=== PATIENT | female | born 1955 | race Hispanic/Latino ===

== ENCOUNTER 2017-01-12 11:00 | Inpatient (IN) | payer BC ==
--- NOTE | 2017-01-12 11:22 | ED PDOC ---
HPI: Psych/Substance Abuse Time Seen by Provider: 01/12/17 11:12 Chief Complaint (Nursing): Alcohol Ingestion Chief Complaint (Provider): ETOH intoxication History Per: Patient, EMS, Family Additional Complaint(s): Patient 61 year old female with long hx of alcohol abuse, liver cirrhosis, pancreatitis, and several admission in rehab for detox. She presented in ER with hx of weakness in inability to ambulate since yesterday. Pt does have AOB at this time. Pt reports that yesterday she woke up and got out of bed, tried to , and was unable to stand. Pt reports going back to bed however. Pt notes that her sister called the ambulance after she found out she was in bed all day. Pt has full sensation to lower extremities, able to move lower extremities. no complaints of pain Past Medical History Reviewed: Historical Data, Nursing Documentation, Vital Signs Vital Signs: Last Vital Signs Temp 98.1 F 01/12/17 11:03 Pulse 103 H 01/12/17 11:03 Resp 20 01/12/17 11:03 BP 144/94 H 01/12/17 11:03 Pulse Ox 98 01/12/17 11:04 - Medical History PMH: Pancreatitis Denies: HIV, Chronic Kidney Disease, Seizures Other PMH: Cirrhoisis - Family History Family History: States: Unknown Family Hx - Social History Alcohol: > 2 Drinks/Day - Home Medications Home Medications: Ambulatory Orders Medication Instructions Recorded No Known Home Med 01/12/17 - Allergies Allergies/Adverse Reactions: Allergies Allergy/AdvReac Type Severity Reaction Status Date / Time No Known Allergies Allergy Verified 01/12/17 11:04 Review of Systems ROS Statement: Except As Marked, All Systems Reviewed And Found Negative Constitutional: Positive for: Weakness Physical Exam - Reviewed Nursing Documentation Reviewed: Yes Vital Signs Reviewed: Yes - Physical Exam Appears: Positive for: Well, Non-toxic, No Acute Distress Head Exam: Positive for: ATRAUMATIC, NORMAL INSPECTION, NORMOCEPHALIC Skin: Positive for: Warm, Jaundice Eye Exam: Positive for: EOMI, PERRL, Scleral icterus ENT: Positive for: Normal ENT Inspection Neck: Positive for: Normal, Painless ROM Cardiovascular/Chest: Positive for: Regular Rate, Rhythm Respiratory: Positive for: CNT, Normal Breath Sounds Gastrointestinal/Abdominal: Positive for: Normal Exam, Bowel Sounds, Soft Back: Positive for: Normal Inspection Extremity: Positive for: Normal ROM Neurologic/Psych: Positive for: Alert, Oriented - Laboratory Results Result Diagrams: 01/12/17 11:30 01/12/17 11:30 - ECG O2 Sat by Pulse Oximetry: 98 Medical Decision Making Medical Decision Making: IV access established and diagnostics ordered. Treatment initiated with IV Rocephin and IVF after Labs resulted with elevated WBC and Lactate. UA resulted with elevated WBCs Repeat Lactate to be drawn at 18:30 ETOH 196 CXR: NAD, as read by PA-C IMPRESSION: Generalized atrophy. Nonspecific white matter changes. Small region of encephalomalacia within the left cerebellum. Case discussed with Dr. chapa who reports that he is away at this time, hospitalist covering. Dr. brar contacted and presented to see and evaluate Pt at bedside. arrangements made for admission Disposition - Clinical Impression Clinical Impression: Alcohol abuse, Severe sepsis - Patient ED Disposition Is Patient to be Admitted: Yes - Disposition Disposition Time: 17:03 Condition: STABLE Forms: [facility] (Nepali) - POA Present On Arrival: None
[2017-01-12 11:55] LABS: BASO # 0.1 K/uL (0.0-0.2); BASO % 0.6 % (0.0-2.0); EOS # 0.2 K/uL (0.0-0.7); EOS % 1.3 % (0.0-4.0); LYMPH # 1.3 K/uL (1.0-4.3); LYMPH % 7.4 % (20.0-40.0); MEAN CELL VOLUME 117.4 fl (81.0-99.0); MEAN CORPUSCULAR HEMOGLOBIN 39.6 pg (27.0-31.0); MEAN CORPUSCULAR HGB CONC 33.7 g/dL (33.0-37.0); MEAN PLATELET VOLUME 9.1 fl (7.2-11.7); MONO # 1.1 K/uL (0.0-0.8); MONO % 6.4 % (0.0-10.0); NEUT # 14.8 K/uL (1.8-7.0); NEUT % 84.3 % (50.0-75.0); NRBC % 0.3 % (0.0-0.0); PLATELET COUNT 115 K/uL (130-400); WHITE BLOOD COUNT 17.5 K/uL (4.8-10.8)
[2017-01-12 11:56] LABS: ALB/GLOB RATIO 0.8 (1.0-2.1); ALCOHOL SERUM 196 mg/dl (0-10); ALKALINE PHOSPHATASE 247 U/L (38-126); ALT/SGPT 70 U/L (9-52); AST/SGOT 151 U/L (14-36); BILIRUBIN,TOTAL 14.6 mg/dl (0.2-1.3); BLOOD UREA NITROGEN 16 mg/dl (7-17); CALCIUM 8.2 mg/dL (8.4-10.2); CARBON DIOXIDE 24 mmol/L (22-30); CHLORIDE 100 mmol/L (98-107); GFR AFRICAN-AMERICAN > 60; GLUCOSE,RANDOM 106 mg/dL (65-105); POTASSIUM 3.4 MMOL/L (3.6-5.0); SODIUM 135 mmol/l (132-148); TOTAL PROTEIN 6.6 G/DL (6.3-8.2)
[2017-01-12 12:47] LABS: RBC URINE 8 /hpf (0-3); RENAL EPITHELIAL 3 /hpf (0-3); URINE BACTERIA RARE (<OCC); URINE BILIRUBIN MODERATE (NEGATIVE); URINE BLOOD LARGE (NEGATIVE); URINE COLOR AMBER (YELLOW); URINE GLUCOSE (UA) 50 mg/dL (Normal); URINE KETONE NEGATIVE (NEGATIVE); URINE LEUKOCYTE ESTERASE NEG Leu/uL (Negative); URINE PROTEIN 30 mg/dL (NEGATIVE); WBC CLUMPS MOD /hpf; WBC URINE 25 /hpf (0-5)
[2017-01-12 13:26] LABS: EOSINOPHIL 3 % (0-7); NEUTROPHIL 87 % (42-75); TOTAL CELLS COUNTED 100
[2017-01-12 13:27] LABS: LARGE PLATELETS PRESENT
[2017-01-12] MEDS ORDERED: Thiamine 100 mg/ml Inj IM ONE (15:13)
[2017-01-12] MEDS ORDERED: Sodium Chloride 0.9% 1,000 ML IV STA ×2 (15:13→16:27)
[2017-01-12] MEDS ORDERED: Thiamine 100 mg/ml Inj ONE (15:33)
[2017-01-12] MEDS ORDERED: cefTRIAXone (Rocephin) 1 gm Inj ONE (15:33)
[2017-01-12 15:39] LABS: VENOUS BLOOD GAS BASE EXCESS 2.2 mmol/L (0.0-2.0); VENOUS BLOOD GAS PCO2 34 mmHg (40-60); VENOUS BLOOD PH 7.48 (7.32-7.43)
--- NOTE | 2017-01-12 17:28 | RAD ---
PROCEDURE: CHEST RADIOGRAPH, 1 VIEW HISTORY: Leukocytosis. COMPARISON: 04/25/2016. FINDINGS: LUNGS: Clear. PLEURA: No pneumothorax or pleural fluid seen. CARDIOVASCULAR: No radiographic findings to suggest acute or significant cardiovascular disease. OSSEOUS STRUCTURES: No significant abnormalities. VISUALIZED UPPER ABDOMEN: Normal. OTHER FINDINGS: None. IMPRESSION: No active disease. No acute/significant interval changes.
--- NOTE | 2017-01-12 17:45 | CP.PCM.HP ---
History of Present Illness - History of Present Illness History of Present Illness: Chief Complaint ; Generalized weakness , unable to walk History obtained from patient and As per patient has been feeling more depressed lately due to internal family problems and as a result has been drinking heavily for the past few days non stop, all day . 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 As per patient she has been an alcoholic for many years and drinks heavily . She was feeling so weak that she fell on the floor hitting her knees and was unable to get up.She denies any head trauma, LOC , seizure like episodes. She did sleep on the floor because she could not get up . Her and sister decided to call the EMS against patient's wishes to bring her for evaluation. She is complaining of generalized weakness, bilateral knee pain. Denies any SOB , CP, palpitations,dizziness, abdominal pain , dysuria, fever, chills, nause aor vomiting. In ER she was found to have WBC 17 K , tachycardic , lactic acid 3.5 , Ua cloudy with rare bacteria and WBc clumps. Patient being admitted for sepsis and alcoholism Allergies ; NKDA PMH ' Alcoholism , liver cirrhosis Medications; thiamine, Folic acid Surgery : hysterectomy Family history ; Hypertension runs in family\ Social history ; Lives in [place] with , has no children, smokes 1/2 PPD , drinks heavily sometimes all day , denies any drugs ROS ; 14 point review of system negative except above Present on Admission - Present on Admission Any Indicators Present on Admission: No Review of Systems - Review of Systems All systems: reviewed and no additional remarkable complaints except Past Patient History - Infectious Disease Hx of Infectious Diseases: None - Tetanus Immunizations Tetanus Immunization: Unknown - Past Medical History & Family History Past Medical History?: Yes Past Family History: Reviewed and not pertinent - Past Social History Smoking Status: Heavy Smoker > 10 Cigarettes Daily Chewing Tobacco Use: No Cigar Use: No Alcohol: > 2 Drinks/Day Drugs: Denies Home Situation {Lives}: With Family Domestic Violence: Negative - CARDIAC Hx Cardiac Disorders: No - PULMONARY Hx Respiratory Disorders: No - NEUROLOGICAL Hx Seizures: No - HEENT Hx HEENT Problems: No - RENAL Hx Chronic Kidney Disease: No - ENDOCRINE/METABOLIC Hx Endocrine Disorders: No - HEMATOLOGICAL/ONCOLOGICAL Hx Human Immunodeficiency Virus (HIV): No - INTEGUMENTARY Hx Dermatological Problems: No - MUSCULOSKELETAL/RHEUMATOLOGICAL Hx Musculoskeletal Disorders: No Hx Falls: No - GASTROINTESTINAL Hx Pancreatitis: Yes Other/Comment: liver cirrhosis - GENITOURINARY/GYNECOLOGICAL Hx Genitourinary Disorders: No - PSYCHIATRIC Hx Psychophysiologic Disorder: No Hx Substance Use: No - SURGICAL HISTORY Hx Surgeries: Yes Hx Hysterectomy: Yes - ANESTHESIA Hx Anesthesia: Yes Hx Anesthesia Reactions: No Hx Malignant Hyperthermia: No Meds Allergies/Adverse Reactions: Allergies Allergy/AdvReac Type Severity Reaction Status Date / Time No Known Allergies Allergy Verified 01/12/17 11:04 Physical Exam - Constitutional Appears: Non-toxic, No Acute Distress, Chronically Ill, Other (jaundiced ) - Head Exam Head Exam: ATRAUMATIC, NORMAL INSPECTION, NORMOCEPHALIC - Eye Exam Eye Exam: PERRL, Scleral icterus Pupil Exam: NORMAL ACCOMODATION, PERRL - ENT Exam ENT Exam: Mucous Membranes Dry, Normal Exam - Neck Exam Neck exam: Positive for: Normal Inspection - Respiratory Exam Respiratory Exam: Clear to Auscultation Bilateral. absent: Accessory Muscle Use , Prolonged Expiratory Phase, Rhonchi, Respiratory Distress Additional comments: scattered expiratory wheezing - Cardiovascular Exam Cardiovascular Exam: Tachycardia, +S1, +S2. absent: JVD - GI/Abdominal Exam GI & Abdominal Exam: Normal Bowel Sounds, Soft. absent: Distended, Guarding, Rebound, Tenderness - Rectal Exam Rectal Exam: Deferred - Extremities Exam Extremities exam: Positive for: pedal edema (3 + foot edema ). Negative for: calf tenderness Additional comments: bilateral knees echymosis - Back Exam Back exam: NORMAL INSPECTION - Neurological Exam Neurological exam: Alert, CN II-XII Intact, Oriented x3 - Psychiatric Exam Psychiatric exam: Flat Affect - Skin Skin Exam: Dry, Pallor, Warm Results - Vital Signs Recent Vital Signs: Last Vital Signs Temp 98.1 F 01/12/17 11:03 Pulse 103 H 01/12/17 11:03 Resp 20 01/12/17 11:03 BP 144/94 H 01/12/17 11:03 Pulse Ox 98 01/12/17 17:04 - Labs Result Diagrams: 01/12/17 11:30 01/12/17 11:30 - Imaging and Cardiology Chest x-ray Additional comment: no active disease Assessment & Plan - Assessment and Plan (Free Text) Assessment: As per patient has been feeling more depressed lately due to internal family problems and as a result has been drinking heavily for the past few days non stop, all day . 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 As per patient she has been an alcoholic for many years and drinks heavily . She was feeling so weak that she fell on the floor hitting her knees and was unable to get up.She denies any head trauma, LOC , seizure like episodes. She did sleep on the floor because she could not get up . Her and sister decided to call the EMS against patient's wishes to bring her for evaluation. She is complaining of generalized weakness, bilateral knee pain. Denies any SOB , CP, palpitations,dizziness, abdominal pain , dysuria, fever, chills, nause aor vomiting. In ER she was found to have WBC 17 K , tachycardic , lactic acid 3.5 , UA cloudy with rare bacteria and WBc clumps. Patient being admitted for sepsis and alcoholism 1. Sepsis Most likely secondary to UTI CXR showed no infiltrate Continue IVF Follow up urine and blood cx Continue Iv Rocephin 2.Alcoholism / ETOH intoxication Start IVF with thiamine, folic acid, MVI Ativan RTC TID and PRN Seizure , withdrawal precautions 3. Alcoholic liver cirrhosis / coagulopathy/thrombocytopenia 4. Generalized weakness / fall PT eval check CPK 5. DVT prophylaxis SCD no anticoagulation =due to thrombocytopenia and Coagulopathy
[2017-01-12 18:13] LABS: PARTIAL THROMBOPLASTIN TIME 34.9 Seconds (25.6-37.1)
[2017-01-12 18:40] LABS: VENOUS BLOOD GAS BASE EXCESS -0.2 mmol/L (0.0-2.0); VENOUS BLOOD GAS PCO2 37 mmHg (40-60); VENOUS BLOOD PH 7.42 (7.32-7.43)
[2017-01-12] MEDS ORDERED: Thiamine 100 MG, Folic Acid 1 MG, Multivitamin 10 ML in Sodium Chloride 0.9% 1,000 ML IV SCH (19:30)
[2017-01-12 21:02] LABS: THYROID STIMULATING HORMONE 9.16 mIU/ML (0.46-4.68)
[2017-01-12] MEDS ORDERED: Potassium Chloride 20 mEq ER Tab PO ONE (21:55)
[2017-01-12] MEDS: Potassium Chl 20 mEq in NS 1,000 ML IV SCH (23:28)
[2017-01-13] MEDS: Sodium Chloride 0.9% 1,000 ML IV SCH ×3 (00:59→17:44)
[2017-01-13 06:33] LABS: BASO # 0.1 K/uL (0.0-0.2); BASO % 0.7 % (0.0-2.0); EOS # 0.2 K/uL (0.0-0.7); EOS % 1.7 % (0.0-4.0); HEMATOCRIT 34.2 % (34.0-47.0); LYMPH % 6.7 % (20.0-40.0); MEAN CORPUSCULAR HEMOGLOBIN 40.3 pg (27.0-31.0); MEAN CORPUSCULAR HGB CONC 34.2 g/dL (33.0-37.0); MONO # 0.7 K/uL (0.0-0.8); MONO % 4.6 % (0.0-10.0); NEUT # 12.5 K/uL (1.8-7.0); NEUT % 86.3 % (50.0-75.0); NRBC % 0.5 % (0.0-0.0); RED CELL DISTRIBUTION WIDTH 19.8 % (11.5-14.5); WHITE BLOOD COUNT 14.5 K/uL (4.8-10.8)
[2017-01-13 06:38] LABS: BLOOD UREA NITROGEN 14 mg/dl (7-17); CALCIUM 7.6 mg/dL (8.4-10.2); CARBON DIOXIDE 23 mmol/L (22-30); CHLORIDE 105 mmol/L (98-107); GFR AFRICAN-AMERICAN > 60; GLUCOSE,RANDOM 103 mg/dL (65-105); POTASSIUM 3.9 MMOL/L (3.6-5.0); SODIUM 135 mmol/l (132-148)
[2017-01-13 06:52] LABS: PARTIAL THROMBOPLASTIN TIME 36.8 Seconds (25.6-37.1)
--- NOTE | 2017-01-13 07:33 | CARD ---
APPROVED REPORT EKG Measurement Heart [id number] <Conclusion> Normal sinus rhythm Low voltage QRS Cannot rule out Anterior infarct, age undetermined Abnormal ECG
--- NOTE | 2017-01-13 08:00 | PQF GENQUE ---
This form is a permanent part of the medical record 01/13/17 Dr. Duque, Would you please clarify if there is an associated diagnosis or not to go along with elevated BMI . If yes please document BMI as well. Clarification of your documentation is requested to better reflect the severity of illness and intensity of treatment of your patient. Indicators present [] Specify: [] [] Specify: [] [] Specify: [] [] Specify: [] Location in the medical record that reflects the above clinical findings: [] Treatment Provided: [] PHYSICIAN'S RESPONSE Dx :Obesity BMI 43 Based on your medical judgment of the clinical indicators outlined above please clarify the following: [] Practitioner response [] If unable to determine, please check the box, sign and date. Present On Admission (POA) Indicator: [] Present at the time of admission [] Not present at the time of admission [] Clinically Undetermined In responding to this query, please exercise your independent professional judgment. The fact that a question is asked does not imply that any particular answer is desired or expected. Thank you for your clarification on this documentation. If you have any questions please call:extension [phone] * Thank you, Alondra Cheek RN CDMP [facility]
[2017-01-13] MEDS ORDERED: Enoxaparin 40 mg Syringe SC SCH (09:00)
--- NOTE | 2017-01-13 09:09 | CP.PCM.PN ---
Subjective - Date & Time of Evaluation Date of Evaluation: 01/13/17 Time of Evaluation: 10:00 - Subjective Subjective: Patient seen and examined bedside. Lying in bed , sleepy , lethargic ,in NAD. Feeling weak, tachycardic. Denies any chest pain or SOB Objective - Vital Signs/Intake and Output Vital Signs (last 24 hours): Temp Pulse Resp BP Pulse Ox 98.2 F 118 H 18 112/62 94 L 01/13/17 08:41 01/13/17 08:41 01/13/17 08:41 01/13/17 08:41 01/13/17 08:41 - Medications Medications: Current Medications Docusate Sodium (Colace) 100 mg PO BID PRN PRN Reason: Constipation Enoxaparin Sodium (Lovenox) 40 mg SC DAILY [facility] PRN Reason: Protocol Sodium Chloride (Sodium Chloride 0.9%) 1,000 mls @ 100 mls/hr IV .Q10H [facility] Last Admin: 01/13/17 05:34 Dose: Not Given Ceftriaxone Sodium 1 gm/ (Sodium Chloride) 100 mls @ 100 mls/hr IVPB DAILY [facility] Potassium Chloride/Sodium Chloride (Potassium Chl 20 Meq In Ns) 1,000 mls @ 100 mls/hr IV .Q10H [facility] Stop: 01/13/17 21:55 Last Admin: 01/12/17 23:28 Dose: 100 mls/hr Ibuprofen (Motrin Tab) 400 mg PO Q6 PRN PRN Reason: Pain, Mild (1-3) Ibuprofen (Motrin Tab) 400 mg PO Q6 PRN PRN Reason: Fever >100.4 F Ketorolac Tromethamine (Toradol) 30 mg IVP Q6 PRN PRN Reason: Pain, moderate (4-7) Lorazepam (Ativan) 1 mg PO TID [facility] Lorazepam (Ativan) 1 mg IVP Q6 PRN PRN Reason: withdrawals Morphine Sulfate (Morphine) 2 mg IVP Q6 PRN PRN Reason: Pain, severe (8-10) Ondansetron HCl (Zofran Inj) 4 mg IVP Q6 PRN PRN Reason: Nausea/Vomiting Pantoprazole Sodium (Protonix Ec Tab) 40 mg PO DAILY [facility] - Labs Labs: 01/13/17 06:00 01/13/17 06:00 PT 17.9 Seconds (9.8-13.1) H 01/13/17 06:00 INR 1.7 (0.9-1.2) H 01/13/17 06:00 APTT 36.8 Seconds (25.6-37.1) 01/13/17 06:00 - Constitutional Appears: No Acute Distress, Chronically Ill, Other (lethargic) - Head Exam Head Exam: ATRAUMATIC, NORMOCEPHALIC - Eye Exam Eye Exam: EOMI, PERRL, Scleral icterus Pupil Exam: NORMAL ACCOMODATION - ENT Exam ENT Exam: Mucous Membranes Moist, Normal Exam - Neck Exam Neck Exam: Normal Inspection - Respiratory Exam Respiratory Exam: Clear to Ausculation Bilateral. absent: Accessory Muscle Use , Prolonged Expiratory Phase, Rhonchi, Wheezes, Respiratory Distress - Cardiovascular Exam Cardiovascular Exam: Tachycardia, +S1, +S2. absent: JVD - GI/Abdominal Exam GI & Abdominal Exam: Distended (ascites), Normal Bowel Sounds. absent: Guarding , Tenderness, Rebound - Rectal Exam Rectal Exam: Deferred - Extremities Exam Extremities Exam: Pedal Edema (3 +). absent: Joint Swelling Additional comments: bilateral knees echymotic areas - Neurological Exam Additional comments: lethargic but responsive AAOx3, no gross neuro deficitis - Psychiatric Exam Psychiatric exam: Flat Affect - Skin Skin Exam: Dry, Pallor, Warm Assessment and Plan - Assessment and Plan (Free Text) Assessment: 61 y/o female with PMH of chronic alcoholism and liver cirrhosis, brought in for evaluation for weakness , inability to walk . As per patient has been drinking heavily for the past few days As per patient she has been an alcoholic for many years and drinks heavily . She was feeling so weak that she fell on the floor hitting her knees and was unable to get up.She denies any head trauma, LOC , seizure like episodes. She did sleep on the floor because she could not get up . Her and sister decided to call the EMS against patient's wishes to bring her for evaluation. She is complaining of generalized weakness, bilateral knee pain. Denies any SOB , CP, palpitations,dizziness, abdominal pain , dysuria, fever, chills, nausea or vomiting. In ER she was found to have WBC 17 K , tachycardic , lactic acid 3.5 , UA cloudy with rare bacteria and WBC clumps. Patient being admitted for sepsis and alcoholism 1. Sepsis Most likely secondary to UTI CXR showed no infiltrate Continue IVF Follow up urine and blood cx Continue Iv Rocephin 2.Alcoholism / ETOH intoxication Continue IVF with thiamine, folic acid, MVI Ativan RTC TID and PRN Seizure , withdrawal precautions Will check ammonia levels since patient is lethargic 3. Alcoholic liver cirrhosis / coagulopathy/thrombocytopenia 4. Generalized weakness / fall PT eval CPK 195 5. DVT prophylaxis SCD no anticoagulation due to thrombocytopenia and Coagulopathy
[2017-01-13] MEDS: Pantoprazole 40 mg EC Tab PO SCH (10:18)
[2017-01-13] MEDS ORDERED: Lactulose 10 gm/15 ml (Rectal Use) PR ONE (16:59)
[2017-01-13] MEDS: Potassium Chl 20 mEq in NS 1,000 ML IV SCH ×2 (17:44→17:47)
[2017-01-14] MEDS: Sodium Chloride 0.9% 1,000 ML IV SCH ×3 (02:00→12:42)
[2017-01-14 07:38] LABS: HEMATOCRIT 35.1 % (34.0-47.0); MEAN CORPUSCULAR HEMOGLOBIN 40.6 pg (27.0-31.0); MEAN CORPUSCULAR HGB CONC 33.6 g/dL (33.0-37.0); RED CELL DISTRIBUTION WIDTH 21.2 % (11.5-14.5); WHITE BLOOD COUNT 15.3 K/uL (4.8-10.8)
[2017-01-14 07:40] LABS: BLOOD UREA NITROGEN 16 mg/dl (7-17); CALCIUM 7.7 mg/dL (8.4-10.2); CARBON DIOXIDE 23 mmol/L (22-30); CHLORIDE 107 mmol/L (98-107); GFR AFRICAN-AMERICAN > 60; GLUCOSE,RANDOM 82 mg/dL (65-105); POTASSIUM 4.3 MMOL/L (3.6-5.0); SODIUM 138 mmol/l (132-148)
[2017-01-14 07:47] LABS: MEAN CELL VOLUME 120.8 fl (81.0-99.0)
[2017-01-14 09:07] LABS: ALB/GLOB RATIO 0.7 (1.0-2.1); BILIRUBIN,TOTAL 17.7 mg/dl (0.2-1.3)
[2017-01-14 09:24] LABS: T4 6.08 ug/dl (5.5-11.0)
[2017-01-14 09:38] LABS: THYROID STIMULATING HORMONE 9.32 mIU/ML (0.46-4.68)
[2017-01-14] MEDS: Pantoprazole 40 mg EC Tab PO SCH (09:51)
--- NOTE | 2017-01-14 10:46 | CP.PCM.PN ---
Subjective - Date & Time of Evaluation Date of Evaluation: 01/14/17 Time of Evaluation: 10:30 - Subjective Subjective: Pt seen and examined. Denied any complaint but appeared lethargic and appeared SOB. RR was 24 but with some effort. Objective - Vital Signs/Intake and Output Vital Signs (last 24 hours): Temp Pulse Resp BP Pulse Ox 98.7 F 106 H 20 127/71 95 01/14/17 08:00 01/14/17 08:00 01/14/17 08:00 01/14/17 08:00 01/14/17 08:00 Intake and Output: 01/14/17 01/14/17 06:59 18:59 Intake Total 1000 Balance 1000 - Medications Medications: Current Medications Docusate Sodium (Colace) 100 mg PO BID PRN PRN Reason: Constipation Enoxaparin Sodium (Lovenox) 40 mg SC DAILY [facility] PRN Reason: Protocol Last Admin: 01/13/17 10:18 Dose: 40 mg Sodium Chloride (Sodium Chloride 0.9%) 1,000 mls @ 100 mls/hr IV .Q10H [facility] Last Admin: 01/14/17 06:03 Dose: 100 mls/hr Ceftriaxone Sodium 1 gm/ (Sodium Chloride) 100 mls @ 100 mls/hr IVPB DAILY [facility] Last Admin: 01/14/17 09:51 Dose: 100 mls/hr Ibuprofen (Motrin Tab) 400 mg PO Q6 PRN PRN Reason: Pain, Mild (1-3) Ibuprofen (Motrin Tab) 400 mg PO Q6 PRN PRN Reason: Fever >100.4 F Ketorolac Tromethamine (Toradol) 30 mg IVP Q6 PRN PRN Reason: Pain, moderate (4-7) Lactulose (Enulose) 20 gm PO DAILY PRN PRN Reason: Constipation Last Admin: 01/14/17 09:51 Dose: 20 gm Lorazepam (Ativan) 1 mg PO TID [facility] Last Admin: 01/14/17 09:52 Dose: Not Given Lorazepam (Ativan) 1 mg IVP Q6 PRN PRN Reason: withdrawals Morphine Sulfate (Morphine) 2 mg IVP Q6 PRN PRN Reason: Pain, severe (8-10) Ondansetron HCl (Zofran Inj) 4 mg IVP Q6 PRN PRN Reason: Nausea/Vomiting Pantoprazole Sodium (Protonix Ec Tab) 40 mg PO DAILY [facility] Last Admin: 01/14/17 09:51 Dose: 40 mg - Labs Labs: 01/14/17 06:00 01/14/17 06:00 PT 17.9 Seconds (9.8-13.1) H 01/13/17 06:00 INR 1.7 (0.9-1.2) H 01/13/17 06:00 APTT 36.8 Seconds (25.6-37.1) 01/13/17 06:00 - Constitutional Appears: Other (lethargic) - Head Exam Head Exam: ATRAUMATIC - Eye Exam Eye Exam: Scleral icterus - ENT Exam ENT Exam: Mucous Membranes Dry - Neck Exam Neck Exam: absent: Meningismus - Respiratory Exam Respiratory Exam: absent: Rhonchi, Wheezes - Cardiovascular Exam Cardiovascular Exam: Tachycardia, +S1, +S2 - GI/Abdominal Exam GI & Abdominal Exam: Soft. absent: Tenderness - Rectal Exam Rectal Exam: Deferred - Extremities Exam Extremities Exam: Pedal Edema (+ pedal edema) - Neurological Exam Neurological Exam: Altered (lethargic) - Skin Skin Exam: Dry Assessment and Plan - Assessment and Plan (Free Text) Assessment: 61 yo female with history of chronic alcoholism and liver cirrhosis found unable to get up after a fall because of generalized weakness. Admitted with Sepsis secondary to UTI 1. Sepsis secondary to UTI CXR showed no infiltrate follow up blood culture and urine culture continue Rocephin 1gm IV daily 2. Alcoholism / ETOH intoxication blood alcohol level on admission was 196 Continue Thiamine, Folic Acid, MVI DC Ativan RTC since patient is lethargic continue Ativan 1mg IVP q 6hrs prn for withdrawal symptoms Seizure, withdrawal precautions Will recheck ammonia levels since it was elevated and patient continue to be lethargic 3. Alcoholic liver cirrhosis / coagulopathy/thrombocytopenia follow up serum ammonia level continue Lactulose 20gm PO daily 4. Generalized weakness / fall secondary to all of the above 5. DVT prophylaxis SCD no anticoagulation due to thrombocytopenia and Coagulopathy
[2017-01-14 11:04] LABS: ABG ALLEN TEST YES; ARTERIAL BLOOD GAS O2 CAPACITY 16.4 mL/dL (16-24); ARTERIAL BLOOD GAS O2 CONTENT 16.2 ML/dL (15-23); ARTERIAL BLOOD GAS PH 7.46 (7.35-7.45); ARTERIAL BLOOD GAS PO2 77 mm/Hg (80-100); ARTERIAL BLOOD HGB O2 SAT 94.7 % (95.0-98.0); CARBOXYHEMOGLOBIN 2.6 % (0.5-1.5); HHB 1.1 % (0.0-5.0); METHEMOGLOBIN 1.5 % (0.0-3.0)
[2017-01-15] MEDS: Sodium Chloride 0.9% 1,000 ML IV SCH ×2 (08:38→19:34)
[2017-01-15] MEDS: Pantoprazole 40 mg EC Tab PO SCH (08:39)
--- NOTE | 2017-01-15 11:29 | CP.PCM.PN ---
Subjective - Date & Time of Evaluation Date of Evaluation: 01/15/17 Time of Evaluation: 11:00 - Subjective Subjective: Pt seen and examined. Appeared better and admitted feeling better. Continue to sleep a lot Objective - Vital Signs/Intake and Output Vital Signs (last 24 hours): Temp Pulse Resp BP Pulse Ox 98.1 F 103 H 18 122/77 97 01/15/17 09:00 01/15/17 09:00 01/15/17 09:00 01/15/17 09:00 01/15/17 09:00 - Medications Medications: Current Medications Docusate Sodium (Colace) 100 mg PO BID PRN PRN Reason: Constipation Sodium Chloride (Sodium Chloride 0.9%) 1,000 mls @ 100 mls/hr IV .Q10H [facility] Last Admin: 01/15/17 08:38 Dose: 100 mls/hr Ceftriaxone Sodium 1 gm/ (Sodium Chloride) 100 mls @ 100 mls/hr IVPB DAILY [facility] Last Admin: 01/15/17 08:38 Dose: 100 mls/hr Ibuprofen (Motrin Tab) 400 mg PO Q6 PRN PRN Reason: Pain, Mild (1-3) Ibuprofen (Motrin Tab) 400 mg PO Q6 PRN PRN Reason: Fever >100.4 F Ketorolac Tromethamine (Toradol) 30 mg IVP Q6 PRN PRN Reason: Pain, moderate (4-7) Lactulose (Enulose) 20 gm PO DAILY PRN PRN Reason: Constipation Last Admin: 01/14/17 09:51 Dose: 20 gm Levothyroxine Sodium (Synthroid) 50 mcg PO DAILY@0630 [facility] Lorazepam (Ativan) 1 mg PO TID [facility] Last Admin: 01/15/17 08:47 Dose: 1 mg Lorazepam (Ativan) 1 mg IVP Q6 PRN PRN Reason: withdrawals Morphine Sulfate (Morphine) 2 mg IVP Q6 PRN PRN Reason: Pain, severe (8-10) Ondansetron HCl (Zofran Inj) 4 mg IVP Q6 PRN PRN Reason: Nausea/Vomiting Pantoprazole Sodium (Protonix Ec Tab) 40 mg PO DAILY [facility] Last Admin: 01/15/17 08:39 Dose: 40 mg - Labs Labs: 01/14/17 06:00 01/14/17 06:00 PT 17.9 Seconds (9.8-13.1) H 01/13/17 06:00 INR 1.7 (0.9-1.2) H 01/13/17 06:00 APTT 36.8 Seconds (25.6-37.1) 01/13/17 06:00 - Constitutional Appears: No Acute Distress - Head Exam Head Exam: ATRAUMATIC - Eye Exam Eye Exam: Scleral icterus - ENT Exam ENT Exam: Mucous Membranes Moist - Neck Exam Neck Exam: absent: Meningismus - Respiratory Exam Respiratory Exam: absent: Rhonchi, Wheezes, Respiratory Distress - Cardiovascular Exam Cardiovascular Exam: REGULAR RHYTHM, +S1, +S2 - GI/Abdominal Exam GI & Abdominal Exam: Soft. absent: Tenderness - Rectal Exam Rectal Exam: Deferred - Neurological Exam Neurological Exam: Alert - Psychiatric Exam Psychiatric exam: Normal Affect - Skin Skin Exam: Dry, Intact Assessment and Plan - Assessment and Plan (Free Text) Assessment: 61 yo female with history of chronic alcoholism and liver cirrhosis found unable to get up after a fall because of generalized weakness. Admitted with Sepsis secondary to UTI 1. Sepsis secondary to UTI CXR showed no infiltrate blood culture and urine culture: no growth continue Rocephin 1gm IV daily 2. Alcoholism / ETOH intoxication blood alcohol level on admission was 196 Continue Thiamine, Folic Acid, MVI DC Ativan RTC since patient is lethargic Ativan 1mg IVP q 6hrs prn for agitation Seizure, withdrawal precautions ammonia level dropped down to normal level: 50 from previously high level of 90 patient appeared more alert 3. Alcoholic liver cirrhosis / coagulopathy/thrombocytopenia continue Lactulose 20gm PO daily 4. Generalized weakness / fall secondary to all of the above PT evaluation and management 5. DVT prophylaxis SCD avoid anticoagulation due to thrombocytopenia and Coagulopathy
[2017-01-16 06:39] LABS: HEMATOCRIT 36.9 % (34.0-47.0); MEAN CELL VOLUME 122.3 fl (81.0-99.0); MEAN CORPUSCULAR HGB CONC 34.4 g/dL (33.0-37.0); RED CELL DISTRIBUTION WIDTH 22.7 % (11.5-14.5); WHITE BLOOD COUNT 14.6 K/uL (4.8-10.8)
[2017-01-16] MEDS: Levothyroxine 50 MCG TAB PO SCH (06:42)
[2017-01-16 06:51] LABS: ALB/GLOB RATIO 0.7 (1.0-2.1); ALKALINE PHOSPHATASE 235 U/L (38-126); ALT/SGPT 64 U/L (9-52); AST/SGOT 122 U/L (14-36); BILIRUBIN,TOTAL 21.5 mg/dl (0.2-1.3); BLOOD UREA NITROGEN 16 mg/dl (7-17); CALCIUM 7.7 mg/dL (8.4-10.2); CARBON DIOXIDE 20 mmol/L (22-30); CHLORIDE 109 mmol/L (98-107); GFR AFRICAN-AMERICAN > 60; GLUCOSE,RANDOM 96 mg/dL (65-105); POTASSIUM 4.3 MMOL/L (3.6-5.0); SODIUM 138 mmol/l (132-148); TOTAL PROTEIN 6.3 G/DL (6.3-8.2)
[2017-01-16] MEDS: Pantoprazole 40 mg EC Tab PO SCH (08:27)
--- NOTE | 2017-01-16 11:36 | CT ---
PROCEDURE: CT HEAD WITHOUT CONTRAST. HISTORY: lethargy , incontinence with bowel and urine COMPARISON: Noncontrast head performed 04/25/16 TECHNIQUE: Axial computed tomography images were obtained through the head/brain without intravenous contrast. Radiation dose: Total exam DLP = 1275.99 mGy-cm. This CT exam was performed using one or more of the following dose reduction techniques: Automated exposure control, adjustment of the mA and/or kV according to patient size, and/or use of iterative reconstruction technique. FINDINGS: HEMORRHAGE: No intracranial hemorrhage. BRAIN: Diffuse atrophy with prominence of the ventricles and sulci noted. No mass effect or edema. Scattered periventricular and subcortical white matter hypodensities, which are nonspecific, but often seen with chronic microvascular ischemic disease. Please note that MRI with diffusion imaging is more sensitive in the detection of acute ischemic event. VENTRICLES: No hydrocephalus. CALVARIUM: Unremarkable. PARANASAL SINUSES: Unremarkable as visualized. No significant inflammatory changes. MASTOID AIR CELLS: Unremarkable as visualized. No inflammatory changes. OTHER FINDINGS: Partial opacification bilateral external auditory canals, likely cerumen. IMPRESSION: Generalized atrophy. Nonspecific white matter changes.
--- NOTE | 2017-01-16 11:49 | CT ---
PROCEDURE: CT Cervical Spine without contrast HISTORY: Fall evaluate for fracture. COMPARISON: None available. TECHNIQUE: Axial computed tomography images were obtained of the cervical spine without the use of intravenous contrast. Coronal and sagittal reformatted images were created and reviewed. Radiation dose: Total exam DLP = 719.3 cell mGy-cm. This CT exam was performed using one or more of the following dose reduction techniques: Automated exposure control, adjustment of the mA and/or kV according to patient size, and/or use of iterative reconstruction technique. FINDINGS: VERTEBRAE: No fracture. [id number] kyphosis seen. No evidence of subluxation. . No destructive bony lesion. DISCS/SPINAL CANAL/NEURAL FORAMINA: Advanced degenerative changes more prominent at C5-C6 and C6-C7. Narrowing of the intervertebral disc is space at C5-C6 and C6-C7. PARASPINAL SOFT TISSUES: Unremarkable. OTHER FINDINGS: None. IMPRESSION: No CT evidence of acute fracture or acute subluxation. Spondylosis and degenerative disc changes more prominent at C5-C6 and C6-C7.
--- NOTE | 2017-01-16 12:06 | CP.PCM.PN ---
Subjective - Date & Time of Evaluation Date of Evaluation: 01/16/17 Time of Evaluation: 01:30 - Subjective Subjective: Pt seen and evaluated at bedside; returned from CT scan ordered this morning. Patient sleepy, lethargic, but arousable. Denies pain, discomfort, no signs of withdrawal. Pt is tachycardic, and has been afebrile >24hrs. Objective - Vital Signs/Intake and Output Vital Signs (last 24 hours): Temp Pulse Resp BP Pulse Ox 98.5 F 110 H 20 134/65 94 L 01/16/17 08:08 01/16/17 09:00 01/16/17 08:08 01/16/17 08:08 01/16/17 08:08 - Medications Medications: Current Medications Docusate Sodium (Colace) 100 mg PO BID PRN PRN Reason: Constipation Sodium Chloride (Sodium Chloride 0.9%) 1,000 mls @ 100 mls/hr IV .Q10H [facility] Last Admin: 01/15/17 19:34 Dose: 100 mls/hr Ceftriaxone Sodium 1 gm/ (Sodium Chloride) 100 mls @ 100 mls/hr IVPB DAILY [facility] Last Admin: 01/16/17 08:27 Dose: 100 mls/hr Ibuprofen (Motrin Tab) 400 mg PO Q6 PRN PRN Reason: Pain, Mild (1-3) Ibuprofen (Motrin Tab) 400 mg PO Q6 PRN PRN Reason: Fever >100.4 F Ketorolac Tromethamine (Toradol) 30 mg IVP Q6 PRN PRN Reason: Pain, moderate (4-7) Lactulose (Enulose) 20 gm PO DAILY PRN PRN Reason: Constipation Last Admin: 01/14/17 09:51 Dose: 20 gm Levothyroxine Sodium (Synthroid) 50 mcg PO DAILY@0630 [facility] Last Admin: 01/16/17 06:42 Dose: 50 mcg Lorazepam (Ativan) 1 mg IVP Q6 PRN PRN Reason: withdrawals Morphine Sulfate (Morphine) 2 mg IVP Q6 PRN PRN Reason: Pain, severe (8-10) Nicotine (Nicoderm Cq) 1 patch TD DAILY [facility] Last Admin: 01/16/17 08:27 Dose: 1 patch Nystatin (Nystop Topical Powder) 1 applic TOP TID [facility] Ondansetron HCl (Zofran Inj) 4 mg IVP Q6 PRN PRN Reason: Nausea/Vomiting Pantoprazole Sodium (Protonix Ec Tab) 40 mg PO DAILY [facility] Last Admin: 01/16/17 08:27 Dose: 40 mg - Labs Labs: 01/16/17 05:40 01/16/17 05:40 PT 17.9 Seconds (9.8-13.1) H 01/13/17 06:00 INR 1.7 (0.9-1.2) H 01/13/17 06:00 APTT 36.8 Seconds (25.6-37.1) 01/13/17 06:00 - Constitutional Appears: No Acute Distress - Head Exam Head Exam: NORMAL INSPECTION - Eye Exam Eye Exam: EOMI, PERRL Additional comments: scleral icterus - ENT Exam ENT Exam: Mucous Membranes Moist - Respiratory Exam Respiratory Exam: Clear to Ausculation Bilateral. absent: Wheezes, Respiratory Distress - Cardiovascular Exam Cardiovascular Exam: REGULAR RHYTHM, +S1, +S2 - GI/Abdominal Exam GI & Abdominal Exam: Soft, Normal Bowel Sounds - Extremities Exam Extremities Exam: Normal Inspection - Skin Skin Exam: Dry, Intact, Warm Additional comments: jaundiced Assessment and Plan - Assessment and Plan (Free Text) Assessment: 61 yo F with PMH chronic alcoholism and liver cirrhosis, found unable to get up after a fall due to generalized weakness. Originally thought to be septic from UTI, still lethargic. Plan: 1. Elevated white count, reactive vs infectious cause -WBC trending down but still elevated (from 17.5 on admission to 14.6 today) -CXR showed no infiltrate -blood culture and urine culture: no growth -continue Rocephin 1gm IV daily 2. Alcoholism / ETOH intoxication-blood alcohol level on admission was 196 -B12 > 1000 -ativan RTC d/c because patient was too lethargic/sleepy -ativan 1mg IVP q 6hrs prn for agitation -withdrawal precautions -ammonia level dropped down to normal level: 50 from previously high level of 90 -repeat ammonia level 3. Alcoholic liver cirrhosis with coagulopathy, thrombocytopenia and metabolic encephalopathy -continue Lactulose 20gm PO PRN -CT showed ascites; paracentesis ordered -f/u fluid analysis, culture, cytology, cell count, protein 4. Generalized weakness / fall -secondary to alcoholism, cirrhosis -PT evaluation and management 5. Hypothyroidism -TSH 9.16 -levothyroxine 50mcg 6. Incontinence -CT head: diffuse generalized atrophy. -CT cervical spine: no evidence of acute fracture or sublaxation. Spondylosis and degenerative disk changes more prominent at C5-C6 and C6-C7. -CT thoracic spine: no evidence of acute fracture or sublaxation. Ascites. -CT lumbar spine:no evidence of acute fracture or sublaxation. Small disk bulging at L4-L5 and L5-S1 associated w/ posterior ligament and facet joint hypertrophy, resulting in mild spinal stenosis. Ascites. 7. Fungal rash -rash under breasts -nystatin powder 8. DVT prophylaxis -SCD -avoid anticoagulation due to thrombocytopenia and coagulopathy
--- NOTE | 2017-01-16 12:32 | CT ---
PROCEDURE: CT Thoracic Spine without contrast HISTORY: lethargy , incontinence with bowel and urine Status post fall COMPARISON: None. TECHNIQUE: Axial computed tomography images were obtained of the thoracic spine without intravenous contrast. Coronal and sagittal reformatted images were created and reviewed. Radiation dose: Total exam DLP = 1544.09 mGy-cm. This CT exam was performed using one or more of the following dose reduction techniques: Automated exposure control, adjustment of the mA and/or kV according to patient size, and/or use of iterative reconstruction technique. FINDINGS: VERTEBRAE: Unremarkable. No fracture. Normal alignment. DISCS/SPINAL CANAL/NEURAL FORAMINA: Within the limits of the CT technique, no disc herniation seen. No central canal or neural foraminal stenosis.. Mild degenerative changes/spondylosis seen more prominent at the lower thoracic spine. PARASPINAL SOFT TISSUES: There is a trace right pleural effusion. Small linear opacity seen at the lung bases likely atelectasis. The scan through the upper abdomen demonstrate ascites and diffuse low-attenuation of the liver.. OTHER FINDINGS: Unremarkable. IMPRESSION: No evidence of acute fracture or subluxation at the thoracic spine. Ascites in the abdomen of uncertain etiology.
--- NOTE | 2017-01-16 12:57 | CT ---
PROCEDURE: CT Lumbar Spine without contrast HISTORY: lethargy , incontinence with bowel and urine, status post fall COMPARISON: None. TECHNIQUE: Axial computed tomography images were obtained of the lumbar spine without the use of intravenous contrast. Coronal and sagittal reformatted images were created and reviewed. Radiation dose: Total exam DLP = 1776.4 mGy-cm. This CT exam was performed using one or more of the following dose reduction techniques: Automated exposure control, adjustment of the mA and/or kV according to patient size, and/or use of iterative reconstruction technique. FINDINGS: VERTEBRAE: Unremarkable. No fracture. Normal alignment. DISCS/SPINAL CANAL/NEURAL FORAMINA: L1-2: Unremarkable. L2-3: Unremarkable. L3-4: Unremarkable. L4-5: Small disc bulging seen associated with posterior ligament and facet joint hypertrophy which resulting in mild spinal stenosis. L5-S1: Mild approximately 2 millimeter anterior spondylolisthesis of L5 relative to S1. Small disc bulging seen at L5-S1 associated with posterior ligament and facet joint hypertrophy which resulting in mild spinal and left neural foraminal narrowing PARASPINAL SOFT TISSUES: There is ascites in the abdomen and pelvis. The visualized portion of the liver demonstrate diffuse low attenuation. OTHER FINDINGS: None. IMPRESSION: No evidence of acute fracture or subluxation. Mild grade 1 anterior spondylolisthesis of L5 relative to S1. Small disc bulging at L4-L5 and L5-S1 associated with posterior ligament and facet joint hypertrophy which resulting in mild spinal stenosis. Ascites.
[2017-01-16] MEDS: Sodium Chloride 0.9% 1,000 ML IV SCH ×2 (13:30→23:55)
[2017-01-16 17:43] LABS: FOLATE 2.4 ng/mL
[2017-01-17] MEDS ORDERED: Chlorhexidine Gluconate 1 APPL/PKT TP ONE (02:02)
[2017-01-17] MEDS: Levothyroxine 50 MCG TAB PO SCH ×2 (06:14→09:02)
[2017-01-17] MEDS: Pantoprazole 40 mg EC Tab PO SCH (09:01)
[2017-01-17] MEDS: Sodium Chloride 0.9% 1,000 ML IV SCH (09:04)
--- NOTE | 2017-01-17 11:19 | CP.PCM.PN ---
<Caren Covingtona - Last Filed: 01/17/17 15:27> Subjective - Date & Time of Evaluation Date of Evaluation: 01/17/17 Time of Evaluation: 09:15 - Subjective Subjective: Pt seen and evaluated at bedside, still sleepy/lethargic but arousable, remains tachycardic and afebrile. Denies pain, discomfort, no signs of withdrawal. Plan for paracentesis tomorrow. Objective - Vital Signs/Intake and Output Vital Signs (last 24 hours): Temp Pulse Resp BP Pulse Ox 99.4 F 108 H 20 112/62 94 L 01/17/17 08:53 01/17/17 08:53 01/17/17 08:53 01/17/17 08:53 01/17/17 08:53 - Medications Medications: Current Medications Docusate Sodium (Colace) 100 mg PO BID PRN PRN Reason: Constipation Sodium Chloride (Sodium Chloride 0.9%) 1,000 mls @ 100 mls/hr IV .Q10H [facility] Last Admin: 01/17/17 09:04 Dose: 100 mls/hr Ceftriaxone Sodium 1 gm/ (Sodium Chloride) 100 mls @ 100 mls/hr IVPB DAILY [facility] Last Admin: 01/17/17 09:02 Dose: 100 mls/hr Ibuprofen (Motrin Tab) 400 mg PO Q6 PRN PRN Reason: Pain, Mild (1-3) Ibuprofen (Motrin Tab) 400 mg PO Q6 PRN PRN Reason: Fever >100.4 F Ketorolac Tromethamine (Toradol) 30 mg IVP Q6 PRN PRN Reason: Pain, moderate (4-7) Lactulose (Enulose) 20 gm PO DAILY PRN PRN Reason: Constipation Last Admin: 01/14/17 09:51 Dose: 20 gm Levothyroxine Sodium (Synthroid) 50 mcg PO DAILY@0630 [facility] Last Admin: 01/17/17 09:02 Dose: 50 mcg Lorazepam (Ativan) 1 mg IVP Q6 PRN PRN Reason: withdrawals Last Admin: 01/16/17 21:07 Dose: 1 mg Morphine Sulfate (Morphine) 2 mg IVP Q6 PRN PRN Reason: Pain, severe (8-10) Nicotine (Nicoderm Cq) 1 patch TD DAILY [facility] Last Admin: 01/17/17 08:58 Dose: 1 patch Nystatin (Nystop Topical Powder) 1 applic TOP TID [facility] Last Admin: 01/17/17 09:01 Dose: 1 applic Ondansetron HCl (Zofran Inj) 4 mg IVP Q6 PRN PRN Reason: Nausea/Vomiting Pantoprazole Sodium (Protonix Ec Tab) 40 mg PO DAILY [facility] Last Admin: 01/17/17 09:01 Dose: 40 mg - Labs Labs: 01/16/17 05:40 01/16/17 05:40 PT 20.9 Seconds (9.8-13.1) H 01/17/17 08:45 INR 2.0 (0.9-1.2) H 01/17/17 08:45 APTT 36.8 Seconds (25.6-37.1) 01/13/17 06:00 - Constitutional Appears: No Acute Distress - Head Exam Head Exam: NORMAL INSPECTION - Eye Exam Eye Exam: EOMI Additional comments: scleral icterus - ENT Exam ENT Exam: Mucous Membranes Moist - Respiratory Exam Respiratory Exam: Clear to Ausculation Bilateral - Cardiovascular Exam Cardiovascular Exam: REGULAR RHYTHM, +S1, +S2 - GI/Abdominal Exam GI & Abdominal Exam: Soft, Normal Bowel Sounds. absent: Tenderness - Skin Skin Exam: Dry, Warm Additional comments: jaundiced Assessment and Plan - Assessment and Plan (Free Text) Assessment: 61 yo F with PMH chronic alcoholism and liver cirrhosis, found unable to get up after a fall due to generalized weakness. Originally thought to be septic from UTI, likely has metabolic encephalopathy, still lethargic Plan: 1. Elevated white count, reactive vs infectious cause -WBC trending down but still elevated -CXR showed no infiltrate -blood culture and urine culture: no growth -continue Rocephin 1gm IV daily 2. Alcoholism / ETOH intoxication -blood alcohol level on admission was 196 -B12 > 1000 -ativan RTC d/c because patient was too lethargic/sleepy -ativan 1mg IVP q 6hrs prn for agitation -withdrawal precautions -elevated ammonia level; continue lactulose 3. Alcoholic liver cirrhosis with coagulopathy, thrombocytopenia and metabolic encephalopathy -continue Lactulose 20gm PO PRN -CT showed ascites; paracentesis ordered -f/u fluid analysis, culture, cytology, cell count, protein 4. Generalized weakness / fall -secondary to alcoholism, cirrhosis -PT evaluation and management 5. Hypothyroidism -TSH 9.16 -levothyroxine 50mcg 6. Incontinence -CT head: diffuse generalized atrophy. -CT cervical spine: no evidence of acute fracture or sublaxation. Spondylosis and degenerative disk changes more prominent at C5-C6 and C6-C7. -CT thoracic spine: no evidence of acute fracture or sublaxation. Ascites. -CT lumbar spine:no evidence of acute fracture or sublaxation. Small disk bulging at L4-L5 and L5-S1 associated w/ posterior ligament and facet joint hypertrophy, resulting in mild spinal stenosis. Ascites. 7. Fungal rash -rash under breasts -nystatin cream 8. DVT prophylaxis -SCD -avoid anticoagulation due to thrombocytopenia and coagulopathy <Aylin Batres - Last Filed: 01/17/17 19:01> Objective - Vital Signs/Intake and Output Vital Signs (last 24 hours): Temp Pulse Resp BP Pulse Ox 99.1 F 102 H 16 103/63 95 01/17/17 16:34 01/17/17 16:34 01/17/17 16:34 01/17/17 16:34 01/17/17 16:34 - Medications Medications: Current Medications Docusate Sodium (Colace) 100 mg PO BID PRN PRN Reason: Constipation Sodium Chloride (Sodium Chloride 0.9%) 1,000 mls @ 100 mls/hr IV .Q10H [facility] Last Admin: 01/17/17 09:04 Dose: 100 mls/hr Ceftriaxone Sodium 1 gm/ (Sodium Chloride) 100 mls @ 100 mls/hr IVPB DAILY [facility] Last Admin: 01/17/17 09:02 Dose: 100 mls/hr Ibuprofen (Motrin Tab) 400 mg PO Q6 PRN PRN Reason: Pain, Mild (1-3) Ibuprofen (Motrin Tab) 400 mg PO Q6 PRN PRN Reason: Fever >100.4 F Ketorolac Tromethamine (Toradol) 30 mg IVP Q6 PRN PRN Reason: Pain, moderate (4-7) Lactulose (Enulose) 20 gm PO TID [facility] Levothyroxine Sodium (Synthroid) 50 mcg PO DAILY@0630 [facility] Last Admin: 01/17/17 09:02 Dose: 50 mcg Lorazepam (Ativan) 1 mg IVP Q6 PRN PRN Reason: withdrawals Last Admin: 01/16/17 21:07 Dose: 1 mg Morphine Sulfate (Morphine) 2 mg IVP Q6 PRN PRN Reason: Pain, severe (8-10) Nicotine (Nicoderm Cq) 1 patch TD DAILY [facility] Last Admin: 01/17/17 08:58 Dose: 1 patch Nystatin (Nystop Topical Powder) 1 applic TOP TID [facility] Last Admin: 01/17/17 16:13 Dose: 1 applic Ondansetron HCl (Zofran Inj) 4 mg IVP Q6 PRN PRN Reason: Nausea/Vomiting Pantoprazole Sodium (Protonix Ec Tab) 40 mg PO DAILY [facility] Last Admin: 01/17/17 09:01 Dose: 40 mg - Labs Labs: 01/16/17 05:40 01/16/17 05:40 PT 20.9 Seconds (9.8-13.1) H 01/17/17 08:45 INR 2.0 (0.9-1.2) H 01/17/17 08:45 APTT 36.8 Seconds (25.6-37.1) 01/13/17 06:00 Attending/Attestation - Attestation I have personally seen and examined this patient.: Yes I have fully participated in the care of the patient.: Yes I have reviewed all pertinent clinical information, including history, physical exam and plan: Yes Notes (Text): 01/17/17 18:59 seen and examined pt with resident Dr. Stephanie Covington. Agree with findings and plan as above. Pt continues to be very lethargic, will increase Lactulose to TID until pt clinically improves. Continue to monitor. INR 2.0 today, per IR, repeat INR in AM and wait til <2.0 for procedure.
[2017-01-18 05:24] LABS: BASO # 0.1 K/uL (0.0-0.2); BASO % 0.4 % (0.0-2.0); EOS # 0.2 K/uL (0.0-0.7); EOS % 1.5 % (0.0-4.0); HEMATOCRIT 38.1 % (34.0-47.0); LYMPH # 0.6 K/uL (1.0-4.3); LYMPH % 4.1 % (20.0-40.0); MEAN CELL VOLUME 124.3 fl (81.0-99.0); MEAN CORPUSCULAR HEMOGLOBIN 42.1 pg (27.0-31.0); MEAN CORPUSCULAR HGB CONC 33.9 g/dL (33.0-37.0); MEAN PLATELET VOLUME 8.5 fl (7.2-11.7); MONO # 1.1 K/uL (0.0-0.8); MONO % 7.2 % (0.0-10.0); NEUT # 13.8 K/uL (1.8-7.0); NEUT % 86.8 % (50.0-75.0); NRBC % 0.2 % (0.0-0.0); PLATELET COUNT 116 K/uL (130-400); RED CELL DISTRIBUTION WIDTH 23.4 % (11.5-14.5); WHITE BLOOD COUNT 15.9 K/uL (4.8-10.8)
[2017-01-18] MEDS: Levothyroxine 50 MCG TAB PO SCH (05:51)
[2017-01-18 05:52] LABS: ALB/GLOB RATIO 0.7 (1.0-2.1); BILIRUBIN,TOTAL 23.5 mg/dl (0.2-1.3); CALCIUM 7.8 mg/dL (8.4-10.2); POTASSIUM 4.8 MMOL/L (3.6-5.0); TOTAL PROTEIN 6.2 G/DL (6.3-8.2)
[2017-01-18] MEDS: Sodium Chloride 0.9% 1,000 ML IV SCH ×4 (05:52→16:40)
[2017-01-18 07:02] LABS: EOSINOPHIL 1 % (0-7); MYELOCYTE 1 % (0-0); NEUTROPHIL 90 % (42-75); TOTAL CELLS COUNTED 100
[2017-01-18 07:06] LABS: LARGE PLATELETS PRESENT
[2017-01-18 08:43] LABS: ALB/GLOB RATIO 0.7 (1.0-2.1); BILIRUBIN,TOTAL 23.8 mg/dl (0.2-1.3); CALCIUM 7.8 mg/dL (8.4-10.2); POTASSIUM 5.9 MMOL/L (3.6-5.0)
[2017-01-18 08:46] LABS: TOTAL PROTEIN 6.7 G/DL (6.3-8.2)
[2017-01-18] MEDS: Pantoprazole 40 mg EC Tab PO SCH (09:43)
--- NOTE | 2017-01-18 10:57 | CP.PCM.PN ---
Subjective - Date & Time of Evaluation Date of Evaluation: 01/18/17 Time of Evaluation: 09:00 - Subjective Subjective: Patient seen and examined bedside. Chronically ill female , lying in bed , lethargic . Responds to verbal commands, easily aroused, answers questions appropriately, AAOx3 . Tachycardic, HR 103,Tmax 99.8 States that does not feel well Objective - Vital Signs/Intake and Output Vital Signs (last 24 hours): Temp Pulse Resp BP Pulse Ox 99.8 F H 103 H 18 94/54 L 95 01/18/17 08:18 01/18/17 08:18 01/18/17 08:18 01/18/17 08:18 01/18/17 08:18 - Medications Medications: Current Medications Docusate Sodium (Colace) 100 mg PO BID PRN PRN Reason: Constipation Sodium Chloride (Sodium Chloride 0.9%) 1,000 mls @ 100 mls/hr IV .Q10H [facility] Last Admin: 01/18/17 09:45 Dose: 100 mls/hr Ceftriaxone Sodium 1 gm/ (Sodium Chloride) 100 mls @ 100 mls/hr IVPB DAILY [facility] Last Admin: 01/18/17 09:44 Dose: 100 mls/hr Ibuprofen (Motrin Tab) 400 mg PO Q6 PRN PRN Reason: Pain, Mild (1-3) Ibuprofen (Motrin Tab) 400 mg PO Q6 PRN PRN Reason: Fever >100.4 F Ketorolac Tromethamine (Toradol) 30 mg IVP Q6 PRN PRN Reason: Pain, moderate (4-7) Lactulose (Enulose) 20 gm PO TID [facility] Last Admin: 01/18/17 09:42 Dose: 20 gm Levothyroxine Sodium (Synthroid) 50 mcg PO DAILY@0630 [facility] Last Admin: 01/18/17 05:51 Dose: 50 mcg Lorazepam (Ativan) 1 mg IVP Q6 PRN PRN Reason: withdrawals Last Admin: 01/16/17 21:07 Dose: 1 mg Morphine Sulfate (Morphine) 2 mg IVP Q6 PRN PRN Reason: Pain, severe (8-10) Nicotine (Nicoderm Cq) 1 patch TD DAILY [facility] Last Admin: 01/18/17 09:42 Dose: 1 patch Nystatin (Nystop Topical Powder) 1 applic TOP TID [facility] Last Admin: 01/18/17 09:43 Dose: 1 applic Ondansetron HCl (Zofran Inj) 4 mg IVP Q6 PRN PRN Reason: Nausea/Vomiting Pantoprazole Sodium (Protonix Ec Tab) 40 mg PO DAILY [facility] Last Admin: 01/18/17 09:43 Dose: 40 mg - Labs Labs: 01/18/17 04:20 01/18/17 05:20 PT 19.5 Seconds (9.8-13.1) H 01/18/17 04:20 INR 1.9 (0.9-1.2) H 01/18/17 04:20 APTT 36.8 Seconds (25.6-37.1) 01/13/17 06:00 - Constitutional Appears: Chronically Ill (lethargic), Other (obese , jaundiced ) - Head Exam Head Exam: ATRAUMATIC, NORMOCEPHALIC - Eye Exam Eye Exam: PERRL, Scleral icterus - ENT Exam ENT Exam: Mucous Membranes Moist, Normal Exam - Neck Exam Neck Exam: Normal Inspection - Respiratory Exam Respiratory Exam: Clear to Ausculation Bilateral. absent: Rhonchi, Wheezes, Respiratory Distress - Cardiovascular Exam Cardiovascular Exam: Tachycardia, REGULAR RHYTHM, +S1, +S2. absent: JVD - GI/Abdominal Exam GI & Abdominal Exam: Soft, Normal Bowel Sounds. absent: Guarding, Tenderness, Rebound Additional comments: ascites spider angiomata to abdominal skin present - Rectal Exam Rectal Exam: Deferred - Extremities Exam Extremities Exam: Normal Capillary Refill, Pedal Edema (2+). absent: Calf Tenderness - Neurological Exam Additional comments: lethargic responds to questions, easily aroused AAOx3 - Psychiatric Exam Psychiatric exam: Flat Affect - Skin Skin Exam: Dry, Rash (fungal rash below breasts bilaterally ) Additional comments: jaundiced Assessment and Plan - Assessment and Plan (Free Text) Assessment: 61 yo F with PMH chronic alcoholism and liver cirrhosis, found unable to get up after a fall due to generalized weakness. Originally thought to be septic from UTI, likely has metabolic encephalopathy, still lethargic 1. Alcoholic liver cirrhosis with coagulopathy, thrombocytopenia and metabolic encephalopathy continue Lactulose 20gm PO PRN CT showed ascites; paracentesis ordered and work up ordered to rule out SBP ( fluid analysis, culture, cytology, cell count, protein) INR elevated due to liver cirrhosis. Waiting on IR for abdominal paracenthesis WBC still elevated GI and ID consulted Started on Cefotaxime IV Continue Pt and promote ambulation Guarded prognosis 2. Elevated white count, reactive vs infectious cause WBC trending down but still elevated 15 K< tmax 99.8\ CXR showed no infiltrate blood culture and urine culture: no growth follow up ascitic fluid work up started Cefotaxime empirically 3. Alcoholism / ETOH intoxication blood alcohol level on admission was 196 B12 > 1000 ativan RTC d/c because patient was too lethargic/sleepy continue ativan 1mg IVP q 6hrs prn for agitation. Avoid for sedation withdrawal precautions elevated ammonia level; continue lactulose 4. Generalized weakness / fall secondary to alcoholism, cirrhosis PT evaluation and management 5. Hypothyroidism TSH 9.16 started Levothyroxine 50mcg 6. Incontinence CT head: diffuse generalized atrophy. CT cervical spine: no evidence of acute fracture or sublaxation. Spondylosis and degenerative disk changes more prominent at C5-C6 and C6-C7. CT thoracic spine: no evidence of acute fracture or sublaxation. Ascites. CT lumbar spine:no evidence of acute fracture or sublaxation. Small disk bulging at L4-L5 and L5-S1 associated w/ posterior ligament and facet joint hypertrophy, resulting in mild spinal stenosis. Ascites. 7. Fungal rash rash under breasts nystatin cream 8. DVT prophylaxis SCD avoid anticoagulation due to thrombocytopenia and coagulopathy
--- NOTE | 2017-01-18 11:47 | CP.PCM.CON ---
History of Present Illness - History of Present Illness History of Present Illness: Infectious Disease Consult Note- asked to see this patient at the request of hospitalist for rule out SBP. HPI- History obtained mostly fromt he medical chart as pt. is lethargic and drowsy. Pt. is a 61 year old female with PMH alcoholism and liver cirrhosis who states fell at home on her knees secondary to weakness. She was feeling so weak that she fell on the floor hitting her knees and was unable to get up.She denies any head trauma, LOC , seizure like episodes. She did sleep on the floor because she could not get up . Her and sister decided to call the EMS for further evaluation. In ER she was found to have WBC 17 K , tachycardic , lactic acid 3.5 , Ua cloudy with rare bacteria and WBc clumps. Patient was admitted for sepsis and alcoholism . I'm now asked to evaluate the patient 6 days after her admission because she continues to have somewhat elevated WBC despite being on empiric antibiotics. Pt. is on tele floor and resting in bed, looks drowsy but does open her eyes when her name is called and does answer few questions . Allergies ; NKDA PMH ' Alcoholism , liver cirrhosis Medications; thiamine, Folic acid Surgery : hysterectomy Family history ; Hypertension runs in family\ Social history ; Lives in [place] with , has no children, smokes 1/2 PPD , drinks heavily sometimes all day , denies any drugs Review of Systems - Review of Systems Review of Systems: ROS- denies any fever or chills, denies any LEZAMA, c/o cough for past few days, denies any sob now, denies any chest pain, states has nausea arleen nd off, states does have abdominal pain intermittently , denies ever having abdominal fluid removed before, denies any dysurea, denies any diarrhea lives with her mother Past Patient History - Infectious Disease Hx of Infectious Diseases: None - Tetanus Immunizations Tetanus Immunization: Unknown - Past Medical History & Family History Past Medical History?: Yes - Past Social History Smoking Status: Current Some Days Smoker Alcohol: Other (alcoholism) Drugs: Denies Home Situation {Lives}: With Family - CARDIAC Hx Cardiac Disorders: No - PULMONARY Hx Respiratory Disorders: No - NEUROLOGICAL Hx Neurological Disorder: No Hx Seizures: No - HEENT Hx HEENT Problems: No - RENAL Hx Chronic Kidney Disease: No - ENDOCRINE/METABOLIC Hx Endocrine Disorders: No - HEMATOLOGICAL/ONCOLOGICAL Hx Blood Disorders: Yes Hx Cirrhosis: Yes - INTEGUMENTARY Hx Dermatological Problems: No - MUSCULOSKELETAL/RHEUMATOLOGICAL Hx Musculoskeletal Disorders: No Hx Falls: Yes - GASTROINTESTINAL Hx Gastrointestinal Disorders: Yes Hx Fatty Liver Disease: Yes Hx Pancreatitis: Yes Other/Comment: liver cirrhosis - GENITOURINARY/GYNECOLOGICAL Hx Genitourinary Disorders: Yes Hx Incontinence: Yes - PSYCHIATRIC Hx Psychophysiologic Disorder: Yes Hx Substance Use: Yes (Alcohol) - SURGICAL HISTORY Hx Surgeries: Yes Hx Hysterectomy: Yes - ANESTHESIA Hx Anesthesia: Yes Hx Anesthesia Reactions: No Hx Malignant Hyperthermia: No Meds Allergies/Adverse Reactions: Allergies Allergy/AdvReac Type Severity Reaction Status Date / Time No Known Allergies Allergy Verified 01/12/17 11:04 - Medications Medications: Current Medications Docusate Sodium (Colace) 100 mg PO BID PRN PRN Reason: Constipation Sodium Chloride (Sodium Chloride 0.9%) 1,000 mls @ 100 mls/hr IV .Q10H [facility] Last Admin: 01/18/17 09:45 Dose: 100 mls/hr Ceftriaxone Sodium 1 gm/ (Sodium Chloride) 100 mls @ 100 mls/hr IVPB DAILY [facility] Last Admin: 01/18/17 09:44 Dose: 100 mls/hr Ibuprofen (Motrin Tab) 400 mg PO Q6 PRN PRN Reason: Pain, Mild (1-3) Ibuprofen (Motrin Tab) 400 mg PO Q6 PRN PRN Reason: Fever >100.4 F Ketorolac Tromethamine (Toradol) 30 mg IVP Q6 PRN PRN Reason: Pain, moderate (4-7) Lactulose (Enulose) 20 gm PO TID [facility] Last Admin: 01/18/17 09:42 Dose: 20 gm Levothyroxine Sodium (Synthroid) 50 mcg PO DAILY@0630 [facility] Last Admin: 01/18/17 05:51 Dose: 50 mcg Lorazepam (Ativan) 1 mg IVP Q6 PRN PRN Reason: withdrawals Last Admin: 01/16/17 21:07 Dose: 1 mg Morphine Sulfate (Morphine) 2 mg IVP Q6 PRN PRN Reason: Pain, severe (8-10) Nicotine (Nicoderm Cq) 1 patch TD DAILY [facility] Last Admin: 01/18/17 09:42 Dose: 1 patch Nystatin (Nystop Topical Powder) 1 applic TOP TID [facility] Last Admin: 01/18/17 09:43 Dose: 1 applic Ondansetron HCl (Zofran Inj) 4 mg IVP Q6 PRN PRN Reason: Nausea/Vomiting Pantoprazole Sodium (Protonix Ec Tab) 40 mg PO DAILY [facility] Last Admin: 01/18/17 09:43 Dose: 40 mg Physical Exam - Constitutional Appears: No Acute Distress, Chronically Ill Additional comments: drowsy jaundice color - Head Exam Head Exam: ATRAUMATIC - Eye Exam Eye Exam: EOMI, PERRL - ENT Exam Additional comments: dry oral mucosa - Respiratory Exam Respiratory Exam: Clear to Auscultation Bilateral, NORMAL BREATHING PATTERN Additional comments: no wheezing - Cardiovascular Exam Cardiovascular Exam: RRR, +S1, +S2 - GI/Abdominal Exam GI & Abdominal Exam: Normal Bowel Sounds, Soft Additional comments: + distention with ascites but soft to palpation No tenderness no guarding, no rebound - Extremities Exam Additional comments: no edema b/l LE - Neurological Exam Additional comments: drowsy but responds to commands and can answer few questions Results - Vital Signs Recent Vital Signs: Last Vital Signs Temp 99.8 F H 01/18/17 08:18 Pulse 103 H 01/18/17 08:18 Resp 18 01/18/17 08:18 BP 94/54 L 01/18/17 08:18 Pulse Ox 95 01/18/17 08:18 - Labs Result Diagrams: 01/18/17 04:20 01/18/17 05:20 Labs: Laboratory Results - last 24 hr 01/17/17 01/17/17 01/18/17 16:00 21:18 04:20 WBC 15.9 H RBC 3.07 L Hgb 12.9 Hct 38.1 MCV 124.3 H D MCH 42.1 H MCHC 33.9 RDW 23.4 H Plt Count 116 L D MPV 8.5 Neut % (Auto) 86.8 H Lymph % (Auto) 4.1 L [place] % (Auto) 7.2 Eos % (Auto) 1.5 Baso % (Auto) 0.4 Neut # 13.8 H Lymph # 0.6 L [place] # 1.1 H Eos # 0.2 Baso # 0.1 Neutrophils % (Manual) 90 H Band Neutrophils % 3 H Lymphocytes % (Manual) 2 L Monocytes % (Manual) 3 Eosinophils % (Manual) 1 Myelocytes % 1 H Toxic Granulation Present Platelet Estimate Slightly decreased L Large Platelets Present Polychromasia Slight Anisocytosis (manual) Slight Macrocytosis (manual) Moderate Schistocytes Slight PT INR Sodium Potassium Chloride Carbon Dioxide Anion Gap BUN Creatinine Est GFR ( Amer) Est GFR (Non-Af Amer) POC Glucose (mg/dL) 79 108 Random Glucose Calcium Total Bilirubin AST ALT Alkaline Phosphatase Total Protein Albumin Globulin Albumin/Globulin Ratio 01/18/17 01/18/17 01/18/17 04:20 04:20 05:20 WBC RBC Hgb Hct MCV MCH MCHC RDW Plt Count MPV Neut % (Auto) Lymph % (Auto) [place] % (Auto) Eos % (Auto) Baso % (Auto) Neut # Lymph # [place] # Eos # Baso # Neutrophils % (Manual) Band Neutrophils % Lymphocytes % (Manual) Monocytes % (Manual) Eosinophils % (Manual) Myelocytes % Toxic Granulation Platelet Estimate Large Platelets Polychromasia Anisocytosis (manual) Macrocytosis (manual) Schistocytes PT 19.5 H INR 1.9 H Sodium 139 140 Potassium 5.9 H 4.8 Chloride 113 H 113 H Carbon Dioxide 16 L 17 L Anion Gap 16 15 BUN 30 H 29 H Creatinine 1.4 H 1.5 H Est GFR ( Amer) 46 43 Est GFR (Non-Af Amer) 38 35 POC Glucose (mg/dL) Random Glucose 89 92 Calcium 7.8 L 7.8 L Total Bilirubin 23.8 H 23.5 H AST 172 H D 160 H ALT 60 H 65 H Alkaline Phosphatase 223 H 224 H Total Protein 6.7 6.2 L Albumin 2.7 L 2.5 L Globulin 4.0 H 3.8 Albumin/Globulin Ratio 0.7 L 0.7 L 01/18/17 05:44 WBC RBC Hgb Hct MCV MCH MCHC RDW Plt Count MPV Neut % (Auto) Lymph % (Auto) [place] % (Auto) Eos % (Auto) Baso % (Auto) Neut # Lymph # [place] # Eos # Baso # Neutrophils % (Manual) Band Neutrophils % Lymphocytes % (Manual) Monocytes % (Manual) Eosinophils % (Manual) Myelocytes % Toxic Granulation Platelet Estimate Large Platelets Polychromasia Anisocytosis (manual) Macrocytosis (manual) Schistocytes PT INR Sodium Potassium Chloride Carbon Dioxide Anion Gap BUN Creatinine Est GFR ( Amer) Est GFR (Non-Af Amer) POC Glucose (mg/dL) 83 Random Glucose Calcium Total Bilirubin AST ALT Alkaline Phosphatase Total Protein Albumin Globulin Albumin/Globulin Ratio Laboratory Results - last 72 hr 01/15/17 01/15/17 01/15/17 09:30 16:10 21:03 WBC RBC Hgb Hct MCV MCH MCHC RDW Plt Count MPV Neut % (Auto) Lymph % (Auto) [place] % (Auto) Eos % (Auto) Baso % (Auto) Neut # Lymph # [place] # Eos # Baso # Neutrophils % (Manual) Band Neutrophils % Lymphocytes % (Manual) Monocytes % (Manual) Eosinophils % (Manual) Myelocytes % Toxic Granulation Platelet Estimate Large Platelets Polychromasia Anisocytosis (manual) Macrocytosis (manual) Schistocytes PT INR Sodium Potassium Chloride Carbon Dioxide Anion Gap BUN Creatinine Est GFR ( Amer) Est GFR (Non-Af Amer) POC Glucose (mg/dL) 93 120 H Random Glucose Calcium Total Bilirubin AST ALT Alkaline Phosphatase Ammonia Total Protein Albumin Globulin Albumin/Globulin Ratio Folate 2.4 01/16/17 01/16/17 01/16/17 05:40 05:40 05:44 WBC 14.6 H RBC 3.01 L Hgb 12.7 Hct 36.9 MCV 122.3 H MCH 42.0 H MCHC 34.4 RDW 22.7 H Plt Count 89 L MPV Neut % (Auto) Lymph % (Auto) [place] % (Auto) Eos % (Auto) Baso % (Auto) Neut # Lymph # [place] # Eos # Baso # Neutrophils % (Manual) Band Neutrophils % Lymphocytes % (Manual) Monocytes % (Manual) Eosinophils % (Manual) Myelocytes % Toxic Granulation Platelet Estimate Large Platelets Polychromasia Anisocytosis (manual) Macrocytosis (manual) Schistocytes PT INR Sodium 138 Potassium 4.3 Chloride 109 H Carbon Dioxide 20 L Anion Gap 13 BUN 16 Creatinine 0.6 L Est GFR ( Amer) > 60 Est GFR (Non-Af Amer) > 60 POC Glucose (mg/dL) 103 Random Glucose 96 Calcium 7.7 L Total Bilirubin 21.5 H AST 122 H ALT 64 H Alkaline Phosphatase 235 H Ammonia Total Protein 6.3 Albumin 2.6 L Globulin 3.7 Albumin/Globulin Ratio 0.7 L Folate 01/16/17 01/16/17 01/16/17 12:06 14:59 16:05 WBC RBC Hgb Hct MCV MCH MCHC RDW Plt Count MPV Neut % (Auto) Lymph % (Auto) [place] % (Auto) Eos % (Auto) Baso % (Auto) Neut # Lymph # [place] # Eos # Baso # Neutrophils % (Manual) Band Neutrophils % Lymphocytes % (Manual) Monocytes % (Manual) Eosinophils % (Manual) Myelocytes % Toxic Granulation Platelet Estimate Large Platelets Polychromasia Anisocytosis (manual) Macrocytosis (manual) Schistocytes PT INR Sodium Potassium Chloride Carbon Dioxide Anion Gap BUN Creatinine Est GFR ( Amer) Est GFR (Non-Af Amer) POC Glucose (mg/dL) 82 83 Random Glucose Calcium Total Bilirubin AST ALT Alkaline Phosphatase Ammonia Total Protein 6.0 L Albumin Globulin Albumin/Globulin Ratio [facility] 01/16/17 01/16/17 01/17/17 16:30 21:17 05:30 WBC RBC Hgb Hct MCV MCH MCHC RDW Plt Count MPV Neut % (Auto) Lymph % (Auto) [place] % (Auto) Eos % (Auto) Baso % (Auto) Neut # Lymph # [place] # Eos # Baso # Neutrophils % (Manual) Band Neutrophils % Lymphocytes % (Manual) Monocytes % (Manual) Eosinophils % (Manual) Myelocytes % Toxic Granulation Platelet Estimate Large Platelets Polychromasia Anisocytosis (manual) Macrocytosis (manual) Schistocytes PT INR Sodium Potassium Chloride Carbon Dioxide Anion Gap BUN Creatinine Est GFR ( Amer) Est GFR (Non-Af Amer) POC Glucose (mg/dL) 87 70 Random Glucose Calcium Total Bilirubin AST ALT Alkaline Phosphatase Ammonia 78 H D Total Protein Albumin Globulin Albumin/Globulin Ratio [facility] 01/17/17 01/17/17 01/17/17 05:42 08:45 11:27 WBC RBC Hgb Hct MCV MCH MCHC RDW Plt Count MPV Neut % (Auto) Lymph % (Auto) [place] % (Auto) Eos % (Auto) Baso % (Auto) Neut # Lymph # [place] # Eos # Baso # Neutrophils % (Manual) Band Neutrophils % Lymphocytes % (Manual) Monocytes % (Manual) Eosinophils % (Manual) Myelocytes % Toxic Granulation Platelet Estimate Large Platelets Polychromasia Anisocytosis (manual) Macrocytosis (manual) Schistocytes PT 20.9 H INR 2.0 H Sodium Potassium Chloride Carbon Dioxide Anion Gap BUN Creatinine Est GFR ( Amer) Est GFR (Non-Af Amer) POC Glucose (mg/dL) 79 71 Random Glucose Calcium Total Bilirubin AST ALT Alkaline Phosphatase Ammonia Total Protein Albumin Globulin Albumin/Globulin Ratio Folate 01/17/17 01/17/17 01/18/17 16:00 21:18 04:20 WBC 15.9 H RBC 3.07 L Hgb 12.9 Hct 38.1 MCV 124.3 H D MCH 42.1 H MCHC 33.9 RDW 23.4 H Plt Count 116 L D MPV 8.5 Neut % (Auto) 86.8 H Lymph % (Auto) 4.1 L [place] % (Auto) 7.2 Eos % (Auto) 1.5 Baso % (Auto) 0.4 Neut # 13.8 H Lymph # 0.6 L [place] # 1.1 H Eos # 0.2 Baso # 0.1 Neutrophils % (Manual) 90 H Band Neutrophils % 3 H Lymphocytes % (Manual) 2 L Monocytes % (Manual) 3 Eosinophils % (Manual) 1 Myelocytes % 1 H Toxic Granulation Present Platelet Estimate Slightly decreased L Large Platelets Present Polychromasia Slight Anisocytosis (manual) Slight Macrocytosis (manual) Moderate Schistocytes Slight PT INR Sodium Potassium Chloride Carbon Dioxide Anion Gap BUN Creatinine Est GFR ( Amer) Est GFR (Non-Af Amer) POC Glucose (mg/dL) 79 108 Random Glucose Calcium Total Bilirubin AST ALT Alkaline Phosphatase Ammonia Total Protein Albumin Globulin Albumin/Globulin Ratio Folate 01/18/17 01/18/17 01/18/17 04:20 04:20 05:20 WBC RBC Hgb Hct MCV MCH MCHC RDW Plt Count MPV Neut % (Auto) Lymph % (Auto) [place] % (Auto) Eos % (Auto) Baso % (Auto) Neut # Lymph # [place] # Eos # Baso # Neutrophils % (Manual) Band Neutrophils % Lymphocytes % (Manual) Monocytes % (Manual) Eosinophils % (Manual) Myelocytes % Toxic Granulation Platelet Estimate Large Platelets Polychromasia Anisocytosis (manual) Macrocytosis (manual) Schistocytes PT 19.5 H INR 1.9 H Sodium 139 140 Potassium 5.9 H 4.8 Chloride 113 H 113 H Carbon Dioxide 16 L 17 L Anion Gap 16 15 BUN 30 H 29 H Creatinine 1.4 H 1.5 H Est GFR ( Amer) 46 43 Est GFR (Non-Af Amer) 38 35 POC Glucose (mg/dL) Random Glucose 89 92 Calcium 7.8 L 7.8 L Total Bilirubin 23.8 H 23.5 H AST 172 H D 160 H ALT 60 H 65 H Alkaline Phosphatase 223 H 224 H Ammonia Total Protein 6.7 6.2 L Albumin 2.7 L 2.5 L Globulin 4.0 H 3.8 Albumin/Globulin Ratio 0.7 L 0.7 L Folate 01/18/17 01/18/17 05:44 11:22 WBC RBC Hgb Hct MCV MCH MCHC RDW Plt Count MPV Neut % (Auto) Lymph % (Auto) [place] % (Auto) Eos % (Auto) Baso % (Auto) Neut # Lymph # [place] # Eos # Baso # Neutrophils % (Manual) Band Neutrophils % Lymphocytes % (Manual) Monocytes % (Manual) Eosinophils % (Manual) Myelocytes % Toxic Granulation Platelet Estimate Large Platelets Polychromasia Anisocytosis (manual) Macrocytosis (manual) Schistocytes PT INR Sodium Potassium Chloride Carbon Dioxide Anion Gap BUN Creatinine Est GFR ( Amer) Est GFR (Non-Af Amer) POC Glucose (mg/dL) 83 102 Random Glucose Calcium Total Bilirubin AST ALT Alkaline Phosphatase Ammonia Total Protein Albumin Globulin Albumin/Globulin Ratio Folate Microbiology 01/12/17 17:30 Blood-Venous Blood Culture - Final NO GROWTH AFTER 5 DAYS 01/12/17 17:30 Blood-Venous Gram Stain - Final TEST NOT PERFORMED 01/14/17 20:30 Urine Urine Culture - Final No Growth (<1,000 CFU/ML) Accession No. : [id number] Patient Name / ID : ALEX JACKSON / [id number] Exam Date : 01/16/2017 10:56:12 ( Approved ) Study Comment : Sex / Age : F / 61Y Creator : Jane Stewart Dictator : Jane Stewart Health Information Specialist : Physician Chief Of Pathology : Jane Stewart Approver2 : Report Date : 01/16/2017 12:31:05 My Comment : PROCEDURE: CT Thoracic Spine without contrast HISTORY: lethargy , incontinence with bowel and urine Status post fall COMPARISON: None. TECHNIQUE: Axial computed tomography images were obtained of the thoracic spine without intravenous contrast. Coronal and sagittal reformatted images were created and reviewed. Radiation dose: Total exam DLP = 1544.09 mGy-cm. This CT exam was performed using one or more of the following dose reduction techniques: Automated exposure control, adjustment of the mA and/or kV according to patient size, and/or use of iterative reconstruction technique. FINDINGS: VERTEBRAE: Unremarkable. No fracture. Normal alignment. DISCS/SPINAL CANAL/NEURAL FORAMINA: Within the limits of the CT technique, no disc herniation seen. No central canal or neural foraminal stenosis.. Mild degenerative changes/spondylosis seen more prominent at the lower thoracic spine. PARASPINAL SOFT TISSUES: There is a trace right pleural effusion. Small linear opacity seen at the lung bases likely atelectasis. The scan through the upper abdomen demonstrate ascites and diffuse low-attenuation of the liver.. OTHER FINDINGS: Unremarkable. IMPRESSION: No evidence of acute fracture or subluxation at the thoracic spine. Ascites in the abdomen of uncertain etiology. Accession No. : [id number] Patient Name / ID : ALEX JACKSON / [id number] Exam Date : 01/16/2017 10:47:01 ( Approved ) Study Comment : Sex / Age : F / 61Y Creator : Alaina Hoyos MD Dictator : Health Information Specialist : Physician Chief Of Pathology : Alaina Hoyos MD Approver2 : Report Date : 01/16/2017 11:34:50 My Comment : PROCEDURE: CT HEAD WITHOUT CONTRAST. HISTORY: lethargy , incontinence with bowel and urine COMPARISON: Noncontrast head performed 04/25/16 TECHNIQUE: Axial computed tomography images were obtained through the head/brain without intravenous contrast. Radiation dose: Total exam DLP = 1275.99 mGy-cm. This CT exam was performed using one or more of the following dose reduction techniques: Automated exposure control, adjustment of the mA and/or kV according to patient size, and/or use of iterative reconstruction technique. FINDINGS: HEMORRHAGE: No intracranial hemorrhage. BRAIN: Diffuse atrophy with prominence of the ventricles and sulci noted. No mass effect or edema. Scattered periventricular and subcortical white matter hypodensities, which are nonspecific, but often seen with chronic microvascular ischemic disease. Please note that MRI with diffusion imaging is more sensitive in the detection of acute ischemic event. VENTRICLES: No hydrocephalus. CALVARIUM: Unremarkable. PARANASAL SINUSES: Unremarkable as visualized. No significant inflammatory changes. MASTOID AIR CELLS: Unremarkable as visualized. No inflammatory changes. OTHER FINDINGS: Partial opacification bilateral external auditory canals, likely cerumen. IMPRESSION: Generalized atrophy. Nonspecific white matter changes. Accession No. : [id number] Patient Name / ID : ALEX JACKSON / [id number] Exam Date : 01/12/2017 16:26:44 ( Approved ) Study Comment : Sex / Age : F / 61Y Creator : David Hunt MD Dictator : David Hunt MD Health Information Specialist : Physician Chief Of Pathology : David Hunt MD Approver2 : Report Date : 01/12/2017 17:26:58 My Comment : PROCEDURE: CHEST RADIOGRAPH, 1 VIEW HISTORY: Leukocytosis. COMPARISON: 04/25/2016. FINDINGS: LUNGS: Clear. PLEURA: No pneumothorax or pleural fluid seen. CARDIOVASCULAR: No radiographic findings to suggest acute or significant cardiovascular disease. OSSEOUS STRUCTURES: No significant abnormalities. VISUALIZED UPPER ABDOMEN: Normal. OTHER FINDINGS: None. IMPRESSION: No active disease. No acute/significant interval changes. Assessment & Plan (1) Sepsis Status: Acute (2) Leukocytosis Status: Acute (3) Ascites due to alcoholic cirrhosis Status: Acute - Assessment and Plan (Free Text) Assessment: A/P- 61 year old female with h/o EOH abuse with cirrhosis presented post fall on the knees found to have high wbc and lactate and was admitted for sepsis work up and alcoholism and cirrhosis. currently pt seems to be better compared to admission as per med records. afebrile still has somewhat elevated wbc urine and blood cx- neg x 1 transaminitis and hyperbilirubinemia. plan- advise to get abd CT or US for better evaluation of the ascites and cirrhosis. check another blood cx. if ascites significant may need paracenthesis and send fluid for cell count and gram staina nd culture and treat for empiric SBP. advise to d/c ceftriaxone and instead start cefotaxime 2gram IV q8 hours works better for SBP. monitor wbc . advise to also rule out hepatitis profile and HIV. Thank you for allowing me to take part in the care of this patient. will f/u.
[2017-01-18] MEDS ORDERED: Cefepime 2 GM in Sodium Chloride 0.9% 100 ML IVPB SCH (17:00)
[2017-01-18] MEDS ORDERED: SODIUM CHLORIDE 0.9% IV SCH (19:12)
[2017-01-18] MEDS ORDERED: METHYLPREDNISOLONE IV SCH (19:12)
--- NOTE | 2017-01-18 19:17 | CP.PCM.CON ---
History of Present Illness - History of Present Illness History of Present Illness: 61 yo female with long standing heavy alcohol use which recently has been much worst admitted with weakness and elevated LFTs. Bilirbins now over 20 which is much above her baseline. Not significantly improved since admission 6 days ago. No fever. Review of Systems - Review of Systems Systems not reviewed;Unavailable: Altered Mental Status Past Patient History - Infectious Disease Hx of Infectious Diseases: None - Tetanus Immunizations Tetanus Immunization: Unknown - Past Medical History & Family History Past Medical History?: Yes - Past Social History Smoking Status: Current Some Days Smoker Alcohol: Other (alcoholism) Drugs: Denies Home Situation {Lives}: With Family - CARDIAC Hx Cardiac Disorders: No - PULMONARY Hx Respiratory Disorders: No - NEUROLOGICAL Hx Neurological Disorder: No Hx Seizures: No - HEENT Hx HEENT Problems: No - RENAL Hx Chronic Kidney Disease: No - ENDOCRINE/METABOLIC Hx Endocrine Disorders: No - HEMATOLOGICAL/ONCOLOGICAL Hx Blood Disorders: Yes Hx Cirrhosis: Yes - INTEGUMENTARY Hx Dermatological Problems: No - MUSCULOSKELETAL/RHEUMATOLOGICAL Hx Musculoskeletal Disorders: No Hx Falls: Yes - GASTROINTESTINAL Hx Gastrointestinal Disorders: Yes Hx Fatty Liver Disease: Yes Hx Pancreatitis: Yes Other/Comment: liver cirrhosis - GENITOURINARY/GYNECOLOGICAL Hx Genitourinary Disorders: Yes Hx Incontinence: Yes - PSYCHIATRIC Hx Psychophysiologic Disorder: Yes Hx Substance Use: Yes (Alcohol) - SURGICAL HISTORY Hx Surgeries: Yes Hx Hysterectomy: Yes - ANESTHESIA Hx Anesthesia: Yes Hx Anesthesia Reactions: No Hx Malignant Hyperthermia: No Meds Allergies/Adverse Reactions: Allergies Allergy/AdvReac Type Severity Reaction Status Date / Time No Known Allergies Allergy Verified 01/12/17 11:04 - Medications Medications: Current Medications Docusate Sodium (Colace) 100 mg PO BID PRN PRN Reason: Constipation Sodium Chloride (Sodium Chloride 0.9%) 1,000 mls @ 100 mls/hr IV .Q10H [facility] Last Admin: 01/18/17 16:40 Dose: Not Given Cefotaxime Sodium 2 gm/ Sodium (Chloride) 100 mls @ 100 mls/hr IV Q8 [facility] Last Admin: 01/18/17 16:42 Dose: 100 mls/hr Methylprednisolone 32 mg/ (Sodium Chloride) 50 mls @ 100 mls/hr IV DAILY [facility] Ibuprofen (Motrin Tab) 400 mg PO Q6 PRN PRN Reason: Pain, Mild (1-3) Ibuprofen (Motrin Tab) 400 mg PO Q6 PRN PRN Reason: Fever >100.4 F Ketorolac Tromethamine (Toradol) 30 mg IVP Q6 PRN PRN Reason: Pain, moderate (4-7) Lactulose (Enulose) 20 gm PO TID [facility] Last Admin: 01/18/17 16:43 Dose: 20 gm Levothyroxine Sodium (Synthroid) 50 mcg PO DAILY@0630 [facility] Last Admin: 01/18/17 05:51 Dose: 50 mcg Lorazepam (Ativan) 1 mg IVP Q6 PRN PRN Reason: withdrawals Last Admin: 01/16/17 21:07 Dose: 1 mg Nicotine (Nicoderm Cq) 1 patch TD DAILY [facility] Last Admin: 01/18/17 09:42 Dose: 1 patch Nystatin (Nystop Topical Powder) 1 applic TOP TID [facility] Last Admin: 01/18/17 16:44 Dose: 1 applic Ondansetron HCl (Zofran Inj) 4 mg IVP Q6 PRN PRN Reason: Nausea/Vomiting Pantoprazole Sodium (Protonix Ec Tab) 40 mg PO DAILY [facility] Last Admin: 01/18/17 09:43 Dose: 40 mg Physical Exam - Constitutional Appears: Older Than Stated Age - Head Exam Head Exam: ATRAUMATIC - Eye Exam Eye Exam: Normal appearance - ENT Exam ENT Exam: Normal Exam - Neck Exam Neck exam: Positive for: Normal Inspection - Respiratory Exam Respiratory Exam: NORMAL BREATHING PATTERN - Cardiovascular Exam Cardiovascular Exam: REGULAR RHYTHM, +S1, +S2 - GI/Abdominal Exam GI & Abdominal Exam: Distended, Normal Bowel Sounds, Soft Results - Vital Signs Recent Vital Signs: Last Vital Signs Temp 99.9 F H 01/18/17 17:00 Pulse 104 H 01/18/17 17:00 Resp 16 01/18/17 17:00 BP 120/82 01/18/17 17:00 Pulse Ox 94 L 01/18/17 17:00 - Labs Result Diagrams: 01/18/17 04:20 01/18/17 05:20 Labs: Laboratory Results - last 24 hr 01/17/17 01/18/17 01/18/17 21:18 04:20 04:20 WBC 15.9 H RBC 3.07 L Hgb 12.9 Hct 38.1 MCV 124.3 H D MCH 42.1 H MCHC 33.9 RDW 23.4 H Plt Count 116 L D MPV 8.5 Neut % (Auto) 86.8 H Lymph % (Auto) 4.1 L [place] % (Auto) 7.2 Eos % (Auto) 1.5 Baso % (Auto) 0.4 Neut # 13.8 H Lymph # 0.6 L [place] # 1.1 H Eos # 0.2 Baso # 0.1 Neutrophils % (Manual) 90 H Band Neutrophils % 3 H Lymphocytes % (Manual) 2 L Monocytes % (Manual) 3 Eosinophils % (Manual) 1 Myelocytes % 1 H Toxic Granulation Present Platelet Estimate Slightly decreased L Large Platelets Present Polychromasia Slight Anisocytosis (manual) Slight Macrocytosis (manual) Moderate Schistocytes Slight PT 19.5 H INR 1.9 H Sodium Potassium Chloride Carbon Dioxide Anion Gap BUN Creatinine Est GFR ( Amer) Est GFR (Non-Af Amer) POC Glucose (mg/dL) 108 Random Glucose Calcium Total Bilirubin AST ALT Alkaline Phosphatase Ammonia Total Protein Albumin Globulin Albumin/Globulin Ratio 01/18/17 01/18/17 01/18/17 04:20 05:20 05:44 WBC RBC Hgb Hct MCV MCH MCHC RDW Plt Count MPV Neut % (Auto) Lymph % (Auto) [place] % (Auto) Eos % (Auto) Baso % (Auto) Neut # Lymph # [place] # Eos # Baso # Neutrophils % (Manual) Band Neutrophils % Lymphocytes % (Manual) Monocytes % (Manual) Eosinophils % (Manual) Myelocytes % Toxic Granulation Platelet Estimate Large Platelets Polychromasia Anisocytosis (manual) Macrocytosis (manual) Schistocytes PT INR Sodium 139 140 Potassium 5.9 H 4.8 Chloride 113 H 113 H Carbon Dioxide 16 L 17 L Anion Gap 16 15 BUN 30 H 29 H Creatinine 1.4 H 1.5 H Est GFR ( Amer) 46 43 Est GFR (Non-Af Amer) 38 35 POC Glucose (mg/dL) 83 Random Glucose 89 92 Calcium 7.8 L 7.8 L Total Bilirubin 23.8 H 23.5 H AST 172 H D 160 H ALT 60 H 65 H Alkaline Phosphatase 223 H 224 H Ammonia Total Protein 6.7 6.2 L Albumin 2.7 L 2.5 L Globulin 4.0 H 3.8 Albumin/Globulin Ratio 0.7 L 0.7 L 01/18/17 01/18/1701/18/17 11:22 16:01 17:30 WBC RBC Hgb Hct MCV MCH MCHC RDW Plt Count MPV Neut % (Auto) Lymph % (Auto) [place] % (Auto) Eos % (Auto) Baso % (Auto) Neut # Lymph # [place] # Eos # Baso # Neutrophils % (Manual) Band Neutrophils % Lymphocytes % (Manual) Monocytes % (Manual) Eosinophils % (Manual) Myelocytes % Toxic Granulation Platelet Estimate Large Platelets Polychromasia Anisocytosis (manual) Macrocytosis (manual) Schistocytes PT INR Sodium Potassium Chloride Carbon Dioxide Anion Gap BUN Creatinine Est GFR ( Amer) Est GFR (Non-Af Amer) POC Glucose (mg/dL) 102 120 H Random Glucose Calcium Total Bilirubin AST ALT Alkaline Phosphatase Ammonia 82 H Total Protein Albumin Globulin Albumin/Globulin Ratio - Imaging and Cardiology CT scan - abdomen Status: Report reviewed by me Assessment & Plan (1) Alcoholic hepatitis with ascites Assessment and Plan: INR and bili not improving with conservative treatment alone. MELD score of 29 and MDF 53.4. No sign of active infection and patient already on antibiotics. Will start on solu medrol 30 mg daily and follow carefully with you. Status: Acute
[2017-01-18] MEDS: methylPREDNISolone 30 MG in Sodium Chloride 0.9% 50 ML IV SCH (20:52)
[2017-01-19] MEDS: Sodium Chloride 0.9% 1,000 ML IV SCH ×2 (01:25→01:30)
[2017-01-19] MEDS: Levothyroxine 50 MCG TAB PO SCH (06:28)
[2017-01-19 06:37] LABS: HEMATOCRIT 38.2 % (34.0-47.0); MEAN CELL VOLUME 123.8 fl (81.0-99.0); MEAN CORPUSCULAR HEMOGLOBIN 42.1 pg (27.0-31.0); RED CELL DISTRIBUTION WIDTH 23.8 % (11.5-14.5); WHITE BLOOD COUNT 16.4 K/uL (4.8-10.8)
[2017-01-19 06:54] LABS: ALB/GLOB RATIO 0.6 (1.0-2.1); BILIRUBIN,TOTAL 25.4 mg/dl (0.2-1.3)
[2017-01-19 07:22] LABS: TOTAL PROTEIN 6.4 G/DL (6.3-8.2)
[2017-01-19] MEDS ORDERED: Dextrose 50% SYRINGE Inj (50 ml) IVP ONE (07:32)
[2017-01-19] MEDS ORDERED: Insulin Regular 100 units/ml SC STA (07:32)
[2017-01-19] MEDS ORDERED: Sod Polystyrene Sulf 15 gm/60 ml Oral Susp PO ONE (07:32)
[2017-01-19] MEDS ORDERED: Albuterol-Ipratrop 3 mg / 0.5 (3 ml) UD INH STA (07:34)
[2017-01-19] MEDS ORDERED: Calcium Gluconate 4.65 mEq/10 ml Inj IV ONE (07:34)
--- NOTE | 2017-01-19 07:41 | CP.PCM.PN ---
Subjective - Date & Time of Evaluation Date of Evaluation: 01/19/17 Time of Evaluation: 10:00 - Subjective Subjective: Patient seen and examined bedside. Chronically ill female, elderly looking for her age lying in bed in NAD. Jaundiced, lethargic with ascites. Easily aroused, responding to questions, oriented to place, time and person. Denies any SOB, abdominal pain ,chest pain. Tmax 100.4 tachycardic , no tremors ammonia 54 Objective - Vital Signs/Intake and Output Vital Signs (last 24 hours): Temp Pulse Resp BP Pulse Ox 99.4 F 91 H 18 113/72 94 L 01/19/17 05:16 01/19/17 05:16 01/19/17 05:16 01/19/17 05:16 01/19/17 05:16 Intake and Output: 01/19/17 01/19/17 06:59 18:59 Intake Total 2050 Output Total 800 Balance 1250 - Medications Medications: Current Medications Albuterol/Ipratropium (Duoneb 3 Mg/0.5 Mg (3 Ml) Ud) 3 ml INH STAT STA Stop: 01/19/17 07:35 Calcium Gluconate (Calcium Gluconate) 4.6 meq IV ONCE ONE Stop: 01/19/17 07:35 Dextrose (Dextrose 50% Inj) 50 ml IVP ONCE ONE Stop: 01/19/17 07:33 Docusate Sodium (Colace) 100 mg PO BID PRN PRN Reason: Constipation Sodium Chloride (Sodium Chloride 0.9%) 1,000 mls @ 100 mls/hr IV .Q10H [facility] Last Admin: 01/19/17 01:30 Dose: 100 mls/hr Cefotaxime Sodium 2 gm/ Sodium (Chloride) 100 mls @ 100 mls/hr IV Q8 [facility] Last Admin: 01/19/17 01:18 Dose: 100 mls/hr Methylprednisolone 30 mg/ (Sodium Chloride) 50 mls @ 100 mls/hr IV DAILY [facility] Last Admin: 01/18/17 20:52 Dose: 100 mls/hr Sodium Chloride (Sodium Chloride 0.45%) 1,000 mls @ 100 mls/hr IV .Q10H [facility] Stop: 01/20/17 07:30 Ibuprofen (Motrin Tab) 400 mg PO Q6 PRN PRN Reason: Pain, Mild (1-3) Ibuprofen (Motrin Tab) 400 mg PO Q6 PRN PRN Reason: Fever >100.4 F Insulin Human Regular (Humulin R) 10 units SC STAT STA Stop: 01/19/17 07:33 Lactulose (Enulose) 20 gm PO TID [facility] Last Admin: 01/18/17 16:43 Dose: 20 gm Levothyroxine Sodium (Synthroid) 50 mcg PO DAILY@0630 [facility] Last Admin: 01/19/17 06:28 Dose: 50 mcg Lorazepam (Ativan) 1 mg IVP Q6 PRN PRN Reason: withdrawals Last Admin: 01/16/17 21:07 Dose: 1 mg Nicotine (Nicoderm Cq) 1 patch TD DAILY [facility] Last Admin: 01/18/17 09:42 Dose: 1 patch Nystatin (Nystop Topical Powder) 1 applic TOP TID [facility] Last Admin: 01/18/17 16:44 Dose: 1 applic Ondansetron HCl (Zofran Inj) 4 mg IVP Q6 PRN PRN Reason: Nausea/Vomiting Pantoprazole Sodium (Protonix Ec Tab) 40 mg PO DAILY [facility] Last Admin: 01/18/17 09:43 Dose: 40 mg Sodium Polystyrene Sulfonate (Kayexalate Oral Susp) 30 gm PO ONCE ONE Stop: 01/19/17 07:33 - Labs Labs: 01/19/17 05:00 01/19/17 05:00 PT 19.5 Seconds (9.8-13.1) H 01/18/17 04:20 INR 1.9 (0.9-1.2) H 01/18/17 04:20 APTT 36.8 Seconds (25.6-37.1) 01/13/17 06:00 - Constitutional Appears: Toxic, Older Than Stated Age, Confused, Chronically Ill, Other ( lethargic ) - Head Exam Head Exam: ATRAUMATIC, NORMOCEPHALIC - Eye Exam Eye Exam: PERRL, Scleral icterus - ENT Exam ENT Exam: Mucous Membranes Moist, Normal Exam - Neck Exam Neck Exam: Full ROM, Normal Inspection - Respiratory Exam Respiratory Exam: Clear to Ausculation Bilateral, NORMAL BREATHING PATTERN. absent: Rhonchi, Wheezes, Respiratory Distress - Cardiovascular Exam Cardiovascular Exam: Tachycardia, RRR, +S1, +S2. absent: JVD - GI/Abdominal Exam GI & Abdominal Exam: Distended, Soft. absent: Guarding, Rigid, Tenderness, Rebound Additional comments: ascites - Rectal Exam Rectal Exam: Deferred - Extremities Exam Extremities Exam: Pedal Edema (3 + bilateral LE) - Back Exam Additional comments: lethargic , easily aroused responds to questions, follows commands - Neurological Exam Additional comments: moves all 4 extremities no focal weakness - Psychiatric Exam Psychiatric exam: Flat Affect Additional comments: lethargic , easily aroused moves all 4 extremities , no focal weakness - Skin Skin Exam: Dry, Warm Additional comments: jaundiced bilateral under breast fungal infection Assessment and Plan - Assessment and Plan (Free Text) Assessment: 61 yo F with PMH chronic alcoholism and liver cirrhosis, found unable to get up after a fall due to generalized weakness after drinking heavily at home. Originally thought to be septic from UTI,started on IV rocephin and cultures were sent. Started on lactulose PRN for elevated ammonia .All cultures so far with no growth Patient currently still lethargic,but easily aroused , with no improvement since admission,most likely secondary to metabolic encephalopathy GI was consulted . patient has guarded prognosis, MELD score 24 . Started on Solumedrol IV. Abdominal parasenthesis ordered to rule out SBP and ID changed IV antibiotics to Cefotaxime. Currently developing renal failure suspicious for hepatorenal syndrome vs prerenal SHRUTI 1. Alcoholic liver cirrhosis with coagulopathy,ascites , thrombocytopenia and metabolic encephalopathy Very guarded prognosis MELD score 24 patient still lethargic , jaundiced Bili 25 , INR 1.7 continue Lactulose 20gm PO PRN CT showed ascites- paracentesis and ascitic fluid work up ordered to rule out SBP ( fluid analysis, culture, cytology, cell count, protein)Due to coagulopathy parasentheis not performed Gi consulted and patient strated on Solumedrol IV WBC trending up toady to 16 K most likely secondary to steroids Id consult appreciated Changed rocephin to Cefotaxime Started on Cefotaxime IV Guarded prognosis 2. Elevated white count, reactive vs infectious cause All cultures with no growth so far CXR showed no infiltrate Tmax 100.4 last 12 hours and WBC trending up after steroids given follow up ascitic fluid work up after parasenthesis performed Continue Cefotaxime ID on consult 3. Alcoholism / ETOH intoxication blood alcohol level on admission was 196 B12 > 1000 ativan RTC d/c because patient was too lethargic/sleepy continue ativan 1mg IVP q 6hrs prn for agitation. Avoid for sedation No signs of withdrawal noticed continue lactulose for elevated ammonia levels Today Ammonia 54 4. SHRUTI Hepatorenal syndrome vs prerenal SHRUTI Cr 2.4 Monitor I/O started 06/06 NS @ 100 cc/hr Check urine lytes, spot urine cr Nephrology consulted Dr. Nascimento 5. Hyperkalemia d50 amp,10 unit insulin, kayexalate and duoneb given Repeat BMP in AM 6. Generalized weakness / fall secondary to alcoholism, cirrhosis PT evaluation and management 7. Hypothyroidism TSH 9.16 started Levothyroxine 50mcg repeat TSH in AM 8. Incontinence Most likely related to metabolic encephalopathy. No structural abnormality found CT head: diffuse generalized atrophy. CT cervical spine: no evidence of acute fracture or sublaxation. Spondylosis and degenerative disk changes more prominent at C5-C6 and C6-C7. CT thoracic spine: no evidence of acute fracture or sublaxation. Ascites. CT lumbar spine:no evidence of acute fracture or sublaxation. Small disk bulging at L4-L5 and L5-S1 associated w/ posterior ligament and facet joint hypertrophy, resulting in mild spinal stenosis. Ascites. 9. Fungal rash rash under breasts nystatin cream 10 DVT prophylaxis SCD avoid anticoagulation due to thrombocytopenia and coagulopathy
[2017-01-19] MEDS ORDERED: Calcium Gluconate 4.6 MEQ in Sodium Chloride 0.9% 100 ML IV ONE (07:45)
[2017-01-19 07:47] LABS: POTASSIUM 5.5 MMOL/L (3.6-5.0)
[2017-01-19] MEDS: methylPREDNISolone 30 MG in Sodium Chloride 0.9% 50 ML IV SCH (09:02)
[2017-01-19] MEDS: Sodium Chloride 0.45% 1,000 ML IV SCH ×2 (09:07→20:10)
[2017-01-19] MEDS: Pantoprazole 40 mg EC Tab PO SCH (09:08)
--- NOTE | 2017-01-19 12:37 | CP.PCM.PN ---
Subjective - Date & Time of Evaluation Date of Evaluation: 01/19/17 Time of Evaluation: 12:37 - Subjective Subjective: ID Note- Pt. seen and examined today. remains lethargic ,opens her eyes when name is called but still drowsy and jaundiced. no new events as per nurse. Objective - Vital Signs/Intake and Output Vital Signs (last 24 hours): Temp Pulse Resp BP Pulse Ox 99.5 F 92 H 20 122/80 94 L 01/19/17 08:56 01/19/17 08:56 01/19/17 08:56 01/19/17 08:56 01/19/17 08:56 Intake and Output: 01/19/17 01/19/17 06:59 18:59 Intake Total 2050 Output Total 800 Balance 1250 - Medications Medications: Current Medications Docusate Sodium (Colace) 100 mg PO BID PRN PRN Reason: Constipation Sodium Chloride (Sodium Chloride 0.9%) 1,000 mls @ 100 mls/hr IV .Q10H [facility] Last Admin: 01/19/17 01:30 Dose: 100 mls/hr Cefotaxime Sodium 2 gm/ Sodium (Chloride) 100 mls @ 100 mls/hr IV Q8 [facility] Last Admin: 01/19/17 09:02 Dose: 100 mls/hr Methylprednisolone 30 mg/ (Sodium Chloride) 50 mls @ 100 mls/hr IV DAILY [facility] Last Admin: 01/19/17 09:02 Dose: 100 mls/hr Sodium Chloride (Sodium Chloride 0.45%) 1,000 mls @ 100 mls/hr IV .Q10H [facility] Stop: 01/20/17 07:30 Last Admin: 01/19/17 09:07 Dose: 100 mls/hr Ibuprofen (Motrin Tab) 400 mg PO Q6 PRN PRN Reason: Pain, Mild (1-3) Ibuprofen (Motrin Tab) 400 mg PO Q6 PRN PRN Reason: Fever >100.4 F Lactulose (Enulose) 20 gm PO TID [facility] Last Admin: 01/19/17 09:04 Dose: 20 gm Levothyroxine Sodium (Synthroid) 50 mcg PO DAILY@0630 [facility] Last Admin: 01/19/17 06:28 Dose: 50 mcg Lorazepam (Ativan) 1 mg IVP Q6 PRN PRN Reason: withdrawals Last Admin: 01/16/17 21:07 Dose: 1 mg Nicotine (Nicoderm Cq) 1 patch TD DAILY [facility] Last Admin: 01/19/17 09:04 Dose: 1 patch Nystatin (Nystop Topical Powder) 1 applic TOP TID [facility] Last Admin: 01/19/17 09:04 Dose: 1 applic Ondansetron HCl (Zofran Inj) 4 mg IVP Q6 PRN PRN Reason: Nausea/Vomiting Pantoprazole Sodium (Protonix Ec Tab) 40 mg PO DAILY [facility] Last Admin: 01/19/17 09:08 Dose: 40 mg - Labs Labs: - Additional Findings Additional findings: - Constitutional Appears: No Acute Distress, Chronically Ill Additional comments: drowsy jaundice color - Head Exam Head Exam: ATRAUMATIC - Eye Exam Eye Exam: EOMI, PERRL - ENT Exam Additional comments: dry oral mucosa - Respiratory Exam Respiratory Exam: Clear to Auscultation Bilateral, NORMAL BREATHING PATTERN Additional comments: no wheezing - Cardiovascular Exam Cardiovascular Exam: RRR, +S1, +S2 - GI/Abdominal Exam GI & Abdominal Exam: Normal Bowel Sounds, Soft Additional comments: + distention with ascites but soft to palpation No tenderness no guarding, no rebound - Extremities Exam Additional comments: no edema b/l LE - Neurological Exam Additional comments: drowsy but responds to commands and can answer few questions Laboratory Results - last 72 hr 01/15/17 01/16/17 01/16/17 09:30 16:05 16:30 WBC RBC Hgb Hct MCV MCH MCHC RDW Plt Count MPV Neut % (Auto) Lymph % (Auto) [place] % (Auto) Eos % (Auto) Baso % (Auto) Neut # Lymph # [place] # Eos # Baso # Neutrophils % (Manual) Band Neutrophils % Lymphocytes % (Manual) Monocytes % (Manual) Eosinophils % (Manual) Myelocytes % Toxic Granulation Platelet Estimate Large Platelets Polychromasia Anisocytosis (manual) Macrocytosis (manual) Schistocytes PT INR Sodium Potassium Chloride Carbon Dioxide Anion Gap BUN Creatinine Est GFR ( Amer) Est GFR (Non-Af Amer) POC Glucose (mg/dL) 87 Random Glucose Calcium Total Bilirubin AST ALT Alkaline Phosphatase Ammonia Total Protein 6.0 L Albumin Globulin Albumin/Globulin Ratio Folate 2.4 01/16/17 01/17/17 01/17/17 21:17 05:30 05:42 WBC RBC Hgb Hct MCV MCH MCHC RDW Plt Count MPV Neut % (Auto) Lymph % (Auto) [place] % (Auto) Eos % (Auto) Baso % (Auto) Neut # Lymph # [place] # Eos # Baso # Neutrophils % (Manual) Band Neutrophils % Lymphocytes % (Manual) Monocytes % (Manual) Eosinophils % (Manual) Myelocytes % Toxic Granulation Platelet Estimate Large Platelets Polychromasia Anisocytosis (manual) Macrocytosis (manual) Schistocytes PT INR Sodium Potassium Chloride Carbon Dioxide Anion Gap BUN Creatinine Est GFR ( Amer) Est GFR (Non-Af Amer) POC Glucose (mg/dL) 70 79 Random Glucose Calcium Total Bilirubin AST ALT Alkaline Phosphatase Ammonia 78 H D Total Protein Albumin Globulin Albumin/Globulin Ratio Folate 01/17/17 01/17/17 01/17/17 08:45 11:27 16:00 WBC RBC Hgb Hct MCV MCH MCHC RDW Plt Count MPV Neut % (Auto) Lymph % (Auto) [place] % (Auto) Eos % (Auto) Baso % (Auto) Neut # Lymph # [place] # Eos # Baso # Neutrophils % (Manual) Band Neutrophils % Lymphocytes % (Manual) Monocytes % (Manual) Eosinophils % (Manual) Myelocytes % Toxic Granulation Platelet Estimate Large Platelets Polychromasia Anisocytosis (manual) Macrocytosis (manual) Schistocytes PT 20.9 H INR 2.0 H Sodium Potassium Chloride Carbon Dioxide Anion Gap BUN Creatinine Est GFR ( Amer) Est GFR (Non-Af Amer) POC Glucose (mg/dL) 71 79 Random Glucose Calcium Total Bilirubin AST ALT Alkaline Phosphatase Ammonia Total Protein Albumin Globulin Albumin/Globulin Ratio Folate 01/17/17 01/18/17 01/18/17 21:18 04:20 04:20 WBC 15.9 H RBC 3.07 L Hgb 12.9 Hct 38.1 MCV 124.3 H D MCH 42.1 H MCHC 33.9 RDW 23.4 H Plt Count 116 L D MPV 8.5 Neut % (Auto) 86.8 H Lymph % (Auto) 4.1 L [place] % (Auto) 7.2 Eos % (Auto) 1.5 Baso % (Auto) 0.4 Neut # 13.8 H Lymph # 0.6 L [place] # 1.1 H Eos # 0.2 Baso # 0.1 Neutrophils % (Manual) 90 H Band Neutrophils % 3 H Lymphocytes % (Manual) 2 L Monocytes % (Manual) 3 Eosinophils % (Manual) 1 Myelocytes % 1 H Toxic Granulation Present Platelet Estimate Slightly decreased L Large Platelets Present Polychromasia Slight Anisocytosis (manual) Slight Macrocytosis (manual) Moderate Schistocytes Slight PT 19.5 H INR 1.9 H Sodium Potassium Chloride Carbon Dioxide Anion Gap BUN Creatinine Est GFR ( Amer) Est GFR (Non-Af Amer) POC Glucose (mg/dL) 108 Random Glucose Calcium Total Bilirubin AST ALT Alkaline Phosphatase Ammonia Total Protein Albumin Globulin Albumin/Globulin Ratio Folate 01/18/17 01/18/17 01/18/17 04:20 05:20 05:44 WBC RBC Hgb Hct MCV MCH MCHC RDW Plt Count MPV Neut % (Auto) Lymph % (Auto) [place] % (Auto) Eos % (Auto) Baso % (Auto) Neut # Lymph # [place] # Eos # Baso # Neutrophils % (Manual) Band Neutrophils % Lymphocytes % (Manual) Monocytes % (Manual) Eosinophils % (Manual) Myelocytes % Toxic Granulation Platelet Estimate Large Platelets Polychromasia Anisocytosis (manual) Macrocytosis (manual) Schistocytes PT INR Sodium 139 140 Potassium 5.9 H 4.8 Chloride 113 H 113 H Carbon Dioxide 16 L 17 L Anion Gap 16 15 BUN 30 H 29 H Creatinine 1.4 H 1.5 H Est GFR ( Amer) 46 43 Est GFR (Non-Af Amer) 38 35 POC Glucose (mg/dL) 83 Random Glucose 89 92 Calcium 7.8 L 7.8 L Total Bilirubin 23.8 H 23.5 H AST 172 H D 160 H ALT 60 H 65 H Alkaline Phosphatase 223 H 224 H Ammonia Total Protein 6.7 6.2 L Albumin 2.7 L 2.5 L Globulin 4.0 H 3.8 Albumin/Globulin Ratio 0.7 L 0.7 L Folate 01/18/17 01/18/17 01/18/17 11:22 16:01 17:30 WBC RBC Hgb Hct MCV MCH MCHC RDW Plt Count MPV Neut % (Auto) Lymph % (Auto) [place] % (Auto) Eos % (Auto) Baso % (Auto) Neut # Lymph # [place] # Eos # Baso # Neutrophils % (Manual) Band Neutrophils % Lymphocytes % (Manual) Monocytes % (Manual) Eosinophils % (Manual) Myelocytes % Toxic Granulation Platelet Estimate Large Platelets Polychromasia Anisocytosis (manual) Macrocytosis (manual) Schistocytes PT INR Sodium Potassium Chloride Carbon Dioxide Anion Gap BUN Creatinine Est GFR ( Amer) Est GFR (Non-Af Amer) POC Glucose (mg/dL) 102 120 H Random Glucose Calcium Total Bilirubin AST ALT Alkaline Phosphatase Ammonia 82 H Total Protein Albumin Globulin Albumin/Globulin Ratio Folate 01/18/17 01/19/17 01/19/17 21:03 05:00 05:00 WBC 16.4 H RBC 3.09 L Hgb 13.0 Hct 38.2 MCV 123.8 H MCH 42.1 H MCHC 34.0 RDW 23.8 H Plt Count 135 MPV Neut % (Auto) Lymph % (Auto) [place] % (Auto) Eos % (Auto) Baso % (Auto) Neut # Lymph # [place] # Eos # Baso # Neutrophils % (Manual) Band Neutrophils % Lymphocytes % (Manual) Monocytes % (Manual) Eosinophils % (Manual) Myelocytes % Toxic Granulation Platelet Estimate Large Platelets Polychromasia Anisocytosis (manual) Macrocytosis (manual) Schistocytes PT INR Sodium 141 Potassium 5.5 H Chloride 115 H Carbon Dioxide 16 L Anion Gap 16 BUN 40 H Creatinine 2.4 H Est GFR ( Amer) 25 Est GFR (Non-Af Amer) 21 POC Glucose (mg/dL) 88 Random Glucose 105 Calcium 8.0 L Total Bilirubin 25.4 H AST 179 H ALT 66 H Alkaline Phosphatase 220 H Ammonia Total Protein 6.4 Albumin 2.5 L Globulin 3.9 Albumin/Globulin Ratio 0.6 L Folate 01/19/17 01/19/17 01/19/17 05:00 05:48 08:00 WBC RBC Hgb Hct MCV MCH MCHC RDW Plt Count MPV Neut % (Auto) Lymph % (Auto) [place] % (Auto) Eos % (Auto) Baso % (Auto) Neut # Lymph # [place] # Eos # Baso # Neutrophils % (Manual) Band Neutrophils % Lymphocytes % (Manual) Monocytes % (Manual) Eosinophils % (Manual) Myelocytes % Toxic Granulation Platelet Estimate Large Platelets Polychromasia Anisocytosis (manual) Macrocytosis (manual) Schistocytes PT 17.8 H INR 1.7 H Sodium Potassium Chloride Carbon Dioxide Anion Gap BUN Creatinine Est GFR ( Amer) Est GFR (Non-Af Amer) POC Glucose (mg/dL) 112 H Random Glucose Calcium Total Bilirubin AST ALT Alkaline Phosphatase Ammonia 54 H Total Protein Albumin Globulin Albumin/Globulin Ratio Folate 01/19/17 11:04 WBC RBC Hgb Hct MCV MCH MCHC RDW Plt Count MPV Neut % (Auto) Lymph % (Auto) [place] % (Auto) Eos % (Auto) Baso % (Auto) Neut # Lymph # [place] # Eos # Baso # Neutrophils % (Manual) Band Neutrophils % Lymphocytes % (Manual) Monocytes % (Manual) Eosinophils % (Manual) Myelocytes % Toxic Granulation Platelet Estimate Large Platelets Polychromasia Anisocytosis (manual) Macrocytosis (manual) Schistocytes PT INR Sodium Potassium Chloride Carbon Dioxide Anion Gap BUN Creatinine Est GFR ( Amer) Est GFR (Non-Af Amer) POC Glucose (mg/dL) 151 H Random Glucose Calcium Total Bilirubin AST ALT Alkaline Phosphatase Ammonia Total Protein Albumin Globulin Albumin/Globulin Ratio Folate Microbiology 01/12/17 17:30 Blood-Venous Blood Culture - Final NO GROWTH AFTER 5 DAYS 01/12/17 17:30 Blood-Venous Gram Stain - Final TEST NOT PERFORMED 01/14/17 20:30 Urine Urine Culture - Final No Growth (<1,000 CFU/ML) Assessment and Plan (1) Sepsis Status: Acute (2) Leukocytosis Status: Acute (3) Ascites due to alcoholic cirrhosis Status: Acute - Assessment and Plan (Free Text) Assessment: A/P- 61 year old female with h/o EOH abuse with cirrhosis presented post fall on the knees found to have high wbc and lactate and was admitted for sepsis work up and alcoholism and cirrhosis. still drowsy afebrile leukocytosis perists, however, she was also started on steroids by GI urine and blood cx- neg x 1 transaminitis and hyperbilirubinemia. plan- advise to get abd CT or US for better evaluation of the ascites and cirrhosis. check another blood cx. if ascites significant may need paracenthesis and send fluid for cell count and gram staina nd culture and treat for empiric SBP. continue with cefotaxime day #2 ( adjust dose to renal dose since REGINO ) rule out hepatorenal syndrome. monitor wbc . advise to also rule out hepatitis profile and HIV. check CXR as well today. prognosis guarded.
--- NOTE | 2017-01-19 17:25 | CP.PCM.CON ---
History of Present Illness - History of Present Illness History of Present Illness: REASONS FOR CONSULT : SHRUTI .. R/O HRS ALL EMR REVIEWED .. LABS REVIEWED .. OH WAS SEEN AND EXAMINED PT CAME IN WITH NORMAL BUN AND CREATININ .. STARTED ELEVATING HER BUN AND CREAT FRO THE LAST 2 DAYS History obtained mostly fromt he medical chart as pt. is lethargic and drowsy. Pt. is a 61 year old female with PMH alcoholism and liver cirrhosis who states fell at home on her knees secondary to weakness. She was feeling so weak that she fell on the floor hitting her knees and was unable to get up.She denies any head trauma, LOC , seizure like episodes. She did sleep on the floor because she could not get up . Her and sister decided to call the EMS for further evaluation. In ER she was found to have WBC 17 K , tachycardic , lactic acid 3.5 , Ua cloudy with rare bacteria and WBc clumps. Patient was admitted for sepsis and alcoholism . I'm now asked to evaluate the patient 6 days after her admission because she continues to have somewhat elevated WBC despite being on empiric antibiotics. Pt. is on tele floor and resting in bed, looks drowsy but does open her eyes when her name is called and does answer few questions . Allergies ; NKDA PMH ' Alcoholism , liver cirrhosis Medications; thiamine, Folic acid Surgery : hysterectomy Family history ; Hypertension runs in family\ Social history ; Lives in [place] with , has no children, smokes 1/2 PPD , drinks heavily sometimes all day , denies any drugs Past Patient History - Infectious Disease Hx of Infectious Diseases: None - Tetanus Immunizations Tetanus Immunization: Unknown - Past Medical History & Family History Past Medical History?: Yes - Past Social History Smoking Status: Current Some Days Smoker Alcohol: Other (alcoholism) Drugs: Denies Home Situation {Lives}: With Family - CARDIAC Hx Cardiac Disorders: No - PULMONARY Hx Respiratory Disorders: No - NEUROLOGICAL Hx Neurological Disorder: No Hx Seizures: No - HEENT Hx HEENT Problems: No - RENAL Hx Chronic Kidney Disease: No - ENDOCRINE/METABOLIC Hx Endocrine Disorders: No - HEMATOLOGICAL/ONCOLOGICAL Hx Blood Disorders: Yes Hx Cirrhosis: Yes - INTEGUMENTARY Hx Dermatological Problems: No - MUSCULOSKELETAL/RHEUMATOLOGICAL Hx Musculoskeletal Disorders: No Hx Falls: Yes - GASTROINTESTINAL Hx Gastrointestinal Disorders: Yes Hx Fatty Liver Disease: Yes Hx Pancreatitis: Yes Other/Comment: liver cirrhosis - GENITOURINARY/GYNECOLOGICAL Hx Genitourinary Disorders: Yes Hx Incontinence: Yes - PSYCHIATRIC Hx Psychophysiologic Disorder: Yes Hx Substance Use: Yes (Alcohol) - SURGICAL HISTORY Hx Surgeries: Yes Hx Hysterectomy: Yes - ANESTHESIA Hx Anesthesia: Yes Hx Anesthesia Reactions: No Hx Malignant Hyperthermia: No Meds Allergies/Adverse Reactions: Allergies Allergy/AdvReac Type Severity Reaction Status Date / Time No Known Allergies Allergy Verified 01/12/17 11:04 - Medications Medications: Current Medications Docusate Sodium (Colace) 100 mg PO BID PRN PRN Reason: Constipation Sodium Chloride (Sodium Chloride 0.9%) 1,000 mls @ 100 mls/hr IV .Q10H [facility]CLUDE 234 BEDS AT THE [facility] Last Admin: 01/19/17 01:30 Dose: 100 mls/hr Methylprednisolone 30 mg/ (Sodium Chloride) 50 mls @ 100 mls/hr IV DAILY [facility] 234 BEDS AT [facility] Last Admin: 01/19/17 09:02 Dose: 100 mls/hr Sodium Chloride (Sodium Chloride 0.45%) 1,000 mls @ 100 mls/hr IV .Q10H [facility] 234 BEDS AT [facility] Stop: 01/20/17 07:30 Last Admin: 01/19/17 09:07 Dose: 100 mls/hr Cefotaxime Sodium 2 gm/ Sodium (Chloride) 100 mls @ 100 mls/hr IV Q12 [facility] 234 BEDS AT THE [facility] Lactulose (Enulose) 20 gm PO TID [facility]CLUDE 234 BEDS AT [facility] Last Admin: 01/19/17 16:49 Dose: Not Given Levothyroxine Sodium (Synthroid) 50 mcg PO DAILY@0630 [facility] 234 BEDS AT [facility] Last Admin: 01/19/17 06:28 Dose: 50 mcg Lorazepam (Ativan) 1 mg IVP Q6 PRN PRN Reason: withdrawals Last Admin: 01/16/17 21:07 Dose: 1 mg Nicotine (Nicoderm Cq) 1 patch TD DAILY [facility] 234 BEDS AT [facility] Last Admin: 01/19/17 09:04 Dose: 1 patch Nystatin (Nystop Topical Powder) 1 applic TOP TID [facility]CLUDE 234 BEDS AT [facility] Last Admin: 01/19/17 16:49 Dose: 1 applic Ondansetron HCl (Zofran Inj) 4 mg IVP Q6 PRN PRN Reason: Nausea/Vomiting Pantoprazole Sodium (Protonix Ec Tab) 40 mg PO DAILY [facility] 234 BEDS AT [facility] Last Admin: 01/19/17 09:08 Dose: 40 mg Results - Vital Signs Recent Vital Signs: Last Vital Signs Temp 97.3 F L 08/17/17 16:52 Pulse 90 01/19/17 16:52 Resp 18 01/19/17 16:52 BP 134/84 01/19/17 16:52 Pulse Ox 94 L 01/19/17 16:52 - Labs Result Diagrams: 01/19/17 05:00 01/19/17 05:00 Labs: Laboratory Results - last 24 hr 01/18/17 01/18/17 01/19/17 17:30 21:03 05:00 WBC 16.4 H RBC 3.09 L Hgb 13.0 Hct 38.2 MCV 123.8 H MCH 42.1 H MCHC 34.0 RDW 23.8 H Plt Count 135 PT INR Sodium Potassium Chloride Carbon Dioxide Anion Gap BUN Creatinine Est GFR ( Amer) Est GFR (Non-Af Amer) POC Glucose (mg/dL) 88 Random Glucose Calcium Total Bilirubin AST ALT Alkaline Phosphatase Ammonia 82 H Total Protein Albumin Globulin Albumin/Globulin Ratio 01/19/17 01/19/17 01/19/17 05:00 05:00 05:48 WBC RBC Hgb Hct MCV MCH MCHC RDW Plt Count PT INR Sodium 141 Potassium 5.5 H Chloride 115 H Carbon Dioxide 16 L Anion Gap 16 BUN 40 H Creatinine 2.4 H Est GFR ( Amer) 25 Est GFR (Non-Af Amer) 21 POC Glucose (mg/dL) 112 H Random Glucose 105 Calcium 8.0 L Total Bilirubin 25.4 H AST 179 H ALT 66 H Alkaline Phosphatase 220 H Ammonia 54 H Total Protein 6.4 Albumin 2.5 L Globulin 3.9 Albumin/Globulin Ratio 0.6 L 01/19/17 01/19/17 01/19/17 08:00 11:04 16:28 WBC RBC Hgb Hct MCV MCH MCHC RDW Plt Count PT 17.8 H INR 1.7 H Sodium Potassium Chloride Carbon Dioxide Anion Gap BUN Creatinine Est GFR ( Amer) Est GFR (Non-Af Amer) POC Glucose (mg/dL) 151 H 94 Random Glucose Calcium Total Bilirubin AST ALT Alkaline Phosphatase Ammonia Total Protein Albumin Globulin Albumin/Globulin Ratio Assessment & Plan - Assessment and Plan (Free Text) Assessment: SHRUTI .. R/O HRS Vs PRE RENAL AZOTEMIA ALCOHOLISM .. ETOH LIVER SCIRRHOSIS .. HEPATIC ENCEPHALOPATHY P : SEND U/A URINE FOR LYTES INSERT LOPEZ CATH .. CHECK PVR C/O IVF .. ND AT 100 CC/H ADD THIAMIN AND MVT WLL OBSERVE VERY CLOSELY FOR POSSIBLE NEED OF HD IF RENAL FUNCTION C/O TO DETERIORATE - Date & Time Date: 01/19/17 Time: 14:00
[2017-01-20 03:51] LABS: RBC URINE 43 /hpf (0-3); URINE BACTERIA RARE (<OCC); URINE BILIRUBIN MODERATE (NEGATIVE); URINE BLOOD MODERATE (NEGATIVE); URINE COLOR AMBER (YELLOW); URINE GLUCOSE (UA) 50 mg/dL (Normal); URINE KETONE NEGATIVE (NEGATIVE); URINE LEUKOCYTE ESTERASE MOD Leu/uL (Negative); URINE PROTEIN 100 mg/dL (NEGATIVE); WBC CLUMPS MANY /hpf; WBC URINE 96 /hpf (0-5)
[2017-01-20] MEDS: Sodium Chloride 0.45% 1,000 ML IV SCH (05:58)
[2017-01-20 08:02] LABS: BASO # 0.1 K/uL (0.0-0.2); BASO % 0.3 % (0.0-2.0); EOS % 0.1 % (0.0-4.0); HEMATOCRIT 39.8 % (34.0-47.0); LYMPH # 0.6 K/uL (1.0-4.3); LYMPH % 2.9 % (20.0-40.0); MEAN CORPUSCULAR HEMOGLOBIN 41.8 pg (27.0-31.0); MEAN CORPUSCULAR HGB CONC 32.9 g/dL (33.0-37.0); MEAN PLATELET VOLUME 8.9 fl (7.2-11.7); MONO # 1.1 K/uL (0.0-0.8); MONO % 5.2 % (0.0-10.0); NEUT # 18.6 K/uL (1.8-7.0); NEUT % 91.5 % (50.0-75.0); NRBC % 0.1 % (0.0-0.0); PLATELET COUNT 133 K/uL (130-400); RED CELL DISTRIBUTION WIDTH 23.3 % (11.5-14.5); WHITE BLOOD COUNT 20.3 K/uL (4.8-10.8)
[2017-01-20 08:12] LABS: ALB/GLOB RATIO 0.6 (1.0-2.1); BILIRUBIN,TOTAL 26.4 mg/dl (0.2-1.3); CALCIUM 8.4 mg/dL (8.4-10.2); POTASSIUM 5.3 MMOL/L (3.6-5.0)
[2017-01-20 08:15] LABS: TOTAL PROTEIN 6.5 G/DL (6.3-8.2)
[2017-01-20 08:57] LABS: NEUTROPHIL 89 % (42-75); TOTAL CELLS COUNTED 100
[2017-01-20] MEDS: methylPREDNISolone 30 MG in Sodium Chloride 0.9% 50 ML IV SCH (09:42)
[2017-01-20] MEDS: Sodium Chloride 0.9% 1,000 ML IV SCH ×2 (09:43→17:53)
[2017-01-20] MEDS: Pantoprazole 40 mg EC Tab PO SCH (09:46)
[2017-01-20] MEDS: Thiamine 100 mg/ml Inj IM SCH (09:47)
[2017-01-20 09:59] LABS: HEMATOCRIT 40.5 % (34.0-47.0); MEAN CORPUSCULAR HEMOGLOBIN 41.6 pg (27.0-31.0); MEAN CORPUSCULAR HGB CONC 33.4 g/dL (33.0-37.0); RED CELL DISTRIBUTION WIDTH 22.4 % (11.5-14.5)
[2017-01-20 10:00] LABS: MEAN CELL VOLUME 124.5 fl (81.0-99.0)
--- NOTE | 2017-01-20 10:03 | CP.PCM.PN ---
Subjective - Date & Time of Evaluation Date of Evaluation: 01/20/17 Time of Evaluation: 10:01 - Subjective Subjective: Patient appears more alert today. Eating breakfast and responding to questions Objective - Vital Signs/Intake and Output Vital Signs (last 24 hours): Temp Pulse Resp BP Pulse Ox 97.8 F 80 18 100/61 95 01/20/17 08:00 01/20/17 08:00 01/20/17 08:00 01/20/17 08:00 01/20/17 08:00 Intake and Output: 01/20/17 01/20/17 06:59 18:59 Intake Total 1300 Output Total 150 Balance 1150 - Medications Medications: Current Medications Docusate Sodium (Colace) 100 mg PO BID PRN PRN Reason: Constipation Sodium Chloride (Sodium Chloride 0.9%) 1,000 mls @ 100 mls/hr IV .Q10H [facility] Last Admin: 01/20/17 09:43 Dose: 100 mls/hr Methylprednisolone 30 mg/ (Sodium Chloride) 50 mls @ 100 mls/hr IV DAILY [facility] Last Admin: 01/20/17 09:42 Dose: 100 mls/hr Cefotaxime Sodium 2 gm/ Sodium (Chloride) 100 mls @ 100 mls/hr IV Q12 [facility] Last Admin: 01/20/17 09:51 Dose: 100 mls/hr Lactulose (Enulose) 20 gm PO TID [facility] Last Admin: 01/20/17 09:45 Dose: 20 gm Levothyroxine Sodium (Synthroid) 50 mcg PO DAILY@0630 [facility] Last Admin: 01/19/17 06:28 Dose: 50 mcg Lorazepam (Ativan) 1 mg IVP Q6 PRN PRN Reason: withdrawals Last Admin: 01/16/17 21:07 Dose: 1 mg Nicotine (Nicoderm Cq) 1 patch TD DAILY [facility] Last Admin: 01/20/17 09:44 Dose: 1 patch Nystatin (Nystop Topical Powder) 1 applic TOP TID [facility] Last Admin: 01/20/17 09:44 Dose: 1 applic Ondansetron HCl (Zofran Inj) 4 mg IVP Q6 PRN PRN Reason: Nausea/Vomiting Pantoprazole Sodium (Protonix Ec Tab) 40 mg PO DAILY [facility] Last Admin: 01/20/17 09:46 Dose: 40 mg Thiamine HCl (Vitamin B1 Inj) 100 mg IM DAILY [facility] Last Admin: 01/20/17 09:47 Dose: 100 mg - Labs Labs: 01/20/17 09:50 01/20/17 07:46 PT 16.0 Seconds (9.8-13.1) H 01/20/17 07:46 INR 1.5 (0.9-1.2) H 01/20/17 07:46 APTT 36.8 Seconds (25.6-37.1) 01/13/17 06:00 - Head Exam Head Exam: ATRAUMATIC - Eye Exam Eye Exam: Normal appearance - ENT Exam ENT Exam: Normal Exam - Neck Exam Neck Exam: Full ROM - Cardiovascular Exam Cardiovascular Exam: REGULAR RHYTHM - GI/Abdominal Exam GI & Abdominal Exam: Distended, Soft, Normal Bowel Sounds Assessment and Plan (1) Alcoholic hepatitis with ascites Assessment & Plan: Clinically better today. Bili still high but INR is improving. Maitain methylprednisolone dose for a total of one week and then taper. Status: Acute
[2017-01-20 10:14] LABS: CALCIUM 8.5 mg/dL (8.4-10.2)
[2017-01-20 10:22] LABS: PARTIAL THROMBOPLASTIN TIME 36.4 Seconds (25.6-37.1)
[2017-01-20 10:43] LABS: THYROID STIMULATING HORMONE 3.85 mIU/ML (0.46-4.68)
--- NOTE | 2017-01-20 11:48 | CP.PCM.PN ---
Subjective - Date & Time of Evaluation Date of Evaluation: 01/20/17 Time of Evaluation: 11:55 - Subjective Subjective: Above noted. Patient drowsy with mild confusion, severely icteric. No specific c/o. Objective - Vital Signs/Intake and Output Vital Signs (last 24 hours): Temp Pulse Resp BP Pulse Ox 97.8 F 80 18 100/61 95 01/20/17 08:00 01/20/17 08:00 01/20/17 08:00 01/20/17 08:00 01/20/17 08:00 Intake and Output: 01/19/17 01/20/17 23:59 11:59 Intake Total 2050 1300 Output Total 150 Balance 2050 1150 - Medications Medications: Current Medications Docusate Sodium (Colace) 100 mg PO BID PRN PRN Reason: Constipation Sodium Chloride (Sodium Chloride 0.9%) 1,000 mls @ 100 mls/hr IV .Q10H [facility] Last Admin: 01/20/17 09:43 Dose: 100 mls/hr Methylprednisolone 30 mg/ (Sodium Chloride) 50 mls @ 100 mls/hr IV DAILY [facility] Last Admin: 01/20/17 09:42 Dose: 100 mls/hr Cefotaxime Sodium 2 gm/ Sodium (Chloride) 100 mls @ 100 mls/hr IV Q12 [facility] Last Admin: 01/20/17 09:51 Dose: 100 mls/hr Lactulose (Enulose) 20 gm PO TID [facility] Last Admin: 01/20/17 09:45 Dose: 20 gm Levothyroxine Sodium (Synthroid) 50 mcg PO DAILY@0630 [facility] Last Admin: 01/19/17 06:28 Dose: 50 mcg Lorazepam (Ativan) 1 mg IVP Q6 PRN PRN Reason: withdrawals Last Admin: 01/16/17 21:07 Dose: 1 mg Nicotine (Nicoderm Cq) 1 patch TD DAILY [facility] Last Admin: 01/20/17 09:44 Dose: 1 patch Nystatin (Nystop Topical Powder) 1 applic TOP TID [facility] Last Admin: 01/20/17 09:44 Dose: 1 applic Ondansetron HCl (Zofran Inj) 4 mg IVP Q6 PRN PRN Reason: Nausea/Vomiting Pantoprazole Sodium (Protonix Ec Tab) 40 mg PO DAILY [facility] Last Admin: 01/20/17 09:46 Dose: 40 mg Thiamine HCl (Vitamin B1 Inj) 100 mg IM DAILY [facility] Last Admin: 01/20/17 09:47 Dose: 100 mg - Labs Labs: 01/20/17 09:50 01/20/17 09:50 PT 16.2 Seconds (9.8-13.1) H 01/20/17 09:50 INR 1.6 (0.9-1.2) H 01/20/17 09:50 APTT 36.4 Seconds (25.6-37.1) 01/20/17 09:50 - Constitutional Appears: Toxic, Confused, Chronically Ill - Head Exam Head Exam: ATRAUMATIC, NORMAL INSPECTION, NORMOCEPHALIC - Eye Exam Eye Exam: Scleral icterus - ENT Exam Additional comments: icterus - Neck Exam Neck Exam: Full ROM - Respiratory Exam Respiratory Exam: Decreased Breath Sounds, Clear to Ausculation Bilateral - Cardiovascular Exam Cardiovascular Exam: REGULAR RHYTHM, +S1, +S2 - GI/Abdominal Exam GI & Abdominal Exam: Soft - Extremities Exam Extremities Exam: Pedal Edema - Neurological Exam Neurological Exam: Altered - Skin Additional comments: Severe icterus. Assessment and Plan (1) Alcohol abuse Status: Chronic (2) Alcoholic hepatitis with ascites Status: Chronic (3) Ascites due to alcoholic cirrhosis Status: Chronic (4) Leukocytosis Status: Acute (5) Alcohol withdrawal Status: Acute (6) Wernicke encephalopathy Status: Chronic (7) Alcohol abuse with intoxication Status: Chronic (8) Hepatic encephalopathy Status: Acute (9) Hepatic failure due to alcoholism Status: Acute (10) Renal tubulopathy, encephalopathy, and liver failure syndrome Status: Acute (11) Hypoalbuminemia Status: Acute - Assessment and Plan (Free Text) Assessment: Continue supportive rx. Prognosis poor.
[2017-01-20] MEDS ORDERED: Lidocaine 1% Inj (20ml) ONE (13:57)
--- NOTE | 2017-01-20 15:08 | CP.PCM.PN ---
Subjective - Date & Time of Evaluation Date of Evaluation: 01/20/17 Time of Evaluation: 15:08 - Subjective Subjective: ID Note- Pt. seen and examined today. s/p paracenthesis earlier today and as per nurse 6 L was removed. continues to be very lethargic and drowsy. Objective - Vital Signs/Intake and Output Vital Signs (last 24 hours): Temp Pulse Resp BP Pulse Ox 99.3 F 83 20 132/65 96 01/20/17 14:58 01/20/17 14:58 01/20/17 14:58 01/20/17 14:58 01/20/17 14:58 Intake and Output: 01/20/17 01/20/17 06:59 18:59 Intake Total 1300 Output Total 150 Balance 1150 - Medications Medications: Current Medications Docusate Sodium (Colace) 100 mg PO BID PRN PRN Reason: Constipation Sodium Chloride (Sodium Chloride 0.9%) 1,000 mls @ 100 mls/hr IV .Q10H [facility] Last Admin: 01/20/17 09:43 Dose: 100 mls/hr Methylprednisolone 30 mg/ (Sodium Chloride) 50 mls @ 100 mls/hr IV DAILY [facility] Last Admin: 01/20/17 09:42 Dose: 100 mls/hr Cefotaxime Sodium 2 gm/ Sodium (Chloride) 100 mls @ 100 mls/hr IV Q12 [facility] Last Admin: 01/20/17 09:51 Dose: 100 mls/hr Lactulose (Enulose) 20 gm PO TID [facility] Last Admin: 01/20/17 13:30 Dose: 20 gm Levothyroxine Sodium (Synthroid) 50 mcg PO DAILY@0630 [facility] Last Admin: 01/19/17 06:28 Dose: 50 mcg Lorazepam (Ativan) 1 mg IVP Q6 PRN PRN Reason: withdrawals Last Admin: 01/16/17 21:07 Dose: 1 mg Nicotine (Nicoderm Cq) 1 patch TD DAILY [facility] Last Admin: 01/20/17 09:44 Dose: 1 patch Nystatin (Nystop Topical Powder) 1 applic TOP TID [facility] Last Admin: 01/20/17 13:30 Dose: 1 applic Ondansetron HCl (Zofran Inj) 4 mg IVP Q6 PRN PRN Reason: Nausea/Vomiting Pantoprazole Sodium (Protonix Ec Tab) 40 mg PO DAILY [facility] Last Admin: 01/20/17 09:46 Dose: 40 mg Thiamine HCl (Vitamin B1 Inj) 100 mg IM DAILY [facility] Last Admin: 01/20/17 09:47 Dose: 100 mg - Labs Labs: - Additional Findings Additional findings: - Constitutional Appears: No Acute Distress, Chronically Ill Additional comments: drowsy jaundice color - Head Exam Head Exam: ATRAUMATIC - Eye Exam Eye Exam: EOMI, PERRL - ENT Exam Additional comments: dry oral mucosa - Respiratory Exam Respiratory Exam: Clear to Auscultation Bilateral, NORMAL BREATHING PATTERN Additional comments: no wheezing - Cardiovascular Exam Cardiovascular Exam: RRR, +S1, +S2 - GI/Abdominal Exam GI & Abdominal Exam: Normal Bowel Sounds, Soft Additional comments: + distention with ascites but soft to palpation No tenderness no guarding, no rebound - Extremities Exam Additional comments: no edema b/l LE - Neurological Exam Additional comments: drowsy but responds to commands and can answer few questions Laboratory Results - last 72 hr 01/14/17 01/17/17 01/18/17 05:52 21:18 04:20 WBC 15.9 H RBC 3.07 L Hgb 12.9 Hct 38.1 MCV 124.3 H D MCH 42.1 H MCHC 33.9 RDW 23.4 H Plt Count 116 L D MPV 8.5 Neut % (Auto) 86.8 H Lymph % (Auto) 4.1 L [place] % (Auto) 7.2 Eos % (Auto) 1.5 Baso % (Auto) 0.4 Neut # 13.8 H Lymph # 0.6 L [place] # 1.1 H Eos # 0.2 Baso # 0.1 Neutrophils % (Manual) 90 H Band Neutrophils % 3 H Lymphocytes % (Manual) 2 L Monocytes % (Manual) 3 Eosinophils % (Manual) 1 Myelocytes % 1 H Toxic Granulation Present Platelet Estimate Slightly decreased L Large Platelets Present Polychromasia Slight Anisocytosis (manual) Slight Macrocytosis (manual) Moderate Schistocytes Slight PT INR APTT Sodium Potassium Chloride Carbon Dioxide Anion Gap BUN Creatinine Est GFR ( Amer) Est GFR (Non-Af Amer) POC Glucose (mg/dL) 85 108 Random Glucose Calcium Total Bilirubin AST ALT Alkaline Phosphatase Ammonia Total Protein Albumin Globulin Albumin/Globulin Ratio TSH 3rd Generation Urine Color Urine Clarity Urine pH Ur Specific Outing Urine Protein Urine Glucose (UA) Urine Ketones Urine Blood Urine Nitrate Urine Bilirubin Urine Urobilinogen Ur Leukocyte Esterase Urine RBC (Auto) Urine WBC Clumps (Auto) Urine Microscopic WBC Ur Squamous Epith Cells Urine Bacteria Urine Yeast (Budding) Urine Osmolality Ur Random Creatinine Ur Random Sodium Ur Random Potassium Fluid Source Fluid Appearance Fluid WBC Fluid RBC Fluid Tot Cell Count Fluid Neutrophils Fluid Lymphocytes Fld Monocyte/Macrophag Fluid Glucose Fluid Total Protein Fluid LDH Fluid Amylase Fluid Triglycerides Fluid Comment Hepatitis A IgM Ab Hep Bs Antigen Hep B Core IgM Ab Hepatitis C Antibody HIV 1&2 Antibody Screen 01/18/17 01/18/17 01/18/17 04:20 04:20 05:20 WBC RBC Hgb Hct MCV MCH MCHC RDW Plt Count MPV Neut % (Auto) Lymph % (Auto) [place] % (Auto) Eos % (Auto) Baso % (Auto) Neut # Lymph # [place] # Eos # Baso # Neutrophils % (Manual) Band Neutrophils % Lymphocytes % (Manual) Monocytes % (Manual) Eosinophils % (Manual) Myelocytes % Toxic Granulation Platelet Estimate Large Platelets Polychromasia Anisocytosis (manual) Macrocytosis (manual) Schistocytes PT 19.5 H INR 1.9 H APTT Sodium 139 140 Potassium 5.9 H 4.8 Chloride 113 H 113 H Carbon Dioxide 16 L 17 L Anion Gap 16 15 BUN 30 H 29 H Creatinine 1.4 H 1.5 H Est GFR ( Amer) 46 43 Est GFR (Non-Af Amer) 38 35 POC Glucose (mg/dL) Random Glucose 89 92 Calcium 7.8 L 7.8 L Total Bilirubin 23.8 H 23.5 H AST 172 H D 160 H ALT 60 H 65 H Alkaline Phosphatase 223 H 224 H Ammonia Total Protein 6.7 6.2 L Albumin 2.7 L 2.5 L Globulin 4.0 H 3.8 Albumin/Globulin Ratio 0.7 L 0.7 L TSH 3rd Generation Urine Color Urine Clarity Urine pH Ur Specific Outing Urine Protein Urine Glucose (UA) Urine Ketones Urine Blood Urine Nitrate Urine Bilirubin Urine Urobilinogen Ur Leukocyte Esterase Urine RBC (Auto) Urine WBC Clumps (Auto) Urine Microscopic WBC Ur Squamous Epith Cells Urine Bacteria Urine Yeast (Budding) Urine Osmolality Ur Random Creatinine Ur Random Sodium Ur Random Potassium Fluid Source Fluid Appearance Fluid WBC Fluid RBC Fluid Tot Cell Count Fluid Neutrophils Fluid Lymphocytes Fld Monocyte/Macrophag Fluid Glucose Fluid Total Protein Fluid LDH Fluid Amylase Fluid Triglycerides Fluid Comment Hepatitis A IgM Ab Hep Bs Antigen Hep B Core IgM Ab Hepatitis C Antibody HIV 1&2 Antibody Screen 01/18/17 01/18/17 01/18/17 05:44 11:22 16:01 WBC RBC Hgb Hct MCV MCH MCHC RDW Plt Count MPV Neut % (Auto) Lymph % (Auto) [place] % (Auto) Eos % (Auto) Baso % (Auto) Neut # Lymph # [place] # Eos # Baso # Neutrophils % (Manual) Band Neutrophils % Lymphocytes % (Manual) Monocytes % (Manual) Eosinophils % (Manual) Myelocytes % Toxic Granulation Platelet Estimate Large Platelets Polychromasia Anisocytosis (manual) Macrocytosis (manual) Schistocytes PT INR APTT Sodium Potassium Chloride Carbon Dioxide Anion Gap BUN Creatinine Est GFR ( Amer) Est GFR (Non-Af Amer) POC Glucose (mg/dL) 83 102 120 H Random Glucose Calcium Total Bilirubin AST ALT Alkaline Phosphatase Ammonia Total Protein Albumin Globulin Albumin/Globulin Ratio TSH 3rd Generation Urine Color Urine Clarity Urine pH Ur Specific Outing Urine Protein Urine Glucose (UA) Urine Ketones Urine Blood Urine Nitrate Urine Bilirubin Urine Urobilinogen Ur Leukocyte Esterase Urine RBC (Auto) Urine WBC Clumps (Auto) Urine Microscopic WBC Ur Squamous Epith Cells Urine Bacteria Urine Yeast (Budding) Urine Osmolality Ur Random Creatinine Ur Random Sodium Ur Random Potassium Fluid Source Fluid Appearance Fluid WBC Fluid RBC Fluid Tot Cell Count Fluid Neutrophils Fluid Lymphocytes Fld Monocyte/Macrophag Fluid Glucose Fluid Total Protein Fluid LDH Fluid Amylase Fluid Triglycerides Fluid Comment Hepatitis A IgM Ab Hep Bs Antigen Hep B Core IgM Ab Hepatitis C Antibody HIV 1&2 Antibody Screen 01/18/17 01/18/17 01/19/17 17:30 21:03 05:00 WBC 16.4 H RBC 3.09 L Hgb 13.0 Hct 38.2 MCV 123.8 H MCH 42.1 H MCHC 34.0 RDW 23.8 H Plt Count 135 MPV Neut % (Auto) Lymph % (Auto) [place] % (Auto) Eos % (Auto) Baso % (Auto) Neut # Lymph # [place] # Eos # Baso # Neutrophils % (Manual) Band Neutrophils % Lymphocytes % (Manual) Monocytes % (Manual) Eosinophils % (Manual) Myelocytes % Toxic Granulation Platelet Estimate Large Platelets Polychromasia Anisocytosis (manual) Macrocytosis (manual) Schistocytes PT INR APTT Sodium Potassium Chloride Carbon Dioxide Anion Gap BUN Creatinine Est GFR ( Amer) Est GFR (Non-Af Amer) POC Glucose (mg/dL) 88 Random Glucose Calcium Total Bilirubin AST ALT Alkaline Phosphatase Ammonia 82 H Total Protein Albumin Globulin Albumin/Globulin Ratio TSH 3rd Generation Urine Color Urine Clarity Urine pH Ur Specific Outing Urine Protein Urine Glucose (UA) Urine Ketones Urine Blood Urine Nitrate Urine Bilirubin Urine Urobilinogen Ur Leukocyte Esterase Urine RBC (Auto) Urine WBC Clumps (Auto) Urine Microscopic WBC Ur Squamous Epith Cells Urine Bacteria Urine Yeast (Budding) Urine Osmolality Ur Random Creatinine Ur Random Sodium Ur Random Potassium Fluid Source Fluid Appearance Fluid WBC Fluid RBC Fluid Tot Cell Count Fluid Neutrophils Fluid Lymphocytes Fld Monocyte/Macrophag Fluid Glucose Fluid Total Protein Fluid LDH Fluid Amylase Fluid Triglycerides Fluid Comment Hepatitis A IgM Ab Hep Bs Antigen Hep B Core IgM Ab Hepatitis C Antibody HIV 1&2 Antibody Screen 01/19/17 01/19/17 01/19/17 05:00 05:00 05:48 WBC RBC Hgb Hct MCV MCH MCHC RDW Plt Count MPV Neut % (Auto) Lymph % (Auto) [place] % (Auto) Eos % (Auto) Baso % (Auto) Neut # Lymph # [place] # Eos # Baso # Neutrophils % (Manual) Band Neutrophils % Lymphocytes % (Manual) Monocytes % (Manual) Eosinophils % (Manual) Myelocytes % Toxic Granulation Platelet Estimate Large Platelets Polychromasia Anisocytosis (manual) Macrocytosis (manual) Schistocytes PT INR APTT Sodium 141 Potassium 5.5 H Chloride 115 H Carbon Dioxide 16 L Anion Gap 16 BUN 40 H Creatinine 2.4 H Est GFR ( Amer) 25 Est GFR (Non-Af Amer) 21 POC Glucose (mg/dL) 112 H Random Glucose 105 Calcium 8.0 L Total Bilirubin 25.4 H AST 179 H ALT 66 H Alkaline Phosphatase 220 H Ammonia 54 H Total Protein 6.4 Albumin 2.5 L Globulin 3.9 Albumin/Globulin Ratio 0.6 L TSH 3rd Generation Urine Color Urine Clarity Urine pH Ur Specific Outing Urine Protein Urine Glucose (UA) Urine Ketones Urine Blood Urine Nitrate Urine Bilirubin Urine Urobilinogen Ur Leukocyte Esterase Urine RBC (Auto) Urine WBC Clumps (Auto) Urine Microscopic WBC Ur Squamous Epith Cells Urine Bacteria Urine Yeast (Budding) Urine Osmolality Ur Random Creatinine Ur Random Sodium Ur Random Potassium Fluid Source Fluid Appearance Fluid WBC Fluid RBC Fluid Tot Cell Count Fluid Neutrophils Fluid Lymphocytes Fld Monocyte/Macrophag Fluid Glucose Fluid Total Protein Fluid LDH Fluid Amylase Fluid Triglycerides Fluid Comment Hepatitis A IgM Ab Hep Bs Antigen Hep B Core IgM Ab Hepatitis C Antibody HIV 1&2 Antibody Screen 01/19/17 01/19/17 01/19/17 08:00 11:04 15:45 WBC RBC Hgb Hct MCV MCH MCHC RDW Plt Count MPV Neut % (Auto) Lymph % (Auto) [place] % (Auto) Eos % (Auto) Baso % (Auto) Neut # Lymph # [place] # Eos # Baso # Neutrophils % (Manual) Band Neutrophils % Lymphocytes % (Manual) Monocytes % (Manual) Eosinophils % (Manual) Myelocytes % Toxic Granulation Platelet Estimate Large Platelets Polychromasia Anisocytosis (manual) Macrocytosis (manual) Schistocytes PT 17.8 H INR 1.7 H APTT Sodium Potassium Chloride Carbon Dioxide Anion Gap BUN Creatinine Est GFR ( Amer) Est GFR (Non-Af Amer) POC Glucose (mg/dL) 151 H Random Glucose Calcium Total Bilirubin AST ALT Alkaline Phosphatase Ammonia Total Protein Albumin Globulin Albumin/Globulin Ratio TSH 3rd Generation Urine Color Urine Clarity Urine pH Ur Specific Outing Urine Protein Urine Glucose (UA) Urine Ketones Urine Blood Urine Nitrate Urine Bilirubin Urine Urobilinogen Ur Leukocyte Esterase Urine RBC (Auto) Urine WBC Clumps (Auto) Urine Microscopic WBC Ur Squamous Epith Cells Urine Bacteria Urine Yeast (Budding) Urine Osmolality Ur Random Creatinine Ur Random Sodium Ur Random Potassium Fluid Source Fluid Appearance Fluid WBC Fluid RBC Fluid Tot Cell Count Fluid Neutrophils Fluid Lymphocytes Fld Monocyte/Macrophag Fluid Glucose Fluid Total Protein Fluid LDH Fluid Amylase Fluid Triglycerides Fluid Comment Hepatitis A IgM Ab Negative Hep Bs Antigen Negative Hep B Core IgM Ab Negative Hepatitis C Antibody Negative HIV 1&2 Antibody Screen 01/19/17 01/19/17 01/19/17 15:45 16:28 21:18 WBC RBC Hgb Hct MCV MCH MCHC RDW Plt Count MPV Neut % (Auto) Lymph % (Auto) [place] % (Auto) Eos % (Auto) Baso % (Auto) Neut # Lymph # [place] # Eos # Baso # Neutrophils % (Manual) Band Neutrophils % Lymphocytes % (Manual) Monocytes % (Manual) Eosinophils % (Manual) Myelocytes % Toxic Granulation Platelet Estimate Large Platelets Polychromasia Anisocytosis (manual) Macrocytosis (manual) Schistocytes PT INR APTT Sodium Potassium Chloride Carbon Dioxide Anion Gap BUN Creatinine Est GFR ( Amer) Est GFR (Non-Af Amer) POC Glucose (mg/dL) 94 103 Random Glucose Calcium Total Bilirubin AST ALT Alkaline Phosphatase Ammonia Total Protein Albumin Globulin Albumin/Globulin Ratio TSH 3rd Generation Urine Color Urine Clarity Urine pH Ur Specific Outing Urine Protein Urine Glucose (UA) Urine Ketones Urine Blood Urine Nitrate Urine Bilirubin Urine Urobilinogen Ur Leukocyte Esterase Urine RBC (Auto) Urine WBC Clumps (Auto) Urine Microscopic WBC Ur Squamous Epith Cells Urine Bacteria Urine Yeast (Budding) Urine Osmolality Ur Random Creatinine Ur Random Sodium Ur Random Potassium Fluid Source Fluid Appearance Fluid WBC Fluid RBC Fluid Tot Cell Count Fluid Neutrophils Fluid Lymphocytes Fld Monocyte/Macrophag Fluid Glucose Fluid Total Protein Fluid LDH Fluid Amylase Fluid Triglycerides Fluid Comment Hepatitis A IgM Ab Hep Bs Antigen Hep B Core IgM Ab Hepatitis C Antibody HIV 1&2 Antibody Screen Negative 01/20/17 01/20/17 01/20/17 02:25 03:32 05:41 WBC RBC Hgb Hct MCV MCH MCHC RDW Plt Count MPV Neut % (Auto) Lymph % (Auto) [place] % (Auto) Eos % (Auto) Baso % (Auto) Neut # Lymph # [place] # Eos # Baso # Neutrophils % (Manual) Band Neutrophils % Lymphocytes % (Manual) Monocytes % (Manual) Eosinophils % (Manual) Myelocytes % Toxic Granulation Platelet Estimate Large Platelets Polychromasia Anisocytosis (manual) Macrocytosis (manual) Schistocytes PT INR APTT Sodium Potassium Chloride Carbon Dioxide Anion Gap BUN Creatinine Est GFR ( Amer) Est GFR (Non-Af Amer) POC Glucose (mg/dL) 92 Random Glucose Calcium Total Bilirubin AST ALT Alkaline Phosphatase Ammonia Total Protein Albumin Globulin Albumin/Globulin Ratio TSH 3rd Generation Urine Color G[place] Urine Clarity Cloudy Urine pH 5.0 Ur Specific Outing 1.021 Urine Protein 100 Urine Glucose (UA) 50 Urine Ketones Negative Urine Blood Moderate Urine Nitrate Negative Urine Bilirubin Moderate Urine Urobilinogen 4.0 H Ur Leukocyte Esterase Mod Urine RBC (Auto) 43 H Urine WBC Clumps (Auto) Many H Urine Microscopic WBC 96 H Ur Squamous Epith Cells 17 H Urine Bacteria Rare Urine Yeast (Budding) Occ H Urine Osmolality 389 Ur Random Creatinine Ur Random Sodium Ur Random Potassium Fluid Source Fluid Appearance Fluid WBC Fluid RBC Fluid Tot Cell Count Fluid Neutrophils Fluid Lymphocytes Fld Monocyte/Macrophag Fluid Glucose Fluid Total Protein Fluid LDH Fluid Amylase Fluid Triglycerides Fluid Comment Hepatitis A IgM Ab Hep Bs Antigen Hep B Core IgM Ab Hepatitis C Antibody HIV 1&2 Antibody Screen 01/20/17 01/20/17 01/20/17 07:46 07:46 07:46 WBC 20.3 H RBC 3.14 L Hgb 13.1 Hct 39.8 MCV 127.0 H D MCH 41.8 H MCHC 32.9 L RDW 23.3 H Plt Count 133 MPV 8.9 Neut % (Auto) 91.5 H Lymph % (Auto) 2.9 L [place] % (Auto) 5.2 Eos % (Auto) 0.1 Baso % (Auto) 0.3 Neut # 18.6 H Lymph # 0.6 L [place] # 1.1 H Eos # 0.0 Baso # 0.1 Neutrophils % (Manual) 89 H Band Neutrophils % Lymphocytes % (Manual) 4 L Monocytes % (Manual) 7 Eosinophils % (Manual) Myelocytes % Toxic Granulation Platelet Estimate Slightly decreased L Large Platelets Polychromasia Anisocytosis (manual) Macrocytosis (manual) Schistocytes PT 16.0 H INR 1.5 H APTT Sodium 139 Potassium 5.3 H Chloride 113 H Carbon Dioxide 14 L Anion Gap 17 BUN 53 H Creatinine 3.3 H Est GFR ( Amer) 17 Est GFR (Non-Af Amer) 14 POC Glucose (mg/dL) Random Glucose 97 Calcium 8.4 Total Bilirubin 26.4 H AST 176 H ALT 75 H Alkaline Phosphatase 219 H Ammonia Total Protein 6.5 Albumin 2.5 L Globulin 4.0 H Albumin/Globulin Ratio 0.6 L TSH 3rd Generation Urine Color Urine Clarity Urine pH Ur Specific Outing Urine Protein Urine Glucose (UA) Urine Ketones Urine Blood Urine Nitrate Urine Bilirubin Urine Urobilinogen Ur Leukocyte Esterase Urine RBC (Auto) Urine WBC Clumps (Auto) Urine Microscopic WBC Ur Squamous Epith Cells Urine Bacteria Urine Yeast (Budding) Urine Osmolality Ur Random Creatinine Ur Random Sodium Ur Random Potassium Fluid Source Fluid Appearance Fluid WBC Fluid RBC Fluid Tot Cell Count Fluid Neutrophils Fluid Lymphocytes Fld Monocyte/Macrophag Fluid Glucose Fluid Total Protein Fluid LDH Fluid Amylase Fluid Triglycerides Fluid Comment Hepatitis A IgM Ab Hep Bs Antigen Hep B Core IgM Ab Hepatitis C Antibody HIV 1&2 Antibody Screen 01/20/17 01/20/17 01/20/17 09:50 09:50 09:50 WBC 21.0 H RBC 3.26 L Hgb 13.5 Hct 40.5 MCV 124.5 H D MCH 41.6 H MCHC 33.4 RDW 22.4 H Plt Count 139 MPV Neut % (Auto) Lymph % (Auto) [place] % (Auto) Eos % (Auto) Baso % (Auto) Neut # Lymph # [place] # Eos # Baso # Neutrophils % (Manual) Band Neutrophils % Lymphocytes % (Manual) Monocytes % (Manual) Eosinophils % (Manual) Myelocytes % Toxic Granulation Platelet Estimate Large Platelets Polychromasia Anisocytosis (manual) Macrocytosis (manual) Schistocytes PT 16.2 H INR 1.6 H APTT 36.4 Sodium 138 Potassium 5.0 Chloride 113 H Carbon Dioxide 13 L Anion Gap 17 BUN 53 H Creatinine 3.4 H Est GFR ( Amer) 17 Est GFR (Non-Af Amer) 14 POC Glucose (mg/dL) Random Glucose 107 H Calcium 8.5 Total Bilirubin AST ALT Alkaline Phosphatase Ammonia Total Protein Albumin Globulin Albumin/Globulin Ratio TSH 3rd Generation 3.85 Urine Color Urine Clarity Urine pH Ur Specific Outing Urine Protein Urine Glucose (UA) Urine Ketones Urine Blood Urine Nitrate Urine Bilirubin Urine Urobilinogen Ur Leukocyte Esterase Urine RBC (Auto) Urine WBC Clumps (Auto) Urine Microscopic WBC Ur Squamous Epith Cells Urine Bacteria Urine Yeast (Budding) Urine Osmolality Ur Random Creatinine Ur Random Sodium Ur Random Potassium Fluid Source Fluid Appearance Fluid WBC Fluid RBC Fluid Tot Cell Count Fluid Neutrophils Fluid Lymphocytes Fld Monocyte/Macrophag Fluid Glucose Fluid Total Protein Fluid LDH Fluid Amylase Fluid Triglycerides Fluid Comment Hepatitis A IgM Ab Hep Bs Antigen Hep B Core IgM Ab Hepatitis C Antibody HIV 1&2 Antibody Screen 01/20/17 01/20/17 01/20/17 09:50 10:50 10:50 WBC RBC Hgb Hct MCV MCH MCHC RDW Plt Count MPV Neut % (Auto) Lymph % (Auto) [place] % (Auto) Eos % (Auto) Baso % (Auto) Neut # Lymph # [place] # Eos # Baso # Neutrophils % (Manual) Band Neutrophils % Lymphocytes % (Manual) Monocytes % (Manual) Eosinophils % (Manual) Myelocytes % Toxic Granulation Platelet Estimate Large Platelets Polychromasia Anisocytosis (manual) Macrocytosis (manual) Schistocytes PT INR APTT Sodium Potassium Chloride Carbon Dioxide Anion Gap BUN Creatinine Est GFR ( Amer) Est GFR (Non-Af Amer) POC Glucose (mg/dL) Random Glucose Calcium Total Bilirubin AST ALT Alkaline Phosphatase Ammonia 57 H Total Protein Albumin Globulin Albumin/Globulin Ratio TSH 3rd Generation Urine Color Urine Clarity Urine pH Ur Specific Outing Urine Protein Urine Glucose (UA) Urine Ketones Urine Blood Urine Nitrate Urine Bilirubin Urine Urobilinogen Ur Leukocyte Esterase Urine RBC (Auto) Urine WBC Clumps (Auto) Urine Microscopic WBC Ur Squamous Epith Cells Urine Bacteria Urine Yeast (Budding) Urine Osmolality Ur Random Creatinine 135.7 Ur Random Sodium 16 Ur Random Potassium 67.7 Fluid Source Fluid Appearance Fluid WBC Fluid RBC Fluid Tot Cell Count Fluid Neutrophils Fluid Lymphocytes Fld Monocyte/Macrophag Fluid Glucose Fluid Total Protein Fluid LDH Fluid Amylase Fluid Triglycerides Fluid Comment Hepatitis A IgM Ab Hep Bs Antigen Hep B Core IgM Ab Hepatitis C Antibody HIV 1&2 Antibody Screen 01/20/17 01/20/17 01/20/17 11:14 14:00 16:18 WBC RBC Hgb Hct MCV MCH MCHC RDW Plt Count MPV Neut % (Auto) Lymph % (Auto) [place] % (Auto) Eos % (Auto) Baso % (Auto) Neut # Lymph # [place] # Eos # Baso # Neutrophils % (Manual) Band Neutrophils % Lymphocytes % (Manual) Monocytes % (Manual) Eosinophils % (Manual) Myelocytes % Toxic Granulation Platelet Estimate Large Platelets Polychromasia Anisocytosis (manual) Macrocytosis (manual) Schistocytes PT INR APTT Sodium Potassium Chloride Carbon Dioxide Anion Gap BUN Creatinine Est GFR ( Amer) Est GFR (Non-Af Amer) POC Glucose (mg/dL) 84 98 Random Glucose Calcium Total Bilirubin AST ALT Alkaline Phosphatase Ammonia Total Protein Albumin Globulin Albumin/Globulin Ratio TSH 3rd Generation Urine Color Urine Clarity Urine pH Ur Specific Outing Urine Protein Urine Glucose (UA) Urine Ketones Urine Blood Urine Nitrate Urine Bilirubin Urine Urobilinogen Ur Leukocyte Esterase Urine RBC (Auto) Urine WBC Clumps (Auto) Urine Microscopic WBC Ur Squamous Epith Cells Urine Bacteria Urine Yeast (Budding) Urine Osmolality Ur Random Creatinine Ur Random Sodium Ur Random Potassium Fluid Source Peritoneal/ascites Fluid Appearance Clear Fluid WBC 135.0 Fluid RBC 341.0 H Fluid Tot Cell Count TEST NOT PERFORMED Fluid Neutrophils 60.0 H Fluid Lymphocytes 2.0 H Fld Monocyte/Macrophag 38 H Fluid Glucose 95 Fluid Total Protein < 2.0 Fluid LDH 418 Fluid Amylase < 30 Fluid Triglycerides 17 Fluid Comment TEST NOT PERFORMED Hepatitis A IgM Ab Hep Bs Antigen Hep B Core IgM Ab Hepatitis C Antibody HIV 1&2 Antibody Screen Microbiology 01/18/17 15:28 Blood-Venous Blood Culture - Preliminary NO GROWTH AFTER 48 HOURS 01/18/17 15:28 Blood-Venous Blood Culture - Preliminary NO GROWTH AFTER 48 HOURS 01/12/17 17:30 Blood-Venous Blood Culture - Final NO GROWTH AFTER 5 DAYS 01/12/17 17:30 Blood-Venous Gram Stain - Final TEST NOT PERFORMED 01/14/17 20:30 Urine Urine Culture - Final No Growth (<1,000 CFU/ML) Assessment and Plan (1) Sepsis Status: Acute (2) Leukocytosis Status: Acute (3) Ascites due to alcoholic cirrhosis Status: Chronic - Assessment and Plan (Free Text) Assessment: A/P- 61 year old female with h/o EOH abuse with cirrhosis presented post fall on the knees found to have high wbc and lactate and was admitted for sepsis work up and alcoholism and cirrhosis. s/p paracenthesis fluid cell count wbc 134 and 60% PM - not c/w SBP, however pt. has been on abx past few days. still drowsy afebrile leukocytosis perists, however, she was also started on steroids by GI urine cx- neg x 1 blood cx- neg x 3 transaminitis and hyperbilirubinemia. hepatitis panel - neg HIV ab- neg cirrhosis ascites REGINO plan- completed 3 days of IV cefotaxime prior to that was on few days of IV ceftriaxone as per primary team. ascites fluid cell count not c/w SBP, however, paracentheiss wa done post few days of IV abx. advise 2 more days of Iv cefotaxime. ? hepatorenal syndrome. prognosis poor. all above d/w
[2017-01-20 15:30] LABS: BODY FLUID TYPE PERITONEAL/ASCITES
[2017-01-20 15:45] LABS: LDH,BODY FLUID 418 IU (NONE ESTABLISHED)
[2017-01-20 16:28] LABS: BF GROSS APPEARANCE CLEAR (CLEAR)
--- NOTE | 2017-01-20 20:55 | CP.PCM.PN ---
Subjective - Date & Time of Evaluation Date of Evaluation: 01/20/17 Time of Evaluation: 15:30 - Subjective Subjective: SEEN ON RENAL F/U JUST RETURNED FROM PARACENTHESIS .. 6L URINE NA 16 NOT C/O HRS ON IVAB FOR UTI ASCITIC FLUID NOT C/O SBP PT REMAINS VERY LETHARGIC Objective - Vital Signs/Intake and Output Vital Signs (last 24 hours): Temp Pulse Resp BP Pulse Ox 98.6 F 75 16 103/70 98 01/20/17 20:50 01/20/17 20:50 01/20/17 20:50 01/20/17 20:50 01/20/17 20:50 Intake and Output: 01/20/17 01/21/17 18:59 06:59 Intake Total 1400 Output Total 30 Balance 1370 - Medications Medications: Current Medications Docusate Sodium (Colace) 100 mg PO BID PRN PRN Reason: Constipation Sodium Chloride (Sodium Chloride 0.9%) 1,000 mls @ 100 mls/hr IV .Q10H [facility] Last Admin: 01/20/17 17:53 Dose: 100 mls/hr Methylprednisolone 30 mg/ (Sodium Chloride) 50 mls @ 100 mls/hr IV DAILY [facility] Last Admin: 01/20/17 09:42 Dose: 100 mls/hr Cefotaxime Sodium 2 gm/ Sodium (Chloride) 100 mls @ 100 mls/hr IV Q12 [facility] Last Admin: 01/20/17 09:51 Dose: 100 mls/hr Lactulose (Enulose) 20 gm PO TID [facility] Last Admin: 01/20/17 18:08 Dose: Not Given Levothyroxine Sodium (Synthroid) 50 mcg PO DAILY@0630 [facility] Last Admin: 01/19/17 06:28 Dose: 50 mcg Lorazepam (Ativan) 1 mg IVP Q6 PRN PRN Reason: withdrawals Last Admin: 01/16/17 21:07 Dose: 1 mg Nicotine (Nicoderm Cq) 1 patch TD DAILY [facility] Last Admin: 01/20/17 09:44 Dose: 1 patch Nystatin (Nystop Topical Powder) 1 applic TOP TID [facility] Last Admin: 01/20/17 17:54 Dose: 1 applic Ondansetron HCl (Zofran Inj) 4 mg IVP Q6 PRN PRN Reason: Nausea/Vomiting Pantoprazole Sodium (Protonix Ec Tab) 40 mg PO DAILY [facility] Last Admin: 01/20/17 09:46 Dose: 40 mg Thiamine HCl (Vitamin B1 Inj) 100 mg IM DAILY [facility] Last Admin: 01/20/17 09:47 Dose: 100 mg - Labs Labs: 01/20/17 09:50 01/20/17 09:50 PT 16.2 Seconds (9.8-13.1) H 01/20/17 09:50 INR 1.6 (0.9-1.2) H 01/20/17 09:50 APTT 36.4 Seconds (25.6-37.1) 01/20/17 09:50 Assessment and Plan - Assessment and Plan (Free Text) Assessment: SHRUTI ..ATN .. WILL WATCH CLOSELY FOR NEED OF HD ETOH ABUSE .. LIVER SCIRHOSIS .. HEPATIC ENCEPHALOPATHY UTI ON IVAB ASCITIS P : C/O NS AT 100 CC/H
[2017-01-21] MEDS: Levothyroxine 50 MCG TAB PO SCH (06:29)
[2017-01-21] MEDS: Sodium Chloride 0.9% 1,000 ML IV SCH ×3 (06:32→23:45)
[2017-01-21] MEDS: methylPREDNISolone 30 MG in Sodium Chloride 0.9% 50 ML IV SCH (09:43)
[2017-01-21] MEDS: Pantoprazole 40 mg EC Tab PO SCH (09:43)
[2017-01-21] MEDS: Thiamine 100 mg/ml Inj IM SCH (09:44)
--- NOTE | 2017-01-21 15:01 | CP.PCM.PN ---
Subjective - Date & Time of Evaluation Date of Evaluation: 01/21/17 Time of Evaluation: 15:03 - Subjective Subjective: Patient lethargic abusable confuse. Renal function worsening. Objective - Vital Signs/Intake and Output Vital Signs (last 24 hours): Temp Pulse Resp BP Pulse Ox 98.4 F 80 20 106/56 L 95 01/21/17 12:54 01/21/17 12:54 01/21/17 12:54 01/21/17 12:54 01/21/17 12:54 Intake and Output: 01/21/17 01/21/17 11:59 23:59 Intake Total 1200 Output Total 100 Balance 1100 - Medications Medications: Current Medications Docusate Sodium (Colace) 100 mg PO BID PRN PRN Reason: Constipation Last Admin: 01/21/17 09:44 Dose: 100 mg Sodium Chloride (Sodium Chloride 0.9%) 1,000 mls @ 100 mls/hr IV .Q10H [facility] Last Admin: 01/21/17 06:32 Dose: 100 mls/hr Methylprednisolone 30 mg/ (Sodium Chloride) 50 mls @ 100 mls/hr IV DAILY [facility] Last Admin: 01/21/17 09:43 Dose: 100 mls/hr Cefotaxime Sodium 2 gm/ Sodium (Chloride) 100 mls @ 100 mls/hr IV Q12 [facility] Last Admin: 01/21/17 09:45 Dose: 100 mls/hr Lactulose (Enulose) 20 gm PO TID [facility] Last Admin: 01/21/17 13:57 Dose: 20 gm Levothyroxine Sodium (Synthroid) 50 mcg PO DAILY@0630 [facility] Last Admin: 01/21/17 06:29 Dose: 50 mcg Lorazepam (Ativan) 1 mg IVP Q6 PRN PRN Reason: withdrawals Last Admin: 01/16/17 21:07 Dose: 1 mg Nicotine (Nicoderm Cq) 1 patch TD DAILY [facility] Last Admin: 01/21/17 09:44 Dose: 1 patch Nystatin (Nystop Topical Powder) 1 applic TOP TID [facility] Last Admin: 01/21/17 13:57 Dose: 1 applic Ondansetron HCl (Zofran Inj) 4 mg IVP Q6 PRN PRN Reason: Nausea/Vomiting Pantoprazole Sodium (Protonix Ec Tab) 40 mg PO DAILY [facility] Last Admin: 01/21/17 09:43 Dose: 40 mg Thiamine HCl (Vitamin B1 Inj) 100 mg IM DAILY [facility] Last Admin: 01/21/17 09:44 Dose: 100 mg - Labs Labs: 01/20/17 09:50 01/20/17 09:50 PT 16.2 Seconds (9.8-13.1) H 01/20/17 09:50 INR 1.6 (0.9-1.2) H 01/20/17 09:50 APTT 36.4 Seconds (25.6-37.1) 01/20/17 09:50 - Constitutional Appears: Non-toxic, Confused, Chronically Ill - Head Exam Head Exam: ATRAUMATIC - Eye Exam Eye Exam: Scleral icterus - Respiratory Exam Respiratory Exam: Clear to Ausculation Bilateral - Cardiovascular Exam Cardiovascular Exam: REGULAR RHYTHM, +S1, +S2 - GI/Abdominal Exam GI & Abdominal Exam: Soft - Neurological Exam Neurological Exam: Altered - Skin Additional comments: icterus Assessment and Plan (1) Alcohol abuse Status: Chronic (2) Alcoholic hepatitis with ascites Status: Chronic (3) Ascites due to alcoholic cirrhosis Status: Chronic (4) Leukocytosis Status: Acute (5) Alcohol withdrawal Status: Acute (6) Wernicke encephalopathy Status: Chronic (7) Alcohol abuse with intoxication Status: Chronic (8) Hepatic encephalopathy Status: Acute (9) Hepatic failure due to alcoholism Status: Acute (10) Renal tubulopathy, encephalopathy, and liver failure syndrome Status: Acute (11) Hypoalbuminemia Status: Acute - Assessment and Plan (Free Text) Plan: Prognosis poor continue present rx.
--- NOTE | 2017-01-21 17:01 | CP.PCM.PN ---
Subjective - Date & Time of Evaluation Date of Evaluation: 01/21/17 Time of Evaluation: 16:58 - Subjective Subjective: quite ill mult med problems SHRUTI seens to have slowed totday, hopefully at peak my need a bit more vol but seems to be third spacing if creat continues to inc may need hd in a day or 2. Assessment and Plan (1) Alcohol abuse Status: Chronic (2) Alcoholic hepatitis with ascites Status: Chronic (3) Ascites due to alcoholic cirrhosis Status: Chronic (4) Leukocytosis Status: Acute (5) Alcohol withdrawal Status: Acute (6) Wernicke encephalopathy Status: Chronic (7) Alcohol abuse with intoxication Status: Chronic (8) Hepatic encephalopathy Status: Acute (9) Hepatic failure due to alcoholism Status: Acute (10) Renal tubulopathy, encephalopathy, and liver failure syndrome Status: Acute (11) Hypoalbuminemia Status: Acute - Assessment and Plan (Free Text) Plan: cont rx and support. Objective - Vital Signs/Intake and Output Vital Signs (last 24 hours): Temp Pulse Resp BP Pulse Ox 98.4 F 80 20 106/56 L 95 01/21/17 12:54 01/21/17 12:54 01/21/17 12:54 01/21/17 12:54 01/21/17 12:54 Intake and Output: 01/21/17 01/21/17 06:59 18:59 Intake Total 2600 Output Total 130 Balance 2470 - Medications Medications: Current Medications Docusate Sodium (Colace) 100 mg PO BID PRN PRN Reason: Constipation Last Admin: 01/21/17 09:44 Dose: 100 mg Folic Acid (Folic Acid) 1 mg PO DAILY [facility] Sodium Chloride (Sodium Chloride 0.9%) 1,000 mls @ 100 mls/hr IV .Q10H [facility] Last Admin: 01/21/17 06:32 Dose: 100 mls/hr Methylprednisolone 30 mg/ (Sodium Chloride) 50 mls @ 100 mls/hr IV DAILY [facility] Last Admin: 01/21/17 09:43 Dose: 100 mls/hr Cefotaxime Sodium 2 gm/ Sodium (Chloride) 100 mls @ 100 mls/hr IV Q12 [facility] Last Admin: 01/21/17 09:45 Dose: 100 mls/hr Lactulose (Enulose) 20 gm PO TID [facility] Last Admin: 01/21/17 13:57 Dose: 20 gm Levothyroxine Sodium (Synthroid) 50 mcg PO DAILY@0630 [facility] Last Admin: 01/21/17 06:29 Dose: 50 mcg Lorazepam (Ativan) 1 mg IVP Q6 PRN PRN Reason: withdrawals Last Admin: 01/16/17 21:07 Dose: 1 mg Nicotine (Nicoderm Cq) 1 patch TD DAILY [facility] Last Admin: 01/21/17 09:44 Dose: 1 patch Nystatin (Nystop Topical Powder) 1 applic TOP TID [facility] Last Admin: 01/21/17 13:57 Dose: 1 applic Ondansetron HCl (Zofran Inj) 4 mg IVP Q6 PRN PRN Reason: Nausea/Vomiting Pantoprazole Sodium (Protonix Ec Tab) 40 mg PO DAILY [facility] Last Admin: 01/21/17 09:43 Dose: 40 mg Thiamine HCl (Vitamin B1 Inj) 100 mg IM DAILY [facility] Last Admin: 01/21/17 09:44 Dose: 100 mg - Labs Labs: 01/20/17 09:50 01/20/17 09:50 PT 16.2 Seconds (9.8-13.1) H 01/20/17 09:50 INR 1.6 (0.9-1.2) H 01/20/17 09:50 APTT 36.4 Seconds (25.6-37.1) 01/20/17 09:50 - Constitutional Appears: Toxic - Head Exam Head Exam: NORMAL INSPECTION - Eye Exam Eye Exam: Normal appearance - ENT Exam ENT Exam: Mucous Membranes Moist - Respiratory Exam Respiratory Exam: NORMAL BREATHING PATTERN - Cardiovascular Exam Cardiovascular Exam: REGULAR RHYTHM - GI/Abdominal Exam GI & Abdominal Exam: Distended, Soft - Neurological Exam Neurological Exam: Alert, Awake, Oriented x3 - Psychiatric Exam Psychiatric exam: Normal Affect, Normal Mood - Skin Skin Exam: Dry, Warm Assessment and Plan - Assessment and Plan (Free Text) Plan: serial chems
[2017-01-22] MEDS: Sodium Chloride 0.9% 1,000 ML IV SCH ×3 (06:59→17:04)
[2017-01-22] MEDS: Levothyroxine 50 MCG TAB PO SCH (06:59)
[2017-01-22 08:05] LABS: BASO % 0.2 % (0.0-2.0); HEMATOCRIT 40.9 % (34.0-47.0); LYMPH # 0.7 K/uL (1.0-4.3); LYMPH % 2.9 % (20.0-40.0); MEAN CELL VOLUME 125.2 fl (81.0-99.0); MEAN CORPUSCULAR HEMOGLOBIN 41.8 pg (27.0-31.0); MEAN CORPUSCULAR HGB CONC 33.4 g/dL (33.0-37.0); MONO # 0.8 K/uL (0.0-0.8); MONO % 3.4 % (0.0-10.0); NEUT # 22.7 K/uL (1.8-7.0); NEUT % 93.5 % (50.0-75.0); NRBC % 0.1 % (0.0-0.0); PLATELET COUNT 151 K/uL (130-400); RED CELL DISTRIBUTION WIDTH 22.2 % (11.5-14.5); WHITE BLOOD COUNT 24.3 K/uL (4.8-10.8)
--- NOTE | 2017-01-22 09:36 | CP.PCM.PN ---
Subjective - Date & Time of Evaluation Date of Evaluation: 01/22/17 Time of Evaluation: 09:39 - Subjective Subjective: General condition worse poor response to rx. SHRUTI progressive with poor output. Still lethargic at time and confuse. Objective - Vital Signs/Intake and Output Vital Signs (last 24 hours): Temp Pulse Resp BP Pulse Ox 98.3 F 84 20 115/71 93 L 01/22/17 08:54 01/22/17 08:54 01/22/17 08:54 01/22/17 08:54 01/22/17 08:54 Intake and Output: 01/21/17 01/22/17 23:59 11:59 Intake Total 1150 1400 Output Total 25 40 Balance 1125 1360 - Medications Medications: Current Medications Docusate Sodium (Colace) 100 mg PO BID PRN PRN Reason: Constipation Last Admin: 01/21/17 09:44 Dose: 100 mg Folic Acid (Folic Acid) 1 mg PO DAILY [facility] Last Admin: 01/21/17 17:45 Dose: 1 mg Methylprednisolone 30 mg/ (Sodium Chloride) 50 mls @ 100 mls/hr IV DAILY [facility] Last Admin: 01/21/17 09:43 Dose: 100 mls/hr Cefotaxime Sodium 2 gm/ Sodium (Chloride) 100 mls @ 100 mls/hr IV Q12 [facility] Last Admin: 01/21/17 20:16 Dose: 100 mls/hr Sodium Chloride (Sodium Chloride 0.9%) 1,000 mls @ 150 mls/hr IV .Q6H40M [facility] Last Admin: 01/22/17 07:01 Dose: 150 mls/hr Lactulose (Enulose) 20 gm PO TID [facility] Last Admin: 01/21/17 17:45 Dose: 20 gm Levothyroxine Sodium (Synthroid) 50 mcg PO DAILY@0630 [facility] Last Admin: 01/22/17 06:59 Dose: 50 mcg Lorazepam (Ativan) 1 mg IVP Q6 PRN PRN Reason: withdrawals Last Admin: 01/16/17 21:07 Dose: 1 mg Nicotine (Nicoderm Cq) 1 patch TD DAILY [facility] Last Admin: 01/21/17 09:44 Dose: 1 patch Nystatin (Nystop Topical Powder) 1 applic TOP TID [facility] Last Admin: 01/21/17 17:45 Dose: 1 applic Ondansetron HCl (Zofran Inj) 4 mg IVP Q6 PRN PRN Reason: Nausea/Vomiting Pantoprazole Sodium (Protonix Ec Tab) 40 mg PO DAILY [facility] Last Admin: 01/21/17 09:43 Dose: 40 mg Thiamine HCl (Vitamin B1 Inj) 100 mg IM DAILY [facility] Last Admin: 01/21/17 09:44 Dose: 100 mg - Labs Labs: 01/22/17 05:30 01/20/17 09:50 PT 16.2 Seconds (9.8-13.1) H 01/20/17 09:50 INR 1.6 (0.9-1.2) H 01/20/17 09:50 APTT 36.4 Seconds (25.6-37.1) 01/20/17 09:50 - Constitutional Appears: Older Than Stated Age, Confused, Chronically Ill - Head Exam Head Exam: ATRAUMATIC, NORMAL INSPECTION, NORMOCEPHALIC - Eye Exam Eye Exam: Scleral icterus - Respiratory Exam Respiratory Exam: Decreased Breath Sounds, Clear to Ausculation Bilateral - Cardiovascular Exam Cardiovascular Exam: REGULAR RHYTHM, +S1, +S2 - GI/Abdominal Exam GI & Abdominal Exam: Soft - Extremities Exam Extremities Exam: Pedal Edema - Neurological Exam Neurological Exam: Altered - Skin Additional comments: icterus. Assessment and Plan (1) Alcohol abuse Status: Chronic (2) Alcoholic hepatitis with ascites Status: Chronic (3) Ascites due to alcoholic cirrhosis Status: Chronic (4) Leukocytosis Status: Acute (5) Alcohol withdrawal Status: Acute (6) Wernicke encephalopathy Status: Chronic (7) Alcohol abuse with intoxication Status: Chronic (8) Hepatic encephalopathy Status: Acute (9) Hepatic failure due to alcoholism Status: Acute (10) Renal tubulopathy, encephalopathy, and liver failure syndrome Status: Acute (11) Hypoalbuminemia Status: Acute - Assessment and Plan (Free Text) Plan: Patient condition progressing to renal hepatic failure secondary to severe liver cirrhosis and alcohol abuse. Prognosis poor as per previous conversation the family is aware of the severity of the prognosis.
[2017-01-22] MEDS ORDERED: Dextrose 5%/0.9% NS 1,000 ML IV SCH (09:45)
[2017-01-22 10:03] LABS: ALB/GLOB RATIO 0.6 (1.0-2.1); CALCIUM 8.3 mg/dL (8.4-10.2); TOTAL PROTEIN 6.6 G/DL (6.3-8.2)
[2017-01-22 10:10] LABS: BILIRUBIN,TOTAL 27.3 mg/dl (0.2-1.3)
[2017-01-22 10:19] LABS: POTASSIUM 5.1 MMOL/L (3.6-5.0)
[2017-01-22] MEDS: Pantoprazole 40 mg EC Tab PO SCH (10:44)
[2017-01-22] MEDS: methylPREDNISolone 30 MG in Sodium Chloride 0.9% 50 ML IV SCH (10:47)
[2017-01-22] MEDS: Thiamine 100 mg/ml Inj IM SCH (10:48)
[2017-01-22 12:50] LABS: MYELOCYTE 1 % (0-0); NEUTROPHIL 88 % (42-75); TOTAL CELLS COUNTED 100
[2017-01-22 12:52] LABS: LARGE PLATELETS PRESENT
--- NOTE | 2017-01-22 15:28 | CP.PCM.PN ---
Subjective - Date & Time of Evaluation Date of Evaluation: 01/22/17 Time of Evaluation: 15:26 - Subjective Subjective: Patient appears more lethargic today Objective - Vital Signs/Intake and Output Vital Signs (last 24 hours): Temp Pulse Resp BP Pulse Ox 99.1 F 88 20 104/68 95 01/22/17 13:10 01/22/17 13:10 01/22/17 13:10 01/22/17 13:10 01/22/17 13:10 Intake and Output: 01/22/17 01/22/17 06:59 18:59 Intake Total 1400 Output Total 40 Balance 1360 - Medications Medications: Current Medications Docusate Sodium (Colace) 100 mg PO BID PRN PRN Reason: Constipation Last Admin: 01/21/17 09:44 Dose: 100 mg Folic Acid (Folic Acid) 1 mg PO DAILY [facility] Last Admin: 01/22/17 10:48 Dose: Not Given Methylprednisolone 30 mg/ (Sodium Chloride) 50 mls @ 100 mls/hr IV DAILY [facility] Last Admin: 01/22/17 10:47 Dose: 100 mls/hr Cefotaxime Sodium 2 gm/ Sodium (Chloride) 100 mls @ 100 mls/hr IV Q12 [facility] Last Admin: 01/22/17 10:46 Dose: 100 mls/hr Sodium Chloride (Sodium Chloride 0.9%) 1,000 mls @ 150 mls/hr IV .Q6H40M [facility] Last Admin: 01/22/17 07:01 Dose: 150 mls/hr Dextrose/Sodium Chloride (Dextrose 5%/0.9% Ns 1000 Ml) 1,000 mls @ 80 mls/hr IV .[id number] [facility] Stop: 01/23/17 09:40 Last Admin: 01/22/17 10:50 Dose: 80 mls/hr Lactulose (Enulose) 20 gm PO TID [facility] Last Admin: 01/22/17 12:35 Dose: 20 gm Levothyroxine Sodium (Synthroid) 50 mcg PO DAILY@0630 [facility] Last Admin: 01/22/17 06:59 Dose: 50 mcg Lorazepam (Ativan) 1 mg IVP Q6 PRN PRN Reason: withdrawals Last Admin: 01/16/17 21:07 Dose: 1 mg Nicotine (Nicoderm Cq) 1 patch TD DAILY [facility] Last Admin: 01/22/17 10:48 Dose: 1 patch Nystatin (Nystop Topical Powder) 1 applic TOP TID [facility] Last Admin: 01/22/17 12:35 Dose: 1 applic Ondansetron HCl (Zofran Inj) 4 mg IVP Q6 PRN PRN Reason: Nausea/Vomiting Pantoprazole Sodium (Protonix Ec Tab) 40 mg PO DAILY [facility] Last Admin: 01/22/17 10:44 Dose: Not Given Sodium Bicarbonate (Sodium Bicarbonate Tab) 650 mg PO Q6 [facility] Thiamine HCl (Vitamin B1 Inj) 100 mg IM DAILY [facility] Last Admin: 01/22/17 10:48 Dose: 100 mg - Labs Labs: 01/22/17 05:30 01/22/17 05:30 PT 16.2 Seconds (9.8-13.1) H 01/20/17 09:50 INR 1.6 (0.9-1.2) H 01/20/17 09:50 APTT 36.4 Seconds (25.6-37.1) 01/20/17 09:50 - Constitutional Appears: Older Than Stated Age - Head Exam Head Exam: ATRAUMATIC - Eye Exam Eye Exam: Scleral icterus - ENT Exam ENT Exam: TM's Normal Bilaterally - Neck Exam Neck Exam: Full ROM - Respiratory Exam Respiratory Exam: Clear to Ausculation Bilateral - GI/Abdominal Exam GI & Abdominal Exam: Normal Bowel Sounds Assessment and Plan (1) Alcoholic hepatitis with ascites Assessment & Plan: Lfts somewhat worst today andrenal functioning declining. On IV steroids for acute alcoholic hepatitis. Prognosis guarded. Status: Chronic
--- NOTE | 2017-01-22 16:16 | CP.PCM.PN ---
Subjective - Date & Time of Evaluation Date of Evaluation: 01/22/17 Time of Evaluation: 14:00 - Subjective Subjective: ID Note- Pt. seen and examined today. continues to be lethargic and only opens her eyes . Objective - Vital Signs/Intake and Output Vital Signs (last 24 hours): Temp Pulse Resp BP Pulse Ox 99.1 F 88 20 104/68 95 01/22/17 13:10 01/22/17 13:10 01/22/17 13:10 01/22/17 13:10 01/22/17 13:10 Intake and Output: 01/22/17 01/22/17 06:59 18:59 Intake Total 1400 Output Total 40 Balance 1360 - Medications Medications: Current Medications Docusate Sodium (Colace) 100 mg PO BID PRN PRN Reason: Constipation Last Admin: 01/21/17 09:44 Dose: 100 mg Folic Acid (Folic Acid) 1 mg PO DAILY [facility] Last Admin: 01/22/17 10:48 Dose: Not Given Methylprednisolone 30 mg/ (Sodium Chloride) 50 mls @ 100 mls/hr IV DAILY [facility] Last Admin: 01/22/17 10:47 Dose: 100 mls/hr Cefotaxime Sodium 2 gm/ Sodium (Chloride) 100 mls @ 100 mls/hr IV Q12 [facility] Last Admin: 01/22/17 10:46 Dose: 100 mls/hr Sodium Chloride (Sodium Chloride 0.9%) 1,000 mls @ 150 mls/hr IV .[id number] [facility] Last Admin: 01/22/17 07:01 Dose: 150 mls/hr Dextrose/Sodium Chloride (Dextrose 5%/0.9% Ns 1000 Ml) 1,000 mls @ 80 mls/hr IV .[id number] [facility] Stop: 01/23/17 09:40 Last Admin: 01/22/17 10:50 Dose: 80 mls/hr Lactulose (Enulose) 20 gm PO TID [facility] Last Admin: 01/22/17 12:35 Dose: 20 gm Levothyroxine Sodium (Synthroid) 50 mcg PO DAILY@0630 [facility] Last Admin: 01/22/17 06:59 Dose: 50 mcg Lorazepam (Ativan) 1 mg IVP Q6 PRN PRN Reason: withdrawals Last Admin: 01/16/17 21:07 Dose: 1 mg Nicotine (Nicoderm Cq) 1 patch TD DAILY [facility] Last Admin: 01/22/17 10:48 Dose: 1 patch Nystatin (Nystop Topical Powder) 1 applic TOP TID [facility] Last Admin: 01/22/17 12:35 Dose: 1 applic Ondansetron HCl (Zofran Inj) 4 mg IVP Q6 PRN PRN Reason: Nausea/Vomiting Pantoprazole Sodium (Protonix Ec Tab) 40 mg PO DAILY [facility] Last Admin: 01/22/17 10:44 Dose: Not Given Sodium Bicarbonate (Sodium Bicarbonate Tab) 650 mg PO Q6 [facility] Thiamine HCl (Vitamin B1 Inj) 100 mg IM DAILY [facility] Last Admin: 01/22/17 10:48 Dose: 100 mg - Labs Labs: - Additional Findings Additional findings: - Constitutional Appears: No Acute Distress, Chronically Ill Additional comments: drowsy jaundice color - Head Exam Head Exam: ATRAUMATIC - Eye Exam Eye Exam: EOMI, PERRL - ENT Exam Additional comments: dry oral mucosa - Respiratory Exam Respiratory Exam: Clear to Auscultation Bilateral, NORMAL BREATHING PATTERN Additional comments: no wheezing - Cardiovascular Exam Cardiovascular Exam: RRR, +S1, +S2 - GI/Abdominal Exam GI & Abdominal Exam: Normal Bowel Sounds, Soft Additional comments: + distention with ascites but soft to palpation No tenderness no guarding, no rebound - Extremities Exam Additional comments: no edema b/l LE - Neurological Exam Additional comments: drowsy Laboratory Results - last 72 hr 01/14/17 01/19/17 01/19/17 05:52 15:45 15:45 WBC RBC Hgb Hct MCV MCH MCHC RDW Plt Count MPV Neut % (Auto) Lymph % (Auto) [place] % (Auto) Eos % (Auto) Baso % (Auto) Neut # Lymph # [place] # Eos # Baso # Neutrophils % (Manual) Band Neutrophils % Lymphocytes % (Manual) Monocytes % (Manual) Myelocytes % Platelet Estimate Large Platelets Poikilocytosis (manual Anisocytosis (manual) Macrocytosis (manual) Tear Drop Cells PT INR APTT Sodium Potassium Chloride Carbon Dioxide Anion Gap BUN Creatinine Est GFR ( Amer) Est GFR (Non-Af Amer) POC Glucose (mg/dL) 85 Random Glucose Calcium Total Bilirubin Direct Bilirubin AST ALT Alkaline Phosphatase Ammonia Total Protein Albumin Globulin Albumin/Globulin Ratio TSH 3rd Generation Urine Color Urine Clarity Urine pH Ur Specific [place] Urine Protein Urine Glucose (UA) Urine Ketones Urine Blood Urine Nitrate Urine Bilirubin Urine Urobilinogen Ur Leukocyte Esterase Urine RBC (Auto) Urine WBC Clumps (Auto) Urine Microscopic WBC Ur Squamous Epith Cells Urine Bacteria Urine Yeast (Budding) Urine Osmolality Ur Random Creatinine Ur Random Sodium Ur Random Potassium Fluid Source Fluid Appearance Fluid WBC Fluid RBC Fluid Tot Cell Count Fluid Neutrophils Fluid Lymphocytes Fld Monocyte/Macrophag Fluid Glucose Fluid Total Protein Fluid LDH Fluid Amylase Fluid Triglycerides Fluid Comment Hepatitis A IgM Ab Negative Hep Bs Antigen Negative Hep B Core IgM Ab Negative Hepatitis C Antibody Negative HIV 1&2 Antibody Screen Negative 01/19/17 01/19/17 01/20/17 16:28 21:18 02:25 WBC RBC Hgb Hct MCV MCH MCHC RDW Plt Count MPV Neut % (Auto) Lymph % (Auto) [place] % (Auto) Eos % (Auto) Baso % (Auto) Neut # Lymph # [place] # Eos # Baso # Neutrophils % (Manual) Band Neutrophils % Lymphocytes % (Manual) Monocytes % (Manual) Myelocytes % Platelet Estimate Large Platelets Poikilocytosis (manual Anisocytosis (manual) Macrocytosis (manual) Tear Drop Cells PT INR APTT Sodium Potassium Chloride Carbon Dioxide Anion Gap BUN Creatinine Est GFR ( Amer) Est GFR (Non-Af Amer) POC Glucose (mg/dL) 94 103 Random Glucose Calcium Total Bilirubin Direct Bilirubin AST ALT Alkaline Phosphatase Ammonia Total Protein Albumin Globulin Albumin/Globulin Ratio TSH 3rd Generation Urine Color Urine Clarity Urine pH Ur Specific [place] Urine Protein Urine Glucose (UA) Urine Ketones Urine Blood Urine Nitrate Urine Bilirubin Urine Urobilinogen Ur Leukocyte Esterase Urine RBC (Auto) Urine WBC Clumps (Auto) Urine Microscopic WBC Ur Squamous Epith Cells Urine Bacteria Urine Yeast (Budding) Urine Osmolality 389 Ur Random Creatinine Ur Random Sodium Ur Random Potassium Fluid Source Fluid Appearance Fluid WBC Fluid RBC Fluid Tot Cell Count Fluid Neutrophils Fluid Lymphocytes Fld Monocyte/Macrophag Fluid Glucose Fluid Total Protein Fluid LDH Fluid Amylase Fluid Triglycerides Fluid Comment Hepatitis A IgM Ab Hep Bs Antigen Hep B Core IgM Ab Hepatitis C Antibody HIV 1&2 Antibody Screen 01/20/17 01/20/17 01/20/17 03:32 05:41 07:46 WBC 20.3 H RBC 3.14 L Hgb 13.1 Hct 39.8 MCV 127.0 H D MCH 41.8 H MCHC 32.9 L RDW 23.3 H Plt Count 133 MPV 8.9 Neut % (Auto) 91.5 H Lymph % (Auto) 2.9 L [place] % (Auto) 5.2 Eos % (Auto) 0.1 Baso % (Auto) 0.3 Neut # 18.6 H Lymph # 0.6 L [place] # 1.1 H Eos # 0.0 Baso # 0.1 Neutrophils % (Manual) 89 H Band Neutrophils % Lymphocytes % (Manual) 4 L Monocytes % (Manual) 7 Myelocytes % Platelet Estimate Slightly decreased L Large Platelets Poikilocytosis (manual Anisocytosis (manual) Macrocytosis (manual) Tear Drop Cells PT INR APTT Sodium Potassium Chloride Carbon Dioxide Anion Gap BUN Creatinine Est GFR ( Amer) Est GFR (Non-Af Amer) POC Glucose (mg/dL) 92 Random Glucose Calcium Total Bilirubin Direct Bilirubin AST ALT Alkaline Phosphatase Ammonia Total Protein Albumin Globulin Albumin/Globulin Ratio TSH 3rd Generation Urine Color G[place] Urine Clarity Cloudy Urine pH 5.0 Ur Specific [place] 1.021 Urine Protein 100 Urine Glucose (UA) 50 Urine Ketones Negative Urine Blood Moderate Urine Nitrate Negative Urine Bilirubin Moderate Urine Urobilinogen 4.0 H Ur Leukocyte Esterase Mod Urine RBC (Auto) 43 H Urine WBC Clumps (Auto) Many H Urine Microscopic WBC 96 H Ur Squamous Epith Cells 17 H Urine Bacteria Rare Urine Yeast (Budding) Occ H Urine Osmolality Ur Random Creatinine Ur Random Sodium Ur Random Potassium Fluid Source Fluid Appearance Fluid WBC Fluid RBC Fluid Tot Cell Count Fluid Neutrophils Fluid Lymphocytes Fld Monocyte/Macrophag Fluid Glucose Fluid Total Protein Fluid LDH Fluid Amylase Fluid Triglycerides Fluid Comment Hepatitis A IgM Ab Hep Bs Antigen Hep B Core IgM Ab Hepatitis C Antibody HIV 1&2 Antibody Screen 01/20/17 01/20/17 01/20/17 07:46 07:46 09:50 WBC 21.0 H RBC 3.26 L Hgb 13.5 Hct 40.5 MCV 124.5 H D MCH 41.6 H MCHC 33.4 RDW 22.4 H Plt Count 139 MPV Neut % (Auto) Lymph % (Auto) [place] % (Auto) Eos % (Auto) Baso % (Auto) Neut # Lymph # [place] # Eos # Baso # Neutrophils % (Manual) Band Neutrophils % Lymphocytes % (Manual) Monocytes % (Manual) Myelocytes % Platelet Estimate Large Platelets Poikilocytosis (manual Anisocytosis (manual) Macrocytosis (manual) Tear Drop Cells PT 16.0 H INR 1.5 H APTT Sodium 139 Potassium 5.3 H Chloride 113 H Carbon Dioxide 14 L Anion Gap 17 BUN 53 H Creatinine 3.3 H Est GFR ( Amer) 17 Est GFR (Non-Af Amer) 14 POC Glucose (mg/dL) Random Glucose 97 Calcium 8.4 Total Bilirubin 26.4 H Direct Bilirubin AST 176 H ALT 75 H Alkaline Phosphatase 219 H Ammonia Total Protein 6.5 Albumin 2.5 L Globulin 4.0 H Albumin/Globulin Ratio 0.6 L TSH 3rd Generation Urine Color Urine Clarity Urine pH Ur Specific [place] Urine Protein Urine Glucose (UA) Urine Ketones Urine Blood Urine Nitrate Urine Bilirubin Urine Urobilinogen Ur Leukocyte Esterase Urine RBC (Auto) Urine WBC Clumps (Auto) Urine Microscopic WBC Ur Squamous Epith Cells Urine Bacteria Urine Yeast (Budding) Urine Osmolality Ur Random Creatinine Ur Random Sodium Ur Random Potassium Fluid Source Fluid Appearance Fluid WBC Fluid RBC Fluid Tot Cell Count Fluid Neutrophils Fluid Lymphocytes Fld Monocyte/Macrophag Fluid Glucose Fluid Total Protein Fluid LDH Fluid Amylase Fluid Triglycerides Fluid Comment Hepatitis A IgM Ab Hep Bs Antigen Hep B Core IgM Ab Hepatitis C Antibody HIV 1&2 Antibody Screen 01/20/17 01/20/17 01/20/17 09:50 09:50 09:50 WBC RBC Hgb Hct MCV MCH MCHC RDW Plt Count MPV Neut % (Auto) Lymph % (Auto) [place] % (Auto) Eos % (Auto) Baso % (Auto) Neut # Lymph # [place] # Eos # Baso # Neutrophils % (Manual) Band Neutrophils % Lymphocytes % (Manual) Monocytes % (Manual) Myelocytes % Platelet Estimate Large Platelets Poikilocytosis (manual Anisocytosis (manual) Macrocytosis (manual) Tear Drop Cells PT 16.2 H INR 1.6 H APTT 36.4 Sodium 138 Potassium 5.0 Chloride 113 H Carbon Dioxide 13 L Anion Gap 17 BUN 53 H Creatinine 3.4 H Est GFR ( Amer) 17 Est GFR (Non-Af Amer) 14 POC Glucose (mg/dL) Random Glucose 107 H Calcium 8.5 Total Bilirubin Direct Bilirubin AST ALT Alkaline Phosphatase Ammonia 57 H Total Protein Albumin Globulin Albumin/Globulin Ratio TSH 3rd Generation 3.85 Urine Color Urine Clarity Urine pH Ur Specific [place] Urine Protein Urine Glucose (UA) Urine Ketones Urine Blood Urine Nitrate Urine Bilirubin Urine Urobilinogen Ur Leukocyte Esterase Urine RBC (Auto) Urine WBC Clumps (Auto) Urine Microscopic WBC Ur Squamous Epith Cells Urine Bacteria Urine Yeast (Budding) Urine Osmolality Ur Random Creatinine Ur Random Sodium Ur Random Potassium Fluid Source Fluid Appearance Fluid WBC Fluid RBC Fluid Tot Cell Count Fluid Neutrophils Fluid Lymphocytes Fld Monocyte/Macrophag Fluid Glucose Fluid Total Protein Fluid LDH Fluid Amylase Fluid Triglycerides Fluid Comment Hepatitis A IgM Ab Hep Bs Antigen Hep B Core IgM Ab Hepatitis C Antibody HIV 1&2 Antibody Screen 01/20/17 01/20/17 01/20/17 10:50 10:50 11:14 WBC RBC Hgb Hct MCV MCH MCHC RDW Plt Count MPV Neut % (Auto) Lymph % (Auto) [place] % (Auto) Eos % (Auto) Baso % (Auto) Neut # Lymph # [place] # Eos # Baso # Neutrophils % (Manual) Band Neutrophils % Lymphocytes % (Manual) Monocytes % (Manual) Myelocytes % Platelet Estimate Large Platelets Poikilocytosis (manual Anisocytosis (manual) Macrocytosis (manual) Tear Drop Cells PT INR APTT Sodium Potassium Chloride Carbon Dioxide Anion Gap BUN Creatinine Est GFR ( Amer) Est GFR (Non-Af Amer) POC Glucose (mg/dL) 84 Random Glucose Calcium Total Bilirubin Direct Bilirubin AST ALT Alkaline Phosphatase Ammonia Total Protein Albumin Globulin Albumin/Globulin Ratio TSH 3rd Generation Urine Color Urine Clarity Urine pH Ur Specific [place] Urine Protein Urine Glucose (UA) Urine Ketones Urine Blood Urine Nitrate Urine Bilirubin Urine Urobilinogen Ur Leukocyte Esterase Urine RBC (Auto) Urine WBC Clumps (Auto) Urine Microscopic WBC Ur Squamous Epith Cells Urine Bacteria Urine Yeast (Budding) Urine Osmolality Ur Random Creatinine 135.7 Ur Random Sodium 16 Ur Random Potassium 67.7 Fluid Source Fluid Appearance Fluid WBC Fluid RBC Fluid Tot Cell Count Fluid Neutrophils Fluid Lymphocytes Fld Monocyte/Macrophag Fluid Glucose Fluid Total Protein Fluid LDH Fluid Amylase Fluid Triglycerides Fluid Comment Hepatitis A IgM Ab Hep Bs Antigen Hep B Core IgM Ab Hepatitis C Antibody HIV 1&2 Antibody Screen 01/20/17 01/20/17 01/20/17 14:00 16:18 21:48 WBC RBC Hgb Hct MCV MCH MCHC RDW Plt Count MPV Neut % (Auto) Lymph % (Auto) [place] % (Auto) Eos % (Auto) Baso % (Auto) Neut # Lymph # [place] # Eos # Baso # Neutrophils % (Manual) Band Neutrophils % Lymphocytes % (Manual) Monocytes % (Manual) Myelocytes % Platelet Estimate Large Platelets Poikilocytosis (manual Anisocytosis (manual) Macrocytosis (manual) Tear Drop Cells PT INR APTT Sodium Potassium Chloride Carbon Dioxide Anion Gap BUN Creatinine Est GFR ( Amer) Est GFR (Non-Af Amer) POC Glucose (mg/dL) 98 101 Random Glucose Calcium Total Bilirubin Direct Bilirubin AST ALT Alkaline Phosphatase Ammonia Total Protein Albumin Globulin Albumin/Globulin Ratio TSH 3rd Generation Urine Color Urine Clarity Urine pH Ur Specific [place] Urine Protein Urine Glucose (UA) Urine Ketones Urine Blood Urine Nitrate Urine Bilirubin Urine Urobilinogen Ur Leukocyte Esterase Urine RBC (Auto) Urine WBC Clumps (Auto) Urine Microscopic WBC Ur Squamous Epith Cells Urine Bacteria Urine Yeast (Budding) Urine Osmolality Ur Random Creatinine Ur Random Sodium Ur Random Potassium Fluid Source Peritoneal/ascites Fluid Appearance Clear Fluid WBC 135.0 Fluid RBC 341.0 H Fluid Tot Cell Count TEST NOT PERFORMED Fluid Neutrophils 60.0 H Fluid Lymphocytes 2.0 H Fld Monocyte/Macrophag 38 H Fluid Glucose 95 Fluid Total Protein < 2.0 Fluid LDH 418 Fluid Amylase < 30 Fluid Triglycerides 17 Fluid Comment TEST NOT PERFORMED Hepatitis A IgM Ab Hep Bs Antigen Hep B Core IgM Ab Hepatitis C Antibody HIV 1&2 Antibody Screen 01/21/17 01/21/17 01/21/17 05:20 11:07 17:43 WBC RBC Hgb Hct MCV MCH MCHC RDW Plt Count MPV Neut % (Auto) Lymph % (Auto) [place] % (Auto) Eos % (Auto) Baso % (Auto) Neut # Lymph # [place] # Eos # Baso # Neutrophils % (Manual) Band Neutrophils % Lymphocytes % (Manual) Monocytes % (Manual) Myelocytes % Platelet Estimate Large Platelets Poikilocytosis (manual Anisocytosis (manual) Macrocytosis (manual) Tear Drop Cells PT INR APTT Sodium Potassium Chloride Carbon Dioxide Anion Gap BUN Creatinine Est GFR ( Amer) Est GFR (Non-Af Amer) POC Glucose (mg/dL) 106 86 112 H Random Glucose Calcium Total Bilirubin Direct Bilirubin AST ALT Alkaline Phosphatase Ammonia Total Protein Albumin Globulin Albumin/Globulin Ratio TSH 3rd Generation Urine Color Urine Clarity Urine pH Ur Specific [place] Urine Protein Urine Glucose (UA) Urine Ketones Urine Blood Urine Nitrate Urine Bilirubin Urine Urobilinogen Ur Leukocyte Esterase Urine RBC (Auto) Urine WBC Clumps (Auto) Urine Microscopic WBC Ur Squamous Epith Cells Urine Bacteria Urine Yeast (Budding) Urine Osmolality Ur Random Creatinine Ur Random Sodium Ur Random Potassium Fluid Source Fluid Appearance Fluid WBC Fluid RBC Fluid Tot Cell Count Fluid Neutrophils Fluid Lymphocytes Fld Monocyte/Macrophag Fluid Glucose Fluid Total Protein Fluid LDH Fluid Amylase Fluid Triglycerides Fluid Comment Hepatitis A IgM Ab Hep Bs Antigen Hep B Core IgM Ab Hepatitis C Antibody HIV 1&2 Antibody Screen 01/21/17 01/22/17 01/22/17 22:08 05:30 05:30 WBC 24.3 H RBC 3.27 L Hgb 13.7 Hct 40.9 MCV 125.2 H MCH 41.8 H MCHC 33.4 RDW 22.2 H Plt Count 151 MPV 10.0 Neut % (Auto) 93.5 H Lymph % (Auto) 2.9 L [place] % (Auto) 3.4 Eos % (Auto) 0.0 Baso % (Auto) 0.2 Neut # 22.7 H Lymph # 0.7 L [place] # 0.8 Eos # 0.0 Baso # 0.0 Neutrophils % (Manual) 88 H Band Neutrophils % 3 H Lymphocytes % (Manual) 3 L Monocytes % (Manual) 5 Myelocytes % 1 H Platelet Estimate Normal Large Platelets Present Poikilocytosis (manual Slight Anisocytosis (manual) Slight Macrocytosis (manual) Moderate Tear Drop Cells Slight PT INR APTT Sodium 140 Potassium 5.1 H Chloride 115 H Carbon Dioxide 10 L* D Anion Gap 20 BUN 76 H Creatinine 4.5 H Est GFR ( Amer) 12 Est GFR (Non-Af Amer) 10 POC Glucose (mg/dL) 93 Random Glucose 91 Calcium 8.3 L Total Bilirubin 27.3 H Direct Bilirubin 24.4 H AST 243 H D ALT 115 H D Alkaline Phosphatase 248 H Ammonia Total Protein 6.6 Albumin 2.6 L Globulin 4.1 H Albumin/Globulin Ratio 0.6 L TSH 3rd Generation Urine Color Urine Clarity Urine pH Ur Specific [place] Urine Protein Urine Glucose (UA) Urine Ketones Urine Blood Urine Nitrate Urine Bilirubin Urine Urobilinogen Ur Leukocyte Esterase Urine RBC (Auto) Urine WBC Clumps (Auto) Urine Microscopic WBC Ur Squamous Epith Cells Urine Bacteria Urine Yeast (Budding) Urine Osmolality Ur Random Creatinine Ur Random Sodium Ur Random Potassium Fluid Source Fluid Appearance Fluid WBC Fluid RBC Fluid Tot Cell Count Fluid Neutrophils Fluid Lymphocytes Fld Monocyte/Macrophag Fluid Glucose Fluid Total Protein Fluid LDH Fluid Amylase Fluid Triglycerides Fluid Comment Hepatitis A IgM Ab Hep Bs Antigen Hep B Core IgM Ab Hepatitis C Antibody HIV 1&2 Antibody Screen 01/22/17 01/22/17 01/22/17 05:39 06:00 11:50 WBC RBC Hgb Hct MCV MCH MCHC RDW Plt Count MPV Neut % (Auto) Lymph % (Auto) [place] % (Auto) Eos % (Auto) Baso % (Auto) Neut # Lymph # [place] # Eos # Baso # Neutrophils % (Manual) Band Neutrophils % Lymphocytes % (Manual) Monocytes % (Manual) Myelocytes % Platelet Estimate Large Platelets Poikilocytosis (manual Anisocytosis (manual) Macrocytosis (manual) Tear Drop Cells PT INR APTT Sodium Potassium Chloride Carbon Dioxide Anion Gap BUN Creatinine Est GFR ( Amer) Est GFR (Non-Af Amer) POC Glucose (mg/dL) 92 73 Random Glucose Calcium Total Bilirubin Direct Bilirubin AST ALT Alkaline Phosphatase Ammonia 60 H Total Protein Albumin Globulin Albumin/Globulin Ratio TSH 3rd Generation Urine Color Urine Clarity Urine pH Ur Specific [place] Urine Protein Urine Glucose (UA) Urine Ketones Urine Blood Urine Nitrate Urine Bilirubin Urine Urobilinogen Ur Leukocyte Esterase Urine RBC (Auto) Urine WBC Clumps (Auto) Urine Microscopic WBC Ur Squamous Epith Cells Urine Bacteria Urine Yeast (Budding) Urine Osmolality Ur Random Creatinine Ur Random Sodium Ur Random Potassium Fluid Source Fluid Appearance Fluid WBC Fluid RBC Fluid Tot Cell Count Fluid Neutrophils Fluid Lymphocytes Fld Monocyte/Macrophag Fluid Glucose Fluid Total Protein Fluid LDH Fluid Amylase Fluid Triglycerides Fluid Comment Hepatitis A IgM Ab Hep Bs Antigen Hep B Core IgM Ab Hepatitis C Antibody HIV 1&2 Antibody Screen Microbiology 01/18/17 15:28 Blood-Venous Blood Culture - Preliminary NO GROWTH AFTER 4 DAYS 01/18/17 15:28 Blood-Venous Blood Culture - Preliminary NO GROWTH AFTER 4 DAYS 01/12/17 17:30 Blood-Venous Blood Culture - Final NO GROWTH AFTER 5 DAYS 01/12/17 17:30 Blood-Venous Gram Stain - Final TEST NOT PERFORMED 01/14/17 20:30 Urine Urine Culture - Final No Growth (<1,000 CFU/ML) Assessment and Plan (1) Sepsis Status: Acute (2) Leukocytosis Status: Acute (3) Ascites due to alcoholic cirrhosis Status: Chronic - Assessment and Plan (Free Text) Assessment: A/P- 61 year old female with h/o EOH abuse with cirrhosis presented post fall on the knees found to have high wbc and lactate and was admitted for sepsis work up and alcoholism and cirrhosis. s/p paracenthesis fluid cell count wbc 134 and 60% PM - not c/w SBP, however pt. has been on abx past few days. still drowsy afebrile leukocytosis continues to rise , may be secondary to the steroids urine cx- neg x 1 blood cx- neg x 3 transaminitis and hyperbilirubinemia. hepatitis panel - neg HIV ab- neg cirrhosis ascites REGINO worsening plan- completed 5 days of IV cefotaxime and prio tot hat was on ceftriaxone by primary team. ascites fluid not c/w sbp and per GI not SBP, however pt. does have left shit. hence will d/c cefotaxime and place on broad spectrum empiric antibiotics, namely zosyn . repeat cultures. check cxr prognosis poor.
--- NOTE | 2017-01-22 18:05 | RAD ---
HISTORY: High WBC count COMPARISON: Comparison chest 01/12/2017 FINDINGS: LUNGS: Poor inspiration with low lung volumes, crowded bronchovascular markings and bibasilar atelectasis right greater than left. . Persistent elevation right hemidiaphragm. There is also hazy appearance of the remainder of the right aerated upper lobe ; rule out moderate to large effusion. Questionable small left effusion. PLEURA: No significant pleural effusion identified, no pneumothorax apparent. CARDIOVASCULAR: Heart size is difficult to assess due to silhouetting of the right cardiac border though may be mildly enlarged as well OSSEOUS STRUCTURES: No significant abnormalities. VISUALIZED UPPER ABDOMEN: Normal. OTHER FINDINGS: None. IMPRESSION: Poor inspiration with low lung volumes, crowded bronchovascular markings and bibasilar atelectasis right greater than left. . Persistent elevation right hemidiaphragm. There is also hazy appearance of the remainder of the right aerated upper lobe ; rule out moderate to large effusion. Questionable small left effusion.
--- NOTE | 2017-01-22 18:28 | CP.CCUPN ---
CCU Subjective - Physician Review Subjective (Free Text): ICU transfer from requested by PMD: No history nor any HPI obtainable from obtunded patient, information obtained primarily from chart review- [id number] admitted 10 days ago for ETOH intoxication symptoms, has progressed to now to severe metabolic encephalopathy with lethargy; Acute Alcoholic Hepatitis, SHRUTI / possible developing Hepatorenal syndrome (though low Urine Na was 16, 2 days ago) with progressive Azotemia, Acidosis and hyperkalemia, Occult Sepsis- suspected 2 SBP (though cell count studies obtained on 01/20 after being on abx coverage for several days). She is on IVF with D5Ns at 80ml/hr, takes PO Lactulose TID with small liquid BMs, reportedly more awake in the AM hours. Presently, poorly arousable to verbal commands, no obvious distress, but mostly somnolent. Opens eyes to painful stimulus and questions what? Otherwise, non- interactive to other commands. No hypotension reported, SBP approx. 110, HR 80 s, essentially anuric today and had only 65 ml urine output yesterday. Abx coverage changed today to Meropenam from Cefotaxime. ROS: Unobtainable from lethargic patient. Other PMSFH: All recent nursing and physician documentation reviewed and no new information noted relevant to current problems. MAJOR IMPRESSIONS: 1. Metabolic Encephalopathy, r/o other [employer] pathology-CVA, Bleed; Occult Seizure disorder; other drug effect 2. SHRUTI with worsening metabolic acidosis, hyperkalemia: r/o HRS 3. Acute Alcoholic hepatitis 4. Ascites with s/p Paracentesis 01/20 5. Coagulopathy 2 hepatic Insufficiency 6. Chronic Alcoholism PLAN: 1. Move to ICU for Neuro-monitoring: Neurochecks Q1H, Seizure precautions, HOB elevation. 2. Needs new vascular access, attempt correction of coagulopathy with Vit K and FFP. Nephro has mentioned possible need for acute [employer] with HD. 3. Meropenam as per ID. 4. Hold Lasix, doubt any appreciable effect of Lasix now. 5. Repeat Urine spot lytes. 6. Trial of Albumin infusion, followed by Lasix. 7. ECHO for LV fx. 8. Check ABG. 9. May need oral intubation for airway protection. CXR just done now and compared to previous study dome 10 days ago shows compressed lungs, poorly expanded lung parson and increased haziness of the R lung. 10. No Advance Directives noted, Full Code status. Deemed poor prognosis by multiple physicians. Pall Care eval consideration. CCU Objective - Vital Signs / Intake & Output Vital Signs (Last 4 hours): Vital Signs Temp Pulse Resp BP Pulse Ox 01/22/17 16:00 98.8 F 91 H 20 112/56 L 95 Intake and Output (Last 8hrs): Intake & Output 01/22/17 01/22/17 01/22/17 06:59 14:59 22:59 Intake Total 1400 Output Total 40 Balance 1360 Intake: IV 1300 Intake, Piggyback 100 Output: Urine 40 Urethral (Meredith) 40 Other: # Bowel Movements 2 - Physical Exam Physical Exam Limitations: Positive for: Altered Mental Status (lethargic) Head: Positive for: Normocephalic Pupils: Positive for: PERRL Extroacular Muscles: Positive for: EOMI. Negative for: Gaze Palsy Conjunctiva: Positive for: Icteric. Negative for: Injected Mouth: Positive for: Dry Neck: Negative for: Meningeal Signs, JVD (unable to assess due to obese neck) Respiratory/Chest: Positive for: Decreased Breath Sounds. Negative for: Accessory Muscle Use, Wheezes, Rhonchi Cardiovascular: Positive for: Regular Rate and Rhythm, Muffled. Negative for: Murmurs, Rub Abdomen: Positive for: Normal Bowel Sounds, Other (+ ascitic fluid wave). Negative for: Tenderness, Distention Upper Extremity: Positive for: Edema (anasarca) Lower Extremity: Positive for: Edema (anasarca) Psychiatric: Positive for: Lethargic - Medications Active Medications: Active Medications Generic Name Dose Route Start Last Admin Trade Name Joelq PRN Reason Stop Dose Admin Docusate Sodium 100 mg 01/12/17 19:15 01/21/17 09:44 Colace PO 100 mg BID PRN Administration Constipation Folic Acid 1 mg 01/21/17 15:15 01/22/17 10:48 Folic Acid PO Not Given DAILY THAD Methylprednisolone 30 mg/ 50 mls @ 100 mls/hr 01/18/17 20:00 01/22/17 10:47 Sodium Chloride IV 100 mls/hr DAILY THAD Administration Sodium Chloride 1,000 mls @ 150 mls/hr 01/21/17 17:06 01/22/17 17:04 Sodium Chloride 0.9% IV Not Given .Q6H40M THAD Dextrose/Sodium Chloride 1,000 mls @ 80 mls/hr 01/22/17 09:45 01/22/17 10:50 Dextrose 5%/0.9% Ns 1000 Ml IV 01/23/17 09:40 80 mls/hr .[id number] THAD Administration Meropenem 500 mg/ Sodium 100 mls @ 100 mls/hr 01/22/17 17:00 Chloride IVPB Q12 THAD Lactulose 20 gm 01/18/17 09:00 01/22/17 17:03 Enulose PO 20 gm TID THAD Administration Levothyroxine Sodium 50 mcg 01/16/17 06:30 01/22/17 06:59 Synthroid PO 50 mcg DAILY@0630 THAD Administration Nicotine 1 patch 01/15/17 13:30 01/22/17 10:48 Nicoderm Cq TD 1 patch DAILY THAD Administration Nystatin 1 applic 01/16/17 13:00 01/22/17 17:04 Nystop Topical Powder TOP 1 applic TID THAD Administration Ondansetron HCl 4 mg 01/12/17 19:15 Zofran Inj IVP Q6 PRN Nausea/Vomiting Pantoprazole Sodium 40 mg 01/13/17 09:00 01/22/17 10:44 Protonix Ec Tab PO Not Given DAILY THAD Sodium Bicarbonate 650 mg 01/22/17 16:00 01/22/17 17:03 Sodium Bicarbonate Tab PO 650 mg Q6 THAD Administration Thiamine HCl 100 mg 01/20/17 09:00 01/22/17 10:48 Vitamin B1 Inj IM 100 mg DAILY THAD Administration - Patient Studies Lab Studies: Microbiology Studies 01/18/17 15:28 Blood Culture - Preliminary Blood-Venous NO GROWTH AFTER 4 DAYS 01/18/17 15:28 Blood Culture - Preliminary Blood-Venous NO GROWTH AFTER 4 DAYS Lab Studies 01/22/17 01/22/17 01/22/17 Range/Units 17:14 11:50 06:00 WBC (4.8-10.8) K/uL RBC (3.80-5.20) Mil/uL Hgb (12.0-16.0) g/dL Hct (34.0-47.0) % MCV (81.0-99.0) fl MCH (27.0-31.0) pg MCHC (33.0-37.0) g/dL RDW (11.5-14.5) % Plt Count (130-400) K/uL MPV (7.2-11.7) fl Neut % (Auto) (50.0-75.0) % Lymph % (Auto) (20.0-40.0) % [place] % (Auto) (0.0-10.0) % Eos % (Auto) (0.0-4.0) % Baso % (Auto) (0.0-2.0) % Neut # (1.8-7.0) K/uL Lymph # (1.0-4.3) K/uL [place] # (0.0-0.8) K/uL Eos # (0.0-0.7) K/uL Baso # (0.0-0.2) K/uL Neutrophils % (Manual) (42-75) % Band Neutrophils % (0-2) % Lymphocytes % (Manual) (20-50) % Monocytes % (Manual) (0-10) % Myelocytes % (0-0) % Platelet Estimate (NORMAL) Large Platelets Poikilocytosis (manual Anisocytosis (manual) Macrocytosis (manual) Tear Drop Cells Sodium (132-148) mmol/l Potassium (3.6-5.0) MMOL/L Chloride (98-107) mmol/L Carbon Dioxide (22-30) mmol/L Anion Gap (10-20) BUN (7-17) mg/dl Creatinine (0.7-1.2) mg/dL Est GFR ( Amer) Est GFR (Non-Af Amer) POC Glucose (mg/dL) 98 73 (65-110) mg/dL Random Glucose (65-105) mg/dL Calcium (8.4-10.2) mg/dL Total Bilirubin (0.2-1.3) mg/dl Direct Bilirubin (0.0-0.4) mg/ml AST (14-36) U/L ALT (9-52) U/L Alkaline Phosphatase (38-126) U/L Ammonia 60 H (11-51) umo/L Total Protein (6.3-8.2) G/DL Albumin (3.5-5.0) g/dL Globulin (2.2-3.9) gm/dL Albumin/Globulin Ratio (1.0-2.1) 01/22/17 01/22/17 01/22/17 Range/Units 05:39 05:30 05:30 WBC 24.3 H (4.8-10.8) K/uL RBC 3.27 L (3.80-5.20) Mil/uL Hgb 13.7 (12.0-16.0) g/dL Hct 40.9 (34.0-47.0) % MCV 125.2 H (81.0-99.0) fl MCH 41.8 H (27.0-31.0) pg MCHC 33.4 (33.0-37.0) g/dL RDW 22.2 H (11.5-14.5) % Plt Count 151 (130-400) K/uL MPV 10.0 (7.2-11.7) fl Neut % (Auto) 93.5 H (50.0-75.0) % Lymph % (Auto) 2.9 L (20.0-40.0) % [place] % (Auto) 3.4 (0.0-10.0) % Eos % (Auto) 0.0 (0.0-4.0) % Baso % (Auto) 0.2 (0.0-2.0) % Neut # 22.7 H (1.8-7.0) K/uL Lymph # 0.7 L (1.0-4.3) K/uL [place] # 0.8 (0.0-0.8) K/uL Eos # 0.0 (0.0-0.7) K/uL Baso # 0.0 (0.0-0.2) K/uL Neutrophils % (Manual) 88 H (42-75) % Band Neutrophils % 3 H (0-2) % Lymphocytes % (Manual) 3 L (20-50) % Monocytes % (Manual) 5 (0-10) % Myelocytes % 1 H (0-0) % Platelet Estimate Normal (NORMAL) Large Platelets Present Poikilocytosis (manual Slight Anisocytosis (manual) Slight Macrocytosis (manual) Moderate Tear Drop Cells Slight Sodium 140 (132-148) mmol/l Potassium 5.1 H (3.6-5.0) MMOL/L Chloride 115 H (98-107) mmol/L Carbon Dioxide 10 L* D (22-30) mmol/L Anion Gap 20 (10-20) BUN 76 H (7-17) mg/dl Creatinine 4.5 H (0.7-1.2) mg/dL Est GFR ( Amer) 12 Est GFR (Non-Af Amer) 10 POC Glucose (mg/dL) 92 (65-110) mg/dL Random Glucose 91 (65-105) mg/dL Calcium 8.3 L (8.4-10.2) mg/dL Total Bilirubin 27.3 H (0.2-1.3) mg/dl Direct Bilirubin 24.4 H (0.0-0.4) mg/ml AST 243 H D (14-36) U/L ALT 115 H D (9-52) U/L Alkaline Phosphatase 248 H (38-126) U/L Ammonia (11-51) umo/L Total Protein 6.6 (6.3-8.2) G/DL Albumin 2.6 L (3.5-5.0) g/dL Globulin 4.1 H (2.2-3.9) gm/dL Albumin/Globulin Ratio 0.6 L (1.0-2.1) 01/21/17 01/21/17 Range/Units 22:08 17:43 WBC (4.8-10.8) K/uL RBC (3.80-5.20) Mil/uL Hgb (12.0-16.0) g/dL Hct (34.0-47.0) % MCV (81.0-99.0) fl MCH (27.0-31.0) pg MCHC (33.0-37.0) g/dL RDW (11.5-14.5) % Plt Count (130-400) K/uL MPV (7.2-11.7) fl Neut % (Auto) (50.0-75.0) % Lymph % (Auto) (20.0-40.0) % [place] % (Auto) (0.0-10.0) % Eos % (Auto) (0.0-4.0) % Baso % (Auto) (0.0-2.0) % Neut # (1.8-7.0) K/uL Lymph # (1.0-4.3) K/uL [place] # (0.0-0.8) K/uL Eos # (0.0-0.7) K/uL Baso # (0.0-0.2) K/uL Neutrophils % (Manual) (42-75) % Band Neutrophils % (0-2) % Lymphocytes % (Manual) (20-50) % Monocytes % (Manual) (0-10) % Myelocytes % (0-0) % Platelet Estimate (NORMAL) Large Platelets Poikilocytosis (manual Anisocytosis (manual) Macrocytosis (manual) Tear Drop Cells Sodium (132-148) mmol/l Potassium (3.6-5.0) MMOL/L Chloride (98-107) mmol/L Carbon Dioxide (22-30) mmol/L Anion Gap (10-20) BUN (7-17) mg/dl Creatinine (0.7-1.2) mg/dL Est GFR ( Amer) Est GFR (Non-Af Amer) POC Glucose (mg/dL) 93 112 H (65-110) mg/dL Random Glucose (65-105) mg/dL Calcium (8.4-10.2) mg/dL Total Bilirubin (0.2-1.3) mg/dl Direct Bilirubin (0.0-0.4) mg/ml AST (14-36) U/L ALT (9-52) U/L Alkaline Phosphatase (38-126) U/L Ammonia (11-51) umo/L Total Protein (6.3-8.2) G/DL Albumin (3.5-5.0) g/dL Globulin (2.2-3.9) gm/dL Albumin/Globulin Ratio (1.0-2.1) Laboratory Results - last 24 hr 01/21/17 01/21/17 01/22/17 17:43 22:08 05:30 WBC 24.3 H RBC 3.27 L Hgb 13.7 Hct 40.9 MCV 125.2 H MCH 41.8 H MCHC 33.4 RDW 22.2 H Plt Count 151 MPV 10.0 Neut % (Auto) 93.5 H Lymph % (Auto) 2.9 L [place] % (Auto) 3.4 Eos % (Auto) 0.0 Baso % (Auto) 0.2 Neut # 22.7 H Lymph # 0.7 L [place] # 0.8 Eos # 0.0 Baso # 0.0 Neutrophils % (Manual) 88 H Band Neutrophils % 3 H Lymphocytes % (Manual) 3 L Monocytes % (Manual) 5 Myelocytes % 1 H Platelet Estimate Normal Large Platelets Present Poikilocytosis (manual Slight Anisocytosis (manual) Slight Macrocytosis (manual) Moderate Tear Drop Cells Slight Sodium Potassium Chloride Carbon Dioxide Anion Gap BUN Creatinine Est GFR ( Amer) Est GFR (Non-Af Amer) POC Glucose (mg/dL) 112 H 93 Random Glucose Calcium Total Bilirubin Direct Bilirubin AST ALT Alkaline Phosphatase Ammonia Total Protein Albumin Globulin Albumin/Globulin Ratio 01/22/17 01/22/17 01/22/17 05:30 05:39 06:00 WBC RBC Hgb Hct MCV MCH MCHC RDW Plt Count MPV Neut % (Auto) Lymph % (Auto) [place] % (Auto) Eos % (Auto) Baso % (Auto) Neut # Lymph # [place] # Eos # Baso # Neutrophils % (Manual) Band Neutrophils % Lymphocytes % (Manual) Monocytes % (Manual) Myelocytes % Platelet Estimate Large Platelets Poikilocytosis (manual Anisocytosis (manual) Macrocytosis (manual) Tear Drop Cells Sodium 140 Potassium 5.1 H Chloride 115 H Carbon Dioxide 10 L* D Anion Gap 20 BUN 76 H Creatinine 4.5 H Est GFR ( Amer) 12 Est GFR (Non-Af Amer) 10 POC Glucose (mg/dL) 92 Random Glucose 91 Calcium 8.3 L Total Bilirubin 27.3 H Direct Bilirubin 24.4 H AST 243 H D ALT 115 H D Alkaline Phosphatase 248 H Ammonia 60 H Total Protein 6.6 Albumin 2.6 L Globulin 4.1 H Albumin/Globulin Ratio 0.6 L 01/22/17 01/22/17 11:50 17:14 WBC RBC Hgb Hct MCV MCH MCHC RDW Plt Count MPV Neut % (Auto) Lymph % (Auto) [place] % (Auto) Eos % (Auto) Baso % (Auto) Neut # Lymph # [place] # Eos # Baso # Neutrophils % (Manual) Band Neutrophils % Lymphocytes % (Manual) Monocytes % (Manual) Myelocytes % Platelet Estimate Large Platelets Poikilocytosis (manual Anisocytosis (manual) Macrocytosis (manual) Tear Drop Cells Sodium Potassium Chloride Carbon Dioxide Anion Gap BUN Creatinine Est GFR ( Amer) Est GFR (Non-Af Amer) POC Glucose (mg/dL) 73 98 Random Glucose Calcium Total Bilirubin Direct Bilirubin AST ALT Alkaline Phosphatase Ammonia Total Protein Albumin Globulin Albumin/Globulin Ratio Radiology Interpretations (Free Text): (My interp) CXR just done now and compared to previous study dome 10 days ago shows poorly expanded lung parson and increased haziness of the R lung. Fingerstick Blood Sugar Results: 92 Review of Systems - Review of Systems Systems not reviewed;Unavailable: Altered Mental Status Critical Care Progress Note - Extremities/Vascular Does the Patient have a Central Venous Catheter?: No Does the Patient need a Central Venous Catheter?: Yes Does the Patient have a Meredith Catheter?: Yes Does the Patient need a Meredith Catheter?: Yes Catheter Insertion Criteria: Need for accurate measurement of output in critically ill patient - Prophylaxis GI Prophylaxis GI: PPI - Prophylaxis DVT Prophylaxis DVT: Not Indicated (auto-anticoagulated) - Nutrition Nutrition: Nutrition Category Date Time Status Heart Healthy Diet [DIET] Diets 01/19/17 Dinner Active
[2017-01-22] MEDS ORDERED: Albumin Human 5% (12.5 gm/250 ml) IV SCH (18:45)
[2017-01-22] MEDS ORDERED: Lidocaine 1% Inj (20ml) ONE (18:57)
[2017-01-22] MEDS: Meropenem 500 MG in Sodium Chloride 0.9% 100 ML IVPB SCH ×2 (19:22→20:57)
[2017-01-22 19:57] LABS: ABG ALLEN TEST YES; ARTERIAL BLOOD GAS HCO3 14.5 mmol/L (21-28); ARTERIAL BLOOD GAS MODE N/C; ARTERIAL BLOOD GAS PH 7.24 (7.35-7.45); ARTERIAL BLOOD GAS PO2 72 mm/Hg (80-100)
[2017-01-22] MEDS: Sodium Bicarbonate 8.4% 100 MEQ in Dextrose 5% In Water 1,000 ML IV SCH (20:59)
[2017-01-22] MEDS ORDERED: Albumin Human 25% (12.5 gm/50 ml) IV SCH (21:00)
[2017-01-23] MEDS: Sodium Bicarbonate 8.4% 100 MEQ in Dextrose 5% In Water 1,000 ML IV SCH ×2 (04:45→12:55)
[2017-01-23] MEDS: Albumin Human 25% (12.5 gm/50 ml) IV SCH ×3 (04:47→21:17)
[2017-01-23 06:01] LABS: BASO # 0.1 K/uL (0.0-0.2); BASO % 0.6 % (0.0-2.0); HEMATOCRIT 37.7 % (34.0-47.0); LYMPH # 0.5 K/uL (1.0-4.3); LYMPH % 2.2 % (20.0-40.0); MEAN CELL VOLUME 126.4 fl (81.0-99.0); MEAN CORPUSCULAR HEMOGLOBIN 41.4 pg (27.0-31.0); MEAN CORPUSCULAR HGB CONC 32.8 g/dL (33.0-37.0); MEAN PLATELET VOLUME 9.7 fl (7.2-11.7); MONO # 0.6 K/uL (0.0-0.8); MONO % 2.4 % (0.0-10.0); NEUT % 94.8 % (50.0-75.0); NRBC % 0.1 % (0.0-0.0); PLATELET COUNT 114 K/uL (130-400); RED CELL DISTRIBUTION WIDTH 21.6 % (11.5-14.5); WHITE BLOOD COUNT 23.2 K/uL (4.8-10.8)
[2017-01-23 06:09] LABS: PARTIAL THROMBOPLASTIN TIME 35.8 Seconds (25.6-37.1)
[2017-01-23 06:27] LABS: ALB/GLOB RATIO 0.7 (1.0-2.1); BILIRUBIN,TOTAL 25.7 mg/dl (0.2-1.3); CALCIUM 7.9 mg/dL (8.4-10.2); POTASSIUM 5.8 MMOL/L (3.6-5.0); TOTAL PROTEIN 6.7 G/DL (6.3-8.2)
[2017-01-23] MEDS ORDERED: Chlorhexidine Gluconate 1 APPL/PKT TP ONE (08:34)
[2017-01-23] MEDS: Meropenem 500 MG in Sodium Chloride 0.9% 100 ML IVPB SCH ×2 (09:33→21:16)
[2017-01-23] MEDS: Pantoprazole 40 mg EC Tab PO SCH (09:34)
[2017-01-23] MEDS: Thiamine 100 mg/ml Inj IM SCH (09:35)
[2017-01-23 10:10] LABS: POTASSIUM 5.5 MMOL/L (3.6-5.0)
[2017-01-23 11:18] LABS: METAMYELOCYTE 1 % (0-0); NEUTROPHIL 96 % (42-75); TOTAL CELLS COUNTED 100
[2017-01-23] MEDS: methylPREDNISolone 30 MG in Sodium Chloride 0.9% 50 ML IV SCH (11:31)
--- NOTE | 2017-01-23 13:23 | CP.PCM.PN ---
Subjective - Date & Time of Evaluation Date of Evaluation: 01/23/17 Time of Evaluation: 13:25 - Subjective Subjective: Patient mental status still altered with moment of lethargy. She is confuse. Anuric. The condition was discussed with the and the sister. He decided to continue the full code status and if necessary dialysis. Case discussed with geospatial technician. Objective - Vital Signs/Intake and Output Vital Signs (last 24 hours): Temp Pulse Resp BP Pulse Ox 98.7 F 73 13 112/56 L 100 01/23/17 12:00 01/23/17 12:00 01/23/17 12:00 01/23/17 12:00 01/23/17 12:00 Intake and Output: 01/23/17 01/23/17 11:59 23:59 Intake Total 2760 350 Output Total 40 Balance 2720 350 - Medications Medications: Current Medications Albumin Human (Albumin Human 25% (12.5 Gm/50 Ml)) 25 gm IV Q8@0500,1300,2100 [facility] Last Admin: 01/23/17 04:47 Dose: 25 gm Docusate Sodium (Colace) 100 mg PO BID PRN PRN Reason: Constipation Last Admin: 01/21/17 09:44 Dose: 100 mg Folic Acid (Folic Acid) 1 mg PO DAILY [facility] Last Admin: 01/23/17 09:33 Dose: 1 mg Methylprednisolone 30 mg/ (Sodium Chloride) 50 mls @ 100 mls/hr IV DAILY [facility] Last Admin: 01/23/17 11:31 Dose: 100 mls/hr Meropenem 500 mg/ Sodium (Chloride) 100 mls @ 100 mls/hr IVPB Q12 [facility] Last Admin: 01/23/17 09:33 Dose: 100 mls/hr Sodium Bicarbonate 100 meq/ (Dextrose) 1,100 mls @ 150 mls/hr IV .Q7H20M [facility] Stop: 01/24/17 20:16 Last Admin: 01/23/17 12:55 Dose: 150 mls/hr Lactulose (Enulose) 20 gm PO TID [facility] Last Admin: 01/23/17 12:56 Dose: 20 gm Levothyroxine Sodium (Synthroid) 50 mcg PO DAILY@0630 [facility] Last Admin: 01/22/17 06:59 Dose: 50 mcg Nystatin (Nystop Topical Powder) 1 applic TOP TID [facility] Last Admin: 01/23/17 12:56 Dose: 1 applic Ondansetron HCl (Zofran Inj) 4 mg IVP Q6 PRN PRN Reason: Nausea/Vomiting Pantoprazole Sodium (Protonix Ec Tab) 40 mg PO DAILY [facility] Last Admin: 01/23/17 09:34 Dose: 40 mg Sodium Bicarbonate (Sodium Bicarbonate Tab) 650 mg PO Q6 [facility] Last Admin: 01/23/17 04:51 Dose: Not Given Thiamine HCl (Vitamin B1 Inj) 100 mg IM DAILY [facility] Last Admin: 01/23/17 09:35 Dose: 100 mg - Labs Labs: 01/23/17 04:20 01/23/17 09:00 PT 15.7 Seconds (9.8-13.1) H 01/23/17 04:20 INR 1.5 (0.9-1.2) H 01/23/17 04:20 APTT 35.8 Seconds (25.6-37.1) 01/23/17 04:20 - Constitutional Appears: Confused, Chronically Ill - Eye Exam Eye Exam: Scleral icterus - Respiratory Exam Respiratory Exam: Decreased Breath Sounds, Clear to Ausculation Bilateral - Cardiovascular Exam Cardiovascular Exam: REGULAR RHYTHM, +S1, +S2 - GI/Abdominal Exam GI & Abdominal Exam: Soft - Extremities Exam Extremities Exam: Pedal Edema - Neurological Exam Neurological Exam: Altered - Skin Additional comments: icterus Assessment and Plan (1) Alcohol abuse Status: Chronic (2) Alcoholic hepatitis with ascites Status: Chronic (3) Ascites due to alcoholic cirrhosis Status: Chronic (4) Leukocytosis Status: Acute (5) Alcohol withdrawal Status: Acute (6) Wernicke encephalopathy Status: Chronic (7) Alcohol abuse with intoxication Status: Chronic (8) Hepatic encephalopathy Status: Acute (9) Hepatic failure due to alcoholism Status: Acute (10) Renal tubulopathy, encephalopathy, and liver failure syndrome Status: Acute (11) Hypoalbuminemia Status: Acute - Assessment and Plan (Free Text) Plan: As above. Prognosis poor.
--- NOTE | 2017-01-23 13:25 | CP.PCM.PN ---
Subjective - Date & Time of Evaluation Date of Evaluation: 01/23/17 Time of Evaluation: 13:25 - Subjective Subjective: ID note- Pt. seen and examined today in ICU. \pt. was transferred to ICU as per PMD for closer monitoring. she continues to be lethargic but slightly more arousabale today with her sister at her bedside. as per pt's nurse pt. will be getting temp HD catheter placement since she has become almost anuric. Objective - Vital Signs/Intake and Output Vital Signs (last 24 hours): Temp Pulse Resp BP Pulse Ox 98.7 F 73 13 112/56 L 100 01/23/17 12:00 01/23/17 12:00 01/23/17 12:00 01/23/17 12:00 01/23/17 12:00 Intake and Output: 01/23/17 01/23/17 06:59 18:59 Intake Total 2990 1150 Output Total 40 Balance 2950 1150 - Medications Medications: Current Medications Albumin Human (Albumin Human 25% (12.5 Gm/50 Ml)) 25 gm IV Q8@0500,1300,2100 [facility] Last Admin: 01/23/17 04:47 Dose: 25 gm Docusate Sodium (Colace) 100 mg PO BID PRN PRN Reason: Constipation Last Admin: 01/21/17 09:44 Dose: 100 mg Folic Acid (Folic Acid) 1 mg PO DAILY [facility] Last Admin: 01/23/17 09:33 Dose: 1 mg Methylprednisolone 30 mg/ (Sodium Chloride) 50 mls @ 100 mls/hr IV DAILY [facility] Last Admin: 01/23/17 11:31 Dose: 100 mls/hr Meropenem 500 mg/ Sodium (Chloride) 100 mls @ 100 mls/hr IVPB Q12 [facility] Last Admin: 01/23/17 09:33 Dose: 100 mls/hr Sodium Bicarbonate 100 meq/ (Dextrose) 1,100 mls @ 150 mls/hr IV .Q7H20M [facility] Stop: 01/24/17 20:16 Last Admin: 01/23/17 12:55 Dose: 150 mls/hr Lactulose (Enulose) 20 gm PO TID [facility] Last Admin: 01/23/17 12:56 Dose: 20 gm Levothyroxine Sodium (Synthroid) 50 mcg PO DAILY@0630 [facility] Last Admin: 01/22/17 06:59 Dose: 50 mcg Nystatin (Nystop Topical Powder) 1 applic TOP TID [facility] Last Admin: 01/23/17 12:56 Dose: 1 applic Ondansetron HCl (Zofran Inj) 4 mg IVP Q6 PRN PRN Reason: Nausea/Vomiting Pantoprazole Sodium (Protonix Ec Tab) 40 mg PO DAILY [facility] Last Admin: 01/23/17 09:34 Dose: 40 mg Sodium Bicarbonate (Sodium Bicarbonate Tab) 650 mg PO Q6 [facility] Last Admin: 01/23/17 04:51 Dose: Not Given Thiamine HCl (Vitamin B1 Inj) 100 mg IM DAILY [facility] Last Admin: 01/23/17 09:35 Dose: 100 mg - Labs Labs: - Additional Findings Additional findings: - Constitutional Appears: No Acute Distress, Chronically Ill Additional comments: drowsy jaundice color - Head Exam Head Exam: ATRAUMATIC - Eye Exam Eye Exam: EOMI, PERRL - ENT Exam Additional comments: dry oral mucosa - Respiratory Exam Respiratory Exam: Clear to Auscultation Bilateral, NORMAL BREATHING PATTERN Additional comments: no wheezing - Cardiovascular Exam Cardiovascular Exam: RRR, +S1, +S2 - GI/Abdominal Exam GI & Abdominal Exam: Normal Bowel Sounds, Soft Additional comments: + distention with ascites but soft to palpation No tenderness no guarding, no rebound - Extremities Exam Additional comments: no edema b/l LE - Neurological Exam Additional comments: drowsy Laboratory Results - last 72 hr 01/20/17 01/20/17 01/20/17 14:00 16:18 21:48 WBC RBC Hgb Hct MCV MCH MCHC RDW Plt Count MPV Neut % (Auto) Lymph % (Auto) [place] % (Auto) Eos % (Auto) Baso % (Auto) Neut # Lymph # [place] # Eos # Baso # Neutrophils % (Manual) Band Neutrophils % Lymphocytes % (Manual) Monocytes % (Manual) Metamyelocytes % Myelocytes % Toxic Granulation Platelet Estimate Large Platelets Poikilocytosis (manual Anisocytosis (manual) Macrocytosis (manual) Target Cells Tear Drop Cells Schistocytes PT INR APTT pCO2 pO2 HCO3 ABG pH ABG Total CO2 ABG O2 Saturation ABG Base Excess Prosper Test ABG Potassium A-a O2 Difference Glucose Lactate Vent Mode FiO2 Sodium Potassium Chloride Carbon Dioxide Anion Gap BUN Creatinine Est GFR ( Amer) Est GFR (Non-Af Amer) POC Glucose (mg/dL) 98 101 Random Glucose Lactic Acid Calcium Total Bilirubin Direct Bilirubin AST ALT Alkaline Phosphatase Ammonia Total Protein Albumin Globulin Albumin/Globulin Ratio Arterial Blood Potassium Fluid Appearance Clear Fluid WBC 135.0 Fluid RBC 341.0 H Fluid Tot Cell Count TEST NOT PERFORMED Fluid Neutrophils 60.0 H Fluid Lymphocytes 2.0 H Fld Monocyte/Macrophag 38 H Fluid Glucose 95 Fluid Total Protein < 2.0 Fluid LDH 418 Fluid Amylase < 30 Fluid Triglycerides 17 Fluid Comment TEST NOT PERFORMED 01/21/17 01/21/17 01/21/17 05:20 11:07 17:43 WBC RBC Hgb Hct MCV MCH MCHC RDW Plt Count MPV Neut % (Auto) Lymph % (Auto) [place] % (Auto) Eos % (Auto) Baso % (Auto) Neut # Lymph # [place] # Eos # Baso # Neutrophils % (Manual) Band Neutrophils % Lymphocytes % (Manual) Monocytes % (Manual) Metamyelocytes % Myelocytes % Toxic Granulation Platelet Estimate Large Platelets Poikilocytosis (manual Anisocytosis (manual) Macrocytosis (manual) Target Cells Tear Drop Cells Schistocytes PT INR APTT pCO2 pO2 HCO3 ABG pH ABG Total CO2 ABG O2 Saturation ABG Base Excess Prosper Test ABG Potassium A-a O2 Difference Glucose Lactate Vent Mode FiO2 Sodium Potassium Chloride Carbon Dioxide Anion Gap BUN Creatinine Est GFR ( Amer) Est GFR (Non-Af Amer) POC Glucose (mg/dL) 106 86 112 H Random Glucose Lactic Acid Calcium Total Bilirubin Direct Bilirubin AST ALT Alkaline Phosphatase Ammonia Total Protein Albumin Globulin Albumin/Globulin Ratio Arterial Blood Potassium Fluid Appearance Fluid WBC Fluid RBC Fluid Tot Cell Count Fluid Neutrophils Fluid Lymphocytes Fld Monocyte/Macrophag Fluid Glucose Fluid Total Protein Fluid LDH Fluid Amylase Fluid Triglycerides Fluid Comment 01/21/17 01/22/17 01/22/17 22:08 05:30 05:30 WBC 24.3 H RBC 3.27 L Hgb 13.7 Hct 40.9 MCV 125.2 H MCH 41.8 H MCHC 33.4 RDW 22.2 H Plt Count 151 MPV 10.0 Neut % (Auto) 93.5 H Lymph % (Auto) 2.9 L [place] % (Auto) 3.4 Eos % (Auto) 0.0 Baso % (Auto) 0.2 Neut # 22.7 H Lymph # 0.7 L [place] # 0.8 Eos # 0.0 Baso # 0.0 Neutrophils % (Manual) 88 H Band Neutrophils % 3 H Lymphocytes % (Manual) 3 L Monocytes % (Manual) 5 Metamyelocytes % Myelocytes % 1 H Toxic Granulation Platelet Estimate Normal Large Platelets Present Poikilocytosis (manual Slight Anisocytosis (manual) Slight Macrocytosis (manual) Moderate Target Cells Tear Drop Cells Slight Schistocytes PT INR APTT pCO2 pO2 HCO3 ABG pH ABG Total CO2 ABG O2 Saturation ABG Base Excess Prosper Test ABG Potassium A-a O2 Difference Glucose Lactate Vent Mode FiO2 Sodium 140 Potassium 5.1 H Chloride 115 H Carbon Dioxide 10 L* D Anion Gap 20 BUN 76 H Creatinine 4.5 H Est GFR ( Amer) 12 Est GFR (Non-Af Amer) 10 POC Glucose (mg/dL) 93 Random Glucose 91 Lactic Acid Calcium 8.3 L Total Bilirubin 27.3 H Direct Bilirubin 24.4 H AST 243 H D ALT 115 H D Alkaline Phosphatase 248 H Ammonia Total Protein 6.6 Albumin 2.6 L Globulin 4.1 H Albumin/Globulin Ratio 0.6 L Arterial Blood Potassium Fluid Appearance Fluid WBC Fluid RBC Fluid Tot Cell Count Fluid Neutrophils Fluid Lymphocytes Fld Monocyte/Macrophag Fluid Glucose Fluid Total Protein Fluid LDH Fluid Amylase Fluid Triglycerides Fluid Comment 01/22/17 01/22/17 01/22/17 05:39 06:00 11:50 WBC RBC Hgb Hct MCV MCH MCHC RDW Plt Count MPV Neut % (Auto) Lymph % (Auto) [place] % (Auto) Eos % (Auto) Baso % (Auto) Neut # Lymph # [place] # Eos # Baso # Neutrophils % (Manual) Band Neutrophils % Lymphocytes % (Manual) Monocytes % (Manual) Metamyelocytes % Myelocytes % Toxic Granulation Platelet Estimate Large Platelets Poikilocytosis (manual Anisocytosis (manual) Macrocytosis (manual) Target Cells Tear Drop Cells Schistocytes PT INR APTT pCO2 pO2 HCO3 ABG pH ABG Total CO2 ABG O2 Saturation ABG Base Excess Prosper Test ABG Potassium A-a O2 Difference Glucose Lactate Vent Mode FiO2 Sodium Potassium Chloride Carbon Dioxide Anion Gap BUN Creatinine Est GFR ( Amer) Est GFR (Non-Af Amer) POC Glucose (mg/dL) 92 73 Random Glucose Lactic Acid Calcium Total Bilirubin Direct Bilirubin AST ALT Alkaline Phosphatase Ammonia 60 H Total Protein Albumin Globulin Albumin/Globulin Ratio Arterial Blood Potassium Fluid Appearance Fluid WBC Fluid RBC Fluid Tot Cell Count Fluid Neutrophils Fluid Lymphocytes Fld Monocyte/Macrophag Fluid Glucose Fluid Total Protein Fluid LDH Fluid Amylase Fluid Triglycerides Fluid Comment 01/22/17 01/22/17 01/22/17 17:14 19:43 23:05 WBC RBC Hgb Hct MCV MCH MCHC RDW Plt Count MPV Neut % (Auto) Lymph % (Auto) [place] % (Auto) Eos % (Auto) Baso % (Auto) Neut # Lymph # [place] # Eos # Baso # Neutrophils % (Manual) Band Neutrophils % Lymphocytes % (Manual) Monocytes % (Manual) Metamyelocytes % Myelocytes % Toxic Granulation Platelet Estimate Large Platelets Poikilocytosis (manual Anisocytosis (manual) Macrocytosis (manual) Target Cells Tear Drop Cells Schistocytes PT INR APTT pCO2 30 L pO2 72 L HCO3 14.5 L ABG pH 7.24 L ABG Total CO2 13.8 L ABG O2 Saturation 96.5 ABG Base Excess -13.2 L Prosper Test Yes ABG Potassium 5.4 H A-a O2 Difference 90.0 Glucose 122 H Lactate 1.3 Vent Mode N/c FiO2 28.0 Sodium 137.0 Potassium Chloride 111.0 H Carbon Dioxide Anion Gap BUN Creatinine Est GFR ( Amer) Est GFR (Non-Af Amer) POC Glucose (mg/dL) 98 132 H Random Glucose Lactic Acid Calcium Total Bilirubin Direct Bilirubin AST ALT Alkaline Phosphatase Ammonia Total Protein Albumin Globulin Albumin/Globulin Ratio Arterial Blood Potassium 5.4 H Fluid Appearance Fluid WBC Fluid RBC Fluid Tot Cell Count Fluid Neutrophils Fluid Lymphocytes Fld Monocyte/Macrophag Fluid Glucose Fluid Total Protein Fluid LDH Fluid Amylase Fluid Triglycerides Fluid Comment 01/23/17 01/23/17 01/23/17 04:20 04:20 04:20 WBC 23.2 H RBC 2.98 L Hgb 12.3 Hct 37.7 MCV 126.4 H MCH 41.4 H MCHC 32.8 L RDW 21.6 H Plt Count 114 L D MPV 9.7 Neut % (Auto) 94.8 H Lymph % (Auto) 2.2 L [place] % (Auto) 2.4 Eos % (Auto) 0.0 Baso % (Auto) 0.6 Neut # 22.0 H Lymph # 0.5 L [place] # 0.6 Eos # 0.0 Baso # 0.1 Neutrophils % (Manual) 96 H Band Neutrophils % Lymphocytes % (Manual) 1 L Monocytes % (Manual) 2 Metamyelocytes % 1 H Myelocytes % Toxic Granulation Present Platelet Estimate Slightly decreased L Large Platelets Poikilocytosis (manual Anisocytosis (manual) Moderate Macrocytosis (manual) Marked Target Cells Slight Tear Drop Cells Slight Schistocytes Slight PT 15.7 H INR 1.5 H APTT 35.8 pCO2 pO2 HCO3 ABG pH ABG Total CO2 ABG O2 Saturation ABG Base Excess Prosper Test ABG Potassium A-a O2 Difference Glucose Lactate Vent Mode FiO2 Sodium 140 Potassium 5.8 H Chloride 112 H Carbon Dioxide 15 L Anion Gap 19 BUN 87 H Creatinine 5.0 H Est GFR ( Amer) 11 Est GFR (Non-Af Amer) 9 POC Glucose (mg/dL) Random Glucose 134 H Lactic Acid Calcium 7.9 L Total Bilirubin 25.7 H Direct Bilirubin 23.5 H AST 170 H D ALT 93 H Alkaline Phosphatase 193 H D Ammonia Total Protein 6.7 Albumin 2.7 L Globulin 3.9 Albumin/Globulin Ratio 0.7 L Arterial Blood Potassium Fluid Appearance Fluid WBC Fluid RBC Fluid Tot Cell Count Fluid Neutrophils Fluid Lymphocytes Fld Monocyte/Macrophag Fluid Glucose Fluid Total Protein Fluid LDH Fluid Amylase Fluid Triglycerides Fluid Comment 01/23/17 01/23/17 01/23/17 04:20 04:45 09:00 WBC RBC Hgb Hct MCV MCH MCHC RDW Plt Count MPV Neut % (Auto) Lymph % (Auto) [place] % (Auto) Eos % (Auto) Baso % (Auto) Neut # Lymph # [place] # Eos # Baso # Neutrophils % (Manual) Band Neutrophils % Lymphocytes % (Manual) Monocytes % (Manual) Metamyelocytes % Myelocytes % Toxic Granulation Platelet Estimate Large Platelets Poikilocytosis (manual Anisocytosis (manual) Macrocytosis (manual) Target Cells Tear Drop Cells Schistocytes PT INR APTT pCO2 pO2 HCO3 ABG pH ABG Total CO2 ABG O2 Saturation ABG Base Excess Prosper Test ABG Potassium A-a O2 Difference Glucose Lactate Vent Mode FiO2 Sodium 139 Potassium 5.5 H Chloride 111 H Carbon Dioxide 13 L Anion Gap 21 H BUN 88 H Creatinine 4.9 H Est GFR ( Amer) 11 Est GFR (Non-Af Amer) 9 POC Glucose (mg/dL) 130 H Random Glucose 132 H Lactic Acid 1.1 Calcium 8.0 L Total Bilirubin Direct Bilirubin AST ALT Alkaline Phosphatase Ammonia Total Protein Albumin Globulin Albumin/Globulin Ratio Arterial Blood Potassium Fluid Appearance Fluid WBC Fluid RBC Fluid Tot Cell Count Fluid Neutrophils Fluid Lymphocytes Fld Monocyte/Macrophag Fluid Glucose Fluid Total Protein Fluid LDH Fluid Amylase Fluid Triglycerides Fluid Comment 01/23/17 11:16 WBC RBC Hgb Hct MCV MCH MCHC RDW Plt Count MPV Neut % (Auto) Lymph % (Auto) [place] % (Auto) Eos % (Auto) Baso % (Auto) Neut # Lymph # [place] # Eos # Baso # Neutrophils % (Manual) Band Neutrophils % Lymphocytes % (Manual) Monocytes % (Manual) Metamyelocytes % Myelocytes % Toxic Granulation Platelet Estimate Large Platelets Poikilocytosis (manual Anisocytosis (manual) Macrocytosis (manual) Target Cells Tear Drop Cells Schistocytes PT INR APTT pCO2 pO2 HCO3 ABG pH ABG Total CO2 ABG O2 Saturation ABG Base Excess Prosper Test ABG Potassium A-a O2 Difference Glucose Lactate Vent Mode FiO2 Sodium Potassium Chloride Carbon Dioxide Anion Gap BUN Creatinine Est GFR ( Amer) Est GFR (Non-Af Amer) POC Glucose (mg/dL) 141 H Random Glucose Lactic Acid Calcium Total Bilirubin Direct Bilirubin AST ALT Alkaline Phosphatase Ammonia Total Protein Albumin Globulin Albumin/Globulin Ratio Arterial Blood Potassium Fluid Appearance Fluid WBC Fluid RBC Fluid Tot Cell Count Fluid Neutrophils Fluid Lymphocytes Fld Monocyte/Macrophag Fluid Glucose Fluid Total Protein Fluid LDH Fluid Amylase Fluid Triglycerides Fluid Comment Microbiology 01/18/17 15:28 Blood-Venous Blood Culture - Final NO GROWTH AFTER 5 DAYS 01/18/17 15:28 Blood-Venous Gram Stain - Final TEST NOT PERFORMED 01/18/17 15:28 Blood-Venous Blood Culture - Final NO GROWTH AFTER 5 DAYS 01/18/17 15:28 Blood-Venous Gram Stain - Final TEST NOT PERFORMED 01/12/17 17:30 Blood-Venous Blood Culture - Final NO GROWTH AFTER 5 DAYS 01/12/17 17:30 Blood-Venous Gram Stain - Final TEST NOT PERFORMED 01/14/17 20:30 Urine Urine Culture - Final No Growth (<1,000 CFU/ML) Accession No. : [id number] Patient Name / ID : ALEX JACKSON / [id number] Exam Date : 01/22/2017 17:34:47 ( Approved ) Study Comment : Sex / Age : F / 61Y Creator : Oneal Waller MD Dictator : Oneal Waller MD Foxer : [employer]er [employer]fighter : Oneal Waller MD Approver2 : Report Date : 01/22/2017 17:59:31 My Comment : HISTORY: High WBC count COMPARISON: Comparison chest 01/12/2017 FINDINGS: LUNGS: Poor inspiration with low lung volumes, crowded bronchovascular markings and bibasilar atelectasis right greater than left. . Persistent elevation right hemidiaphragm. There is also hazy appearance of the remainder of the right aerated upper lobe ; rule out moderate to large effusion. Questionable small left effusion. PLEURA: No significant pleural effusion identified, no pneumothorax apparent. CARDIOVASCULAR: Heart size is difficult to assess due to silhouetting of the right cardiac border though may be mildly enlarged as well OSSEOUS STRUCTURES: No significant abnormalities. VISUALIZED UPPER ABDOMEN: Normal. OTHER FINDINGS: None. IMPRESSION: Poor inspiration with low lung volumes, crowded bronchovascular markings and bibasilar atelectasis right greater than left. . Persistent elevation right hemidiaphragm. There is also hazy appearance of the remainder of the right aerated upper lobe ; rule out moderate to large effusion. Questionable small left effusion. Assessment and Plan (1) Sepsis Status: Acute (2) Leukocytosis Status: Acute (3) Ascites due to alcoholic cirrhosis Status: Chronic - Assessment and Plan (Free Text) Assessment: A/P- 61 year old female with h/o EOH abuse with cirrhosis presented post fall on the knees found to have high wbc and lactate and was admitted for sepsis work up and alcoholism and cirrhosis. s/p paracenthesis last week ,fluid cell count wbc 134 and 60% PM - not c/w SBP , however pt. has been on abx still drowsy afebrile leukocytosis continues to be high , may be secondary to the steroids also urine cx- neg x 1 blood cx- neg x 3 transaminitis and hyperbilirubinemia. hepatitis panel - neg HIV ab- neg CXR- possible pleural effusions as per report. cirrhosis ascites REGINO worsening plan- completed 5 days of IV cefotaxime and prio tot hat was on ceftriaxone by primary team. ascites fluid not c/w sbp and per GI not SBP, however pt. does have left shit and has been hospiltalized now for a while and advise o be coverde for hospital acquired pathogens in light of her immune suppressed states . hence continue with IV meropenem ( day #2), dosed renally. repeat cultures. prognosis poor. ICU time 45 minutes.
[2017-01-23] MEDS ORDERED: Lidocaine 1% Inj (20ml) ONE (14:24)
--- NOTE | 2017-01-23 14:49 | PCM.SURG1 ---
Surgeon's Initial Post Op Note - Surgeon's Notes Surgeon: Modesto Carrera MD Director Of Surgery: NONE Type of Anesthesia: Local Pre-Operative Diagnosis: Renal failure Operative Findings: US showed a patent right IJV. Post-Operative Diagnosis: Renal failure Operation Performed: Right IJV non tunneled HD catheter placement, Tip in SVC. Specimen/Specimens Removed: None Estimated Blood Loss: EBL {In ML}: 3 Blood Products Given: N/A Drains Used: No Drains Post-Op Condition: Poor Date of Surgery/Procedure: 01/23/17 Time of Surgery/Procedure: 14:45
--- NOTE | 2017-01-23 14:50 | PCM.SURG1 ---
Surgeon's Initial Post Op Note - Surgeon's Notes Surgeon: Modesto Carrera MD Equipment Analyst: NONE Type of Anesthesia: Local Pre-Operative Diagnosis: Encephalopathy, poor venous access Operative Findings: Patent right basilic vein. Post-Operative Diagnosis: Poor venous access Operation Performed: Dual lumen picc placement right basilic vein, 35 cm. Tip in SVC. Specimen/Specimens Removed: none Estimated Blood Loss: EBL {In ML}: 2 Blood Products Given: N/A Drains Used: No Drains Post-Op Condition: Poor Date of Surgery/Procedure: 01/23/17 Time of Surgery/Procedure: 14:45
--- NOTE | 2017-01-23 18:34 | CP.PCM.PN ---
Subjective - Date & Time of Evaluation Date of Evaluation: 01/23/17 Time of Evaluation: 18:32 - Subjective Subjective: Patient a little more awake. Continues with minimal renal output. Objective - Vital Signs/Intake and Output Vital Signs (last 24 hours): Temp Pulse Resp BP Pulse Ox 98.9 F 74 19 103/55 L 100 01/23/17 15:42 01/23/17 15:42 01/23/17 15:42 01/23/17 15:42 01/23/17 15:42 Intake and Output: 01/23/17 01/23/17 06:59 18:59 Intake Total 2990 1550 Output Total 40 Balance 2950 1550 - Medications Medications: Current Medications Albumin Human (Albumin Human 25% (12.5 Gm/50 Ml)) 25 gm IV Q8@0500,1300,2100 [facility] Last Admin: 01/23/17 13:45 Dose: 25 gm Docusate Sodium (Colace) 100 mg PO BID PRN PRN Reason: Constipation Last Admin: 01/21/17 09:44 Dose: 100 mg Folic Acid (Folic Acid) 1 mg PO DAILY [facility] Last Admin: 01/23/17 09:33 Dose: 1 mg Methylprednisolone 30 mg/ (Sodium Chloride) 50 mls @ 100 mls/hr IV DAILY [facility] Last Admin: 01/23/17 11:31 Dose: 100 mls/hr Meropenem 500 mg/ Sodium (Chloride) 100 mls @ 100 mls/hr IVPB Q12 [facility] Last Admin: 01/23/17 09:33 Dose: 100 mls/hr Lactulose (Enulose) 20 gm PO TID [facility] Last Admin: 01/23/17 16:44 Dose: 20 gm Levothyroxine Sodium (Synthroid) 50 mcg PO DAILY@0630 [facility] Last Admin: 01/22/17 06:59 Dose: 50 mcg Nystatin (Nystop Topical Powder) 1 applic TOP TID [facility] Last Admin: 01/23/17 16:44 Dose: 1 applic Ondansetron HCl (Zofran Inj) 4 mg IVP Q6 PRN PRN Reason: Nausea/Vomiting Pantoprazole Sodium (Protonix Ec Tab) 40 mg PO DAILY [facility] Last Admin: 01/23/17 09:34 Dose: 40 mg Sodium Bicarbonate (Sodium Bicarbonate Tab) 650 mg PO Q6 [facility] Last Admin: 01/23/17 04:51 Dose: Not Given Thiamine HCl (Vitamin B1 Inj) 100 mg IM DAILY [facility] Last Admin: 01/23/17 09:35 Dose: 100 mg - Labs Labs: 01/23/17 04:20 01/23/17 09:00 PT 15.7 Seconds (9.8-13.1) H 01/23/17 04:20 INR 1.5 (0.9-1.2) H 01/23/17 04:20 APTT 35.8 Seconds (25.6-37.1) 01/23/17 04:20 - Head Exam Head Exam: ATRAUMATIC - Eye Exam Eye Exam: Scleral icterus - ENT Exam ENT Exam: Normal Exam - Neck Exam Neck Exam: Normal Inspection - Respiratory Exam Respiratory Exam: NORMAL BREATHING PATTERN - Cardiovascular Exam Cardiovascular Exam: +S1, +S2 - GI/Abdominal Exam GI & Abdominal Exam: Soft. absent: Tenderness Assessment and Plan (1) Alcoholic hepatitis with ascites Assessment & Plan: Bili still high though INR is stable. Continue corticosteroids. Likely hemodialysis. Status: Chronic
--- NOTE | 2017-01-23 19:41 | CP.PCM.PN ---
Subjective - Date & Time of Evaluation Date of Evaluation: 01/23/17 Time of Evaluation: 14:00 - Subjective Subjective: SEEN ON RENAL F/U SHRUTI WITH OLIGOURIA JUST HAD TEMP HD CATH HD TO START SHORTLY HD ORDERS GIVEN AND D/W HD RN WAS MADE AWARE OF VERY BAD PROGNOSIS Objective - Vital Signs/Intake and Output Vital Signs (last 24 hours): Temp Pulse Resp BP Pulse Ox 98.9 F 72 16 115/63 99 01/23/17 15:42 01/23/17 17:00 01/23/17 17:00 01/23/17 17:00 01/23/17 17:00 Intake and Output: 01/23/17 01/24/17 18:59 06:59 Intake Total 1650 Balance 1650 - Medications Medications: Current Medications Albumin Human (Albumin Human 25% (12.5 Gm/50 Ml)) 25 gm IV Q8@0500,1300,2100 [facility] Last Admin: 01/23/17 13:45 Dose: 25 gm Docusate Sodium (Colace) 100 mg PO BID PRN PRN Reason: Constipation Last Admin: 01/21/17 09:44 Dose: 100 mg Folic Acid (Folic Acid) 1 mg PO DAILY [facility] Last Admin: 01/23/17 09:33 Dose: 1 mg Methylprednisolone 30 mg/ (Sodium Chloride) 50 mls @ 100 mls/hr IV DAILY [facility] Last Admin: 01/23/17 11:31 Dose: 100 mls/hr Meropenem 500 mg/ Sodium (Chloride) 100 mls @ 100 mls/hr IVPB Q12 [facility] Last Admin: 01/23/17 09:33 Dose: 100 mls/hr Lactulose (Enulose) 20 gm PO TID [facility] Last Admin: 01/23/17 16:44 Dose: 20 gm Levothyroxine Sodium (Synthroid) 50 mcg PO DAILY@0630 [facility] Last Admin: 01/22/17 06:59 Dose: 50 mcg Nystatin (Nystop Topical Powder) 1 applic TOP TID [facility] Last Admin: 01/23/17 16:44 Dose: 1 applic Ondansetron HCl (Zofran Inj) 4 mg IVP Q6 PRN PRN Reason: Nausea/Vomiting Pantoprazole Sodium (Protonix Ec Tab) 40 mg PO DAILY [facility] Last Admin: 01/23/17 09:34 Dose: 40 mg Thiamine HCl (Vitamin B1 Inj) 100 mg IM DAILY [facility] Last Admin: 01/23/17 09:35 Dose: 100 mg - Labs Labs: 01/23/17 04:20 01/23/17 09:00 PT 15.7 Seconds (9.8-13.1) H 01/23/17 04:20 INR 1.5 (0.9-1.2) H 01/23/17 04:20 APTT 35.8 Seconds (25.6-37.1) 01/23/17 04:20 Assessment and Plan - Assessment and Plan (Free Text) Assessment: ATN VS PRE RENAL AZOTEMIA .. PROBABLY HRS ADVANCED LIVER SCIRHOSIS 2/3 ETOH P : HD TODAY X 2 H HD IN AM X 2.5 H D/C IVF VERY POOR PROGNOSIS
--- NOTE | 2017-01-24 00:17 | PN ---
CRITICAL CARE PROGRESS NOTE DATE: 01/23/2017 SUBJECTIVE: The patient is seen and evaluated at the bedside. Discussed in multidisciplinary ICU team management program. Past medical, surgical, and social history reviewed. A 61-year-old female with a history of alcohol dependence, alcohol related liver cirrhosis, coagulopathy, admitted with metabolic encephalopathy, worsening metabolic acidosis, hyperkalemia, suspected hepatorenal syndrome, renal syndrome. On IV fluid albumin. Overnight, lethargic, but arousable. Ammonia level noted around 60s. This morning, more wakeful than yesterday. Able to open the eyes, ask what is the time now. Denies nausea or vomiting or abdominal pain. No diarrhea noted. PHYSICAL EXAMINATION: VITAL SIGNS: Temperature 97.9, heart rate 75 regular, blood pressure 115/52, main arterial pressure is 73, respiratory rate 13, saturation 100% on 2 liters nasal cannula. Intake 2550, and output 65. Positive balance 2480. HEAD, EYES, EARS, NOSE AND THROAT: Pupils are reactive. Sclerae icteric. NECK: Supple. CHEST: Bilateral breath sounds. Diminished in intensity. Scattered rhonchi. HEART: Regular. S1 and S2 normal intensity. No S3 or S4 gallop. ABDOMEN: Distended. Bowel sounds are present. No tenderness or rebound tenderness. EXTREMITIES: Dependent edema. SKIN: Lemon yellow. NEUROLOGIC: Alert, awake, follows simple commands. Moves all four extremities. CURRENT MEDICATIONS: Albumin 25% three times daily, Colace 100 mg p.o. twice daily, p.r.n. folic acid 1 mg p.o. daily, lactulose 20 grams p.o. three times daily, Synthroid 50 mcg daily, meropenem 500 mg IV q.12h., Solu-Medrol 30 mg daily, nystatin powder one application topically three times daily, Protonix EC 40 mg daily, sodium bicarbonate 650 mg p.o. q.6h., sodium bicarbonate 100 mEq and 1000 at 150 mL per hour, thiamine 100 mg daily. LABORATORY DATA: WBC 23.2, hemoglobin 12.3, hematocrit 37.7, platelet count 114. PT 15.7, INR 1.5. ABG: PH 7.24, pCO2 30, pO2 72. Saturation 96.5 on oxygen 2 liters nasal cannula. SMA-7, sodium 139, potassium 5.5, chloride 111, CO2 13. Blood urea nitrogen 88, creatinine 4.9, lactic acid 1.1, calcium 8.8. Urinalysis: Urobilinogen 4, RBC 43, WBC too many, microscopic WBC 96. Acetic fluid total protein now less than 2, glucose 95, *------* triglycerides 70. WBC in acetic fluid 135, RBC 341. Urinalysis negative. Alcohol level 196. Serologies: Hepatitis A negative, B negative, C negative and HIV 1 antibody negative. IMPRESSION AND PLAN: 1. Neuro: Metabolic encephalopathy. Relate alcohol dependence with alcohol related liver cirrhosis. Ammonia level trending down to 60 on lactulose three times daily. The patient is more wakeful than yesterday and able to follow commands. 2. Pulmonary: Bibasilar atelectasis and possible effusion. 3. Cardiac: Normotensive. No tachycardia. 4. Gastrointestinal: Liver cirrhosis. Alcohol dependence. Alcoholic hepatitis. 5. Renal: Acute on chronic renal compromise. Suspected hepatorenal syndrome, on IV fluid albumin and sodium bicarbonate p.o. and IV. Hemodialysis catheter to be placed today pending consent from patient's and/or other family members. 6. Infectious disease: Empirically on meropenem. Has been on cefotaxime. Appreciate ID followup. 7. Hematology: Thrombocytopenia related to liver cirrhosis. Hemoglobin stable. Coagulopathy related to liver cirrhosis. Continue GI prophylaxis. Hold anticoagulation secondary to coagulopathy, mechanical device for DVT prophylaxis. Jordan Marino MD
[2017-01-24] MEDS: Albumin Human 25% (12.5 gm/50 ml) IV SCH (04:31)
[2017-01-24 05:33] LABS: BASO # 0.1 K/uL (0.0-0.2); BASO % 0.5 % (0.0-2.0); EOS # 0.1 K/uL (0.0-0.7); EOS % 0.4 % (0.0-4.0); HEMATOCRIT 35.2 % (34.0-47.0); LYMPH # 0.5 K/uL (1.0-4.3); LYMPH % 2.8 % (20.0-40.0); MEAN CELL VOLUME 124.8 fl (81.0-99.0); MEAN CORPUSCULAR HEMOGLOBIN 41.1 pg (27.0-31.0); MEAN CORPUSCULAR HGB CONC 32.9 g/dL (33.0-37.0); MEAN PLATELET VOLUME 9.8 fl (7.2-11.7); MONO # 0.5 K/uL (0.0-0.8); MONO % 2.7 % (0.0-10.0); NEUT # 17.1 K/uL (1.8-7.0); NEUT % 93.6 % (50.0-75.0); NRBC % 0.1 % (0.0-0.0); PLATELET COUNT 81 K/uL (130-400); RED CELL DISTRIBUTION WIDTH 21.7 % (11.5-14.5); WHITE BLOOD COUNT 18.3 K/uL (4.8-10.8)
[2017-01-24 05:40] LABS: CALCIUM 8.1 mg/dL (8.4-10.2); POTASSIUM 4.6 MMOL/L (3.6-5.0)
[2017-01-24] MEDS: Levothyroxine 50 MCG TAB PO SCH (06:03)
--- NOTE | 2017-01-24 08:44 | CP.PCM.PN ---
Subjective - Date & Time of Evaluation Date of Evaluation: 01/24/17 Time of Evaluation: 08:42 - Subjective Subjective: Patient remains lethargic. Receiving hemodialysis Objective - Vital Signs/Intake and Output Vital Signs (last 24 hours): Temp Pulse Resp BP Pulse Ox 97.7 F 76 17 111/65 100 01/24/17 08:00 01/24/17 08:00 01/24/17 08:00 01/24/17 08:00 01/24/17 08:00 Intake and Output: 01/24/17 01/24/17 06:59 18:59 Intake Total 300 Output Total 8 10 Balance 292 -10 - Medications Medications: Current Medications Docusate Sodium (Colace) 100 mg PO BID PRN PRN Reason: Constipation Last Admin: 01/21/17 09:44 Dose: 100 mg Folic Acid (Folic Acid) 1 mg PO DAILY [facility] Last Admin: 01/23/17 09:33 Dose: 1 mg Methylprednisolone 30 mg/ (Sodium Chloride) 50 mls @ 100 mls/hr IV DAILY [facility] Last Admin: 01/23/17 11:31 Dose: 100 mls/hr Meropenem 500 mg/ Sodium (Chloride) 100 mls @ 100 mls/hr IVPB Q12 [facility] Last Admin: 01/23/17 21:16 Dose: 100 mls/hr Lactulose (Enulose) 20 gm PO TID [facility] Last Admin: 01/23/17 16:44 Dose: 20 gm Levothyroxine Sodium (Synthroid) 50 mcg PO DAILY@0630 [facility] Last Admin: 01/24/17 06:03 Dose: 50 mcg Nystatin (Nystop Topical Powder) 1 applic TOP TID [facility] Last Admin: 01/23/17 16:44 Dose: 1 applic Ondansetron HCl (Zofran Inj) 4 mg IVP Q6 PRN PRN Reason: Nausea/Vomiting Pantoprazole Sodium (Protonix Ec Tab) 40 mg PO DAILY [facility] Last Admin: 01/23/17 09:34 Dose: 40 mg Thiamine HCl (Vitamin B1 Inj) 100 mg IM DAILY [facility] Last Admin: 01/23/17 09:35 Dose: 100 mg - Labs Labs: 01/24/17 04:30 01/24/17 04:30 PT 15.7 Seconds (9.8-13.1) H 01/23/17 04:20 INR 1.5 (0.9-1.2) H 01/23/17 04:20 APTT 35.8 Seconds (25.6-37.1) 01/23/17 04:20 - Head Exam Head Exam: ATRAUMATIC - Eye Exam Eye Exam: Scleral icterus - ENT Exam ENT Exam: Normal Exam - Neck Exam Neck Exam: Full ROM - Respiratory Exam Respiratory Exam: Clear to Ausculation Bilateral - Cardiovascular Exam Cardiovascular Exam: REGULAR RHYTHM - GI/Abdominal Exam GI & Abdominal Exam: Soft, Normal Bowel Sounds Assessment and Plan (1) Alcoholic hepatitis with ascites Assessment & Plan: Patient remains lethargic. LFts pending. Vital signs stable. Status: Chronic
[2017-01-24] MEDS: Pantoprazole 40 mg EC Tab PO SCH (09:03)
[2017-01-24] MEDS: Thiamine 100 mg/ml Inj IM SCH (09:04)
[2017-01-24] MEDS: Meropenem 500 MG in Sodium Chloride 0.9% 100 ML IVPB SCH ×2 (09:05→21:00)
[2017-01-24] MEDS: methylPREDNISolone 30 MG in Sodium Chloride 0.9% 50 ML IV SCH (09:05)
[2017-01-24 09:41] LABS: BILIRUBIN,TOTAL 25.5 mg/dl (0.2-1.3)
[2017-01-24 09:42] LABS: TOTAL PROTEIN 6.4 G/DL (6.3-8.2)
[2017-01-24 11:21] LABS: METAMYELOCYTE 1 % (0-0); NEUTROPHIL 92 % (42-75); TOTAL CELLS COUNTED 100
--- NOTE | 2017-01-24 14:53 | CP.PCM.PN ---
Subjective - Date & Time of Evaluation Date of Evaluation: 01/24/17 Time of Evaluation: 14:54 - Subjective Subjective: Patient more responsive than yesterday. But still lethargic at time and confuse. Objective - Vital Signs/Intake and Output Vital Signs (last 24 hours): Temp Pulse Resp BP Pulse Ox 98.8 F 78 14 138/70 99 01/24/17 12:00 01/24/17 14:00 01/24/17 14:00 01/24/17 14:00 01/24/17 14:00 Intake and Output: 01/24/17 01/24/17 11:59 23:59 Intake Total 400 170 Output Total 18 5 Balance 382 165 - Medications Medications: Current Medications Docusate Sodium (Colace) 100 mg PO BID PRN PRN Reason: Constipation Last Admin: 01/21/17 09:44 Dose: 100 mg Folic Acid (Folic Acid) 1 mg PO DAILY [facility] Last Admin: 01/24/17 09:03 Dose: 1 mg Methylprednisolone 30 mg/ (Sodium Chloride) 50 mls @ 100 mls/hr IV DAILY [facility] Last Admin: 01/24/17 09:05 Dose: 100 mls/hr Meropenem 500 mg/ Sodium (Chloride) 100 mls @ 100 mls/hr IVPB Q12 [facility] Last Admin: 01/24/17 09:05 Dose: 100 mls/hr Lactulose (Enulose) 20 gm PO TID [facility] Last Admin: 01/24/17 12:42 Dose: 20 gm Levothyroxine Sodium (Synthroid) 50 mcg PO DAILY@0630 [facility] Last Admin: 01/24/17 06:03 Dose: 50 mcg Nystatin (Nystop Topical Powder) 1 applic TOP TID [facility] Last Admin: 01/24/17 12:42 Dose: 1 applic Ondansetron HCl (Zofran Inj) 4 mg IVP Q6 PRN PRN Reason: Nausea/Vomiting Pantoprazole Sodium (Protonix Ec Tab) 40 mg PO DAILY [facility] Last Admin: 01/24/17 09:03 Dose: 40 mg Thiamine HCl (Vitamin B1 Inj) 100 mg IM DAILY [facility] Last Admin: 01/24/17 09:04 Dose: 100 mg - Labs Labs: 01/24/17 04:30 01/24/17 04:30 PT 15.7 Seconds (9.8-13.1) H 01/23/17 04:20 INR 1.5 (0.9-1.2) H 01/23/17 04:20 APTT 35.8 Seconds (25.6-37.1) 01/23/17 04:20 - Constitutional Appears: Confused, Chronically Ill - Head Exam Head Exam: ATRAUMATIC, NORMAL INSPECTION, NORMOCEPHALIC - Eye Exam Eye Exam: Scleral icterus - Respiratory Exam Respiratory Exam: Decreased Breath Sounds, Clear to Ausculation Bilateral - Cardiovascular Exam Cardiovascular Exam: REGULAR RHYTHM, +S1, +S2 - GI/Abdominal Exam GI & Abdominal Exam: Soft - Neurological Exam Neurological Exam: Altered - Skin Additional comments: icterus Assessment and Plan (1) Alcohol abuse Status: Chronic (2) Alcoholic hepatitis with ascites Status: Chronic (3) Ascites due to alcoholic cirrhosis Status: Chronic (4) Leukocytosis Status: Acute (5) Alcohol withdrawal Status: Acute (6) Wernicke encephalopathy Status: Chronic (7) Alcohol abuse with intoxication Status: Chronic (8) Hepatic encephalopathy Status: Acute (9) Hepatic failure due to alcoholism Status: Acute (10) Renal tubulopathy, encephalopathy, and liver failure syndrome Status: Acute (11) Hypoalbuminemia Status: Acute (12) Acidosis, lactic Status: Acute (13) Acidosis, metabolic Status: Acute - Assessment and Plan (Free Text) Plan: Continue present rx. Family aware of poor prognosis.
[2017-01-24 19:06] LABS: RBC URINE 502 /hpf (0-3); URINE BACTERIA MOD (<OCC); URINE BILIRUBIN SMALL (NEGATIVE); URINE BLOOD LARGE (NEGATIVE); URINE COLOR AMBER (YELLOW); URINE GLUCOSE (UA) NEG (Normal); URINE KETONE NEGATIVE (NEGATIVE); URINE LEUKOCYTE ESTERASE MOD Leu/uL (Negative); URINE PROTEIN 100 mg/dL (NEGATIVE); URINE UROBILINOGEN 0.2-1.0 mg/dL (0.2-1.0); WBC CLUMPS MANY /hpf; WBC URINE 3558 /hpf (0-5)
[2017-01-25] MEDS ORDERED: Chlorhexidine Gluconate 1 APPL/PKT TP ONE (03:50)
[2017-01-25 05:26] LABS: MEAN CELL VOLUME 124.3 fl (81.0-99.0); MEAN CORPUSCULAR HEMOGLOBIN 41.2 pg (27.0-31.0); MEAN CORPUSCULAR HGB CONC 33.1 g/dL (33.0-37.0); RED CELL DISTRIBUTION WIDTH 21.6 % (11.5-14.5); WHITE BLOOD COUNT 22.3 K/uL (4.8-10.8)
[2017-01-25 05:40] LABS: BILIRUBIN,TOTAL 25.5 mg/dl (0.2-1.3); CALCIUM 8.7 mg/dL (8.4-10.2); POTASSIUM 3.9 MMOL/L (3.6-5.0); TOTAL PROTEIN 6.3 G/DL (6.3-8.2)
--- NOTE | 2017-01-25 06:02 | PN ---
DATE: 01/24/2017 CRITICAL CARE PROGRESS NOTE LOCATION: The patient is in ICU bed 433. TIME SPENT: 40 minutes. SUBJECTIVE: The patient is seen and examined at the bedside. Events overnight were reviewed. Case was discussed in multidisciplinary ICU team. Past medical, surgical, and social history noted. A 61-year-old female with a history significant for alcohol dependence, alcohol related liver cirrhosis related coagulopathy, worsening acute on chronic renal failure, massive ascites status post paracentesis. Overnight, status post hemodialysis catheter insertion. She underwent dialysis uneventful, remained afebrile and normotensive. This morning alert, awake, able to follow simple commands. Seen in conversation with the family members, but goes back to sleep; as mother stimulates, is interactive. Denies headache. No respiratory distress. Abdomen remains mild distended. Edema from both lower extremities. PHYSICAL EXAMINATION: VITAL SIGNS: Temperature 98.8, heart rate 78 regular, blood pressure 138/70, respiratory rate 14 to 23 thoracoabdominal, saturation 99 to 100 on 2 liters nasal cannula. Intake 1950, output 8 mL, positive balance 1942 over the last 24 hours, significant positive balance over the last 4-5 days. Tube feeding 20 mL/hour. Urine output 15 mL. HEAD, EYES, EARS, NOSE AND THROAT: Pupils are reactive midline. No nystagmus. Sclerae anicteric. NECK: Supple. Trachea is central. CHEST: Bilateral breath sounds, diminished in intensity. HEART: Rhythm regular. S1 and S2 normal. No S3 or S4 gallop. ABDOMEN: Distended. Bowel sounds are present, diminished. No tenderness or rebound tenderness. EXTREMITIES: Dependent edema in both upper and lower extremities. SKIN: Lemon yellow. NEUROLOGIC: Alert, awake, follows simple commands. Moves all four extremities. CURRENT MEDICATIONS: Colace 100 mg p.o. twice daily, folic acid 1 mg p.o. daily, lactulose 20 g p.o. three times daily, Synthroid 50 mcg p.o. daily, meropenem 500 mg q. 12 hours, Solu-Medrol 30 mg IV daily, nystatin topical power one application topically three times daily, Zofran 4 mg IV q. 6 hours p.r.n., Protonix 40 mg p.o. daily, thiamine 10 mg IM daily. LABORATORY DATA: WBC 18.3, hemoglobin 11.6, hematocrit 35.2, platelet count 81. PT 15.7, INR 1.5, PTT 35.8. SMA-7, sodium 142, potassium 4.6, chloride 109, BUN 70, creatinine 4.2, random glucose 92, calcium 8.1, total bilirubin 22.3, AST 127, ALT 75. Alkaline phosphatase 152. Total protein 6.4, albumin 3.2. TSH 3.05. Blood culture, no growth reported. Urine culture, no growth noted. IMPRESSION: 1. Neuro: Improved mental status compared to yesterday, still with metabolic encephalopathy. 2. Pulmonary: Bibasilar atelectasis and possible effusion, on oxygen 2 liters nasal cannula saturating over 94%. 3. Cardiac: Remains normotensive. No tachycardia. 4. Gastrointestinal: Liver cirrhosis. Alcohol dependence. Alcoholic hepatitis. Massive ascites, status post paracentesis. No clinical evidence of spontaneous bacterial peritonitis, empirically on antibiotic, on meropenem. 5. Renal: Acute on chronic renal insufficiency, on IV albumin, sodium bicarbonate, on hemodialysis. 6. Infectious disease: Empirically on meropenem. No evidence of acute urinary tract infection, possible suspected spontaneous bacterial peritonitis. 7. Hematology: Thrombocytopenia related to liver cirrhosis. Coagulopathy related to liver cirrhosis. Keep head about 30 degree up. 8. Gastrointestinal prophylaxis. Deep venous thrombosis prophylaxis with anticoagulation on hold secondary to coagulopathy, mechanical device for deep venous thrombosis prophylaxis. Jordan Marino MD
[2017-01-25] MEDS: Levothyroxine 50 MCG TAB PO SCH (06:44)
[2017-01-25] MEDS: Meropenem 500 MG in Sodium Chloride 0.9% 100 ML IVPB SCH ×2 (08:07→21:15)
[2017-01-25] MEDS: Pantoprazole 40 mg EC Tab PO SCH (08:09)
[2017-01-25] MEDS: methylPREDNISolone 30 MG in Sodium Chloride 0.9% 50 ML IV SCH (08:09)
[2017-01-25] MEDS: Thiamine 100 mg/ml Inj IM SCH (08:09)
--- NOTE | 2017-01-25 10:37 | CP.PCM.PN ---
Subjective - Date & Time of Evaluation Date of Evaluation: 01/25/17 Time of Evaluation: 10:37 - Subjective Subjective: ID Note- Pt. seen and examined today in ICU. emains lethargic but slightly more alert today when name is called. Pt. s/p HD yesterday. afebrile. Objective - Vital Signs/Intake and Output Vital Signs (last 24 hours): Temp Pulse Resp BP Pulse Ox 98.9 F 86 17 118/70 100 01/25/17 07:47 01/25/17 07:47 01/25/17 07:47 01/25/17 07:47 01/25/17 07:47 Intake and Output: 01/25/17 01/25/17 06:59 18:59 Intake Total 560 Output Total 10 Balance 550 - Medications Medications: Current Medications Docusate Sodium (Colace) 100 mg PO BID PRN PRN Reason: Constipation Last Admin: 01/21/17 09:44 Dose: 100 mg Folic Acid (Folic Acid) 1 mg PO DAILY [facility] Last Admin: 01/25/17 08:07 Dose: 1 mg Methylprednisolone 30 mg/ (Sodium Chloride) 50 mls @ 100 mls/hr IV DAILY [facility] Last Admin: 01/25/17 08:09 Dose: 100 mls/hr Meropenem 500 mg/ Sodium (Chloride) 100 mls @ 100 mls/hr IVPB Q12 [facility] Last Admin: 01/25/17 08:07 Dose: 100 mls/hr Lactulose (Enulose) 20 gm PO TID [facility] Last Admin: 01/25/17 08:07 Dose: 20 gm Levothyroxine Sodium (Synthroid) 50 mcg PO DAILY@0630 [facility] Last Admin: 01/25/17 06:44 Dose: 50 mcg Nystatin (Nystop Topical Powder) 1 applic TOP TID [facility] Last Admin: 01/25/17 08:08 Dose: 1 applic Ondansetron HCl (Zofran Inj) 4 mg IVP Q6 PRN PRN Reason: Nausea/Vomiting Pantoprazole Sodium (Protonix Ec Tab) 40 mg PO DAILY [facility] Last Admin: 01/25/17 08:09 Dose: 40 mg Thiamine HCl (Vitamin B1 Inj) 100 mg IM DAILY [facility] Last Admin: 01/25/17 08:09 Dose: 100 mg - Labs Labs: - Additional Findings Additional findings: - Constitutional Appears: No Acute Distress, Chronically Ill Additional comments: drowsy jaundice color - Head Exam Head Exam: ATRAUMATIC - Eye Exam Eye Exam: EOMI, PERRL - ENT Exam Additional comments: dry oral mucosa - Respiratory Exam Respiratory Exam: Additional comments: decreased breath sounds at bases no wheezing - Cardiovascular Exam Cardiovascular Exam: RRR, +S1, +S2 - GI/Abdominal Exam GI & Abdominal Exam: Normal Bowel Sounds, Soft Additional comments: + distention with ascites but soft to palpation No tenderness no guarding, no rebound Laboratory Results - last 72 hr 01/22/17 01/22/17 01/22/17 05:30 17:14 19:43 WBC RBC Hgb Hct MCV MCH MCHC RDW Plt Count MPV Neut % (Auto) Lymph % (Auto) [place] % (Auto) Eos % (Auto) Baso % (Auto) Neut # Lymph # [place] # Eos # Baso # Neutrophils % (Manual) 88 H Band Neutrophils % 3 H Lymphocytes % (Manual) 3 L Monocytes % (Manual) 5 Metamyelocytes % Myelocytes % 1 H Toxic Granulation Platelet Estimate Normal Large Platelets Present Polychromasia Hypochromasia (manual) Poikilocytosis (manual Slight Anisocytosis (manual) Slight Macrocytosis (manual) Moderate Target Cells Tear Drop Cells Slight Schistocytes PT INR APTT pCO2 30 L pO2 72 L HCO3 14.5 L ABG pH 7.24 L ABG Total CO2 13.8 L ABG O2 Saturation 96.5 ABG Base Excess -13.2 L Prosper Test Yes ABG Potassium 5.4 H A-a O2 Difference 90.0 Sodium 137.0 Chloride 111.0 H Glucose 122 H Lactate 1.3 Vent Mode N/c FiO2 28.0 Potassium Carbon Dioxide Anion Gap BUN Creatinine Est GFR ( Amer) Est GFR (Non-Af Amer) POC Glucose (mg/dL) 98 Random Glucose Lactic Acid Calcium Total Bilirubin Direct Bilirubin AST ALT Alkaline Phosphatase Ammonia Total Protein Albumin Globulin Albumin/Globulin Ratio Arterial Blood Potassium 5.4 H Urine Color Urine Clarity Urine pH Ur Specific [place] Urine Protein Urine Glucose (UA) Urine Ketones Urine Blood Urine Nitrate Urine Bilirubin Urine Urobilinogen Ur Leukocyte Esterase Urine RBC (Auto) Urine WBC Clumps (Auto) Urine Microscopic WBC Urine Bacteria Hyaline Casts Urine Yeast (Budding) 01/22/17 01/23/17 01/23/17 23:05 04:20 04:20 WBC 23.2 H RBC 2.98 L Hgb 12.3 Hct 37.7 MCV 126.4 H MCH 41.4 H MCHC 32.8 L RDW 21.6 H Plt Count 114 L D MPV 9.7 Neut % (Auto) 94.8 H Lymph % (Auto) 2.2 L [place] % (Auto) 2.4 Eos % (Auto) 0.0 Baso % (Auto) 0.6 Neut # 22.0 H Lymph # 0.5 L [place] # 0.6 Eos # 0.0 Baso # 0.1 Neutrophils % (Manual) 96 H Band Neutrophils % Lymphocytes % (Manual) 1 L Monocytes % (Manual) 2 Metamyelocytes % 1 H Myelocytes % Toxic Granulation Present Platelet Estimate Slightly decreased L Large Platelets Polychromasia Hypochromasia (manual) Poikilocytosis (manual Anisocytosis (manual) Moderate Macrocytosis (manual) Marked Target Cells Slight Tear Drop Cells Slight Schistocytes Slight PT INR APTT pCO2 pO2 HCO3 ABG pH ABG Total CO2 ABG O2 Saturation ABG Base Excess Prosper Test ABG Potassium A-a O2 Difference Sodium 140 Chloride 112 H Glucose Lactate Vent Mode FiO2 Potassium 5.8 H Carbon Dioxide 15 L Anion Gap 19 BUN 87 H Creatinine 5.0 H Est GFR ( Amer) 11 Est GFR (Non-Af Amer) 9 POC Glucose (mg/dL) 132 H Random Glucose 134 H Lactic Acid Calcium 7.9 L Total Bilirubin 25.7 H Direct Bilirubin 23.5 H AST 170 H D ALT 93 H Alkaline Phosphatase 193 H D Ammonia Total Protein 6.7 Albumin 2.7 L Globulin 3.9 Albumin/Globulin Ratio 0.7 L Arterial Blood Potassium Urine Color Urine Clarity Urine pH Ur Specific [place] Urine Protein Urine Glucose (UA) Urine Ketones Urine Blood Urine Nitrate Urine Bilirubin Urine Urobilinogen Ur Leukocyte Esterase Urine RBC (Auto) Urine WBC Clumps (Auto) Urine Microscopic WBC Urine Bacteria Hyaline Casts Urine Yeast (Budding) 01/23/17 01/23/17 01/23/17 04:20 04:20 04:45 WBC RBC Hgb Hct MCV MCH MCHC RDW Plt Count MPV Neut % (Auto) Lymph % (Auto) [place] % (Auto) Eos % (Auto) Baso % (Auto) Neut # Lymph # [place] # Eos # Baso # Neutrophils % (Manual) Band Neutrophils % Lymphocytes % (Manual) Monocytes % (Manual) Metamyelocytes % Myelocytes % Toxic Granulation Platelet Estimate Large Platelets Polychromasia Hypochromasia (manual) Poikilocytosis (manual Anisocytosis (manual) Macrocytosis (manual) Target Cells Tear Drop Cells Schistocytes PT 15.7 H INR 1.5 H APTT 35.8 pCO2 pO2 HCO3 ABG pH ABG Total CO2 ABG O2 Saturation ABG Base Excess Prosper Test ABG Potassium A-a O2 Difference Sodium Chloride Glucose Lactate Vent Mode FiO2 Potassium Carbon Dioxide Anion Gap BUN Creatinine Est GFR ( Amer) Est GFR (Non-Af Amer) POC Glucose (mg/dL) 130 H Random Glucose Lactic Acid 1.1 Calcium Total Bilirubin Direct Bilirubin AST ALT Alkaline Phosphatase Ammonia Total Protein Albumin Globulin Albumin/Globulin Ratio Arterial Blood Potassium Urine Color Urine Clarity Urine pH Ur Specific [place] Urine Protein Urine Glucose (UA) Urine Ketones Urine Blood Urine Nitrate Urine Bilirubin Urine Urobilinogen Ur Leukocyte Esterase Urine RBC (Auto) Urine WBC Clumps (Auto) Urine Microscopic WBC Urine Bacteria Hyaline Casts Urine Yeast (Budding) 01/23/17 01/23/17 01/23/17 09:00 11:16 16:14 WBC RBC Hgb Hct MCV MCH MCHC RDW Plt Count MPV Neut % (Auto) Lymph % (Auto) [place] % (Auto) Eos % (Auto) Baso % (Auto) Neut # Lymph # [place] # Eos # Baso # Neutrophils % (Manual) Band Neutrophils % Lymphocytes % (Manual) Monocytes % (Manual) Metamyelocytes % Myelocytes % Toxic Granulation Platelet Estimate Large Platelets Polychromasia Hypochromasia (manual) Poikilocytosis (manual Anisocytosis (manual) Macrocytosis (manual) Target Cells Tear Drop Cells Schistocytes PT INR APTT pCO2 pO2 HCO3 ABG pH ABG Total CO2 ABG O2 Saturation ABG Base Excess Prosper Test ABG Potassium A-a O2 Difference Sodium 139 Chloride 111 H Glucose Lactate Vent Mode FiO2 Potassium 5.5 H Carbon Dioxide 13 L Anion Gap 21 H BUN 88 H Creatinine 4.9 H Est GFR ( Amer) 11 Est GFR (Non-Af Amer) 9 POC Glucose (mg/dL) 141 H 134 H Random Glucose 132 H Lactic Acid Calcium 8.0 L Total Bilirubin Direct Bilirubin AST ALT Alkaline Phosphatase Ammonia Total Protein Albumin Globulin Albumin/Globulin Ratio Arterial Blood Potassium Urine Color Urine Clarity Urine pH Ur Specific [place] Urine Protein Urine Glucose (UA) Urine Ketones Urine Blood Urine Nitrate Urine Bilirubin Urine Urobilinogen Ur Leukocyte Esterase Urine RBC (Auto) Urine WBC Clumps (Auto) Urine Microscopic WBC Urine Bacteria Hyaline Casts Urine Yeast (Budding) 01/23/17 01/24/17 01/24/17 21:22 04:30 04:30 WBC 18.3 H RBC 2.82 L Hgb 11.6 L Hct 35.2 MCV 124.8 H MCH 41.1 H MCHC 32.9 L RDW 21.7 H Plt Count 81 L D MPV 9.8 Neut % (Auto) 93.6 H Lymph % (Auto) 2.8 L [place] % (Auto) 2.7 Eos % (Auto) 0.4 Baso % (Auto) 0.5 Neut # 17.1 H Lymph # 0.5 L [place] # 0.5 Eos # 0.1 Baso # 0.1 Neutrophils % (Manual) 92 H Band Neutrophils % Lymphocytes % (Manual) 4 L Monocytes % (Manual) 3 Metamyelocytes % 1 H Myelocytes % Toxic Granulation Platelet Estimate Decreased L Large Platelets Polychromasia Slight Hypochromasia (manual) Slight Poikilocytosis (manual Anisocytosis (manual) Moderate Macrocytosis (manual) Marked Target Cells Slight Tear Drop Cells Slight Schistocytes PT INR APTT pCO2 pO2 HCO3 ABG pH ABG Total CO2 ABG O2 Saturation ABG Base Excess Prosper Test ABG Potassium A-a O2 Difference Sodium 142 Chloride 109 H Glucose Lactate Vent Mode FiO2 Potassium 4.6 Carbon Dioxide 17 L Anion Gap 21 H BUN 70 H Creatinine 4.2 H Est GFR ( Amer) 13 Est GFR (Non-Af Amer) 11 POC Glucose (mg/dL) 126 H Random Glucose 92 Lactic Acid Calcium 8.1 L Total Bilirubin 25.5 H Direct Bilirubin 22.3 H AST 127 H D ALT 75 H Alkaline Phosphatase 152 H D Ammonia Total Protein 6.4 Albumin 3.2 L Globulin 3.2 Albumin/Globulin Ratio 1.0 Arterial Blood Potassium Urine Color Urine Clarity Urine pH Ur Specific [place] Urine Protein Urine Glucose (UA) Urine Ketones Urine Blood Urine Nitrate Urine Bilirubin Urine Urobilinogen Ur Leukocyte Esterase Urine RBC (Auto) Urine WBC Clumps (Auto) Urine Microscopic WBC Urine Bacteria Hyaline Casts Urine Yeast (Budding) 01/24/17 01/24/17 01/24/17 06:35 11:26 15:31 WBC RBC Hgb Hct MCV MCH MCHC RDW Plt Count MPV Neut % (Auto) Lymph % (Auto) [place] % (Auto) Eos % (Auto) Baso % (Auto) Neut # Lymph # [place] # Eos # Baso # Neutrophils % (Manual) Band Neutrophils % Lymphocytes % (Manual) Monocytes % (Manual) Metamyelocytes % Myelocytes % Toxic Granulation Platelet Estimate Large Platelets Polychromasia Hypochromasia (manual) Poikilocytosis (manual Anisocytosis (manual) Macrocytosis (manual) Target Cells Tear Drop Cells Schistocytes PT INR APTT pCO2 pO2 HCO3 ABG pH ABG Total CO2 ABG O2 Saturation ABG Base Excess Prosper Test ABG Potassium A-a O2 Difference Sodium Chloride Glucose Lactate Vent Mode FiO2 Potassium Carbon Dioxide Anion Gap BUN Creatinine Est GFR ( Amer) Est GFR (Non-Af Amer) POC Glucose (mg/dL) 95 93 92 Random Glucose Lactic Acid Calcium Total Bilirubin Direct Bilirubin AST ALT Alkaline Phosphatase Ammonia Total Protein Albumin Globulin Albumin/Globulin Ratio Arterial Blood Potassium Urine Color Urine Clarity Urine pH Ur Specific [place] Urine Protein Urine Glucose (UA) Urine Ketones Urine Blood Urine Nitrate Urine Bilirubin Urine Urobilinogen Ur Leukocyte Esterase Urine RBC (Auto) Urine WBC Clumps (Auto) Urine Microscopic WBC Urine Bacteria Hyaline Casts Urine Yeast (Budding) 01/24/17 01/24/17 01/25/17 18:49 21:37 04:20 WBC RBC Hgb Hct MCV MCH MCHC RDW Plt Count MPV Neut % (Auto) Lymph % (Auto) [place] % (Auto) Eos % (Auto) Baso % (Auto) Neut # Lymph # [place] # Eos # Baso # Neutrophils % (Manual) Band Neutrophils % Lymphocytes % (Manual) Monocytes % (Manual) Metamyelocytes % Myelocytes % Toxic Granulation Platelet Estimate Large Platelets Polychromasia Hypochromasia (manual) Poikilocytosis (manual Anisocytosis (manual) Macrocytosis (manual) Target Cells Tear Drop Cells Schistocytes PT INR APTT pCO2 pO2 HCO3 ABG pH ABG Total CO2 ABG O2 Saturation ABG Base Excess Prosper Test ABG Potassium A-a O2 Difference Sodium 142 Chloride 106 Glucose Lactate Vent Mode FiO2 Potassium 3.9 Carbon Dioxide 21 L Anion Gap 19 BUN 60 H Creatinine 3.9 H Est GFR ( Amer) 14 Est GFR (Non-Af Amer) 12 POC Glucose (mg/dL) 90 Random Glucose 85 Lactic Acid Calcium 8.7 Total Bilirubin 25.5 H Direct Bilirubin AST 141 H ALT 79 H Alkaline Phosphatase 191 H D Ammonia Total Protein 6.3 Albumin 3.2 L Globulin 3.2 Albumin/Globulin Ratio 1.0 Arterial Blood Potassium Urine Color [place] Urine Clarity Turbid Urine pH 5.0 Ur Specific [place] 1.013 Urine Protein 100 Urine Glucose (UA) Neg Urine Ketones Negative Urine Blood Large Urine Nitrate Negative Urine Bilirubin Small Urine Urobilinogen 0.2-1.0 Ur Leukocyte Esterase Mod Urine RBC (Auto) 502 H Urine WBC Clumps (Auto) Many H Urine Microscopic WBC 3558 H Urine Bacteria Mod H Hyaline Casts >20 H Urine Yeast (Budding) Many H 01/25/17 01/25/17 01/25/17 04:20 05:33 09:05 WBC 22.3 H RBC 2.97 L Hgb 12.2 Hct 37.0 MCV 124.3 H MCH 41.2 H MCHC 33.1 RDW 21.6 H Plt Count 87 L MPV Neut % (Auto) Lymph % (Auto) [place] % (Auto) Eos % (Auto) Baso % (Auto) Neut # Lymph # [place] # Eos # Baso # Neutrophils % (Manual) Band Neutrophils % Lymphocytes % (Manual) Monocytes % (Manual) Metamyelocytes % Myelocytes % Toxic Granulation Platelet Estimate Large Platelets Polychromasia Hypochromasia (manual) Poikilocytosis (manual Anisocytosis (manual) Macrocytosis (manual) Target Cells Tear Drop Cells Schistocytes PT INR APTT pCO2 pO2 HCO3 ABG pH ABG Total CO2 ABG O2 Saturation ABG Base Excess Prosper Test ABG Potassium A-a O2 Difference Sodium Chloride Glucose Lactate Vent Mode FiO2 Potassium Carbon Dioxide Anion Gap BUN Creatinine Est GFR ( Amer) Est GFR (Non-Af Amer) POC Glucose (mg/dL) 87 Random Glucose Lactic Acid Calcium Total Bilirubin Direct Bilirubin AST ALT Alkaline Phosphatase Ammonia 31 D Total Protein Albumin Globulin Albumin/Globulin Ratio Arterial Blood Potassium Urine Color Urine Clarity Urine pH Ur Specific [place] Urine Protein Urine Glucose (UA) Urine Ketones Urine Blood Urine Nitrate Urine Bilirubin Urine Urobilinogen Ur Leukocyte Esterase Urine RBC (Auto) Urine WBC Clumps (Auto) Urine Microscopic WBC Urine Bacteria Hyaline Casts Urine Yeast (Budding) 01/25/17 11:40 WBC RBC Hgb Hct MCV MCH MCHC RDW Plt Count MPV Neut % (Auto) Lymph % (Auto) [place] % (Auto) Eos % (Auto) Baso % (Auto) Neut # Lymph # [place] # Eos # Baso # Neutrophils % (Manual) Band Neutrophils % Lymphocytes % (Manual) Monocytes % (Manual) Metamyelocytes % Myelocytes % Toxic Granulation Platelet Estimate Large Platelets Polychromasia Hypochromasia (manual) Poikilocytosis (manual Anisocytosis (manual) Macrocytosis (manual) Target Cells Tear Drop Cells Schistocytes PT INR APTT pCO2 pO2 HCO3 ABG pH ABG Total CO2 ABG O2 Saturation ABG Base Excess Prosper Test ABG Potassium A-a O2 Difference Sodium Chloride Glucose Lactate Vent Mode FiO2 Potassium Carbon Dioxide Anion Gap BUN Creatinine Est GFR ( Amer) Est GFR (Non-Af Amer) POC Glucose (mg/dL) 110 Random Glucose Lactic Acid Calcium Total Bilirubin Direct Bilirubin AST ALT Alkaline Phosphatase Ammonia Total Protein Albumin Globulin Albumin/Globulin Ratio Arterial Blood Potassium Urine Color Urine Clarity Urine pH Ur Specific [place] Urine Protein Urine Glucose (UA) Urine Ketones Urine Blood Urine Nitrate Urine Bilirubin Urine Urobilinogen Ur Leukocyte Esterase Urine RBC (Auto) Urine WBC Clumps (Auto) Urine Microscopic WBC Urine Bacteria Hyaline Casts Urine Yeast (Budding) Microbiology 01/22/17 21:30 Naris MRSA Culture (Admit) - Final MRSA NOT DETECTED 01/22/17 17:05 Blood-Venous Blood Culture - Preliminary NO GROWTH AFTER 48 HOURS 01/22/17 17:00 Blood-Venous Blood Culture - Preliminary NO GROWTH AFTER 48 HOURS 01/20/17 14:00 Ascitic Fluid Gram Stain - Final 01/18/17 15:28 Blood-Venous Blood Culture - Final NO GROWTH AFTER 5 DAYS 01/18/17 15:28 Blood-Venous Gram Stain - Final TEST NOT PERFORMED 01/18/17 15:28 Blood-Venous Blood Culture - Final NO GROWTH AFTER 5 DAYS 01/18/17 15:28 Blood-Venous Gram Stain - Final TEST NOT PERFORMED 01/12/17 17:30 Blood-Venous Blood Culture - Final NO GROWTH AFTER 5 DAYS 01/12/17 17:30 Blood-Venous Gram Stain - Final TEST NOT PERFORMED 01/14/17 20:30 Urine Urine Culture - Final No Growth (<1,000 CFU/ML) Assessment and Plan (1) Sepsis Status: Acute (2) Leukocytosis Status: Acute (3) Ascites due to alcoholic cirrhosis Status: Chronic - Assessment and Plan (Free Text) Assessment: A/P- 61 year old female with h/o EOH abuse with cirrhosis presented post fall on the knees found to have high wbc and lactate and was admitted for sepsis work up and alcoholism and cirrhosis. s/p HD yesterday s/p paracenthesis last week ,fluid cell count wbc 134 and 60% PM - not c/w SBP , however pt. has been on abx still drowsy afebrile leukocytosis continues to be high , may be secondary to the steroids also urine cx- neg x 1 blood cx- neg x 5 transaminitis and hyperbilirubinemia. hepatitis panel - neg HIV ab- neg CXR- possible pleural effusions as per report. cirrhosis ascites REGINO worsening plan- completed 5 days of IV cefotaxime and prio tot hat was on ceftriaxone by primary team. ascites fluid not c/w sbp and per GI not SBP, however pt. does have left shit and has been hospiltalized now for a while and advise o be covered for hospital acquired pathogens in light of her immune suppressed states . hence continue with IV meropenem ( day #4), dosed renally. repeat cultures. prognosis poor. ICU time 45 minutes.
--- NOTE | 2017-01-25 12:38 | CP.PCM.PN ---
Subjective - Date & Time of Evaluation Date of Evaluation: 01/25/17 Time of Evaluation: 12:39 - Subjective Subjective: Still lethargic more arousable with verbal stimuli. Objective - Vital Signs/Intake and Output Vital Signs (last 24 hours): Temp Pulse Resp BP Pulse Ox 98.7 F 88 15 129/68 96 01/25/17 12:18 01/25/17 12:18 01/25/17 12:18 01/25/17 12:18 01/25/17 12:18 Intake and Output: 01/25/17 01/25/17 11:59 23:59 Intake Total 320 Output Total 10 Balance 310 - Medications Medications: Current Medications Docusate Sodium (Colace) 100 mg PO BID PRN PRN Reason: Constipation Last Admin: 01/21/17 09:44 Dose: 100 mg Folic Acid (Folic Acid) 1 mg PO DAILY [facility] Last Admin: 01/25/17 08:07 Dose: 1 mg Methylprednisolone 30 mg/ (Sodium Chloride) 50 mls @ 100 mls/hr IV DAILY [facility] Last Admin: 01/25/17 08:09 Dose: 100 mls/hr Meropenem 500 mg/ Sodium (Chloride) 100 mls @ 100 mls/hr IVPB Q12 [facility] Last Admin: 01/25/17 08:07 Dose: 100 mls/hr Lactulose (Enulose) 20 gm PO TID [facility] Last Admin: 01/25/17 08:07 Dose: 20 gm Levothyroxine Sodium (Synthroid) 50 mcg PO DAILY@0630 [facility] Last Admin: 01/25/17 06:44 Dose: 50 mcg Nystatin (Nystop Topical Powder) 1 applic TOP TID [facility] Last Admin: 01/25/17 08:08 Dose: 1 applic Ondansetron HCl (Zofran Inj) 4 mg IVP Q6 PRN PRN Reason: Nausea/Vomiting Pantoprazole Sodium (Protonix Ec Tab) 40 mg PO DAILY [facility] Last Admin: 01/25/17 08:09 Dose: 40 mg Thiamine HCl (Vitamin B1 Inj) 100 mg IM DAILY [facility] Last Admin: 01/25/17 08:09 Dose: 100 mg - Labs Labs: 01/25/17 04:20 01/25/17 04:20 PT 15.7 Seconds (9.8-13.1) H 01/23/17 04:20 INR 1.5 (0.9-1.2) H 01/23/17 04:20 APTT 35.8 Seconds (25.6-37.1) 01/23/17 04:20 - Constitutional Appears: Confused, Chronically Ill - Head Exam Head Exam: ATRAUMATIC - Eye Exam Eye Exam: Scleral icterus - Respiratory Exam Respiratory Exam: Decreased Breath Sounds, Clear to Ausculation Bilateral - Cardiovascular Exam Cardiovascular Exam: REGULAR RHYTHM, +S1, +S2 - GI/Abdominal Exam GI & Abdominal Exam: Soft - Extremities Exam Extremities Exam: Pedal Edema - Neurological Exam Neurological Exam: Altered Assessment and Plan (1) Alcohol abuse Status: Chronic (2) Alcoholic hepatitis with ascites Status: Chronic (3) Ascites due to alcoholic cirrhosis Status: Chronic (4) Leukocytosis Status: Acute (5) Alcohol withdrawal Status: Acute (6) Wernicke encephalopathy Status: Chronic (7) Alcohol abuse with intoxication Status: Chronic (8) Hepatic encephalopathy Status: Acute (9) Hepatic failure due to alcoholism Status: Acute (10) Renal tubulopathy, encephalopathy, and liver failure syndrome Status: Acute (11) Hypoalbuminemia Status: Acute (12) Acidosis, lactic Status: Acute (13) Acidosis, metabolic Status: Acute - Assessment and Plan (Free Text) Plan: Continue present rx.
--- NOTE | 2017-01-25 15:35 | PN ---
DATE: 01/25/2017 CRITICAL CARE PROGRESS NOTE LOCATION: The patient is in ICU bed 433. TIME SPENT: 40 minutes. SUBJECTIVE: The patient is seen and examined at the bedside. Events overnight were reviewed. Case was discussed in multidisciplinary ICU team rounds. Past medical, surgical, and social history noted. A 61-year-old obese female with a history significant for alcohol dependence, alcohol related liver cirrhosis related coagulopathy, acute on chronic renal failure, massive ascites, status post paracentesis, status post hemodialysis, last 2 days. Overnight, alert and awake, able to follow simple commands. This morning, alert and awake, able to follow simple commands, but appears lethargic and sleepy. No distress noted. Denies shortness of breath, chest pain or palpitation. Had bowel movement. No diarrhea. PHYSICAL EXAMINATION: VITAL SIGNS: Temperature 98.9, heart rate 86, blood pressure 118/70, mean arterial pressure is 86, respiratory rate 17, oxygen saturation 100% on room air. Intake 1260, output 2035, negative balance 775. Urine output 35 mL. HEAD, EYES, EARS, NOSE AND THROAT: Pupils are reactive. Sclerae icteric. NECK: Supple, short neck. Reduced oropharyngeal air space. CHEST: Bilateral breath sounds. No audible rhonchi or wheezing. HEART: Rhythm regular. S1 and S2 normal intensity. No S3 or S4 gallop. No audible murmur. ABDOMEN: Bowel sounds are present. Obese, soft. EXTREMITIES: Dependent edema. SKIN: Mildly yellowish. Peripheral pulses intact. NEUROLOGIC: Arousable, but lethargic and sleepy. No cranial nerve deficit. No motor deficit. No sensory impairment. Oriented to name and place, but not to time. CURRENT MEDICATIONS: Include Colace 100 mg twice daily, folic acid 1 mg daily, lactulose 20 mg p.o. 3 times daily, Synthroid 50 mcg daily, meropenem 500 IV q. 12, Solu-Medrol 30 mg daily, nystatin topical powder 1 application three times daily, Protonix EC 40 mg p.o. daily, thiamine 100 mg IM daily. LABORATORY DATA: Sodium 142, potassium 3.9, chloride 106, CO2 of 21, blood urine nitrogen 60, creatinine 3.9, calcium 8.7, total bilirubin 25.5, AST 141, ALT 79. Alkaline phosphatase 191, ammonia level 31. Total protein 6.3, albumin 3.2. Urinalysis; wbc's many, rbc's 502. Hepatitis A antibody negative; hepatitis B surface antigen, core antibody; hepatitis C antibody negative. HIV-1 and 2 antibody screen negative. Blood culture, no growth reported. Urine culture, no growth reported. IMPRESSION: 1. Neuro: Metabolic septic encephalopathy. History of alcohol dependence and alcohol related liver cirrhosis. Acute alcoholic hepatitis. Ammonia level trending down on lactulose 3 times daily through NG tube. Remains more wakeful than before. Status post hemodialysis x2. 2. Pulmonary: Bibasilar atelectasis and possible effusion. 3. Cardiac: Normotensive. No tachycardia. 4. Gastrointestinal: Liver cirrhosis. Alcohol dependence. Alcoholic hepatitis. Hepatitis A, B and C serology negative. 5. Renal: Acute on chronic renal compromise. Suspected hepatorenal syndrome, on status post hemodialysis. 6. Infectious disease: Empirically on meropenem and cefotaxime for spontaneous bacterial peritonitis and for urinary tract infection. 7. Hematology: Thrombocytopenia related to liver cirrhosis. Hemoglobin remains stable. Coagulopathy related to liver cirrhosis. PLAN: Continue gastrointestinal prophylaxis. Hold anticoagulation secondary to coagulopathy. Continue mechanical device/SCDs for DVT prophylaxis. Continue feeding. Maintain blood sugar less than 180. Avoid hypoglycemia. Prognosis remains guarded. Jordan Marino MD
--- NOTE | 2017-01-25 23:20 | CP.PCM.PN ---
Subjective - Date & Time of Evaluation Date of Evaluation: 01/25/17 Time of Evaluation: 14:00 - Subjective Subjective: SEEN ON RENAL F/U HAD HD ON MON AND .. NEXT HD TOMORROW REMAINS LETHARGIC AND NON COMMUNICATIVE .. WITH SOME IMPROVEMENT IN THIS REGARD REMANS OLIGURIC OFF IVF 2/2 ANASARCA AND OLIGURIA Objective - Vital Signs/Intake and Output Vital Signs (last 24 hours): Temp Pulse Resp BP Pulse Ox 98.8 F 88 18 133/74 95 01/25/17 20:00 01/25/17 20:00 01/25/17 20:00 01/25/17 20:00 01/25/17 20:00 Intake and Output: 01/25/17 01/26/17 18:59 06:59 Intake Total 865 90 Output Total 10 Balance 855 90 - Medications Medications: Current Medications Docusate Sodium (Colace) 100 mg PO BID PRN PRN Reason: Constipation Last Admin: 01/21/17 09:44 Dose: 100 mg Folic Acid (Folic Acid) 1 mg PO DAILY [facility] Last Admin: 01/25/17 08:07 Dose: 1 mg Methylprednisolone 30 mg/ (Sodium Chloride) 50 mls @ 100 mls/hr IV DAILY [facility] Last Admin: 01/25/17 08:09 Dose: 100 mls/hr Meropenem 500 mg/ Sodium (Chloride) 100 mls @ 100 mls/hr IVPB Q12 [facility] Last Admin: 01/25/17 21:15 Dose: 100 mls/hr Lactulose (Enulose) 20 gm PO TID [facility] Last Admin: 01/25/17 16:07 Dose: 20 gm Levothyroxine Sodium (Synthroid) 50 mcg PO DAILY@0630 [facility] Last Admin: 01/25/17 06:44 Dose: 50 mcg Nystatin (Nystop Topical Powder) 1 applic TOP TID [facility] Last Admin: 01/25/17 16:08 Dose: 1 applic Ondansetron HCl (Zofran Inj) 4 mg IVP Q6 PRN PRN Reason: Nausea/Vomiting Pantoprazole Sodium (Protonix Ec Tab) 40 mg PO DAILY [facility] Last Admin: 01/25/17 08:09 Dose: 40 mg Thiamine HCl (Vitamin B1 Inj) 100 mg IM DAILY [facility] Last Admin: 01/25/17 08:09 Dose: 100 mg - Labs Labs: 01/25/17 04:20 01/25/17 04:20 PT 15.7 Seconds (9.8-13.1) H 01/23/17 04:20 INR 1.5 (0.9-1.2) H 01/23/17 04:20 APTT 35.8 Seconds (25.6-37.1) 01/23/17 04:20 Assessment and Plan - Assessment and Plan (Free Text) Assessment: SHRUTI .. PROBABLY HRS .. ON HD ETOH ABUSE LIVER SCIRRHOSIS AND TENSE ASCITIS HEPATIC ENCEPHALOPATHY P : C/O HD TIW C/O PRESENT MANAGEMENT ON IVAB FOR SEPSIS
[2017-01-26] MEDS: Levothyroxine 50 MCG TAB PO SCH (06:43)
[2017-01-26 06:58] LABS: HEMATOCRIT 37.6 % (34.0-47.0); MEAN CELL VOLUME 124.2 fl (81.0-99.0); MEAN CORPUSCULAR HEMOGLOBIN 41.1 pg (27.0-31.0); MEAN CORPUSCULAR HGB CONC 33.1 g/dL (33.0-37.0); WHITE BLOOD COUNT 23.6 K/uL (4.8-10.8)
[2017-01-26 07:11] LABS: POTASSIUM 3.8 MMOL/L (3.6-5.0)
[2017-01-26] MEDS: methylPREDNISolone 30 MG in Sodium Chloride 0.9% 50 ML IV SCH (09:43)
[2017-01-26] MEDS: Meropenem 500 MG in Sodium Chloride 0.9% 100 ML IVPB SCH ×2 (09:43→22:00)
[2017-01-26] MEDS: Thiamine 100 mg/ml Inj IM SCH (09:44)
[2017-01-26] MEDS: Pantoprazole 40 mg EC Tab PO SCH (09:45)
[2017-01-26] MEDS: Pantoprazole 40 mg Susp UD GT SCH (12:30)
--- NOTE | 2017-01-26 12:48 | CP.PCM.PN ---
Subjective - Date & Time of Evaluation Date of Evaluation: 01/26/17 Time of Evaluation: 12:51 - Subjective Subjective: Still lethargic, more responsive, confuse. Objective - Vital Signs/Intake and Output Vital Signs (last 24 hours): Temp Pulse Resp BP Pulse Ox 98.6 F 92 H 15 132/77 93 L 01/26/17 12:00 01/26/17 12:00 01/26/17 12:00 01/26/17 12:00 01/26/17 12:00 Intake and Output: 01/26/17 01/26/17 11:59 23:59 Intake Total 510 Output Total 15 Balance 495 - Medications Medications: Current Medications Docusate Sodium (Colace) 100 mg PO BID PRN PRN Reason: Constipation Last Admin: 01/21/17 09:44 Dose: 100 mg Folic Acid (Folic Acid) 1 mg PO DAILY [facility] Last Admin: 01/26/17 09:44 Dose: 1 mg Methylprednisolone 30 mg/ (Sodium Chloride) 50 mls @ 100 mls/hr IV DAILY [facility] Last Admin: 01/26/17 09:43 Dose: 100 mls/hr Meropenem 500 mg/ Sodium (Chloride) 100 mls @ 100 mls/hr IVPB Q12 [facility] Last Admin: 01/26/17 09:43 Dose: 100 mls/hr Lactulose (Enulose) 20 gm PO TID [facility] Last Admin: 01/26/17 09:44 Dose: 20 gm Levothyroxine Sodium (Synthroid) 50 mcg PO DAILY@0630 [facility] Last Admin: 01/26/17 06:43 Dose: 50 mcg Nystatin (Nystop Topical Powder) 1 applic TOP TID [facility] Last Admin: 01/26/17 09:45 Dose: 1 applic Ondansetron HCl (Zofran Inj) 4 mg IVP Q6 PRN PRN Reason: Nausea/Vomiting Pantoprazole Sodium (Protonix Susp) 40 mg GT DAILY [facility] Thiamine HCl (Vitamin B1 Inj) 100 mg IM DAILY [facility] Last Admin: 01/26/17 09:44 Dose: 100 mg - Labs Labs: 01/26/17 05:00 01/26/17 05:00 PT 15.7 Seconds (9.8-13.1) H 01/23/17 04:20 INR 1.5 (0.9-1.2) H 01/23/17 04:20 APTT 35.8 Seconds (25.6-37.1) 01/23/17 04:20 - Constitutional Appears: Confused, Chronically Ill - Head Exam Head Exam: ATRAUMATIC - Eye Exam Eye Exam: Scleral icterus - Respiratory Exam Respiratory Exam: Decreased Breath Sounds, Clear to Ausculation Bilateral - Cardiovascular Exam Cardiovascular Exam: REGULAR RHYTHM, +S1, +S2 - GI/Abdominal Exam GI & Abdominal Exam: Soft - Extremities Exam Extremities Exam: Pedal Edema - Neurological Exam Neurological Exam: Altered Assessment and Plan (1) Alcohol abuse Status: Chronic (2) Alcoholic hepatitis with ascites Status: Chronic (3) Ascites due to alcoholic cirrhosis Status: Chronic (4) Leukocytosis Assessment & Plan: Reactive Status: Acute (5) Alcohol withdrawal Status: Acute (6) Wernicke encephalopathy Status: Chronic (7) Alcohol abuse with intoxication Status: Chronic (8) Hepatic encephalopathy Status: Acute (9) Hepatic failure due to alcoholism Status: Acute (10) Renal tubulopathy, encephalopathy, and liver failure syndrome Status: Acute (11) Hypoalbuminemia Status: Acute (12) Acidosis, lactic Status: Acute (13) Acidosis, metabolic Status: Acute (14) Sepsis Status: Ruled-out - Assessment and Plan (Free Text) Assessment: Culture negative. Sepsis ruled out. Plan: Poor clinical improvement. Poor prognosis.
--- NOTE | 2017-01-26 18:40 | CP.PCM.PN ---
Subjective - Date & Time of Evaluation Date of Evaluation: 01/26/17 Time of Evaluation: 15:00 - Subjective Subjective: seen on ranal f/u Objective - Vital Signs/Intake and Output Vital Signs (last 24 hours): Temp Pulse Resp BP Pulse Ox 99.0 F 88 15 133/74 94 L 01/26/17 16:00 01/26/17 16:00 01/26/17 16:00 01/26/17 16:00 01/26/17 16:00 Intake and Output: 01/26/17 01/26/17 06:59 18:59 Intake Total 640 150 Output Total 15 Balance 625 150 - Medications Medications: Current Medications Docusate Sodium (Colace) 100 mg PO BID PRN PRN Reason: Constipation Last Admin: 01/21/17 09:44 Dose: 100 mg Folic Acid (Folic Acid) 1 mg PO DAILY [facility] Last Admin: 01/26/17 09:44 Dose: 1 mg Methylprednisolone 30 mg/ (Sodium Chloride) 50 mls @ 100 mls/hr IV DAILY [facility] Last Admin: 01/26/17 09:43 Dose: 100 mls/hr Meropenem 500 mg/ Sodium (Chloride) 100 mls @ 100 mls/hr IVPB Q12 [facility] Last Admin: 01/26/17 09:43 Dose: 100 mls/hr Lactulose (Enulose) 20 gm PO TID [facility] Last Admin: 01/26/17 09:44 Dose: 20 gm Levothyroxine Sodium (Synthroid) 50 mcg PO DAILY@0630 [facility] Last Admin: 01/26/17 06:43 Dose: 50 mcg Nystatin (Nystop Topical Powder) 1 applic TOP TID [facility] Last Admin: 01/26/17 09:45 Dose: 1 applic Ondansetron HCl (Zofran Inj) 4 mg IVP Q6 PRN PRN Reason: Nausea/Vomiting Pantoprazole Sodium (Protonix Susp) 40 mg GT DAILY [facility] Thiamine HCl (Vitamin B1 Tab) 100 mg PO DAILY [facility] Thiamine HCl (Vitamin B1 Tab) 100 mg PO DAILY [facility] - Labs Labs: 01/26/17 05:00 01/26/17 05:00 PT 15.7 Seconds (9.8-13.1) H 01/23/17 04:20 INR 1.5 (0.9-1.2) H 01/23/17 04:20 APTT 35.8 Seconds (25.6-37.1) 01/23/17 04:20 Assessment and Plan - Assessment and Plan (Free Text) Assessment: on w c/o curent care
--- NOTE | 2017-01-27 04:17 | PN ---
CRITICAL CARE PROGRESS NOTE DATE: 01/26/2017 LOCATION: The patient is in ICU, bed 433. TIME SPENT: 35 minutes. SUBJECTIVE: The patient is seen and examined at the bedside. Events overnight reviewed. Past medical, surgical, and social history are noted. A 61-year-old obese female with a history of significant for alcohol dependence, alcohol related liver cirrhosis, related coagulopathy, acute on chronic renal failure, massive ascites, status post paracentesis, status post hemodialysis last time, two days. Overnight, alert and awake, able to follow commands, but lethargic and goes to sleep once the communication is interrupted. No hepatic flap noted. No respiratory distress noted. PHYSICAL EXAMINATION: VITAL SIGNS: Temperature 98.6, heart rate 92 regular, blood pressure 132/77, mean arterial pressure 95, respiratory rate 15 to 23, thoracoabdominal, oxygen saturation 93% on oxygen 2 liters nasal cannula. Intake 1505, output 25 mL and positive balance 1480. Piggyback intake 250 mL. Tube feeding 1035, free water flush 220 mL. Bowel movement x1. HEAD, EYES, EARS, NOSE AND THROAT: Pupils are reactive. Conjunctivae pale. Sclerae icteric. NECK: Supple, short neck. Reduced oropharyngeal air space. CHEST: Bilateral breath sounds, diminished in intensity. No audible rhonchi or wheezing. HEART: Rhythm regular. S1 and S2 normal intensity. No S3 or S4 gallop. No audible murmur. ABDOMEN: Bowel sounds are present. Soft and obese. EXTREMITIES: Dependent edema. NEUROLOGIC: Arousable, but lethargic and sleepy. No cranial nerve deficit. No motor deficit. No sensory impairment. Oriented to name and place, but not to time. CURRENT MEDICATIONS: Include Colace 100 mg p.o. b.i.d. p.r.n., folic acid 1 mg daily, lactulose 20 g p.o. 3 times daily, Synthroid 50 mcg daily, meropenem 500 IV q 12 hours, Solu-Medrol 30 mg IV daily, nystatin topical powder 1 application 3 times daily, Zofran 4 mg IV q. 6 hours p.r.n., Protonix 40 GT daily, thiamine 100 mg IM daily. LABORATORY DATA: WBC 23.6, hemoglobin 12.4, hematocrit 37.6 and platelet count 101. SMA-7; sodium 142, potassium 3.8, chloride 106, CO2 of 21, blood urea nitrogen 77, creatinine 4.8, estimated GFR 9. Urine culture positive for yeast species. IMPRESSION AND PLAN: 1. Neurologic: Septic metabolic encephalopathy, no significant improvement in her mental status after dialysis. Ammonia level is reduced, on lactulose 20 gram three times daily, on antibiotic empirically, meropenem to cover possible spontaneous bacterial peritonitis, though clinically less likely. 2. Pulmonary: Bibasilar atelectasis, effusion, secondary to massive ascites, saturating over 94%. 3. Cardiac: Normotensive, no cardiac arrhythmia noted. 4. Gastrointestinal: Liver cirrhosis, acute on chronic hepatitis related massive ascites, status post paracentesis. Off from IV fluid and albumin. Seen by gastrointestinal consult. 5. Renal: Acute on chronic renal insufficiency with the fluid overload, seen by renal on hemodialysis 3 times a week due for dialysis today. 6. Infectious disease: Empirically on meropenem. We will reduce the dose of Solu-Medrol. 7. Endocrine: Continue feeding as tolerated, maintain blood sugar less than 180. 8. Morbid obesity: To diet and exercise when the patient becomes more stable, abstains from alcohol abuse. 9. Hypothyroidism on levothyroxine 50 mcg daily, monitored for seizure disorder. Continue gastrointestinal prophylaxis. Mechanical device for deep vein thrombosis as the patient has coagulopathy related to liver cirrhosis, alcoholism and thrombocytopenia. Jordan Marino MD
[2017-01-27 05:32] LABS: HEMATOCRIT 37.2 % (34.0-47.0); MEAN CELL VOLUME 124.2 fl (81.0-99.0); MEAN CORPUSCULAR HEMOGLOBIN 41.1 pg (27.0-31.0); MEAN CORPUSCULAR HGB CONC 33.1 g/dL (33.0-37.0); RED CELL DISTRIBUTION WIDTH 21.3 % (11.5-14.5); WHITE BLOOD COUNT 24.4 K/uL (4.8-10.8)
[2017-01-27 05:41] LABS: BILIRUBIN,TOTAL 18.9 mg/dl (0.2-1.3); CALCIUM 9.1 mg/dL (8.4-10.2); POTASSIUM 4.4 MMOL/L (3.6-5.0); TOTAL PROTEIN 6.5 G/DL (6.3-8.2)
[2017-01-27 05:54] LABS: ALB/GLOB RATIO 0.9 (1.0-2.1); PLATELET COUNT 70 K/uL (130-400)
[2017-01-27] MEDS: Levothyroxine 50 MCG TAB PO SCH (06:00)
[2017-01-27] MEDS ORDERED: Chlorhexidine Gluconate 1 APPL/PKT TP ONE (08:18)
[2017-01-27 08:38] LABS: EOSINOPHIL 1 % (0-7); METAMYELOCYTE 1 % (0-0); MYELOCYTE 2 % (0-0); NEUTROPHIL 92 % (42-75); TOTAL CELLS COUNTED 100
[2017-01-27] MEDS: methylPREDNISolone 30 MG in Sodium Chloride 0.9% 50 ML IV SCH (09:15)
[2017-01-27] MEDS: Meropenem 500 MG in Sodium Chloride 0.9% 100 ML IVPB SCH ×2 (09:15→21:35)
[2017-01-27] MEDS: Pantoprazole 40 mg Susp UD GT SCH (09:15)
--- NOTE | 2017-01-27 09:28 | CP.PCM.PN ---
Subjective - Date & Time of Evaluation Date of Evaluation: 01/27/17 Time of Evaluation: 09:26 - Subjective Subjective: Patient appears more awake and animated today. Objective - Vital Signs/Intake and Output Vital Signs (last 24 hours): Temp Pulse Resp BP Pulse Ox 97.9 F 80 12 118/66 93 L 01/27/17 08:00 01/27/17 08:00 01/27/17 08:00 01/27/17 08:00 01/27/17 08:00 Intake and Output: 01/27/17 01/27/17 06:59 18:59 Intake Total 640 Output Total 3010 Balance -2370 - Medications Medications: Current Medications Docusate Sodium (Colace) 100 mg PO BID PRN PRN Reason: Constipation Last Admin: 01/21/17 09:44 Dose: 100 mg Folic Acid (Folic Acid) 1 mg PO DAILY [facility] Last Admin: 01/26/17 09:44 Dose: 1 mg Methylprednisolone 30 mg/ (Sodium Chloride) 50 mls @ 100 mls/hr IV DAILY [facility] Stop: 01/28/17 09:00 Last Admin: 01/26/17 09:43 Dose: 100 mls/hr Meropenem 500 mg/ Sodium (Chloride) 100 mls @ 100 mls/hr IVPB Q12 [facility] Last Admin: 01/26/17 22:00 Dose: 100 mls/hr Methylprednisolone 20 mg/ (Sodium Chloride) 50 mls @ 100 mls/hr IV DAILY [facility] Lactulose (Enulose) 20 gm PO TID [facility] Last Admin: 01/26/17 17:20 Dose: 20 gm Levothyroxine Sodium (Synthroid) 50 mcg PO DAILY@0630 [facility] Last Admin: 01/27/17 06:00 Dose: 50 mcg Nystatin (Nystop Topical Powder) 1 applic TOP TID [facility] Last Admin: 01/26/17 17:20 Dose: 1 applic Ondansetron HCl (Zofran Inj) 4 mg IVP Q6 PRN PRN Reason: Nausea/Vomiting Pantoprazole Sodium (Protonix Susp) 40 mg GT DAILY [facility] Last Admin: 01/26/17 12:30 Dose: 40 mg Thiamine HCl (Vitamin B1 Tab) 100 mg PO DAILY [facility] - Labs Labs: 01/27/17 04:20 01/27/17 04:20 PT 15.7 Seconds (9.8-13.1) H 01/23/17 04:20 INR 1.5 (0.9-1.2) H 01/23/17 04:20 APTT 35.8 Seconds (25.6-37.1) 01/23/17 04:20 - Head Exam Head Exam: ATRAUMATIC - Eye Exam Eye Exam: Scleral icterus - ENT Exam ENT Exam: Normal Exam - Respiratory Exam Respiratory Exam: NORMAL BREATHING PATTERN - Cardiovascular Exam Cardiovascular Exam: REGULAR RHYTHM - GI/Abdominal Exam GI & Abdominal Exam: Soft. absent: Tenderness Assessment and Plan (1) Alcoholic hepatitis with ascites Assessment & Plan: Bilirubin down to 17.9. Already one week on steroids. Will start slow taper to 20 mg. solumedrol daily. Status: Chronic
--- NOTE | 2017-01-27 09:35 | CP.PCM.PN ---
Subjective - Date & Time of Evaluation Date of Evaluation: 01/27/17 Time of Evaluation: 09:38 - Subjective Subjective: More alert Objective - Vital Signs/Intake and Output Vital Signs (last 24 hours): Temp Pulse Resp BP Pulse Ox 97.9 F 80 12 118/66 93 L 01/27/17 08:00 01/27/17 08:00 01/27/17 08:00 01/27/17 08:00 01/27/17 08:00 Intake and Output: 01/26/17 01/27/17 23:59 11:59 Intake Total 820 360 Output Total 3020 10 Balance -2200 350 - Medications Medications: Current Medications Docusate Sodium (Colace) 100 mg PO BID PRN PRN Reason: Constipation Last Admin: 01/21/17 09:44 Dose: 100 mg Folic Acid (Folic Acid) 1 mg PO DAILY [facility] Last Admin: 01/27/17 09:15 Dose: 1 mg Methylprednisolone 30 mg/ (Sodium Chloride) 50 mls @ 100 mls/hr IV DAILY [facility] Stop: 01/28/17 09:00 Last Admin: 01/27/17 09:15 Dose: 100 mls/hr Meropenem 500 mg/ Sodium (Chloride) 100 mls @ 100 mls/hr IVPB Q12 [facility] Last Admin: 01/27/17 09:15 Dose: 100 mls/hr Methylprednisolone 20 mg/ (Sodium Chloride) 50 mls @ 100 mls/hr IV DAILY [facility] Lactulose (Enulose) 20 gm PO TID [facility] Last Admin: 01/27/17 09:15 Dose: 20 gm Levothyroxine Sodium (Synthroid) 50 mcg PO DAILY@0630 [facility] Last Admin: 01/27/17 06:00 Dose: 50 mcg Nystatin (Nystop Topical Powder) 1 applic TOP TID [facility] Last Admin: 01/26/17 17:20 Dose: 1 applic Ondansetron HCl (Zofran Inj) 4 mg IVP Q6 PRN PRN Reason: Nausea/Vomiting Pantoprazole Sodium (Protonix Susp) 40 mg GT DAILY [facility] Last Admin: 01/27/17 09:15 Dose: 40 mg Thiamine HCl (Vitamin B1 Tab) 100 mg PO DAILY [facility] Last Admin: 01/27/17 09:15 Dose: 100 mg - Labs Labs: 01/27/17 04:20 01/27/17 04:20 PT 15.7 Seconds (9.8-13.1) H 01/23/17 04:20 INR 1.5 (0.9-1.2) H 01/23/17 04:20 APTT 35.8 Seconds (25.6-37.1) 01/23/17 04:20 - Constitutional Appears: Chronically Ill - Head Exam Head Exam: ATRAUMATIC - Eye Exam Eye Exam: Scleral icterus - Neck Exam Neck Exam: Full ROM - Respiratory Exam Respiratory Exam: Decreased Breath Sounds, Clear to Ausculation Bilateral - Cardiovascular Exam Cardiovascular Exam: REGULAR RHYTHM, +S1, +S2 - GI/Abdominal Exam GI & Abdominal Exam: Soft - Neurological Exam Neurological Exam: Altered, Awake - Psychiatric Exam Psychiatric exam: Anxious Assessment and Plan (1) Alcohol abuse Status: Chronic (2) Alcoholic hepatitis with ascites Status: Chronic (3) Ascites due to alcoholic cirrhosis Status: Chronic (4) Leukocytosis Status: Acute (5) Alcohol withdrawal Status: Acute (6) Wernicke encephalopathy Status: Chronic (7) Alcohol abuse with intoxication Status: Chronic (8) Hepatic encephalopathy Status: Acute (9) Hepatic failure due to alcoholism Status: Acute (10) Renal tubulopathy, encephalopathy, and liver failure syndrome Status: Acute (11) Hypoalbuminemia Status: Acute (12) Acidosis, lactic Status: Acute (13) Acidosis, metabolic Status: Acute (14) Sepsis Status: Ruled-out (15) UTI (urinary tract infection) Status: Acute - Assessment and Plan (Free Text) Plan: Probable not in related to catheter. Will follow with ID Patient will need head butler acute care. Will consider LATC when more stable. On HD.
[2017-01-27 10:51] LABS: PARTIAL THROMBOPLASTIN TIME 33.7 Seconds (25.6-37.1)
--- NOTE | 2017-01-27 12:31 | CP.CCUPN ---
<Chandra Romo - Last Filed: 01/27/17 15:27> CCU Subjective - Physician Review Subjective (Free Text): 01/27/17 8:00 AM Patient seen and examined bedside awake,alert,oriented x2, mild lethargic, breathing with mild difficulty by NC 3l. Patient denies N/V, abdominal pain, chest pain.Meredith 40 ml dark urine. Patient on hemodialysis M,W,F. NGT in place. 01/27/17 14:57 CCU Objective - Vital Signs / Intake & Output Vital Signs (Last 4 hours): Vital Signs Pulse Resp BP Pulse Ox 01/27/17 10:00 84 20 143/80 93 L Intake and Output (Last 8hrs): Intake & Output 01/26/17 01/27/17 01/27/17 22:59 06:59 14:59 Intake Total 820 360 Output Total 3020 10 Balance -2200 350 Intake: Intake, Piggyback 100 Tube Feeding 720 360 Output: Gastric Amount 0 Left Nares 0 Urine 20 10 Urethral (Meredith) 20 10 Ultrafiltrate 3000 Other: # Bowel Movements 1 1 - Physical Exam Head: Positive for: Normocephalic Pupils: Positive for: PERRL Extroacular Muscles: Positive for: EOMI. Negative for: Gaze Palsy Conjunctiva: Positive for: Icteric. Negative for: Injected Mouth: Positive for: Dry Neck: Negative for: Meningeal Signs, JVD (unable to assess due to obese neck) Respiratory/Chest: Positive for: Decreased Breath Sounds. Negative for: Accessory Muscle Use, Wheezes, Rales, Rhonchi Cardiovascular: Positive for: Regular Rate and Rhythm, Muffled. Negative for: Murmurs, Rub Abdomen: Positive for: Normal Bowel Sounds, Other (+ ascitic fluid wave.jaundice skin). Negative for: Tenderness, Distention, Rebound, Guarding Upper Extremity: Positive for: Edema (anasarca) Lower Extremity: Positive for: Edema (anasarca) Neurological: Positive for: Speech Normal Psychiatric: Positive for: Alert, Lethargic - Medications Active Medications: Active Medications Generic Name Dose Route Start Last Admin Trade Name Freq PRN Reason Stop Dose Admin Albumin Human 12.5 gm 01/27/17 12:15 Albumin Human 25% (12.5 Gm/50 Ml) IV 01/28/17 12:15 Q3H THAD Albumin Human 12.5 gm 01/28/17 12:30 Albumin Human 25% (12.5 Gm/50 Ml) IV 01/30/17 12:30 Q6H [facility] Docusate Sodium 100 mg 01/12/17 19:15 01/21/17 09:44 Colace PO 100 mg BID PRN Administration Constipation Folic Acid 1 mg 01/21/17 15:15 01/27/17 09:15 Folic Acid PO 1 mg DAILY THAD Administration Methylprednisolone 30 mg/ 50 mls @ 100 mls/hr 01/18/17 20:00 01/27/17 09:15 Sodium Chloride IV 01/28/17 09:00 100 mls/hr DAILY THAD Administration Meropenem 500 mg/ Sodium 100 mls @ 100 mls/hr 01/22/17 17:00 01/27/17 09:15 Chloride IVPB 100 mls/hr Q12 [facility] Administration Methylprednisolone 20 mg/ 50 mls @ 100 mls/hr 01/28/17 09:00 Sodium Chloride IV DAILY THAD Lactulose 20 gm 01/18/17 09:00 01/27/17 09:15 Enulose PO 20 gm TID [facility] Administration Levothyroxine Sodium 50 mcg 01/16/17 06:30 01/27/17 06:00 Synthroid PO 50 mcg DAILY@0630 [facility] Administration Midodrine 7.5 mg 01/27/17 13:00 Proamatine PO TID [facility] Nystatin 1 applic 01/16/17 13:00 01/26/17 17:20 Nystop Topical Powder TOP 1 applic TID [facility] Administration Octreotide Acetate 100 mcg 01/27/17 17:00 Sandostatin SC Q8 [facility] Ondansetron HCl 4 mg 01/12/17 19:15 Zofran Inj IVP Q6 PRN Nausea/Vomiting Pantoprazole Sodium 40 mg 01/26/17 10:30 01/27/17 09:15 Protonix Susp GT 40 mg DAILY [facility] Administration Thiamine HCl 100 mg 01/27/17 09:00 01/27/17 09:15 Vitamin B1 Tab PO 100 mg DAILY THAD Administration - Patient Studies Lab Studies: Microbiology Studies 01/20/17 14:00 Gram Stain - Final Ascitic Fluid Body Fluid Culture - Preliminary NO GROWTH AFTER 3 DAYS 01/22/17 17:05 Blood Culture - Preliminary Blood-Venous NO GROWTH AFTER 4 DAYS 01/22/17 17:00 Blood Culture - Preliminary Blood-Venous NO GROWTH AFTER 4 DAYS 01/24/17 18:49 Urine Culture - Final Urine,Meredith Yeast Species Lab Studies 01/27/17 01/27/17 01/27/17 Range/Units 11:28 09:50 05:57 WBC (4.8-10.8) K/uL RBC (3.80-5.20) Mil/uL Hgb (12.0-16.0) g/dL Hct (34.0-47.0) % MCV (81.0-99.0) fl MCH (27.0-31.0) pg MCHC (33.0-37.0) g/dL RDW (11.5-14.5) % Plt Count (130-400) K/uL Neutrophils % (Manual) (42-75) % Lymphocytes % (Manual) (20-50) % Monocytes % (Manual) (0-10) % Eosinophils % (Manual) (0-7) % Metamyelocytes % (0-0) % Myelocytes % (0-0) % Platelet Estimate (NORMAL) Hypochromasia (manual) Anisocytosis (manual) Macrocytosis (manual) Ovalocytes PT 15.1 H (9.8-13.1) Seconds INR 1.5 H (0.9-1.2) APTT 33.7 (25.6-37.1) Seconds Sodium (132-148) mmol/l Potassium (3.6-5.0) MMOL/L Chloride (98-107) mmol/L Carbon Dioxide (22-30) mmol/L Anion Gap (10-20) BUN (7-17) mg/dl Creatinine (0.7-1.2) mg/dL Est GFR ( Amer) Est GFR (Non-Af Amer) POC Glucose (mg/dL) 101 105 (65-110) mg/dL Random Glucose (65-105) mg/dL Calcium (8.4-10.2) mg/dL Total Bilirubin (0.2-1.3) mg/dl AST (14-36) U/L ALT (9-52) U/L Alkaline Phosphatase (38-126) U/L Total Protein (6.3-8.2) G/DL Albumin (3.5-5.0) g/dL Globulin (2.2-3.9) gm/dL Albumin/Globulin Ratio (1.0-2.1) 01/27/17 01/27/17 01/26/17 Range/Units 04:20 04:20 22:08 WBC 24.4 H (4.8-10.8) K/uL RBC 3.00 L (3.80-5.20) Mil/uL Hgb 12.3 (12.0-16.0) g/dL Hct 37.2 (34.0-47.0) % MCV 124.2 H (81.0-99.0) fl MCH 41.1 H (27.0-31.0) pg MCHC 33.1 (33.0-37.0) g/dL RDW 21.3 H (11.5-14.5) % Plt Count 70 L D (130-400) K/uL Neutrophils % (Manual) 92 H (42-75) % Lymphocytes % (Manual) 3 L (20-50) % Monocytes % (Manual) 1 (0-10) % Eosinophils % (Manual) 1 (0-7) % Metamyelocytes % 1 H (0-0) % Myelocytes % 2 H (0-0) % Platelet Estimate Decreased L (NORMAL) Hypochromasia (manual) Marked Anisocytosis (manual) Slight Macrocytosis (manual) Slight Ovalocytes Slight PT (9.8-13.1) Seconds INR (0.9-1.2) APTT (25.6-37.1) Seconds Sodium 141 (132-148) mmol/l Potassium 4.4 (3.6-5.0) MMOL/L Chloride 106 (98-107) mmol/L Carbon Dioxide 23 (22-30) mmol/L Anion Gap 17 (10-20) BUN 68 H (7-17) mg/dl Creatinine 4.1 H (0.7-1.2) mg/dL Est GFR ( Amer) 13 Est GFR (Non-Af Amer) 11 POC Glucose (mg/dL) 135 H (65-110) mg/dL Random Glucose 111 H (65-105) mg/dL Calcium 9.1 (8.4-10.2) mg/dL Total Bilirubin 18.9 H (0.2-1.3) mg/dl AST 151 H (14-36) U/L ALT 96 H D (9-52) U/L Alkaline Phosphatase 232 H D (38-126) U/L Total Protein 6.5 (6.3-8.2) G/DL Albumin 3.0 L (3.5-5.0) g/dL Globulin 3.5 (2.2-3.9) gm/dL Albumin/Globulin Ratio 0.9 L (1.0-2.1) 01/26/17 Range/Units 16:48 WBC (4.8-10.8) K/uL RBC (3.80-5.20) Mil/uL Hgb (12.0-16.0) g/dL Hct (34.0-47.0) % MCV (81.0-99.0) fl MCH (27.0-31.0) pg MCHC (33.0-37.0) g/dL RDW (11.5-14.5) % Plt Count (130-400) K/uL Neutrophils % (Manual) (42-75) % Lymphocytes % (Manual) (20-50) % Monocytes % (Manual) (0-10) % Eosinophils % (Manual) (0-7) % Metamyelocytes % (0-0) % Myelocytes % (0-0) % Platelet Estimate (NORMAL) Hypochromasia (manual) Anisocytosis (manual) Macrocytosis (manual) Ovalocytes PT (9.8-13.1) Seconds INR (0.9-1.2) APTT (25.6-37.1) Seconds Sodium (132-148) mmol/l Potassium (3.6-5.0) MMOL/L Chloride (98-107) mmol/L Carbon Dioxide (22-30) mmol/L Anion Gap (10-20) BUN (7-17) mg/dl Creatinine (0.7-1.2) mg/dL Est GFR ( Amer) Est GFR (Non-Af Amer) POC Glucose (mg/dL) 130 H (65-110) mg/dL Random Glucose (65-105) mg/dL Calcium (8.4-10.2) mg/dL Total Bilirubin (0.2-1.3) mg/dl AST (14-36) U/L ALT (9-52) U/L Alkaline Phosphatase (38-126) U/L Total Protein (6.3-8.2) G/DL Albumin (3.5-5.0) g/dL Globulin (2.2-3.9) gm/dL Albumin/Globulin Ratio (1.0-2.1) Laboratory Results - last 24 hr 01/26/17 01/26/17 01/27/17 16:48 22:08 04:20 WBC 24.4 H RBC 3.00 L Hgb 12.3 Hct 37.2 MCV 124.2 H MCH 41.1 H MCHC 33.1 RDW 21.3 H Plt Count 70 L D Neutrophils % (Manual) 92 H Lymphocytes % (Manual) 3 L Monocytes % (Manual) 1 Eosinophils % (Manual) 1 Metamyelocytes % 1 H Myelocytes % 2 H Platelet Estimate Decreased L Hypochromasia (manual) Marked Anisocytosis (manual) Slight Macrocytosis (manual) Slight Ovalocytes Slight PT INR APTT Sodium Potassium Chloride Carbon Dioxide Anion Gap BUN Creatinine Est GFR ( Amer) Est GFR (Non-Af Amer) POC Glucose (mg/dL) 130 H 135 H Random Glucose Calcium Total Bilirubin AST ALT Alkaline Phosphatase Total Protein Albumin Globulin Albumin/Globulin Ratio 01/27/17 01/27/17 01/27/17 04:20 05:57 09:50 WBC RBC Hgb Hct MCV MCH MCHC RDW Plt Count Neutrophils % (Manual) Lymphocytes % (Manual) Monocytes % (Manual) Eosinophils % (Manual) Metamyelocytes % Myelocytes % Platelet Estimate Hypochromasia (manual) Anisocytosis (manual) Macrocytosis (manual) Ovalocytes PT 15.1 H INR 1.5 H APTT 33.7 Sodium 141 Potassium 4.4 Chloride 106 Carbon Dioxide 23 Anion Gap 17 BUN 68 H Creatinine 4.1 H Est GFR ( Amer) 13 Est GFR (Non-Af Amer) 11 POC Glucose (mg/dL) 105 Random Glucose 111 H Calcium 9.1 Total Bilirubin 18.9 H AST 151 H ALT 96 H D Alkaline Phosphatase 232 H D Total Protein 6.5 Albumin 3.0 L Globulin 3.5 Albumin/Globulin Ratio 0.9 L 01/27/17 11:28 WBC RBC Hgb Hct MCV MCH MCHC RDW Plt Count Neutrophils % (Manual) Lymphocytes % (Manual) Monocytes % (Manual) Eosinophils % (Manual) Metamyelocytes % Myelocytes % Platelet Estimate Hypochromasia (manual) Anisocytosis (manual) Macrocytosis (manual) Ovalocytes PT INR APTT Sodium Potassium Chloride Carbon Dioxide Anion Gap BUN Creatinine Est GFR ( Amer) Est GFR (Non-Af Amer) POC Glucose (mg/dL) 101 Random Glucose Calcium Total Bilirubin AST ALT Alkaline Phosphatase Total Protein Albumin Globulin Albumin/Globulin Ratio Fingerstick Blood Sugar Results: 105 Review of Systems - Cardiovascular Cardiovascular: UNREMARKABLE - Respiratory Respiratory: absent: Cough, Stridor - Musculoskeletal Musculoskeletal: UNREMARKABLE Critical Care Progress Note - Ventilator Checklist DVT Prophylaxis: Yes - Prophylaxis DVT Prophylaxis DVT: SCDs Assessment/Plan - Assessment and Plan (Free Text) Plan: 61 yo ,f Pmhx/o alcoholic cirrhosis, ETOH abuse, Hypothyroidism who was borught to ED 01/12 for acute ETOH intoxication, fell on the knees,found with leukocytosis, elevate lactic acid and AMS. Patient transferred to ICU for metabolic encephalopathy and hepatorenal syndrome Assessment/Plan 1) Alcoholic cirrhosis -Hx/o heavy ETOH abuse and alcoholic hepatitis associated -S/p Paracentesis 01/20 -MELD score 35 -GI consult appreciated: on steroids tappering dose -f/u cbc, cmp, kristi, Pt/PTT -Tube feeding -Protonix 40 mg Po daily 2) Metabolic encephalopahty -secondary to liver cirrhosis -lactulose 20 mg PO TID -f/u amonium level 3) Hepatorenal syndrome -on hemodyalis M,W,F -Midodrine 7.5 mg PO TID x 3 days -Octeotride 100 mg sc TID x 3 days -Albumin 12,5 g/50 ml (100g x 1 day) 1 bag Q 3h for 24h and continue 50g x 2 days ( 1 Bag QID x 2 days) -[facility]ed [facility] [phone] Program is in hold for transplant for the last 3 months. Will call [facility] discuss liver transplant option - nephro consult appreciated: c/w hemodialysis 4) Hypothyroidism c/w levothyroxin 50 mcg qday 5) DVT Prophylaxis -SCD <Baldemar Crenshaw - Last Filed: 01/27/17 16:39> CCU Objective - Vital Signs / Intake & Output Vital Signs (Last 4 hours): Vital Signs Temp Pulse Resp BP Pulse Ox 01/27/17 15:32 98.0 F 86 20 119/68 91 L Intake and Output (Last 8hrs): Intake & Output 01/27/17 01/27/17 01/27/17 06:59 14:59 22:59 Intake Total 360 Output Total 10 Balance 350 Intake: Tube Feeding 360 Output: Urine 10 Urethral (Meredith) 10 Other: # Bowel Movements 1 - Medications Active Medications: Active Medications Generic Name Dose Route Start Last Admin Trade Name Freq PRN Reason Stop Dose Admin Albumin Human 12.5 gm 01/27/17 12:15 01/27/17 14:54 Albumin Human 25% (12.5 Gm/50 Ml) IV 01/28/17 12:15 12.5 gm Q3H THAD Administration Albumin Human 12.5 gm 01/28/17 12:30 Albumin Human 25% (12.5 Gm/50 Ml) IV 01/30/17 12:30 Q6H THAD Docusate Sodium 100 mg 01/12/17 19:15 01/21/17 09:44 Colace PO 100 mg BID PRN Administration Constipation Folic Acid 1 mg 01/21/17 15:15 01/27/17 09:15 Folic Acid PO 1 mg DAILY THAD Administration Meropenem 500 mg/ Sodium 100 mls @ 100 mls/hr 01/22/17 17:00 01/27/17 09:15 Chloride IVPB 100 mls/hr Q12 THAD Administration Methylprednisolone 20 mg/ 50 mls @ 100 mls/hr 01/28/17 09:00 Sodium Chloride IV DAILY THAD Lactulose 20 gm 01/18/17 09:00 01/27/17 14:52 Enulose PO 20 gm TID THAD Administration Levothyroxine Sodium 50 mcg 01/16/17 06:30 01/27/17 06:00 Synthroid PO 50 mcg DAILY@0630 [facility]AD Administration Midodrine 7.5 mg 01/27/17 13:00 01/27/17 14:57 Proamatine PO 7.5 mg TID THAD Administration Nystatin 1 applic 01/16/17 13:00 01/27/17 14:56 Nystop Topical Powder TOP 1 applic TID THAD Administration Octreotide Acetate 100 mcg 01/27/17 17:00 Sandostatin SC Q8 [facility]AD Ondansetron HCl 4 mg 01/12/17 19:15 Zofran Inj IVP Q6 PRN Nausea/Vomiting Pantoprazole Sodium 40 mg 01/26/17 10:30 01/27/17 09:15 Protonix Susp GT 40 mg DAILY THAD Administration Rifaximin 200 mg 01/27/17 17:00 Xifaxan PO Q8 THAD Thiamine HCl 100 mg 01/27/17 09:00 01/27/17 09:15 Vitamin B1 Tab PO 100 mg DAILY THAD Administration - Patient Studies Lab Studies: Microbiology Studies 01/20/17 14:00 Gram Stain - Final Ascitic Fluid Body Fluid Culture - Preliminary NO GROWTH AFTER 3 DAYS 01/22/17 17:05 Blood Culture - Preliminary Blood-Venous NO GROWTH AFTER 4 DAYS 01/22/17 17:00 Blood Culture - Preliminary Blood-Venous NO GROWTH AFTER 4 DAYS Lab Studies 01/27/17 01/27/17 01/27/17 Range/Units 16:03 11:28 09:50 WBC (4.8-10.8) K/uL RBC (3.80-5.20) Mil/uL Hgb (12.0-16.0) g/dL Hct (34.0-47.0) % MCV (81.0-99.0) fl MCH (27.0-31.0) pg MCHC (33.0-37.0) g/dL RDW (11.5-14.5) % Plt Count (130-400) K/uL Neutrophils % (Manual) (42-75) % Lymphocytes % (Manual) (20-50) % Monocytes % (Manual) (0-10) % Eosinophils % (Manual) (0-7) % Metamyelocytes % (0-0) % Myelocytes % (0-0) % Platelet Estimate (NORMAL) Hypochromasia (manual) Anisocytosis (manual) Macrocytosis (manual) Ovalocytes PT 15.1 H (9.8-13.1) Seconds INR 1.5 H (0.9-1.2) APTT 33.7 (25.6-37.1) Seconds Sodium (132-148) mmol/l Potassium (3.6-5.0) MMOL/L Chloride (98-107) mmol/L Carbon Dioxide (22-30) mmol/L Anion Gap (10-20) BUN (7-17) mg/dl Creatinine (0.7-1.2) mg/dL Est GFR ( Amer) Est GFR (Non-Af Amer) POC Glucose (mg/dL) 122 H 101 (65-110) mg/dL Random Glucose (65-105) mg/dL Calcium (8.4-10.2) mg/dL Total Bilirubin (0.2-1.3) mg/dl AST (14-36) U/L ALT (9-52) U/L Alkaline Phosphatase (38-126) U/L Total Protein (6.3-8.2) G/DL Albumin (3.5-5.0) g/dL Globulin (2.2-3.9) gm/dL Albumin/Globulin Ratio (1.0-2.1) 01/27/17 01/27/17 01/27/17 Range/Units 05:57 04:20 04:20 WBC 24.4 H (4.8-10.8) K/uL RBC 3.00 L (3.80-5.20) Mil/uL Hgb 12.3 (12.0-16.0) g/dL Hct 37.2 (34.0-47.0) % MCV 124.2 H (81.0-99.0) fl MCH 41.1 H (27.0-31.0) pg MCHC 33.1 (33.0-37.0) g/dL RDW 21.3 H (11.5-14.5) % Plt Count 70 L D (130-400) K/uL Neutrophils % (Manual) 92 H (42-75) % Lymphocytes % (Manual) 3 L (20-50) % Monocytes % (Manual) 1 (0-10) % Eosinophils % (Manual) 1 (0-7) % Metamyelocytes % 1 H (0-0) % Myelocytes % 2 H (0-0) % Platelet Estimate Decreased L (NORMAL) Hypochromasia (manual) Marked Anisocytosis (manual) Slight Macrocytosis (manual) Slight Ovalocytes Slight PT (9.8-13.1) Seconds INR (0.9-1.2) APTT (25.6-37.1) Seconds Sodium 141 (132-148) mmol/l Potassium 4.4 (3.6-5.0) MMOL/L Chloride 106 (98-107) mmol/L Carbon Dioxide 23 (22-30) mmol/L Anion Gap 17 (10-20) BUN 68 H (7-17) mg/dl Creatinine 4.1 H (0.7-1.2) mg/dL Est GFR ( Amer) 13 Est GFR (Non-Af Amer) 11 POC Glucose (mg/dL) 105 (65-110) mg/dL Random Glucose 111 H (65-105) mg/dL Calcium 9.1 (8.4-10.2) mg/dL Total Bilirubin 18.9 H (0.2-1.3) mg/dl AST 151 H (14-36) U/L ALT 96 H D (9-52) U/L Alkaline Phosphatase 232 H D (38-126) U/L Total Protein 6.5 (6.3-8.2) G/DL Albumin 3.0 L (3.5-5.0) g/dL Globulin 3.5 (2.2-3.9) gm/dL Albumin/Globulin Ratio 0.9 L (1.0-2.1) 01/26/17 01/26/17 Range/Units 22:08 16:48 WBC (4.8-10.8) K/uL RBC (3.80-5.20) Mil/uL Hgb (12.0-16.0) g/dL Hct (34.0-47.0) % MCV (81.0-99.0) fl MCH (27.0-31.0) pg MCHC (33.0-37.0) g/dL RDW (11.5-14.5) % Plt Count (130-400) K/uL Neutrophils % (Manual) (42-75) % Lymphocytes % (Manual) (20-50) % Monocytes % (Manual) (0-10) % Eosinophils % (Manual) (0-7) % Metamyelocytes % (0-0) % Myelocytes % (0-0) % Platelet Estimate (NORMAL) Hypochromasia (manual) Anisocytosis (manual) Macrocytosis (manual) Ovalocytes PT (9.8-13.1) Seconds INR (0.9-1.2) APTT (25.6-37.1) Seconds Sodium (132-148) mmol/l Potassium (3.6-5.0) MMOL/L Chloride (98-107) mmol/L Carbon Dioxide (22-30) mmol/L Anion Gap (10-20) BUN (7-17) mg/dl Creatinine (0.7-1.2) mg/dL Est GFR ( Amer) Est GFR (Non-Af Amer) POC Glucose (mg/dL) 135 H 130 H (65-110) mg/dL Random Glucose (65-105) mg/dL Calcium (8.4-10.2) mg/dL Total Bilirubin (0.2-1.3) mg/dl AST (14-36) U/L ALT (9-52) U/L Alkaline Phosphatase (38-126) U/L Total Protein (6.3-8.2) G/DL Albumin (3.5-5.0) g/dL Globulin (2.2-3.9) gm/dL Albumin/Globulin Ratio (1.0-2.1) Laboratory Results - last 24 hr 01/26/17 01/26/17 01/27/17 16:48 22:08 04:20 WBC 24.4 H RBC 3.00 L Hgb 12.3 Hct 37.2 MCV 124.2 H MCH 41.1 H MCHC 33.1 RDW 21.3 H Plt Count 70 L D Neutrophils % (Manual) 92 H Lymphocytes % (Manual) 3 L Monocytes % (Manual) 1 Eosinophils % (Manual) 1 Metamyelocytes % 1 H Myelocytes % 2 H Platelet Estimate Decreased L Hypochromasia (manual) Marked Anisocytosis (manual) Slight Macrocytosis (manual) Slight Ovalocytes Slight PT INR APTT Sodium Potassium Chloride Carbon Dioxide Anion Gap BUN Creatinine Est GFR ( Amer) Est GFR (Non-Af Amer) POC Glucose (mg/dL) 130 H 135 H Random Glucose Calcium Total Bilirubin AST ALT Alkaline Phosphatase Total Protein Albumin Globulin Albumin/Globulin Ratio 01/27/17 01/27/17 01/27/17 04:20 05:57 09:50 WBC RBC Hgb Hct MCV MCH MCHC RDW Plt Count Neutrophils % (Manual) Lymphocytes % (Manual) Monocytes % (Manual) Eosinophils % (Manual) Metamyelocytes % Myelocytes % Platelet Estimate Hypochromasia (manual) Anisocytosis (manual) Macrocytosis (manual) Ovalocytes PT 15.1 H INR 1.5 H APTT 33.7 Sodium 141 Potassium 4.4 Chloride 106 Carbon Dioxide 23 Anion Gap 17 BUN 68 H Creatinine 4.1 H Est GFR ( Amer) 13 Est GFR (Non-Af Amer) 11 POC Glucose (mg/dL) 105 Random Glucose 111 H Calcium 9.1 Total Bilirubin 18.9 H AST 151 H ALT 96 H D Alkaline Phosphatase 232 H D Total Protein 6.5 Albumin 3.0 L Globulin 3.5 Albumin/Globulin Ratio 0.9 L 01/27/17 01/27/17 11:28 16:03 WBC RBC Hgb Hct MCV MCH MCHC RDW Plt Count Neutrophils % (Manual) Lymphocytes % (Manual) Monocytes % (Manual) Eosinophils % (Manual) Metamyelocytes % Myelocytes % Platelet Estimate Hypochromasia (manual) Anisocytosis (manual) Macrocytosis (manual) Ovalocytes PT INR APTT Sodium Potassium Chloride Carbon Dioxide Anion Gap BUN Creatinine Est GFR ( Amer) Est GFR (Non-Af Amer) POC Glucose (mg/dL) 101 122 H Random Glucose Calcium Total Bilirubin AST ALT Alkaline Phosphatase Total Protein Albumin Globulin Albumin/Globulin Ratio Attending/Attestation - Attestation I have personally seen and examined this patient.: Yes I have fully participated in the care of the patient.: Yes I have reviewed all pertinent clinical information: Yes Notes (Text): 01/27/17 16:35 I have seen and examined the patient. Medical records, lab studies, and imaging were reviewed by me and a management plan was formulated on multidisciplinary rounds with resident Dr. Romo. I agree with their above documented assessment and plan. Patient has hepatic encephalopathy, adding Rifaxin to Lactulose. Patient is in hepatorenal syndrome on dialysis. Continuing Octreotide, midodrine and albumin. Called [facility] for transfer to get patient monitored for possible liver transplant, even with current alcoholism. Patient accepted to [facility], awaiting bed. Critical Care Time minutes. Multi-disciplinary rounds were performed with house staff, nursing, speech therapy, respiratory therapy, pharmacy and nutrition with integrated input from the primary team/attending and other consulting services. The documented time is cumulative and includes review of patient data/exams/labs/chart review and examination of the patient on rounds and throughout the day; time is exclusive of any procedures or teaching time.
[2017-01-27] MEDS: Albumin Human 25% (12.5 gm/50 ml) IV SCH ×4 (14:54→22:00)
--- NOTE | 2017-01-27 16:09 | CP.PCM.PN ---
Subjective - Date & Time of Evaluation Date of Evaluation: 01/27/17 Time of Evaluation: 16:08 - Subjective Subjective: ID note- Pt. seen and examined today in ICU. pt. less lethargic today. denies any pain. denies any fever or chills. as per ICU nurse pt. was accepted at [facility] for liver transplant. Objective - Vital Signs/Intake and Output Vital Signs (last 24 hours): Temp Pulse Resp BP Pulse Ox 98.0 F 86 20 119/68 91 L 01/27/17 15:32 01/27/17 15:32 01/27/17 15:32 01/27/17 15:32 01/27/17 15:32 Intake and Output: 01/27/17 01/27/17 06:59 18:59 Intake Total 640 Output Total 3010 Balance -2370 - Medications Medications: Current Medications Albumin Human (Albumin Human 25% (12.5 Gm/50 Ml)) 12.5 gm IV Q3H THAD Stop: 01/28/17 12:15 Last Admin: 01/27/17 14:54 Dose: 12.5 gm Albumin Human (Albumin Human 25% (12.5 Gm/50 Ml)) 12.5 gm IV Q6H THAD Stop: 01/30/17 12:30 Docusate Sodium (Colace) 100 mg PO BID PRN PRN Reason: Constipation Last Admin: 01/21/17 09:44 Dose: 100 mg Folic Acid (Folic Acid) 1 mg PO DAILY [facility] Last Admin: 01/27/17 09:15 Dose: 1 mg Meropenem 500 mg/ Sodium (Chloride) 100 mls @ 100 mls/hr IVPB Q12 [facility] Last Admin: 01/27/17 09:15 Dose: 100 mls/hr Methylprednisolone 20 mg/ (Sodium Chloride) 50 mls @ 100 mls/hr IV DAILY [facility] Lactulose (Enulose) 20 gm PO TID [facility] Last Admin: 01/27/17 14:52 Dose: 20 gm Levothyroxine Sodium (Synthroid) 50 mcg PO DAILY@0630 [facility] Last Admin: 01/27/17 06:00 Dose: 50 mcg Midodrine (Proamatine) 7.5 mg PO TID [facility] Last Admin: 01/27/17 14:57 Dose: 7.5 mg Nystatin (Nystop Topical Powder) 1 applic TOP TID [facility] Last Admin: 01/27/17 14:56 Dose: 1 applic Octreotide Acetate (Sandostatin) 100 mcg SC Q8 [facility] Ondansetron HCl (Zofran Inj) 4 mg IVP Q6 PRN PRN Reason: Nausea/Vomiting Pantoprazole Sodium (Protonix Susp) 40 mg GT DAILY [facility] Last Admin: 01/27/17 09:15 Dose: 40 mg Rifaximin (Xifaxan) 200 mg PO Q8 [facility] Thiamine HCl (Vitamin B1 Tab) 100 mg PO DAILY [facility] Last Admin: 01/27/17 09:15 Dose: 100 mg - Labs Labs: Assessment and Plan (1) Sepsis Status: Acute (2) Leukocytosis Status: Acute (3) Ascites due to alcoholic cirrhosis Status: Chronic - Assessment and Plan (Free Text) Assessment: A/P- 61 year old female with h/o EOH abuse with cirrhosis presented post fall on the knees found to have high wbc and lactate and was admitted for sepsis work up and alcoholism and cirrhosis. slightly less lethargic today. afebrile leukocytosis continues to be high , despite being on broad spectrum antibiotics ,may be secondary to the steroids also urine cx- neg x 1 blood cx- neg x 5 transaminitis and hyperbilirubinemia. hepatitis panel - neg HIV ab- neg CXR- possible pleural effusions as per report. repeat urine cx from [facility]- yeast and same in UA many yeast cirrhosis ascites hepatorenal syndrome plan- completed 5 days of IV cefotaxime and prio tot hat was on ceftriaxone by primary team. ascites fluid not c/w sbp and per GI not SBP, however pt. does have left shit and has been hospiltalized now for a while and advise o be covered for hospital acquired pathogens in light of her immune suppressed states . has completed 6 days of IV meropenm. advise to d/c after tomm. advise to d/c [facility] cath now. advise few days of fluconazole for the fungurea. check stool c.diff as well. advise chest Ct as well r/o any effusion or infiltrate. prognosis poor. ICU time spent 45 min.
--- NOTE | 2017-01-27 22:36 | CP.PCM.PN ---
Subjective - Date & Time of Evaluation Date of Evaluation: 01/27/17 Time of Evaluation: 15:00 - Subjective Subjective: SEEN ON RENAL F/U IN ICU RECIEVED HER HD .. UF OF 3 L NO CHANGE IN HER CLINICAL CONDITION LITTLE MORE ALERT THAN BEFORE Objective - Vital Signs/Intake and Output Vital Signs (last 24 hours): Temp Pulse Resp BP Pulse Ox 98.9 F 76 17 154/72 H 94 L 01/27/17 20:00 01/27/17 22:00 01/27/17 22:00 01/27/17 22:00 01/27/17 22:00 Intake and Output: 01/27/17 01/28/17 18:59 06:59 Intake Total 790 295 Output Total 170 Balance 620 295 - Medications Medications: Current Medications Albumin Human (Albumin Human 25% (12.5 Gm/50 Ml)) 12.5 gm IV Q3H [facility]AD Stop: 01/28/17 12:15 Last Admin: 01/27/17 17:30 Dose: 12.5 gm Albumin Human (Albumin Human 25% (12.5 Gm/50 Ml)) 12.5 gm IV Q6H THAD Stop: 01/30/17 12:30 Folic Acid (Folic Acid) 1 mg PO DAILY [facility] Last Admin: 01/27/17 09:15 Dose: 1 mg Meropenem 500 mg/ Sodium (Chloride) 100 mls @ 100 mls/hr IVPB Q12 [facility] Last Admin: 01/27/17 21:35 Dose: 100 mls/hr Methylprednisolone 20 mg/ (Sodium Chloride) 50 mls @ 100 mls/hr IV DAILY [facility] Fluconazole (Diflucan Iv 100 Mg/50 Ml Ns) 50 mls @ 50 mls/hr IVPB DAILY [facility] Stop: 01/30/17 09:59 Lactulose (Enulose) 20 gm PO TID [facility] Last Admin: 01/27/17 17:29 Dose: 20 gm Levothyroxine Sodium (Synthroid) 50 mcg PO DAILY@0630 [facility] Last Admin: 01/27/17 06:00 Dose: 50 mcg Midodrine (Proamatine) 7.5 mg PO TID [facility] Last Admin: 01/27/17 17:30 Dose: 7.5 mg Nystatin (Nystop Topical Powder) 1 applic TOP TID [facility] Last Admin: 01/27/17 17:30 Dose: 1 applic Octreotide Acetate (Sandostatin) 100 mcg SC Q8 [facility] Last Admin: 01/27/17 17:30 Dose: 100 mcg Pantoprazole Sodium (Protonix Susp) 40 mg GT DAILY [facility] Last Admin: 01/27/17 09:15 Dose: 40 mg Rifaximin (Xifaxan) 200 mg PO Q8 [facility] Last Admin: 01/27/17 17:30 Dose: 200 mg Thiamine HCl (Vitamin B1 Tab) 100 mg PO DAILY [facility] Last Admin: 01/27/17 09:15 Dose: 100 mg - Labs Labs: 01/27/17 04:20 01/27/17 04:20 PT 15.1 Seconds (9.8-13.1) H 01/27/17 09:50 INR 1.5 (0.9-1.2) H 01/27/17 09:50 APTT 33.7 Seconds (25.6-37.1) 01/27/17 09:50 Assessment and Plan - Assessment and Plan (Free Text) Assessment: ACI .. ATN .. HRS .. ON HD M W F ALCOHOLIC LIVER SCIRHOSIS .. WITH MASSIVE ASCITES UTI SEPSIS P : c/o current care c/o present managment
[2017-01-28] MEDS: Albumin Human 25% (12.5 gm/50 ml) IV SCH ×5 (01:10→11:44)
[2017-01-28] MEDS: Levothyroxine 50 MCG TAB PO SCH (05:33)
[2017-01-28 06:20] LABS: HEMATOCRIT 31.4 % (34.0-47.0); MEAN CELL VOLUME 126.5 fl (81.0-99.0); MEAN CORPUSCULAR HEMOGLOBIN 41.4 pg (27.0-31.0); MEAN CORPUSCULAR HGB CONC 32.7 g/dL (33.0-37.0); RED CELL DISTRIBUTION WIDTH 21.9 % (11.5-14.5)
[2017-01-28 06:30] LABS: ALB/GLOB RATIO 1.3 (1.0-2.1); BILIRUBIN,TOTAL 13.1 mg/dl (0.2-1.3); CALCIUM 9.1 mg/dL (8.4-10.2); MAGNESIUM 2.9 MG/DL (1.6-2.3); PHOSPHOROUS 7.3 mg/dl (2.5-4.5); POTASSIUM 4.2 MMOL/L (3.6-5.0); TOTAL PROTEIN 6.4 G/DL (6.3-8.2)
[2017-01-28 06:39] LABS: PARTIAL THROMBOPLASTIN TIME 41.3 Seconds (25.6-37.1)
[2017-01-28 06:40] VITALS: O2SAT 100
[2017-01-28] MEDS: Meropenem 500 MG in Sodium Chloride 0.9% 100 ML IVPB SCH (08:11)
[2017-01-28] MEDS: Pantoprazole 40 mg Susp UD GT SCH (08:12)
[2017-01-28] MEDS ORDERED: methylPREDNISolone 20 MG in Sodium Chloride 0.9% 50 ML IV SCH (09:00)
[2017-01-28] MEDS ORDERED: Fluconazole IV 100mg/50 ml NS 50 ML IVPB SCH (09:00)
--- NOTE | 2017-01-28 11:36 | CP.PCM.PN ---
Subjective - Date & Time of Evaluation Date of Evaluation: 01/28/17 Time of Evaluation: 11:36 - Subjective Subjective: Patient AA still confuse Objective - Vital Signs/Intake and Output Vital Signs (last 24 hours): Temp Pulse Resp BP Pulse Ox 98.8 F 72 17 135/34 L 100 01/28/17 08:00 01/28/17 10:00 01/28/17 10:00 01/28/17 10:00 01/28/17 10:00 Intake and Output: 01/27/17 01/28/17 23:59 11:59 Intake Total 1085 1240 Output Total 170 500 Balance 915 740 - Medications Medications: Current Medications Albumin Human (Albumin Human 25% (12.5 Gm/50 Ml)) 12.5 gm IV Q3H [facility] Stop: 01/28/17 12:15 Last Admin: 01/28/17 08:16 Dose: 12.5 gm Albumin Human (Albumin Human 25% (12.5 Gm/50 Ml)) 12.5 gm IV Q6H [facility] Stop: 01/30/17 12:30 Folic Acid (Folic Acid) 1 mg PO DAILY [facility] Last Admin: 01/28/17 08:11 Dose: 1 mg Meropenem 500 mg/ Sodium (Chloride) 100 mls @ 100 mls/hr IVPB Q12 [facility] Last Admin: 01/28/17 08:11 Dose: 100 mls/hr Methylprednisolone 20 mg/ (Sodium Chloride) 50 mls @ 100 mls/hr IV DAILY [facility] Last Admin: 01/28/17 08:13 Dose: 100 mls/hr Fluconazole (Diflucan Iv 100 Mg/50 Ml Ns) 50 mls @ 50 mls/hr IVPB DAILY [facility] Stop: 01/30/17 09:59 Last Admin: 01/28/17 08:11 Dose: 50 mls/hr Lactulose (Enulose) 20 gm PO TID [facility] Last Admin: 01/28/17 08:11 Dose: 20 gm Levothyroxine Sodium (Synthroid) 50 mcg PO DAILY@0630 [facility] Last Admin: 01/28/17 05:33 Dose: 50 mcg Midodrine (Proamatine) 7.5 mg PO TID [facility] Last Admin: 01/28/17 08:12 Dose: 7.5 mg Nystatin (Nystop Topical Powder) 1 applic TOP TID [facility] Last Admin: 01/28/17 08:12 Dose: 1 applic Octreotide Acetate (Sandostatin) 100 mcg SC Q8 [facility] Last Admin: 01/28/17 08:15 Dose: 100 mcg Pantoprazole Sodium (Protonix Susp) 40 mg GT DAILY [facility] Last Admin: 01/28/17 08:12 Dose: 40 mg Rifaximin (Xifaxan) 200 mg PO Q8 [facility] Last Admin: 01/28/17 00:43 Dose: 200 mg Thiamine HCl (Vitamin B1 Tab) 100 mg PO DAILY [facility] Last Admin: 01/28/17 08:13 Dose: 100 mg - Labs Labs: 01/28/17 05:30 01/28/17 05:30 PT 15.5 Seconds (9.8-13.1) H 01/28/17 05:30 INR 1.5 (0.9-1.2) H 01/28/17 05:30 APTT 41.3 Seconds (25.6-37.1) H D 01/28/17 05:30 - Constitutional Appears: Confused, Chronically Ill - Head Exam Head Exam: ATRAUMATIC - Eye Exam Eye Exam: Scleral icterus - Neck Exam Neck Exam: Full ROM - Respiratory Exam Respiratory Exam: Decreased Breath Sounds, Clear to Ausculation Bilateral - Cardiovascular Exam Cardiovascular Exam: REGULAR RHYTHM, +S1, +S2 - GI/Abdominal Exam GI & Abdominal Exam: Distended, Soft Additional comments: acites not tender no rebound. - Neurological Exam Neurological Exam: Altered, Awake Assessment and Plan (1) Alcohol abuse Status: Chronic (2) Alcoholic hepatitis with ascites Status: Chronic (3) Ascites due to alcoholic cirrhosis Status: Chronic (4) Leukocytosis Status: Acute (5) Alcohol withdrawal Status: Acute (6) Wernicke encephalopathy Status: Chronic (7) Alcohol abuse with intoxication Status: Chronic (8) Hepatic encephalopathy Status: Acute (9) Hepatic failure due to alcoholism Status: Acute (10) Renal tubulopathy, encephalopathy, and liver failure syndrome Status: Acute (11) Hypoalbuminemia Status: Acute (12) Acidosis, lactic Status: Acute (13) Acidosis, metabolic Status: Acute (14) Sepsis Status: Ruled-out (15) UTI (urinary tract infection) Status: Acute (16) Ascites Status: Chronic - Assessment and Plan (Free Text) Plan: Patient for transfer to a tertiary facility for liver transplant. Continue present rx will follow US.
[2017-01-28 12:01] VITALS: PULSE 71; TEMP 98
[2017-01-28] MEDS ORDERED: Albumin Human 25% (12.5 gm/50 ml) IV SCH (12:30)
[2017-01-28 14:08] VITALS: BP 96/52; RESP 12
--- NOTE | 2017-01-28 14:16 | CP.CCUPN ---
CCU Subjective - Physician Review Events Since Last Encounter (Free Text): 01/28/17 14:14 alert and answers most questions appropriately. no complaints. CCU Objective - Vital Signs / Intake & Output Vital Signs (Last 4 hours): Vital Signs Temp Pulse Resp BP Pulse Ox 01/28/17 14:00 71 12 96/52 L 100 01/28/17 12:00 98.0 F 71 18 137/74 100 Intake and Output (Last 8hrs): Intake & Output 01/27/17 01/28/17 01/28/17 22:59 06:59 14:59 Intake Total 1085 660 860 Output Total 170 500 Balance 915 160 860 Weight 239 lb Intake: IV 10 Intake, Piggyback 400 200 250 Tube Feeding 675 360 360 Free Water Flush 100 250 Output: Urine 20 Urethral (Childers) 20 Stool 150 500 Other: # Bowel Movements 2 - Physical Exam Head: Positive for: Normocephalic Pupils: Positive for: PERRL Extroacular Muscles: Positive for: EOMI. Negative for: Gaze Palsy Conjunctiva: Positive for: Icteric. Negative for: Injected Mouth: Positive for: Dry Neck: Negative for: Meningeal Signs, JVD (unable to assess due to obese neck) Respiratory/Chest: Positive for: Decreased Breath Sounds. Negative for: Accessory Muscle Use, Wheezes, Rales, Rhonchi Cardiovascular: Positive for: Regular Rate and Rhythm, Muffled. Negative for: Murmurs, Rub Abdomen: Positive for: Normal Bowel Sounds, Other (+ ascitic fluid wave.jaundice skin). Negative for: Tenderness, Distention, Rebound, Guarding Upper Extremity: Positive for: Edema (anasarca) Lower Extremity: Positive for: Edema (anasarca) Neurological: Positive for: Speech Normal Skin: Positive for: Other (Jaundice) Psychiatric: Positive for: Alert - Medications Active Medications: Active Medications Generic Name Dose Route Start Last Admin Trade Name Freq PRN Reason Stop Dose Admin Albumin Human 12.5 gm 01/28/17 12:30 01/28/17 14:08 Albumin Human 25% (12.5 Gm/50 Ml) IV 01/30/17 12:30 Not Given Q6H THAD Folic Acid 1 mg 01/21/17 15:15 01/28/17 08:11 Folic Acid PO 1 mg DAILY [facility] Administration Meropenem 500 mg/ Sodium 100 mls @ 100 mls/hr 01/22/17 17:00 01/28/17 08:11 Chloride IVPB 100 mls/hr Q12 [facility]AD Administration Methylprednisolone 20 mg/ 50 mls @ 100 mls/hr 01/28/17 09:00 01/28/17 08:13 Sodium Chloride IV 100 mls/hr DAILY [facility] Administration Fluconazole 50 mls @ 50 mls/hr 01/28/17 09:00 01/28/17 08:11 Diflucan Iv 100 Mg/50 Ml Ns IVPB 01/30/17 09:59 50 mls/hr DAILY [facility] Administration Lactulose 20 gm 01/18/17 09:00 01/28/17 12:12 Enulose PO 20 gm TID [facility]AD Administration Levothyroxine Sodium 50 mcg 01/16/17 06:30 01/28/17 05:33 Synthroid PO 50 mcg DAILY@0630 [facility] Administration Midodrine 7.5 mg 01/27/17 13:00 01/28/17 12:12 Proamatine PO 7.5 mg TID [facility]AD Administration Nystatin 1 applic 01/16/17 13:00 01/28/17 14:09 Nystop Topical Powder TOP Not Given TID [facility]AD Octreotide Acetate 100 mcg 01/27/17 17:00 01/28/17 08:15 Sandostatin SC 100 mcg Q8 [facility] Administration Pantoprazole Sodium 40 mg 01/26/17 10:30 01/28/17 08:12 Protonix Susp GT 40 mg DAILY [facility] Administration Rifaximin 200 mg 01/27/17 17:00 01/28/17 12:13 Xifaxan PO 200 mg Q8 [facility] Administration Thiamine HCl 100 mg 01/27/17 09:00 01/28/17 08:13 Vitamin B1 Tab PO 100 mg DAILY [facility] Administration - Patient Studies Lab Studies: Microbiology Studies 01/20/17 14:00 Gram Stain - Final Ascitic Fluid Body Fluid Culture - Preliminary No growth. 01/22/17 17:05 Blood Culture - Final Blood-Venous NO GROWTH AFTER 5 DAYS Gram Stain - Final TEST NOT PERFORMED 01/22/17 17:00 Blood Culture - Final Blood-Venous NO GROWTH AFTER 5 DAYS Gram Stain - Final TEST NOT PERFORMED Lab Studies 01/28/17 01/28/17 01/28/17 Range/Units 10:52 05:30 05:30 WBC (4.8-10.8) K/uL RBC (3.80-5.20) Mil/uL Hgb (12.0-16.0) g/dL Hct (34.0-47.0) % MCV (81.0-99.0) fl MCH (27.0-31.0) pg MCHC (33.0-37.0) g/dL RDW (11.5-14.5) % Plt Count (130-400) K/uL PT 15.5 H (9.8-13.1) Seconds INR 1.5 H (0.9-1.2) APTT 41.3 H D (25.6-37.1) Seconds Sodium 142 (132-148) mmol/l Potassium 4.2 (3.6-5.0) MMOL/L Chloride 106 (98-107) mmol/L Carbon Dioxide 21 L (22-30) mmol/L Anion Gap 19 (10-20) BUN 85 H (7-17) mg/dl Creatinine 5.2 H (0.7-1.2) mg/dL Est GFR ( Amer) 10 Est GFR (Non-Af Amer) 8 POC Glucose (mg/dL) 142 H (65-110) mg/dL Random Glucose 123 H (65-105) mg/dL Calcium 9.1 (8.4-10.2) mg/dL Phosphorus 7.3 H (2.5-4.5) mg/dl Magnesium 2.9 H (1.6-2.3) MG/DL Total Bilirubin 13.1 H (0.2-1.3) mg/dl Direct Bilirubin 10.9 H (0.0-0.4) mg/ml AST 89 H D (14-36) U/L ALT 72 H D (9-52) U/L Alkaline Phosphatase 143 H D (38-126) U/L Total Protein 6.4 (6.3-8.2) G/DL Albumin 3.6 (3.5-5.0) g/dL Globulin 2.8 (2.2-3.9) gm/dL Albumin/Globulin Ratio 1.3 (1.0-2.1) 01/28/17 01/28/17 01/27/17 Range/Units 05:30 04:50 21:43 WBC 21.0 H (4.8-10.8) K/uL RBC 2.48 L (3.80-5.20) Mil/uL Hgb 10.3 L D (12.0-16.0) g/dL Hct 31.4 L (34.0-47.0) % MCV 126.5 H D (81.0-99.0) fl MCH 41.4 H (27.0-31.0) pg MCHC 32.7 L (33.0-37.0) g/dL RDW 21.9 H (11.5-14.5) % Plt Count 68 L (130-400) K/uL PT (9.8-13.1) Seconds INR (0.9-1.2) APTT (25.6-37.1) Seconds Sodium (132-148) mmol/l Potassium (3.6-5.0) MMOL/L Chloride (98-107) mmol/L Carbon Dioxide (22-30) mmol/L Anion Gap (10-20) BUN (7-17) mg/dl Creatinine (0.7-1.2) mg/dL Est GFR ( Amer) Est GFR (Non-Af Amer) POC Glucose (mg/dL) 115 H 161 H (65-110) mg/dL Random Glucose (65-105) mg/dL Calcium (8.4-10.2) mg/dL Phosphorus (2.5-4.5) mg/dl Magnesium (1.6-2.3) MG/DL Total Bilirubin (0.2-1.3) mg/dl Direct Bilirubin (0.0-0.4) mg/ml AST (14-36) U/L ALT (9-52) U/L Alkaline Phosphatase (38-126) U/L Total Protein (6.3-8.2) G/DL Albumin (3.5-5.0) g/dL Globulin (2.2-3.9) gm/dL Albumin/Globulin Ratio (1.0-2.1) 01/27/17 Range/Units 16:03 WBC (4.8-10.8) K/uL RBC (3.80-5.20) Mil/uL Hgb (12.0-16.0) g/dL Hct (34.0-47.0) % MCV (81.0-99.0) fl MCH (27.0-31.0) pg MCHC (33.0-37.0) g/dL RDW (11.5-14.5) % Plt Count (130-400) K/uL PT (9.8-13.1) Seconds INR (0.9-1.2) APTT (25.6-37.1) Seconds Sodium (132-148) mmol/l Potassium (3.6-5.0) MMOL/L Chloride (98-107) mmol/L Carbon Dioxide (22-30) mmol/L Anion Gap (10-20) BUN (7-17) mg/dl Creatinine (0.7-1.2) mg/dL Est GFR ( Amer) Est GFR (Non-Af Amer) POC Glucose (mg/dL) 122 H (65-110) mg/dL Random Glucose (65-105) mg/dL Calcium (8.4-10.2) mg/dL Phosphorus (2.5-4.5) mg/dl Magnesium (1.6-2.3) MG/DL Total Bilirubin (0.2-1.3) mg/dl Direct Bilirubin (0.0-0.4) mg/ml AST (14-36) U/L ALT (9-52) U/L Alkaline Phosphatase (38-126) U/L Total Protein (6.3-8.2) G/DL Albumin (3.5-5.0) g/dL Globulin (2.2-3.9) gm/dL Albumin/Globulin Ratio (1.0-2.1) Laboratory Results - last 24 hr 01/27/17 01/27/17 01/28/17 16:03 21:43 04:50 WBC RBC Hgb Hct MCV MCH MCHC RDW Plt Count PT INR APTT Sodium Potassium Chloride Carbon Dioxide Anion Gap BUN Creatinine Est GFR ( Amer) Est GFR (Non-Af Amer) POC Glucose (mg/dL) 122 H 161 H 115 H Random Glucose Calcium Phosphorus Magnesium Total Bilirubin Direct Bilirubin AST ALT Alkaline Phosphatase Total Protein Albumin Globulin Albumin/Globulin Ratio 01/28/17 01/28/17 01/28/17 05:30 05:30 05:30 WBC 21.0 H RBC 2.48 L Hgb 10.3 L D Hct 31.4 L MCV 126.5 H D MCH 41.4 H MCHC 32.7 L RDW 21.9 H Plt Count 68 L PT 15.5 H INR 1.5 H APTT 41.3 H D Sodium 142 Potassium 4.2 Chloride 106 Carbon Dioxide 21 L Anion Gap 19 BUN 85 H Creatinine 5.2 H Est GFR ( Amer) 10 Est GFR (Non-Af Amer) 8 POC Glucose (mg/dL) Random Glucose 123 H Calcium 9.1 Phosphorus 7.3 H Magnesium 2.9 H Total Bilirubin 13.1 H Direct Bilirubin 10.9 H AST 89 H D ALT 72 H D Alkaline Phosphatase 143 H D Total Protein 6.4 Albumin 3.6 Globulin 2.8 Albumin/Globulin Ratio 1.3 01/28/17 10:52 WBC RBC Hgb Hct MCV MCH MCHC RDW Plt Count PT INR APTT Sodium Potassium Chloride Carbon Dioxide Anion Gap BUN Creatinine Est GFR ( Amer) Est GFR (Non-Af Amer) POC Glucose (mg/dL) 142 H Random Glucose Calcium Phosphorus Magnesium Total Bilirubin Direct Bilirubin AST ALT Alkaline Phosphatase Total Protein Albumin Globulin Albumin/Globulin Ratio Fingerstick Blood Sugar Results: 142 Review of Systems - Review of Systems All systems: reviewed and no additional remarkable complaints except - Integumentary Integumentary: Change in Pigmentation Assessment/Plan (1) Hepatic encephalopathy Assessment and plan: 61 yo ,f Pmhx/o alcoholic cirrhosis, ETOH abuse, Hypothyroidism who was borught to ED 01/12 for acute ETOH intoxication, fell on the knees,found with leukocytosis, elevate lactic acid and AMS. Patient transferred to ICU for metabolic encephalopathy and hepatorenal syndrome Neuro: alert, but mental status waxes and wanes, metabolic hepatic encephalopathy on lactulose and rifaximin. Pulm: no acute issues, breathing spontaneously on nasal canula oxygen. CV: hemodynamically stable. Hem: anemia of chronic disease, thrombocytopenia from chronic liver disease. Renal: suspected hepatorenal syndrome, now on dialysis (01/23). HRS treatment with IV albumin, midodrine and octreotide (started, 01/27). Endo: hypothyroidism, continue levothyroxine 50 mcg po daily. GI: NGT feeding because of altered mental status, on Nepro@45 goal rate. Steroids, tapering down, Solu-Medrol 20mg IV daily. GI - Dr. Marino. ID: sepsis for suspected SBP, continue Meropenem. Fluconazole started for yeast in urine (01/24). ID - Dr. Cody DVT proph - GI proph - protonix childers for strict I/O's during acute illness Code status - full code RBasilic PICC (01/23) [facility] Patient was accepted for transfer to [place] for evaluation for liver transplant. Critical Care Time spent 45 minutes Multi-disciplinary rounds were performed with house staff, nursing, speech therapy, respiratory therapy, pharmacy and nutrition with integrated input from the primary team/attending and other consulting services. The documented time is cumulative and includes review of patient data/exams/labs/chart review and examination of the patient on rounds and throughout the day; time is exclusive of any procedures or teaching time. Current Visit: Yes Status: Acute
--- NOTE | 2017-01-29 13:38 | CP.PCM.DIS ---
Provider - Provider Date of Admission: 01/12/17 17:20 Attending physician: Dane Holman MD Time Spent in preparation of Discharge (in minutes): 30 Diagnosis - Discharge Diagnosis (1) Alcohol abuse Status: Chronic (2) Alcoholic hepatitis with ascites Status: Chronic (3) Ascites due to alcoholic cirrhosis Status: Chronic (4) Leukocytosis Status: Acute (5) Alcohol withdrawal Status: Acute (6) Wernicke encephalopathy Status: Chronic (7) Alcohol abuse with intoxication Status: Chronic (8) Hepatic encephalopathy Status: Acute (9) Hepatic failure due to alcoholism Status: Acute (10) Renal tubulopathy, encephalopathy, and liver failure syndrome Status: Acute (11) Hypoalbuminemia Status: Acute (12) Acidosis, lactic Status: Acute (13) Acidosis, metabolic Status: Acute (14) Sepsis Status: Ruled-out (15) UTI (urinary tract infection) Status: Acute (16) Ascites Status: Chronic Hospital Course - Lab Results Lab Results: Micro Results 01/20/17 14:00 Ascitic Fluid Gram Stain - Final 01/20/17 14:00 Ascitic Fluid Body Fluid Culture - Preliminary No growth. 01/22/17 17:05 Blood-Venous Blood Culture - Final NO GROWTH AFTER 5 DAYS 01/22/17 17:05 Blood-Venous Gram Stain - Final TEST NOT PERFORMED 01/22/17 17:00 Blood-Venous Blood Culture - Final NO GROWTH AFTER 5 DAYS 01/22/17 17:00 Blood-Venous Gram Stain - Final TEST NOT PERFORMED 01/24/17 18:49 Urine,Meredith Urine Culture - Final Yeast Species 01/24/17 07:20 Urine,Meredith Urine Culture - Final Yeast Species 01/22/17 21:30 Naris MRSA Culture (Admit) - Final MRSA NOT DETECTED 01/18/17 15:28 Blood-Venous Blood Culture - Final NO GROWTH AFTER 5 DAYS 01/18/17 15:28 Blood-Venous Gram Stain - Final TEST NOT PERFORMED 01/18/17 15:28 Blood-Venous Blood Culture - Final NO GROWTH AFTER 5 DAYS 01/18/17 15:28 Blood-Venous Gram Stain - Final TEST NOT PERFORMED 01/12/17 17:30 Blood-Venous Blood Culture - Final NO GROWTH AFTER 5 DAYS 01/12/17 17:30 Blood-Venous Gram Stain - Final TEST NOT PERFORMED 01/14/17 20:30 Urine Urine Culture - Final No Growth (<1,000 CFU/ML) Most Recent Lab Values WBC 21.0 K/uL (4.8-10.8) H 01/28/17 05:30 RBC 2.48 Mil/uL (3.80-5.20) L 01/28/17 05:30 Hgb 10.3 g/dL (12.0-16.0) L D 01/28/17 05:30 Hct 31.4 % (34.0-47.0) L 01/28/17 05:30 MCV 126.5 fl (81.0-99.0) H D 01/28/17 05:30 MCH 41.4 pg (27.0-31.0) H 01/28/17 05:30 MCHC 32.7 g/dL (33.0-37.0) L 01/28/17 05:30 RDW 21.9 % (11.5-14.5) H 01/28/17 05:30 Plt Count 68 K/uL (130-400) L 01/28/17 05:30 MPV 9.8 fl (7.2-11.7) 01/24/17 04:30 Neut % (Auto) 93.6 % (50.0-75.0) H 01/24/17 04:30 Lymph % (Auto) 2.8 % (20.0-40.0) L 01/24/17 04:30 [place] % (Auto) 2.7 % (0.0-10.0) 01/24/17 04:30 Eos % (Auto) 0.4 % (0.0-4.0) 01/24/17 04:30 Baso % (Auto) 0.5 % (0.0-2.0) 01/24/17 04:30 Neut # 17.1 K/uL (1.8-7.0) H 01/24/17 04:30 Lymph # 0.5 K/uL (1.0-4.3) L 01/24/17 04:30 [place] # 0.5 K/uL (0.0-0.8) 01/24/17 04:30 Eos # 0.1 K/uL (0.0-0.7) 01/24/17 04:30 Baso # 0.1 K/uL (0.0-0.2) 01/24/17 04:30 Neutrophils % (Manual) 92 % (42-75) H 01/27/17 04:20 Band Neutrophils % 3 % (0-2) H 01/22/17 05:30 Lymphocytes % (Manual) 3 % (20-50) L 01/27/17 04:20 Monocytes % (Manual) 1 % (0-10) 01/27/17 04:20 Eosinophils % (Manual) 1 % (0-7) 01/27/17 04:20 Metamyelocytes % 1 % (0-0) H 01/27/17 04:20 Myelocytes % 2 % (0-0) H 01/27/17 04:20 Toxic Granulation Present 01/23/17 04:20 Platelet Estimate Decreased (NORMAL) L 01/27/17 04:20 Large Platelets Present 01/22/17 05:30 Polychromasia Slight 01/24/17 04:30 Hypochromasia (manual) Marked 01/27/17 04:20 Poikilocytosis (manual Slight 01/22/17 05:30 Anisocytosis (manual) Slight 01/27/17 04:20 Macrocytosis (manual) Slight 01/27/17 04:20 Target Cells Slight 01/24/17 04:30 Tear Drop Cells Slight 01/24/17 04:30 Ovalocytes Slight 01/27/17 04:20 Schistocytes Slight 01/23/17 04:20 PT 15.5 Seconds (9.8-13.1) H 01/28/17 05:30 INR 1.5 (0.9-1.2) H 01/28/17 05:30 APTT 41.3 Seconds (25.6-37.1) H D 01/28/17 05:30 pCO2 30 mm/Hg (35-45) L 01/22/17 19:43 pO2 72 mm/Hg (80-100) L 01/22/17 19:43 HCO3 14.5 mmol/L (21-28) L 01/22/17 19:43 ABG pH 7.24 (7.35-7.45) L 01/22/17 19:43 ABG Total CO2 13.8 mmol/L (22-28) L 01/22/17 19:43 ABG O2 Saturation 96.5 % (95-98) 01/22/17 19:43 ABG O2 Content 16.2 ML/dL (15-23) 01/14/17 10:59 ABG Base Excess -13.2 mmol/L (-2.0-3.0) L 01/22/17 19:43 ABG Hemoglobin 12.1 g/dL (11.7-17.4) 01/14/17 10:59 ABG Carboxyhemoglobin 2.6 % (0.5-1.5) H 01/14/17 10:59 POC ABG HHb (Measured) 1.1 % (0.0-5.0) 01/14/17 10:59 ABG Methemoglobin 1.5 % (0.0-3.0) 01/14/17 10:59 ABG O2 Capacity 16.4 mL/dL (16-24) 01/14/17 10:59 Prosper Test Yes 01/22/17 19:43 ABG Potassium 5.4 mmol/L (3.6-5.2) H 01/22/17 19:43 VBG pH 7.42 (7.32-7.43) 01/12/17 18:30 VBG pCO2 37 mmHg (40-60) L 01/12/17 18:30 VBG HCO3 24.2 mmol/L 01/12/17 18:30 VBG Total CO2 25.1 mmol/L (22-28) 01/12/17 18:30 VBG O2 Sat (Calc) 82.1 % (40-65) H 01/12/17 18:30 VBG Base Excess -0.2 mmol/L (0.0-2.0) L 01/12/17 18:30 VBG Potassium 3.2 mmol/L (3.6-5.2) L 01/12/17 18:30 A-a O2 Difference 90.0 mm/Hg 01/22/17 19:43 Hgb O2 Saturation 94.7 % (95.0-98.0) L 01/14/17 10:59 Sodium 137.0 mmol/L (132-148) 01/22/17 19:43 Chloride 111.0 mmol/L (98-107) H 01/22/17 19:43 Glucose 122 mg/dL (65-105) H 01/22/17 19:43 Lactate 1.3 mmol/L (0.7-2.1) 01/22/17 19:43 Vent Mode N/c 01/22/17 19:43 FiO2 28.0 % 01/22/17 19:43 Sodium 142 mmol/l (132-148) 01/28/17 05:30 Potassium 4.2 MMOL/L (3.6-5.0) 01/28/17 05:30 Chloride 106 mmol/L (98-107) 01/28/17 05:30 Carbon Dioxide 21 mmol/L (22-30) L 01/28/17 05:30 Anion Gap 19 (10-20) 01/28/17 05:30 BUN 85 mg/dl (7-17) H 01/28/17 05:30 Creatinine 5.2 mg/dL (0.7-1.2) H 01/28/17 05:30 Est GFR ( Amer) 10 01/28/17 05:30 Est GFR (Non-Af Amer) 8 01/28/17 05:30 POC Glucose (mg/dL) 142 mg/dL (65-110) H 01/28/17 10:52 Random Glucose 123 mg/dL (65-105) H 01/28/17 05:30 Lactic Acid 1.1 MMOL/L (0.7-2.1) 01/23/17 04:20 Calcium 9.1 mg/dL (8.4-10.2) 01/28/17 05:30 Phosphorus 7.3 mg/dl (2.5-4.5) H 01/28/17 05:30 Magnesium 2.9 MG/DL (1.6-2.3) H 01/28/17 05:30 Total Bilirubin 13.1 mg/dl (0.2-1.3) H 01/28/17 05:30 Direct Bilirubin 10.9 mg/ml (0.0-0.4) H 01/28/17 05:30 AST 89 U/L (14-36) H D 01/28/17 05:30 ALT 72 U/L (9-52) H D 01/28/17 05:30 Alkaline Phosphatase 143 U/L (38-126) H D 01/28/17 05:30 Ammonia 31 umo/L (11-51) D 01/25/17 09:05 Total Creatine Kinase 195 U/L (30-135) H 01/12/17 19:30 Total Protein 6.4 G/DL (6.3-8.2) 01/28/17 05:30 Albumin 3.6 g/dL (3.5-5.0) 01/28/17 05:30 Globulin 2.8 gm/dL (2.2-3.9) 01/28/17 05:30 Albumin/Globulin Ratio 1.3 (1.0-2.1) 01/28/17 05:30 Triglycerides 221 mg/DL (0-149) H 01/12/17 19:30 Cholesterol 112 mg/dL (0-199) 01/12/17 19:30 LDL Cholesterol Direct 71 mg/dL (0-129) 01/12/17 19:30 HDL Cholesterol 9 MG/DL (30-70) L 01/12/17 19:30 Vitamin B12 > 1000 pg/mL (239-931) H 01/15/17 09:30 Folate 2.4 ng/mL 01/15/17 09:30 Thyroxine (T4) 6.08 ug/dl (5.5-11.0) 01/14/17 08:33 Total T3 0.509 nmol/L (1.49-2.60) L 01/14/17 08:33 TSH 3rd Generation 3.85 mIU/ML (0.46-4.68) 01/20/17 09:50 Arterial Blood Potassium 5.4 mmol/L (3.6-5.2) H 01/22/17 19:43 Venous Blood Potassium 3.2 mmol/L (3.6-5.2) L 01/12/17 18:30 Urine Color G[place] (YELLOW) 01/24/17 18:49 Urine Clarity Turbid (Clear) 01/24/17 18:49 Urine pH 5.0 (5.0-8.0) 01/24/17 18:49 Ur Specific [place] 1.013 (1.003-1.030) 01/24/17 18:49 Urine Protein 100 mg/dL (NEGATIVE) 01/24/17 18:49 Urine Glucose (UA) Neg mg/dL (Normal) 01/24/17 18:49 Urine Ketones Negative mg/dL (NEGATIVE) 01/24/17 18:49 Urine Blood Large (NEGATIVE) 01/24/17 18:49 Urine Nitrate Negative (NEGATIVE) 01/24/17 18:49 Urine Bilirubin Small (NEGATIVE) 01/24/17 18:49 Urine Urobilinogen 0.2-1.0 mg/dL (0.2-1.0) 08 18:49 Ur Leukocyte Esterase Mod Arlene/uL (Negative) 01/24/17 18:49 Urine RBC (Auto) 502 /hpf (0-3) H 01/24/17 18:49 Urine WBC Clumps (Auto) Many /hpf (NONE) H 01/24/17 18:49 Urine Microscopic WBC 3558 /hpf (0-5) H 01/24/17 18:49 Ur Squamous Epith Cells 17 /hpf (0-5) H 01/20/17 03:32 Ur Renal Epithelial Cell 3 /hpf (0-3) 01/12/17 11:30 Urine Bacteria Mod (<OCC) H 01/24/17 18:49 Hyaline Casts >20 /hpf (0-2) H 01/24/17 18:49 Urine Yeast (Budding) Many /hpf (NEGATIVE) H 01/24/17 18:49 Urine Osmolality 389 mosm/kg (300-1000) 01/20/17 02:25 Ur Random Creatinine 135.7 mg/dL 01/20/17 10:50 Ur Random Sodium 16 meq/L 01/20/17 10:50 Ur Random Potassium 67.7 mmol/L 01/20/17 10:50 Fluid Source Peritoneal/ascites 01/20/17 14:00 Fluid Appearance Clear (CLEAR) 01/20/17 14:00 Fluid WBC 135.0 /mm3 (0.0-300.0) 01/20/17 14:00 Fluid RBC 341.0 /mm3 (0.0-0.0) H 01/20/17 14:00 Fluid Tot Cell Count TEST NOT PERFORMED 01/20/17 14:00 Fluid Neutrophils 60.0 % (0-0) H 01/20/17 14:00 Fluid Lymphocytes 2.0 % (0-0) H 01/20/17 14:00 Fld Monocyte/Macrophag 38 % (0-0) H 01/20/17 14:00 Fluid Glucose 95 mg/dL (NONE ESTABLISHED) 01/20/17 14:00 Fluid Total Protein < 2.0 g/dL (NONE ESTABLISHED) 01/20/17 14:00 Fluid LDH 418 IU (NONE ESTABLISHED) 01/20/17 14:00 Fluid Amylase < 30 mg/dL (NONE ESTABLISHED) 01/20/17 14:00 Fluid Triglycerides 17 mg/dL (NONE ESTABLISHED) 01/20/17 14:00 Fluid Comment TEST NOT PERFORMED 01/20/17 14:00 Urine Opiates Screen Negative (NEGATIVE) 01/12/17 11:30 Urine Methadone Screen Negative (NEGATIVE) 01/12/17 11:30 Ur Barbiturates Screen Negative (NEGATIVE) 01/12/17 11:30 Ur Phencyclidine Scrn Negative (NEGATIVE) 01/12/17 11:30 Ur Amphetamines Screen Negative (NEGATIVE) 01/12/17 11:30 U Benzodiazepines Scrn Negative (NEGATIVE) 01/12/17 11:30 U Oth Cocaine Metabols Negative (NEGATIVE) 01/12/17 11:30 U Cannabinoids Screen Negative (NEGATIVE) 01/12/17 11:30 Alcohol, Quantitative 196 mg/dl (0-10) H 01/12/17 11:30 Hepatitis A IgM Ab Negative (NEGATIVE) 01/19/17 15:45 Hep Bs Antigen Negative (NEGATIVE) 01/19/17 15:45 Hep B Core IgM Ab Negative (NEGATIVE) 01/19/17 15:45 Hepatitis C Antibody Negative (NEGATIVE) 01/19/17 15:45 HIV 1&2 Antibody Screen Negative (NEGATIVE) 01/19/17 15:45 - Hospital Course Hospital Course: 61 yo ,f Pmhx/o alcoholic cirrhosis, ETOH abuse, Hypothyroidism who was borught to ED 01/12 for acute ETOH intoxication, fell on the knees,found with leukocytosis, elevate lactic acid and AMS. Patient transferred to ICU for metabolic encephalopathy and hepatorenal syndrome Patient was accepted for transfer to [place] for evaluation for liver transplant. Discharge Exam - Head Exam Head Exam: ATRAUMATIC Additional comments: As pre note on 01/29 Discharge Plan - Follow Up Plan Condition: STABLE Disposition: Trans to Other Acute Care Hosp
--- NOTE | 2017-02-01 11:11 | VASCULAR ---
PROCEDURE: Date of procedure: 01/23/2017 Procedure: 1. Placement of a right arm PICC with ultrasound and fluoroscopic guidance, CPT 13279 2. PICC tip confirmation with spot radiograph and is in the superior vena cava Medications: 1 percent lidocaine Total Fluoro time: 13.7 seconds Radiation: 1.96 MGy EBL: 2 cc HISTORY: Infection requiring long-term IV antibiotics TECHNIQUE: Following informed consent and procedure time-out, the patient was placed supine on the interventional table and the right arm prepped and draped in the usual sterile fashion. Ultrasound showed a patent and compressible right basilic vein. After the skin was anesthetized with lidocaine, the basilic vein was accessed with micro micropuncture technique using ultrasound guidance. A guidewire was then advanced under fluoroscopic guidance into the superior vena cava. An image documenting ultrasound guidance for vascular access was permanently saved. The length of the single-lumen 4 [place] PICC was trimmed to 35 centimeters and advanced through a peel-away sheath. The PICC was position with tip of PICC confirm a spot radiograph the superior vena cava. The PICC was secured to the patient's skin. The PICC was flushed. A biopatch and sterile dressing was applied. IMPRESSION: Placement of a single-lumen 4 [place] PICC trimmed to 35 centimeters via right basilic vein. The tip of the PICC is confirmed with spot radiograph and is in the superior vena cava.
--- NOTE | 2017-02-01 11:12 | VASCULAR ---
PROCEDURE: Date of procedure: 01/23/2017 Procedure: Placement of a non tunneled hemodialysis catheter, CPT 50583 Medications: 6cc 1 percent lidocaine Radiation: 0.93 MGy Fluoro time: 6.6 seconds Images saved: 2 HISTORY: Renal failure TECHNIQUE: Following informed consent, the patient's right neck was prepped and draped in the usual sterile fashion. Ultrasound showed a patent and compressible right internal jugular vein. After the skin was anesthetized with 1% lidocaine, the internal jugular vein was accessed under direct ultrasound guidance with micropuncture technique and a guidewire was advanced under fluoroscopic guidance into the SVC. The venotomy was then dilated to accommodate a non tunneled 15 hemodialysis catheter. An image documenting ultrasound guidance for vascular access was permanently saved. The catheter was tested and has adequate blood return for hemodialysis. The catheter was flushed and loaded with heparin per specified amounts. The catheter was secured to patient's skin. A dressing was applied. Post procedure chest x-ray showed a hemodialysis catheter at the caval atrial junction. IMPRESSION: Placement of a non tunneled 15 centimeter hemodialysis catheter via the right internal jugular vein. The tip of the catheter was confirmed with a postoperative chest x-ray and is at the cavoatrial junction. The catheter is functional ready for use.
--- NOTE | 2017-02-01 11:14 | US ---
Date of Procedure: 01/20/2017 PROCEDURE: Ultrasound-guided paracentesis, CPT 05062 Medications: 7 cc 1% Lidocaine HISTORY: Ascites, abdominal pain, sepsis TECHNIQUE: Following informed consent , the patient was placed supine on the stretcher and the site was marked. A limited abdominal ultrasound was performed that showed a large amount of intra-abdominal fluid. Procedural time out was called and the Pt's abdomen was marked and prepped and draped in the usual sterile fashion. Ultrasound-guided large volume paracentesis performed. A total of 4 liters of straw colored fluid was removed without complication. IMPRESSION: Ultrasound-guided large volume paracentesis.
== END 2017-01-28 16:12 | disposition short-term general hospital (02) | DRG 432 ==
LOC: H.ER 11:00 → H.ERHOLD 17:20 → H.TEL 18:57 → H.ICU/CCU 01-22 18:41
PROVIDERS: ADMIT Internal Medicine; ATTEND Internal Medicine
PROC: 0W9G3ZX Drainage of Peritoneal Cavity, Percutaneous Approach, Diagnostic (ICD-10-PCS; 2017-01-20)
PROC: 02HV33Z Insertion of Infusion Device into Superior Vena Cava, Percutaneous Approach (ICD-10-PCS; principal; 2017-01-23)
PROC: B518ZZA Fluoroscopy of Superior Vena Cava, Guidance (ICD-10-PCS; 2017-01-23)
PROC: 3E04329 Introduction of Other Anti-infective into Central Vein, Percutaneous Approach (ICD-10-PCS; 2017-01-23)
PROC: 05HM33Z Insertion of Infusion Device into Right Internal Jugular Vein, Percutaneous Approach (ICD-10-PCS; 2017-01-23)
PROC: B543ZZA Ultrasonography of Right Jugular Veins, Guidance (ICD-10-PCS; 2017-01-23)
PROC: 5A1D60Z (ICD-10-PCS; 2017-01-23)
DX: K70.11 Alcoholic hepatitis with ascites (principal); N17.0 Acute kidney failure with tubular necrosis; K76.7 Hepatorenal syndrome; G93.41 Metabolic encephalopathy; K65.2 Spontaneous bacterial peritonitis; Z76.82 Awaiting organ transplant status; E87.2 Acidosis; D68.4 Acquired coagulation factor deficiency; Z68.41 Body mass index [BMI] 40.0-44.9, adult; F10.239 Alcohol dependence with withdrawal, unspecified; N39.0 Urinary tract infection, site not specified; J98.11 Atelectasis; E51.2 Wernicke's encephalopathy; D69.59 Other secondary thrombocytopenia; K70.31 Alcoholic cirrhosis of liver with ascites; E87.5 Hyperkalemia; F10.229 Alcohol dependence with intoxication, unspecified; Y90.6 Blood alcohol level of 120-199 mg/100 ml; E66.01 Morbid (severe) obesity due to excess calories; E03.9 Hypothyroidism, unspecified; D63.8 Anemia in other chronic diseases classified elsewhere; K72.90 Hepatic failure, unspecified without coma; B36.9 Superficial mycosis, unspecified; E88.09 Other disorders of plasma-protein metabolism, not elsewhere classified; M48.06 Spinal stenosis, lumbar region; R32 Unspecified urinary incontinence; F17.210 Nicotine dependence, cigarettes, uncomplicated